=== PATIENT | male | born 1960 | race Caucasian/White ===

== ENCOUNTER 2017-03-31 15:48 | Inpatient (IN) | payer MEDICAID ==
[~2017-03-31] VITALS: Ht 167.6 cm; Wt 127.0 kg
[2017-03-31 19:15] VITALS: TEMP 98.9
[2017-03-31] MEDS ORDERED: PIPER-TAZO 3.375 GM IV (PMX) 50 ML IVPB STA (19:38)
[2017-03-31] MEDS ORDERED: SODIUM CHLORIDE 0.9% 1L BAG IV* STA (19:38)
[2017-03-31] MEDS ORDERED: VANCOMYCIN 1 GM (PMX) 250 ML IVPB STA (19:38)
[2017-03-31 20:01] LABS: BASOPHILS % 0.1 % (0.0-2.0); EOSINOPHILS % 0.3 % (0.0-7.0); HEMATOCRIT 25.5 % (42.0-52.0); HEMOGLOBIN 7.5 g/dl (14.0-18.0); LYMPHOCYTES # 1.7 10^3/ul (0.8-2.9); LYMPHOCYTES % 11.5 % (15.0-51.0); MEAN CORPUSCULAR HEMOGLOBIN 27.2 pg (29.0-33.0); MEAN CORPUSCULAR HGB CONC 29.4 g/dl (32.0-37.0); MEAN CORPUSCULAR VOLUME 92.4 fl (82.0-101.0); MEAN PLATELET VOLUME 9.7 fl (7.4-10.4); MONOCYTE # 1.1 10^3/ul (0.3-0.9); MONOCYTES % 7.4 % (0.0-11.0); NEUTROPHIL # 11.8 10^3/ul (1.6-7.5); NEUTROPHILS % 79.8 % (39.0-77.0); PLATELET COUNT 360 10^3/UL (140-415); RED BLOOD COUNT 2.76 10^6/ul (4.70-6.10); RED CELL DISTRIBUTION WIDTH 15.4 % (11.5-14.5); WHITE BLOOD COUNT 14.8 10^3/ul (4.8-10.8)
[2017-03-31 20:13] LABS: INR 1.16; PROTIME 14.8 Sec (12.2-14.2); PT RATIO 1.2
[2017-03-31 20:14] LABS: PARTIAL THROMBOPLASTIN TIME 42.3 Sec (25.0-35.0)
[2017-03-31 20:19] LABS: ALBUMIN 3.2 g/dl (3.3-4.9); ALBUMIN/GLOBULIN RATIO 0.8; CALCIUM 8.3 mg/dl (8.4-10.2); CREATININE 3.53 mg/dl (0.61-1.24); TOTAL PROTEIN 7.2 g/dl (6.1-8.1)
[2017-03-31 20:28] LABS: TROPONIN-I 0.091 ng/ml (0.00-0.12)
[2017-03-31] MEDS ORDERED: METO-407 PO (20:35)
[2017-03-31] MEDS ORDERED: GLIP5TAB13 PO (20:35)
[2017-03-31] MEDS ORDERED: LISI1TAB8 PO (20:35)
[2017-03-31] MEDS ORDERED: ERGO500037 PO (20:35)
[2017-03-31] MEDS ORDERED: SULF1TAB31 PO (20:35)
[2017-03-31] MEDS ORDERED: FENO160T10 PO (20:45)
[2017-03-31] MEDS ORDERED: OMEP20CA16 PO (20:45)
[2017-03-31] MEDS ORDERED: ASPI-535 PO (20:45)
[2017-03-31] MEDS ORDERED: AMIT10TA6 PO (20:45)
[2017-03-31] MEDS ORDERED: ATOR80TA75 PO (20:45)
[2017-03-31] MEDS ORDERED: HYDR-906 PO (20:45)
[2017-03-31] MEDS ORDERED: NOVO3I SC (20:45)
[2017-03-31] MEDS ORDERED: LANT3I SC (20:45)
[2017-03-31] MEDS ORDERED: METF1000 PO (20:45)
[2017-03-31] MEDS ORDERED: ALBUTEROL 0.5% (NEB) 2.5 MG/0.5 ML AMP INH STA (20:49)
[2017-03-31] MEDS ORDERED: INSULIN REGULAR, HUMAN 100 UNIT/1 ML 3ML VIAL IV STA (20:49)
[2017-03-31] MEDS ORDERED: NA POLYST SULFON 15 GM/60 ML BTL PO STA (20:49)
[2017-03-31] MEDS ORDERED: DEXTROSE 50% 50 ML SYRINGE IV PRN ×3 (21:00→23:45)
--- NOTE | 2017-03-31 21:11 | ERD ---
ER Documentation Chief Complaint Chief Complaint Right foot DM ulcer infection, sent by [facility] HPI 56-year-old male with history of diabetes, hypertension, and bilateral foot ulcers sent in from his wound care clinic for admission. Patient states he initially had an ulcer on his left foot that was being treated. For the past 3 weeks, he has had swelling and an ulcer of his right foot. His symptoms have been worsening and now he has associated cellulitis. When he was evaluated in the clinic, they recommended IV antibiotics and admission. The patient denies any fevers or chills but feels very weak. He complains of mild shortness of breath but no chest pain. He has noticed a new rash all over his body for the past 2 days as well. ROS All systems reviewed and are negative except as per history of present illness. Medications Home Meds Reported Medications Insulin Glargine* (Lantus*) 100 Unit/Ml Soln, 1 UNIT SC QHS, #1 VIAL 03/31/17 Hydrocodone/Acetaminophen ([place] 5-325 Tablet) 1 Each Tablet, 1 EACH PO, TAB 03/31/17 Amitriptyline Hcl* (Amitriptyline Hcl*) 10 Mg Tablet, 10 MG PO QHS, #30 TAB 03/31/17 Atorvastatin* (Atorvastatin*) 80 Mg Tablet, 80 MG PO QHS, #30 TAB 03/31/17 Fenofibrate (Triglide) 160 Mg Tablet, 160 MG PO DAILY, TAB 03/31/17 Insulin Aspart* (Novolog Insulin Pen*) 100 Unit/Ml Soln, 15 UNIT SC WITH MEALS BEDTIME, EA 03/31/17 Metformin Hcl* (Metformin Hcl*) 1,000 Mg Tablet, 1000 MG PO WITH BREAKFAST DINNE , #30 TAB 03/31/17 Omeprazole* (Omeprazole*) 20 Mg Capsule.dr, 20 MG PO QHS, #30 CAP 03/31/17 Aspirin Ec (Aspir 81) 81 Mg Tablet.dr, 81 MG PO DAILY, #30 TAB 03/31/17 Sulfamethoxazole/Trimethoprim* (Bactrim Ds* Tablet) 1 Each Tablet, 1 TAB PO BID , TAB 03/31/17 Metoprolol Tartrate* (Lopressor*) 100 Mg Tablet, 100 MG PO QHS, #60 TAB 03/31/17 Ergocalciferol (Vitamin D2) (VITAMIN D2) 50,000 Unit Capsule, 51105 UNIT PO QMONDAYS, CAP 03/31/17 Glipizide* (Glipizide*) 5 Mg Tablet, 5 MG PO BID, TAB 03/31/17 Lisinopril/Hydrochlorothiazide (Lisinopril-Hctz 20-25 mg Tab) 1 Each Tablet, 1 EACH PO, TAB 03/31/17 Allergies Allergies: Coded Allergies: codeine (Unverified Allergy, Unknown, 03/31/17) Uncoded Allergies: SULFA (Allergy, Unknown, 03/31/17) PMhx/Soc History of Surgery: Yes (Amputation of some L toes, deep L hip abscess) Anesthesia Reaction: No Hx Neurological Disorder: Yes (Diabetic neuropathy) Hx Respiratory Disorders: No Hx Cardiac Disorders: Yes ( hypertension) Hx Psychiatric Problems: No Hx Miscellaneous Medical Probl: Yes (DM) Hx Alcohol Use: No Hx Substance Use: No Hx Tobacco Use: No Smoking Status: Never smoker FmHx Family History: diabetes Physical Exam Vitals Vital Signs Date Time Temp Pulse Resp B/P Pulse Ox O2 Delivery O2 Flow Rate FiO2 03/31/17 21:23 103 18 97 21 03/31/17 19:15 98.9 100 16 113/60 99 Room Air 03/31/17 16:01 98.9 79 20 113/60 98 Physical Exam Const: Obese, nontoxic, appears mildly short of breath but speaking in full sentences Head: Atraumatic Eyes: Normal Conjunctiva ENT: Normal External Ears, Nose and Mouth. Neck: Full range of motion..~ No meningismus. Resp: Clear to auscultation bilaterally, diminished donohue Cardio: Distant heart sounds, regular rate and rhythm, no murmurs Abd: Soft, non tender, non distended. Normal bowel sounds Skin: Petechial rash of bilateral upper and lower extremities and anterior trunk. Right foot with swelling and erythema up to midfoot. Warm to palpation. Large 6 x 6 cm ulcer to the plantar aspect of the right foot, foul- smelling, with packing in place. 1+ DP pulse. Left foot with dressings in place. No erythema of leg. Back: No midline or flank tenderness Ext: Bilateral lower extremity nonpitting edema, worse on the right Neur: Awake and alert Psych: Normal Mood and Affect Result Diagram: 11/15/17 1935 11/15/17 1935 Results 24 hrs Laboratory Tests Test 03/31/17 19:35 03/31/17 21:39 03/31/17 21:48 White Blood Count 14.810^3/ul Red Blood Count 2.7610^6/ul Hemoglobin 7.5g/dl Hematocrit 25.5% Mean Corpuscular Volume 92.4fl Mean Corpuscular Hemoglobin 27.2pg Mean Corpuscular Hemoglobin Concent 29.4g/dl Red Cell Distribution Width 15.4% Platelet Count 26375^3/UL Mean Platelet Volume 9.7fl Neutrophils % 79.8% Lymphocytes % 11.5% Monocytes % 7.4% Eosinophils % 0.3% Basophils % 0.1% Nucleated Red Blood Cells % 0.0/100WBC Neutrophils # 11.810^3/ul Lymphocytes # 1.710^3/ul Monocytes # 1.110^3/ul Eosinophils # 0.010^3/ul Basophils # 0.010^3/ul Nucleated Red Blood Cells # 0.010^3/ul Prothrombin Time 14.8Sec Prothrombin Time Ratio 1.2 INR International Normalized Ratio 1.16 Activated Partial Thromboplast Time 42.3Sec Sodium Level 141mmol/L Potassium Level 7.0mmol/L Chloride Level 113mmol/L Carbon Dioxide Level 11mmol/L Anion Gap 24 Blood Urea Nitrogen 76mg/dl Creatinine 3.53mg/dl Glucose Level 261mg/dl Lactic Acid Level 1.6mmol/L 1.4mmol/L Calcium Level 8.3mg/dl Total Bilirubin 0.0mg/dl Direct Bilirubin 0.00mg/dl Indirect Bilirubin 0.0mg/dl Aspartate Amino Transf (AST/SGOT) 24IU/L Alanine Aminotransferase (ALT/SGPT) 26IU/L Alkaline Phosphatase 192IU/L Troponin I 0.091ng/ml Total Protein 7.2g/dl Albumin 3.2g/dl Globulin 4.00g/dl Albumin/Globulin Ratio 0.80 Bedside Glucose 330mg/dL Current Medications Medications (Trade) Dose Ordered Sig/Monique Route PRN Reason Start Time Stop Time Status Last Admin Dose Admin Sodium Chloride 3720 ml 3,720 ml BOLUS OVER 2 HOURS STAT IV* 03/31/17 19:38 03/31/17 19:41 DC 03/31/17 20:00 Vancomycin HCl 250 ml @ 125 mls/hr ONCE STAT IVPB 03/31/17 19:38 03/31/17 21:37 DC 03/31/17 20:10 Piperacillin Sod/ Tazobactam Sod (Zosyn 3.375gm/ 50 ml (Pmx)) 50 ml @ 100 mls/hr ONCE STAT IVPB 03/31/17 19:38 03/31/17 20:07 DC 03/31/17 19:38 Sodium Polystyrene Sulfonate (Kayexalate) 30 gm ONCE STAT PO 03/31/17 20:49 03/31/17 20:50 DC 03/31/17 21:40 Albuterol (Proventil 0.5% (Neb)) 15 mg ONCE STAT INH 03/31/17 20:49 03/31/17 20:50 DC 03/31/17 21:21 Insulin Human Regular (Humulin R) 10 unit ONCE STAT IV 03/31/17 20:49 03/31/17 20:50 DC 03/31/17 21:31 Dextrose (D50w Syringe) ONCE PRN IV POC BLOOD GLUCOSE <250 MG/DL 03/31/17 21:00 Ondansetron HCl (Zofran Inj) 4 mg ER BRIDGE PRN IV NAUSEA AND/OR VOMITING 03/31/17 21:30 03/31/17 21:43 DC Acetaminophen (Tylenol Tab) 650 mg ER BRIDGE PRN PO MILD PAIN/FEVER 03/31/17 21:30 03/31/17 21:43 DC Sodium Polystyrene Sulfonate (Kayexalate) 30 gm ONCE ONCE PO 03/31/17 21:30 03/31/17 21:31 DC IV Flush (NS 3 ml) 3 ml PER PROTOCOL IV 03/31/17 21:30 Ondansetron HCl (Zofran Inj) 4 mg Q6H PRN IV NAUSEA AND/OR VOMITING 03/31/17 21:30 Acetaminophen (Tylenol Tab) 650 mg Q6H PRN PO PAIN LEVEL 1-3 OR FEVER 03/31/17 21:30 Morphine Sulfate (morphine) 2 mg Q4H PRN IV PAIN LEVEL 7-10 03/31/17 21:30 Docusate Sodium (Colace) 100 mg Q12H PRN PO CONSTIPATION 03/31/17 21:30 Bisacodyl (Dulcolax) 5 mg DAILY PRN PO CONSTIPATION 03/31/17 21:30 Furosemide (Lasix) 20 mg ONCE ONCE IV 03/31/17 22:00 03/31/17 22:01 UNV Miscellaneous Information (* Miscellaneous Pharmacy Order) Discontinue current oral sulfonylur... ONCE ONCE XX 03/31/17 22:00 03/31/17 22:01 UNV Diagnostic Test (Pha) (Accu-Chek) 1 ea 02 XX 04/01/17 02:00 UNV Miscellaneous Information (* Miscellaneous Pharmacy Order) HYPOGLYCEMIA PROTOCOL w... ONCE ONCE XX 03/31/17 22:00 03/31/17 22:01 UNV Insulin Aspart (Novolog Insulin Pen) NOVOLOG *MILD* ALGORITHM WITH MEALS BEDTIME SC 04/01/17 08:00 UNV Miscellaneous Information (* Miscellaneous Pharmacy Order) Discontinue all previ... ONCE ONCE XX 03/31/17 22:00 03/31/17 22:01 UNV Amitriptyline HCl (Elavil) 10 mg QHS PO 04/01/17 21:00 UNV Aspirin (Halfprin) 81 mg DAILY PO 04/01/17 09:00 UNV Atorvastatin Calcium (Lipitor) 80 mg QHS PO 04/01/17 21:00 UNV Metoprolol Tartrate (Lopressor) 100 mg QHS PO 04/01/17 21:00 UNV Miscellaneous Information 20 mg QHS PO 04/01/17 21:00 UNV Hydralazine HCl (Apresoline) 10 mg Q4H PRN IV ELEVATED BLOOD PRESSURE 03/31/17 22:00 UNV Amlodipine Besylate (Norvasc) 5 mg DAILY PO 04/01/17 09:00 UNV Procedures/MDM EMERGENT LABS AND DIAGNOSTIC STUDIES: Lab Results above were reviewed and interpreted by me. CBC: Leukocytosis, anemia CMP: Acute renal failure, metabolic acidosis, hyperkalemia, hyperglycemia Troponin within normal limits Lactate within normal limits 12-lead EKG was interpreted by Gillian Metzger MD: Sinus tachycardia with ventricular rate of 106 beats per minute Right bundle branch block, left anterior fascicular block No acute ST or T wave changes suggestive of acute ischemia or STEMI. Radiology Results as interpreted by Radiology below were reviewed by Vadim Metzger MD: CXR: IMPRESSION: 1. Low lung volumes with no definite consolidation. 2. Elevation of the right hemidiaphragm. Rafiq Alvarado Physician Date Time Electronically viewed and signed by Rafiq Alvarado Physician on 03/31/2017 21:15 Initial Nursing notes reviewed. Previous Medical Records requested via the Electronic Health Record. EMERGENCY DEPARTMENT COURSE / MEDICAL DECISION MAKING: This is a very ill patient with multiple acute medical issues. He initially presented for right foot cellulitis associated with a diabetic wound. His vitals were notable for mild tachycardia, but he was afebrile. Sepsis workup was initiated. IV fluids and broad-spectrum antibiotics were given. Given his petechiae, I have a high suspicion for bacteremia. He was noted to have leukocytosis but no lactic acidosis. His labs also showed acute renal failure with hyperkalemia and acidosis. Hyperkalemia was treated with insulin, dextrose , Kayexalate. He had no EKG changes requiring bicarb or calcium. Patient has remained stable while in the ED. However he is not safe for discharge and will require admission for further workup of his renal failure and treatment of his acute infection. Patient's infectious symptoms have not stabilized and the patient is at risk of rapid decompensation. The patient will be admitted for careful hydration, antibiotic therapy, and infectious source control. Severe Sepsis Assessment: Infectious Source: Cellulitis End organ damage indicated by: Pearl Diver > 2.0 Severe Sepsis Managment: Blood Cultures X 2 before broad spectrum antibiotics initiated within 3 hours of recognition. 30 ml/kg NS bolus Completed Initial Lactate: normal Repeat Lactate not indicated as initial < 2.0 Critical Care: Time: 40 minutes Treatments/Evaluations: Emergent fluid management, while maintaining close respiratory support. Immediate broad spectrum antibiotic therapy. Simultaneous assessment for possible sources in order to direct therapy. Consideration for invasive and chemical support to prevent respiratory or cardiac collapse. Septic Shock Assessment (1 hour post 30 ml/kg fluid bolus): Hypotension (SBP < 90 or 40 mmHg drop, MAP < 65): No Lactic acid > 4.0 No Accepting Care Team: Current data and ongoing care discussed. Time: Time of admission Primary Provider: Zachery Consulting: none Outstanding Data: cultures Departure Diagnosis: Primary Impression: Sepsis Sepsis type: sepsis due to unspecified organism Qualified Code: A41.9 - Sepsis, due to unspecified organism Additional Impressions: Anemia Anemia type: other cause Other causes of anemia: other cause, not classified Qualified Code: D64.89 - Anemia due to other cause, not classified Acute renal failure Acute renal failure type: unspecified Qualified Code: N17.9 - Acute renal failure, unspecified acute renal failure type Acute hyperkalemia Cellulitis and abscess of leg Diabetic ulcer of foot associated with diabetes mellitus due to underlying condition, with necrosis of muscle Diabetic foot ulcer location: unspecified part of foot Laterality: unspecified laterality Qualified Code: E08.621 - Diabetic ulcer of foot associated with diabetes mellitus due to underlying condition, with necrosis of muscle, unspecified laterality, unspecified part of foot Condition: Critical TATIANA METZGER MD Mar 31, 2017 21:11
--- NOTE | 2017-03-31 21:15 | RADRPT ---
PROCEDURE: XR Chest. CLINICAL INDICATION: Possible Sepsis cough. TECHNIQUE: Single frontal view of the chest was obtained COMPARISON: None FINDINGS: The heart is borderline enlarged. There are low lung volumes with no focal consolidations, pleural effusions, or pneumothorax. Degenerative changes of the spine and shoulder joints are present. There is elevation of the right h emidiaphragm. IMPRESSION: 1. Low lung volumes with no definite consolidation. 2. Elevation of the right hemidiaphragm. RPTAT:AAJJ Physician Jeovany Date Time Electronically viewed and signed by Rafiq Alvarado Physician on 03/31/2017 21:15 QL/
[2017-03-31] MEDS ORDERED: BISACODYL (EC) 5 MG TAB PO PRN (21:30)
[2017-03-31] MEDS ORDERED: NACL 0.9% 3 ML SYG IV SCH (21:30)
[2017-03-31] MEDS ORDERED: NA POLYST SULFON 15 GM/60 ML BTL PO ONE (21:30)
[2017-03-31] MEDS ORDERED: ACETAMINOPHEN 325 MG TAB PO PRN (21:30)
[2017-03-31] MEDS ORDERED: ONDANSETRON 4 MG INJ IV PRN ×2 (21:30)
[2017-03-31] MEDS ORDERED: DOCUSATE SODIUM 100 MG CAP PO PRN (21:30)
[2017-03-31] MEDS ORDERED: hydrALAzine 20 MG INJ IV PRN (22:00)
[2017-03-31] MEDS ORDERED: FUROSEMIDE 20 MG INJ IV ONE (22:00)
--- NOTE | 2017-03-31 22:16 | RADRPT ---
PROCEDURE: US Retroperitoneum CLINICAL INDICATION: Acute renal failure TECHNIQUE: Multiple sonographic images of the kidneys and bladder were obtained. Evaluation was p erformed as well with patel scale and color and Doppler evaluation using a curved array transducer. The images were reviewed on a high-resolution PACS workstation. COMPARISON: No prior studies are available for comparison. FINDINGS: The kidneys are well visualized. The right kidney measures 12.5 cm in length. Nonobstructive 7 mm c alculus is identified in the right renal mid pole. The left kidney measures 13.2 cm in length. No s olid renal mass, hydronephrosis, or perinephric fluid collection is identified. The bladder is grossly unremarkable. Splenomegaly is noted measuring 14.5 cm. IMPRESSION: 1. Right kidney demonstrates a nonobstructive 7 mm calculus. No hydronephrosis or obstructive uropa thy is seen bilaterally. 2. Splenomegaly is noted measuring 14.5 cm. RPTAT: HDWR .Sesar Tang MD, MD Date Time Electronically viewed and signed by .Sesar Tang MD, on 03/31/2017 22:16 .R/
--- NOTE | 2017-03-31 22:49 | HP ---
Date/Time of Note Date/Time of Note DATE: 03/31/17 TIME: 22:49 Assessment/Plan VTE Prophylaxis VTE Prophylaxis Intervention: SCD's Lines/Catheters IV Catheter Type (from Nrs): Saline Lock Assessment/Plan Chief Complaint/Hosp Course This is a 56-year-old male being admitted to the telemetry floor for but subsequently transferred to the ICU: #1. sepsis: Patient's vitals began to deteriorate as he was in the ED. Patient has an underlying infection of his right toe which is suspicious for osteomyelitis. He also has a lactic acidosis. At the current time will provide IV fluid hydration. Will put patient on empiric coverage of antibiotics and vancomycin and cefepime, renal dosage. #2 lactic acidosis: Likely secondary to underlying infection and/or dehydration and/or possible underlying DKA. At the current time patient does have a blood glucose above 250 and a bicarb of 10. I will obtain ABG to assess the pH. He may benefit from being on insulin sliding scale though his acidosis may mostly be from the underlying infection. Trend lactate. #3 Suspect osteomyelitis of the right foot: Patient x-ray of the right foot suspicious for osteomyelitis. At the current time will treat as per #1. Will get an MRI of the foot. Will get a podiatry consult. #4 acute renal failure: We do not have any previous renal function test. Patient denies any previous history of any kidney problems. At the current time he is still producing urine. Will get renal ultrasound. Will check urine microscop labs.ic urinary sodium. Patient was also on SILVESTRE inhibitor as well as recently taking Bactrim we will hold these medications at this time as they could have worsened his renal function. Osmolality. Will get renal consult. #5 Insulin-dependent diabetes mellitus: Initially the plan was to treat with aggressive fluid hydration however based on her nuchal exam findings at the current time I do feel like he will warrant a better outcome by going to the ICU and being started on insulin drip as he does appear to be in DKA. He will be transferred to the ICU #6 Normocytic anemia: Likely secondary to underlying kidney disease. Will check iron studies. Will check fecal occult stool. #7: Hypertension: We will hold his combination medication of SILVESTRE inhibitor and HCTZ at this time. Will start him on a low-dose of Norvasc. Continue metoprolol. #8 DVT GI prophylaxis: SCDs, Protonix Further treatment strategy will be implemented as per the clinical course Greater than 45 minutes of critical care time was spent on the care management of this patient. Problems: HPI/ROS Admit Date/Time Admit Date/Time Hx of Present Illness cc: foot infection This is a 56-year-old male with history of diabetes, hypertension, and bilateral foot ulcers sent in from his wound care clinic for admission. Patient states he initially had an ulcer on his left foot that was being treated. For the past 3 weeks, he has had swelling and an ulcer of his right foot. His symptoms have been worsening and now he has associated cellulitis. When he was evaluated in the clinic, they recommended IV antibiotics and admission. The patient denies any fevers or chills but feels very weak. He complains of mild shortness of breath but no chest pain. He has noticed a new rash all over his body for the past 2 days as well. During my examination the patient's bilateral feet were were rewrapped by the ER nurse was not able to evaluate the feet. I was told by the ER nurse that the right foot did have a significant wound with drainage apparent. The dressing also appears to be wet. Patient also reports that he has started noticing a rash around his body over the last week or so ever since he started noticing his right foot getting worse. Allergies: Sulfa, codeine Medications: See JOVANI DUKES Const: As per HPI Eyes : No pain discharge or redness or change in visual acuity ENT: No pain, sore throat, congestion, congestion, dysphagia or discharge Respiratory: No shortness of breath, cough, sputum, wheezing, or pleuritic pain Cardiovascular: No chest pain, palpitation, PND, or edema GI : no change in appetite, abdominal pain, nausea, vomiting, diarrhea, constipation, or change in the color his stool Genitourinary: No dysuria, hematuria, flank pain , discharge or CVA tenderness Musculoskeletal: As per HPI Skin: As per HPI Neuro: No headache, dizziness, syncope, seizure, focal weakness Endocrine: No polyuria, polydipsia, temperature intolerance Psych: No hallucination, depression, anxiety or suicidal ideation PMH/Family/Social Past Medical History Chronic left foot wound, diabetes mellitus, insulin-dependent diabetes mellitus , hypertension, hyperlipidemia, history of MRSA infection of the right hip Past Surgical History Right hip debridement secondary to MRSA infection, partial left foot toe amputation Family History Significant Family History: heart disease Social History Smoking Status: Never smoker Drug Use: none Exam/Review of Systems Vital Signs Vitals Vital Signs Date Time Temp Pulse Resp B/P Pulse Ox O2 Delivery O2 Flow Rate FiO2 03/31/17 21:23 103 18 97 21 03/31/17 19:15 98.9 113/60 Room Air Exam Exam General: Patient is a well-developed male sitting in bed in some mild distress from pain HEENT: Atraumatic, normocephalic. The pupils are equal, round and reactive. Extraocular motor are intact Neck: Supple with full range of motion. No rigidity or meningismus Lungs: Clear to auscultation bilaterally no crackles rales or wheezing Heart: Sinus tachycardia, no overt murmurs appreciated Abdomen: Soft , nontender, nondistended , bowel sounds are present. No guarding no rebound tenderness , No masses or organomegaly. No costovertebral temporal angle mass Extremities: Bilateral lower extremity feet wrapped in new dressing. Left foot walking boot. Neurologic: Normal mental status, speech normal, cranial nerves II through XII are intact, motor and sensory are intact, no focal weakness Skin: Scattered pinpoint petechial rash the bilateral upper and lower extremities. Right lower extremity cellulitis at the level of the jones down to the foot. I was not able to examine the bilateral left and right feet secondary to the fresh wrapping/gauze that was placed. The dressing of the right lower foot though was wet soon after the dressing change. Pictures were reviewed that were taken by the RN: There is an extensive right foot plantar open wound that looks severely infected. There is also a smaller left foot plantar wound, please see pictures for better description. Additional Comments PROCEDURE: US Retroperitoneum CLINICAL INDICATION: Acute renal failure TECHNIQUE: Multiple sonographic images of the kidneys and bladder were obtained. Evaluation was performed as well with patel scale and color and Doppler evaluation using a curved array transducer. The images were reviewed on a high-resolution PACS workstation. COMPARISON: No prior studies are available for comparison. FINDINGS: The kidneys are well visualized. The right kidney measures 12.5 cm in length. Nonobstructive 7 mm calculus is identified in the right renal mid pole. The left kidney measures 13.2 cm in length. No solid renal mass, hydronephrosis, or perinephric fluid collection is identified. The bladder is grossly unremarkable. Splenomegaly is noted measuring 14.5 cm. IMPRESSION: 1. Right kidney demonstrates a nonobstructive 7 mm calculus. No hydronephrosis or obstructive uropathy is seen bilaterally. 2. Splenomegaly is noted measuring 14.5 cm. RPTAT: HDWR .Sesar Tang MD, Date Time Electronically viewed and signed by .Sesar Tang MD, MD on 03/31/2017 22: 16 .R/ CC: FEDERICO CUNNINGHAM PROCEDURE: X-ray left foot. CLINICAL INDICATION: Infection. TECHNIQUE: 3 views left foot. COMPARISON: None FINDINGS: Amputations of the fourth and fifth rays at the proximal metatarsals. Likely soft tissue defect over the region of amputation of the fourth metatarsal. No definite plain film evidence of osteomyelitis, and if there is concern for osteomyelitis recommend MRI correlation. No acute fracture or dislocation. Plantar and posterior dorsal calcaneal enthesophytes. Atherosclerotic calcifications in the proximal plantar fascia. IMPRESSION: No definite plain film evidence of osteomyelitis, and if there is concern for osteomyelitis recommend MRI correlation. RPTAT: UU Physician Tarun Date Time Electronically viewed and signed by Physician Tarun on 03/31/2017 23:14 RS/ CC: FEDERICO CUNNINGHAM PROCEDURE: XR Foot. CLINICAL INDICATION: Trauma. TECHNIQUE: AP, lateral and oblique views of the right foot was obtained. COMPARISON: There are no similar studies submitted for comparison. FINDINGS: There is a large ulceration along the plantar aspect of the foot. Periosteal reaction surrounds the second through fourth metatarsal bones. There is soft tissue swelling throughout the foot. There is no acute fracture or dislocation. The joint spaces are within normal limits. IMPRESSION: Likely osteomyelitis of the second through fourth metatarsal bones deep to a large ulcer along the plantar aspect of the foot. RPTAT: HIKT .Chester Castillo MD, Date Time Electronically viewed and signed by .Chester Castillo MD, on 03/31/2017 23:17 .T/ CC: FEDERICO CUNNINGHAM PROCEDURE: XR Chest. CLINICAL INDICATION: Possible Sepsis cough. TECHNIQUE: Single frontal view of the chest was obtained COMPARISON: None FINDINGS: The heart is borderline enlarged. There are low lung volumes with no focal consolidations, pleural effusions, or pneumothorax. Degenerative changes of the spine and shoulder joints are present. There is elevation of the right hemidiaphragm. IMPRESSION: 1. Low lung volumes with no definite consolidation. 2. Elevation of the right hemidiaphragm. RPTAT:AAJJ Physician Jeovany Date Time Electronically viewed and signed by Physician Jeovany on 03/31/2017 21:15 QL/ CC: TATIANA METZGER MD 12-lead EKG was interpreted by Gillian Metzger MD: Sinus tachycardia with ventricular rate of 106 beats per minute Right bundle branch block, left anterior fascicular block No acute ST or T wave changes suggestive of acute ischemia or STEMI. As per ED physician documentation Labs Result Diagram: 03/31/17193403/31/171934 Medications Medications Current Medications Dextrose (D50w Syringe) ONCE PRN IV POC BLOOD GLUCOSE <250 MG/DL; Start 03/31 at 21:00 Ondansetron HCl (Zofran Inj) 4 mg Q6H PRN IV NAUSEA AND/OR VOMITING; Start at 21:30 Acetaminophen (Tylenol Tab) 650 mg Q6H PRN PO PAIN LEVEL 1-3 OR FEVER; Start 03/31/17 at 21:30 Morphine Sulfate (morphine) 2 mg Q4H PRN IV PAIN LEVEL 7-10; Start 03/31/17 at 21:30 Docusate Sodium (Colace) 100 mg Q12H PRN PO CONSTIPATION; Start 03/31/17 at 21 :30 Bisacodyl (Dulcolax) 5 mg DAILY PRN PO CONSTIPATION; Start 03/31/17 at 21:30 Furosemide (Lasix) 20 mg ONCE ONCE IV ; Start 03/31/17 at 22:00; Stop at 22:01; Status UNV Miscellaneous Information (* Miscellaneous Pharmacy Order) Discontinue current oral sulfonylur... ONCE ONCE XX ; Start 03/31/17 at 22:00; Stop 03/31/17 at 22:01; Status UNV Diagnostic Test (Pha) (Accu-Chek) 1 ea 02 XX ; Start 04/01/17 at 02:00; Status UNV Miscellaneous Information (* Miscellaneous Pharmacy Order) HYPOGLYCEMIA PROTOCOL w... ONCE ONCE XX ; Start 03/31/17 at 22:00; Stop 03/31/17 at 22:01 ; Status UNV Miscellaneous Information (* Miscellaneous Pharmacy Order) Discontinue all previ... ONCE ONCE XX ; Start 03/31/17 at 22:00; Stop 03/31/17 at 22:01; Status UNV Amitriptyline HCl (Elavil) 10 mg QHS PO ; Start 04/01/17 at 21:00; Status UNV Aspirin (Halfprin) 81 mg DAILY PO ; Start 04/01/17 at 09:00; Status UNV Atorvastatin Calcium (Lipitor) 80 mg QHS PO ; Start 04/01/17 at 21:00; Status UNV Metoprolol Tartrate (Lopressor) 100 mg QHS PO ; Start 04/01/17 at 21:00; Status UNV Miscellaneous Information 20 mg QHS PO ; Start 04/01/17 at 21:00; Status UNV Hydralazine HCl (Apresoline) 10 mg Q4H PRN IV ELEVATED BLOOD PRESSURE; Start 03/31/17 at 22:00; Status UNV Amlodipine Besylate (Norvasc) 5 mg DAILY PO ; Start 04/01/17 at 09:00; Status UNV FEDERICO CUNNINGHAM Mar 31, 2017 22:49
[2017-03-31] MEDS ORDERED: VANCOMYCIN IV PER PHARMACY XX SCH (23:00)
--- NOTE | 2017-03-31 23:14 | RADRPT ---
PROCEDURE: X-ray left foot. CLINICAL INDICATION: Infection. TECHNIQUE: 3 views left foot. COMPARISON: None FINDINGS: Amputations of the fourth and fifth rays at the proximal metatarsals. Likely soft tissue defect over the region of amputation of the fourth metatarsal. No definite plain film evidence of osteomyelitis , and if there is concern for osteomyelitis recommend MRI correlation. No acute fracture or dislocat ion. Plantar and posterior dorsal calcaneal enthesophytes. Atherosclerotic calcifications in the proximal plantar fascia. IMPRESSION: No definite plain film evidence of osteomyelitis, and if there is concern for osteomyelitis recommen d MRI correlation. RPTAT: UU Physician Tarun Date Time Electronically viewed and signed by Physician Tarun on 03/31/2017 23:14 RS/
--- NOTE | 2017-03-31 23:18 | RADRPT ---
PROCEDURE: XR Foot. CLINICAL INDICATION: Trauma. TECHNIQUE: AP, lateral and oblique views of the right foot was obtained. COMPARISON: There are no similar studies submitted for comparison. FINDINGS: There is a large ulceration along the plantar aspect of the foot. Periosteal reaction surrounds the second through fourth metatarsal bones. There is soft tissue swelling throughout the foot. There is no acute fracture or dislocation. The joint spaces are within normal limits. IMPRESSION: Likely osteomyelitis of the second through fourth metatarsal bones deep to a large ulcer along the p lantar aspect of the foot. RPTAT: HIKT .Chester Castillo MD, Date Time Electronically viewed and signed by .Chester Castillo MD, on 03/31/2017 23:17 .T/
[2017-03-31] MEDS ORDERED: GLUCAGON 1 MG INJ IM PRN (23:45)
[2017-03-31] MEDS ORDERED: GLUCOSE GEL 15 GRAM TUBE BUCCAL PRN (23:45)
[2017-03-31] MEDS ORDERED: GLUCOSE GEL 15 GRAM TUBE PO PRN ×2 (23:45)
[2017-03-31] MEDS: morphine 2 MG INJ IV PRN (23:46)
[2017-04-01] VITALS (61 sets, daily range): BP systolic 84–178; BP diastolic 50–92; PULSE 72–125; RESP 10–28; Ht 167.6 cm; Wt 127.0 kg
[2017-04-01] MEDS ORDERED: VANCOMYCIN 1 GM in NS 250 ML IVPB ONE
[2017-04-01 00:11] LABS: CALCIUM 8.4 mg/dl (8.4-10.2); CREATININE 3.42 mg/dl (0.61-1.24); POTASSIUM 5.6 mmol/L (3.5-5.1)
[2017-04-01] MEDS ORDERED: ACCU-CHEK XX SCH (02:00)
[2017-04-01] MEDS ORDERED: LIDOCAINE 1% (MPF) 5 ML VIAL SC ONE (02:00)
[2017-04-01] MEDS ORDERED: SOD CHLORIDE 0.9% 1,000 ML IV SCH ×2 (02:00→07:30)
[2017-04-01] MEDS ORDERED: CEFEPIME 2GM/50 ML (PMX) 50 ML IVPB ONE (03:00)
[2017-04-01] MEDS: morphine 2 MG INJ IV PRN ×2 (04:16→18:33)
[2017-04-01 04:53] LABS: AADO2 Arterial 42.2 mmHg (7.0-24.0); Allen Test ACCEPTAB; Arterial Base Excess -13.4 mmol/L (-3.0-3); Arterial COHb 1.8 % (0.0-3.0); Arterial Fraction of Oxyhgb 94.9 % (93.0-99.0); Arterial HCO3 13.1 mmol/L (22.0-26.0); Arterial MetHb 0.1 % (0.0-1.5); Arterial Total Hemglobin 8.3 g/dl (12.0-18.0); MODE NASAL CANNULA
[2017-04-01] MEDS ORDERED: PIPER-TAZO 2.25 GM (PMX) 50 ML IVPB SCH (06:00)
[2017-04-01 06:44] LABS: ABNORMAL IP MESSAGE 1; BASOPHILS % 0.2 % (0.0-2.0); HEMATOCRIT 22.1 % (42.0-52.0); LYMPHOCYTES # 0.8 10^3/ul (0.8-2.9); LYMPHOCYTES % 7.3 % (15.0-51.0); MEAN CORPUSCULAR HEMOGLOBIN 27.2 pg (29.0-33.0); MEAN CORPUSCULAR HGB CONC 29.9 g/dl (32.0-37.0); MEAN CORPUSCULAR VOLUME 90.9 fl (82.0-101.0); MEAN PLATELET VOLUME 9.9 fl (7.4-10.4); MONOCYTE # 0.9 10^3/ul (0.3-0.9); MONOCYTES % 7.6 % (0.0-11.0); NEUTROPHIL # 9.5 10^3/ul (1.6-7.5); PLATELET COUNT 294 10^3/UL (140-415); POSITIVE DIFF @See below; RED BLOOD COUNT 2.43 10^6/ul (4.70-6.10); RED CELL DISTRIBUTION WIDTH 15.4 % (11.5-14.5); WHITE BLOOD COUNT 11.3 10^3/ul (4.8-10.8)
[2017-04-01 06:49] LABS: HEMOGLOBIN 6.6 g/dl (14.0-18.0)
[2017-04-01 06:51] LABS: PATH REVIEW? YES
[2017-04-01 07:02] LABS: IRON 15 ug/dl (35-150)
[2017-04-01 07:12] LABS: TOTAL IRON BINDING CAPACITY 263 ug/dl (241-421)
[2017-04-01 07:23] LABS: ALBUMIN 3.1 g/dl (3.3-4.9); ALBUMIN/GLOBULIN RATIO 0.77; CALCIUM 7.7 mg/dl (8.4-10.2); CHOL/HDL RATIO 5.5 RATIO; CREATININE 3.54 mg/dl (0.61-1.24); TOTAL PROTEIN 7.1 g/dl (6.1-8.1)
[2017-04-01 07:29] LABS: POTASSIUM 6.4 mmol/L (3.5-5.1)
[2017-04-01] MEDS: ACCU-CHEK XX SCH ×21 (07:30→23:41)
[2017-04-01] MEDS ORDERED: DEXTROSE 50% 50 ML SYRINGE IV PRN ×4 (07:30)
[2017-04-01 07:46] LABS: ANISOCYTOSIS 1+ (0-0); MICROCYTOSIS 1+ (0-0); MONOCYTES % (M) 4 % (0-11); PLATELET ESTIMATE NORMAL; POIKILOCYTOSIS 1+ (0-0); POLYCHROMASIA 3+ (0-0)
[2017-04-01] MEDS ORDERED: INSULIN ASPART [NOVOLOG] 3 ML PEN SC SCH ×3 (08:00→09:00)
[2017-04-01] MEDS ORDERED: INSULIN HUMAN REGULAR 100 UNIT in SOD CHLORIDE 0.9% 99 ML IV SCH (08:00)
[2017-04-01] MEDS ORDERED: PENDING SANTYL ORDER FOR WOUND CARE XX PRN (08:00)
[2017-04-01 08:17] LABS: THYROID STIMULATING HORMONE 1.92 MIU/L (0.465-4.680)
[2017-04-01] MEDS ORDERED: PANTOPRAZOLE 40 MG INJ IV SCH (08:30)
[2017-04-01] MEDS ORDERED: AMLODIPINE 5 MG TAB PO SCH (09:00)
[2017-04-01 10:40] LABS: CALCIUM 7.8 mg/dl (8.4-10.2); CREATININE 3.59 mg/dl (0.61-1.24); POTASSIUM 5.7 mmol/L (3.5-5.1)
[2017-04-01 10:45] LABS: ADD UMIC YES; UR ASCORBIC ACID NEGATIVE (NEGATIVE); UR BACTERIA FEW /HPF (NONE SEEN); UR BILIRUBIN (Dip) NEGATIVE (NEGATIVE); UR BLOOD (Dip) 1+ mg/dL (NEGATIVE); UR CLARITY CLEAR (CLEAR); UR COLOR STRAW (YELLOW); UR GLUCOSE (Dip) 1+ mg/dL (NEGATIVE); UR KETONES (Dip) NEGATIVE (NEGATIVE); UR LEUKOCYTE ESTERASE (Dip) NEGATIVE Leu/ul (NEGATIVE); UR MUCUS FEW /HPF (NONE SEEN); UR NITRITE (Dip) NEGATIVE (NEGATIVE); UR RBC 4 /HPF (0-5); UR SPECIFIC GRAVITY (Dip) 1.012 (1.003-1.030); UR TOTAL PROTEIN (Dip) NEGATIVE (NEGATIVE); UR UROBILINOGEN (Dip) NEGATIVE (NEGATIVE)
--- NOTE | 2017-04-01 11:37 | CONS ---
DATE OF ADMISSION: 03/31/2017 DATE OF CONSULTATION: 04/01/2017 TYPE OF CONSULTATION: Infectious Disease. REASON FOR CONSULTATION: Antibiotic management. HISTORY OF PRESENT ILLNESS: Colby Levy is a 56-year-old male who was transferred to the intensive care unit with sepsis and DKA. Past problems include: 1. Adult-onset diabetes mellitus. 2. Hypertension. 3. Bilateral foot ulcers. The patient notes that he had an ulcer on his left foot that was being t reated, but for the last 3 weeks he has had swelling and ulcers of his right foot. His symptoms hav e been worsening and he now comes in with cellulitis with diabetic ulcers. He denies fever or chills. He has some mild shortness of breath both feet were wrapped by the ER nu rse, but the right foot and significant wound and drainage. On admission, his white count was 14.8, H and H of 7.5 and 25.5, platelet count 360,000. His white count today is 11.3, but is H and H of 6.6 and 22.1, significant anemia. He has 75 polys and 12 ban ds, more significant left shift. His BUN and creatinine are 74/3.42. Chest x-ray shows low lung volumes with no definite consolidation. There is elevation of the right hemidiaphragm. Foot x-ray shows likely osteomyelitis of the 2nd through the 4th metatarsal bones du e to a large ulcer along the plantar aspect of the right foot. The left foot shows no definite plai n film evidence of osteomyelitis, but if there is concern for osteomyelitis, recommend MRI correlati on. A renal ultrasound was done which showed splenomegaly and right kidney demonstrates an non-obst ructive 7 mm calculus, no hydronephrosis or obstructive uropathy is seen. PAST MEDICAL HISTORY: Operations as outlined. FAMILY HISTORY: Noncontributory. SURGICAL HISTORY: He had right hip debridement secondary to methicillin-resistant Staphylococcus au reus infection. He had partial left foot toe amputation. He has a chronic left foot wound, and as noted, a diabetic ulcer of his right foot. FAMILY HISTORY: Noncontributory. SOCIAL HISTORY: He does not smoke, drink or abuse drugs. ALLERGIES: 1. SULFA. 2. CODEINE. MEDICATIONS: Per chart. REVIEW OF SYSTEMS: Noncontributory. PHYSICAL EXAMINATION: GENERAL: The patient is a well-developed, well-nourished male who is in some mild distress. VITAL SIGNS: Stable. He is afebrile. SKIN: Scattered pinpoint petechial rash over the upper and lower extremities. HEENT: Within normal limits. NECK: Supple. LYMPH NODES: None palpable. CHEST: Decreased breath sounds at the bases. HEART: Without murmur or gallop. ABDOMEN: Soft, nontender, without organosplenomegaly or masses. EXTREMITIES: Without cyanosis, clubbing, or edema. Bilateral lower extremities: Feet are wrapped in new dressings. He has a left foot walking boot. Right lower extremity cellulitis extends from t he jones down to the foot. He has nonpitting edema, worse on the right than the left. The right muriel t has swelling and erythema up to the mid foot. He has a large 6 x 6 cm ulcer on the plantar aspect of the right foot, which is foul smelling. IMPRESSION AND PLAN: The patient currently has osteomyelitis of at least the right lower extremity. He is currently on vancomycin and he was on cefepime. He is now on Zosyn. I will continue him on this regimen. I will dictate my findings to the hospitalist. Dictated By: IRENE FOSS MD, JD/ARAVIND Conf#: [id number] DID#: [id number] CC: FEDERICO CUNNINGHAM MD;*End*
[2017-04-01] MEDS ORDERED: OXYCODONE/ACETAMINOPHEN (10/325) TAB PO ONE (12:00)
[2017-04-01] MEDS ORDERED: LORAZEPAM 2 MG INJ ONE (12:02)
[2017-04-01] MEDS: LORAZEPAM 2 MG INJ IV PRN ×2 (12:10→21:18)
--- NOTE | 2017-04-01 12:42 | RADRPT ---
PROCEDURE: Chest x-ray CLINICAL INDICATION: PICC line placement TECHNIQUE: Chest single view COMPARISON: 03/31/2017 FINDINGS: There is interval placement right arm PICC line with tip at the right atrial SVC junction. The heart is normal in size. The pulmonary vessels are normal in caliber. Lung volumes are low with linear bibasilar atelectasis. The costophrenic angles are sharp. The visualized bony thorax is unremarkabl e. IMPRESSION: 1. Right arm PICC line with tip at the right atrial SVC junction. 2. Low lung volumes with basilar atelectasis RPTAT: HH .Jamshid Pryor MD, MD Date Time Electronically viewed and signed by .Jamshid Pryor MD, on 04/01/2017 12:41 .W/
--- NOTE | 2017-04-01 12:42 | RADRPT ---
PROCEDURE: Ultrasound guidance for placement of needle in right upper extremity vein. CLINICAL INDICATION: Venous access. TECHNIQUE: Limited sonography of the right upper extremity was performed. Ultrasound images were recorded and stored in the patient's medical record. COMPARISON: None. FINDINGS: The ultrasound images demonstrate a patent right upper extremity vein. The PICC line was inserted b y the PICC line nurse. IMPRESSION: 1. Ultrasound guidance for a needle placement in a right upper extremity vein. 2. The visualized right upper extremity vein is patent. RPTAT: QQ .Ricky James MD, MD Date Time Electronically viewed and signed by .Ricky James MD, MD on 04/01/2017 12:41 .R/
[2017-04-01 14:04] LABS: CALCIUM 7.8 mg/dl (8.4-10.2); CREATININE 3.59 mg/dl (0.61-1.24); POTASSIUM 5.2 mmol/L (3.5-5.1)
[2017-04-01] MEDS: PIPER-TAZO 2.25 GM (PMX) 50 ML IVPB SCH ×2 (14:20→21:54)
[2017-04-01] MEDS: ASPIRIN (EC) 81 MG TAB PO SCH (14:20)
--- NOTE | 2017-04-01 14:20 | PN ---
Date/Time of Note Date/Time of Note DATE: 04/01/17 TIME: 13:45 Assessment/Plan VTE Prophylaxis VTE Prophylaxis Intervention: LMWH Lines/Catheters IV Catheter Type (from Nrsg): PICC Line Central line still needed: Yes Assessment/Plan Chief Complaint/Hosp Course 56 yo male with h/o DMII, OM of foot in nonhealing ulcer presenting with sepsis , hyperglycemia, RENZO from cellulitis surrounding diabetes foot infection ID: Infected diabetic foot ulcer, cellulitis, sepsis - Continue vanco and zosyn for now - Follow up blood cultures - TTE to assess for BE - MRI to assess for underlying abscess, etc, suspect will need amputation PULM: Acute respiratory distress - Edita mild pulmonary edema, lasix if needed, monitor for now RENAL RENZO, metabolic acidosis, hyperkalemia - Unclear etiology, edita 2/2 SILVESTRE/bactrim and sepsis ATN - Monitor renal function - Dr Valerio following HEME: Acute blood loss anemia - Transfuse 1 unit PRBCs now, then PRN Hgb < 7 DMII w hyperglycemia - no ketones to suggest DKA - Insulin drip to euglycemia, takes very high doses of insulin at home CV: - Continue home aspirin, statin, metoprolol. Hold BP meds ICU > 35 minutes Problems: Subjective 24 Hr Interval Summary Free Text/Dictation Move to ICU for mild hypotension which resolved Currently a bit tachypneic, mild SOB which was not present on admission he says Pain in R foot is major complaint Exam/Review of Systems Vital Signs Vitals Vital Signs Date Time Temp Pulse Resp B/P Pulse Ox O2 Delivery O2 Flow Rate FiO2 04/01/17 13:00 111 25 137/74 99 Nasal Cannula 04/01/17 12:00 98.1 04/01/17 08:05 5.0 03/31/17 21:23 21 Intake and Output 03/31/17 03/31/17 04/01/17 14:59 22:59 06:59 Intake Total 400 ml Output Total 800 ml Balance -400 ml Exam Slightly tachypneic appearing, nonlabored +++ JVD Tachy, regular, no clear m/r/g Obese abdomen, soft nt nd R foot wound wrapped but appreciated photo in chart Cellulitic area of R leg has receded greatly Red petechial lesions of legs and arms noted Results Result Diagram: 04/01/17 0527 04/01/17 1018 Results 24 hrs Laboratory Tests Test 03/31/17 19:35 03/31/17 21:39 03/31/17 21:48 03/31/17 23:00 White Blood Count 14.8 H Red Blood Count 2.76 L Hemoglobin 7.5 L Hematocrit 25.5 L Mean Corpuscular Volume 92.4 Mean Corpuscular Hemoglobin 27.2 L Mean Corpuscular Hemoglobin Concent 29.4 L Red Cell Distribution Width 15.4 H Platelet Count 360 Mean Platelet Volume 9.7 Neutrophils % 79.8 H Lymphocytes % 11.5 L Monocytes % 7.4 Eosinophils % 0.3 Basophils % 0.1 Nucleated Red Blood Cells % 0.0 Neutrophils # 11.8 H Lymphocytes # 1.7 Monocytes # 1.1 H Eosinophils # 0.0 Basophils # 0.0 Nucleated Red Blood Cells # 0.0 Prothrombin Time 14.8 H Prothrombin Time Ratio 1.2 INR International Normalized Ratio 1.16 Activated Partial Thromboplast Time 42.3 H Sodium Level 141 143 Potassium Level 7.0 *H 5.6 H Chloride Level 113 H 115 H Carbon Dioxide Level 11 L 10 L Anion Gap 24 H 24 H Blood Urea Nitrogen 76 H 74 H Creatinine 3.53 H 3.42 H Glucose Level 261 H 325 H Lactic Acid Level 1.6 1.4 3.4 *H Calcium Level 8.3 L 8.4 Total Bilirubin 0.0 L Direct Bilirubin 0.00 Indirect Bilirubin 0.0 Aspartate Amino Transf (AST/SGOT) 24 Alanine Aminotransferase (ALT/SGPT) 26 Alkaline Phosphatase 192 H Troponin I 0.091 Total Protein 7.2 Albumin 3.2 L Globulin 4.00 H Albumin/Globulin Ratio 0.80 Bedside Glucose 330 H Osmolality 327 H Test 04/01/17 03:40 04/01/17 04:25 04/01/17 05:27 04/01/17 07:07 Blood Gas Specimen Source Blood arterial Arterial Blood Date Drawn 04/01/2017 4:30:45 AM Arterial Blood pH (Temp corrected) 7.223 *L Arterial Blood pCO2 (Temp correct) 32.4 L Arterial Blood pO2 (Temp corrected) 119.2 H Arterial Blood HCO3 13.1 L Arterial Blood Base Excess -13.4 L Arterial Blood Oxygen Saturation 96.7 Ignacio Test ACCEPTAB Arterial Blood Gas Puncture Site Right Radial Arterial Blood Carboxyhemoglobin 1.8 Arterial Blood Methemoglobin 0.1 Blood Gas A-a O2 Differential 42.2 H Oxyhemoglobin Percent 94.9 Total Hemoglobin 8.3 L Blood Gas Temperature 37.0 Blood Gas Modality NASAL CANNULA FiO2 28.0 Blood Gas Critical Value Read Back Araseli GONSALEZ RN Blood Gas Notified Whom UP Blood Gas Notified Time 04/01/2017 4:50:44 AM Urine Color STRAW Urine Clarity CLEAR Urine pH 5.0 Urine Specific [place] 1.012 Urine Ketones NEGATIVE Urine Nitrite NEGATIVE Urine Bilirubin NEGATIVE Urine Urobilinogen NEGATIVE Urine Leukocyte Esterase NEGATIVE Urine Microscopic RBC 4 Urine Microscopic WBC 3 Urine Bacteria FEW A Urine Mucus FEW A Urine Hemoglobin 1+ H Urine Osmolality 360 Urine Random Sodium 100 H Urine Glucose 1+ H Urine Total Protein 43.0 H White Blood Count 11.3 #H Red Blood Count 2.43 L Hemoglobin 6.6 *L Hematocrit 22.1 L Mean Corpuscular Volume 90.9 Mean Corpuscular Hemoglobin 27.2 L Mean Corpuscular Hemoglobin Concent 29.9 L Red Cell Distribution Width 15.4 H Platelet Count 294 Mean Platelet Volume 9.9 Neutrophils % 84.0 H Segmented Neutrophils % (Manual) 75 Band Neutrophils % (Manual) 12 H Lymphocytes % 7.3 L Lymphocytes % (Manual) 9 L Monocytes % 7.6 Monocytes % (Manual) 4 Eosinophils % 0.0 Basophils % 0.2 Nucleated Red Blood Cells % 0.0 Neutrophils # 9.5 H Neutrophils # (Manual) 8.6 H Band Neutrophils # 1.3 H Absolute Lymphocytes (Manual) 1.0 Lymphocytes # 0.8 Monocytes # 0.9 Absolute Monocytes (Manual) 0.4 Eosinophils # 0.0 Basophils # 0.0 Nucleated Red Blood Cells # 0.0 Pathologist Review (Hematology) YES Platelet Estimate NORMAL Polychromasia 3+ Poikilocytosis 1+ Anisocytosis 1+ Microcytosis 1+ Sodium Level 144 Potassium Level 6.4 *H Chloride Level 115 H Carbon Dioxide Level 14 L Anion Gap 21 H Blood Urea Nitrogen 73 H Creatinine 3.54 H Glucose Level 339 H Hemoglobin A1c 7.0 H Lactic Acid Level 1.2 Calcium Level 7.7 L Phosphorus Level 5.7 H Iron Level 15 L Total Iron Binding Capacity 263 Percent Iron Saturation 6 L Total Bilirubin 0.0 L Direct Bilirubin 0.00 Indirect Bilirubin 0.0 Aspartate Amino Transf (AST/SGOT) 20 Alanine Aminotransferase (ALT/SGPT) 23 Alkaline Phosphatase 174 H Total Protein 7.1 Albumin 3.1 L Globulin 4.00 H Albumin/Globulin Ratio 0.77 Triglycerides Level 199 H Cholesterol Level 83 L LDL Cholesterol, Calculated 28 HDL Cholesterol 15 L Cholesterol/HDL Ratio 5.5 Thyroid Stimulating Hormone (TSH) 1.920 Bedside Glucose 330 H Test 04/01/17 08:05 04/01/17 08:10 04/01/17 10:18 04/01/17 11:07 Lactic Acid Level 1.3 Bedside Glucose 329 H 299 H Sodium Level 144 Potassium Level 5.7 H Chloride Level 116 H Carbon Dioxide Level 12 L Anion Gap 22 H Blood Urea Nitrogen 73 H Creatinine 3.59 H Glucose Level 305 H Calcium Level 7.8 L Test 04/01/17 11:55 04/01/17 12:53 Bedside Glucose 324 H 303 H Medications Medications Current Medications Ondansetron HCl (Zofran Inj) 4 mg Q6H PRN IV NAUSEA AND/OR VOMITING Last administered on 04/01/17 04:16; Admin Dose 4 MG; Start 03/31/17 at 21:30 Acetaminophen (Tylenol Tab) 650 mg Q6H PRN PO PAIN LEVEL 1-3 OR FEVER; Start 03/31/17 at 21:30 Amitriptyline HCl (Elavil) 10 mg QHS PO ; Start 04/01/17 at 21:00 Aspirin (Halfprin) 81 mg DAILY PO ; Start 04/01/17 at 09:00 Atorvastatin Calcium (Lipitor) 80 mg QHS PO ; Start 04/01/17 at 21:00 Metoprolol Tartrate (Lopressor) 100 mg QHS PO ; Start 04/01/17 at 21:00 Dextrose (D50w Syringe) 25 ml Q15M PRN IV BS between 50-70; Start 04/01/17 at 07:30 Diagnostic Test (Pha) (Accu-Chek) 1 ea Q1H XX ; Start 04/01/17 at 07:30 Diagnostic Test (Pha) (Accu-Chek) 1 ea Q1H XX Last administered on 04/01/17 12:57; Admin Dose 1 EA; Start 04/01/17 at 07:30 Dextrose (D50w Syringe) 25 ml Q15M PRN IV Till BS 80 mg/dL or above x2; Start 04/01/17 at 07:30 Miscellaneous Information This patient mims... PRN PRN XX WOUND CARE; Start at 08:00 Piperacillin Sod/ Tazobactam Sod (Zosyn 2.25gm/ 50ml (Pmx)) 50 ml @ 100 mls/hr Q8 IVPB ; Start 04/01/17 at 11:00 Miscellaneous Information (*Rx Drug Level Order Reminder*) VANCO RANDOM W/ AM LABS... ONCE ONCE XX ; Start 04/02/17 at 05:00; Stop 04/02/17 at 05:01 Lorazepam (Ativan) 1 mg Q6H PRN IV AGITATION/ANXIETY Last administered on 04/01t 12:10; Admin Dose 1 MG; Start 04/01/17 at 12:00 IV Flush (NS 10 ml) 10 ml PRN PRN IV IV PROTOCOL; Start 04/01/17 at 13:30 VINOD PEDRAZA MD Apr 01, 2017 14:18
[2017-04-01 16:34] LABS: CREATININE 3.49 mg/dl (0.61-1.24); POTASSIUM 4.9 mmol/L (3.5-5.1)
[2017-04-01] MEDS ORDERED: SOD CHLORIDE 0.9% 100 ML ONE (17:01)
[2017-04-01] MEDS: INSULIN HUMAN REGULAR 100 UNIT in SOD CHLORIDE 0.9% 99 ML IV SCH (17:52)
[2017-04-01] MEDS ORDERED: morphine 2 MG INJ ONE (18:13)
[2017-04-01] MEDS ORDERED: OXYCODONE/ACETAMINOPHEN (10/325) TAB PO PRN (18:30)
--- NOTE | 2017-04-01 19:18 | CONS ---
Date/Time of Note Date/Time of Note DATE: 04/01/17 TIME: 19:05 Assessment/Plan Assessment/Plan Chief Complaint/Hosp Course 56-year-old male with bilateral lower extremity cellulitis and wounds that needed to be admitted to the hospital for intravenous antibiotic. His urine output has been low and the nurses tried to insert a Hagan catheter for him unsuccessfully a urological consultation was therefore requested. I did go ahead and insert a 16 [place] Hagan catheter and over 1600 mL of urine drained. Prior to the insertion of the Hagan catheter the patient was complaining of severe pain in the lower abdomen. Problems: Consultation Date/Type/Reason Admit Date/Time 03/31/2017 Date of Consultation: Apr 01, 2017 Type of Consultation: Urology Reason for Consultation Low urine output and nursing staff unable to insert the Hgaan catheter Referring Provider: VINOD PEDRAZA MD Hx of Present Illness This is a 56-year-old male with history of diabetes, hypertension, and bilateral foot ulcers. Patient initially had an ulcer on his left foot that was being treated. For the past 3 weeks, he has had swelling and an ulcer of his right foot. His symptoms have been worsening and now he has associated cellulitis. He was evaluated in the wound clinic and they recommended IV antibiotics and admission. The patient was admitted to telemetry first and then to the ICU. The nursing staff noticed that his urine output is very low and attempted to insert the Hagan catheter unsuccessfully therefore a urological consultation was requested. When I came in to see the patient he was complaining of severe abdominal pain and was very uncomfortable. The pain was mostly in the suprapubic area indicating possible urinary retention Constitutional: other (Complaining of pain) Eyes: no complaints ENT: no complaints Respiratory: No cough Cardiovascular: no complaints, No chest pain Gastrointestinal: pain Genitourinary: other (Voiding small amounts) Musculoskeletal: no complaints Skin: erythema, rash (Of lower extremities) Neurologic: no complaints Lymphatic: no complaints Psychological: anxiety Past Medical History Medical History: diabetes, hypertension, other (Dyslipidemia, MRSA infection of right hip in the past, cellulitis of both lower extremities and possible osteomyelitis) Past Surgical History Past Surgical Hx: other (Right hip wound debridement from MRSA infection, and also partial amputation of left foot toe) Family History Significant Family History: heart disease Social History Alcohol Use: none Smoking Status: Never smoker Drug Use: none Exam/Review of Systems Vital Signs Vitals Vital Signs Date Time Temp Pulse Resp B/P Pulse Ox O2 Delivery O2 Flow Rate FiO2 04/01/17 17:45 105 11 151/82 100 04/01/17 17:00 Nasal Cannula 04/01/17 16:00 98.3 04/01/17 09:30 3.0 03/31/17 21:23 21 Intake and Output 03/31/17 03/31/17 04/01/17 15:00 23:00 07:00 Intake Total 400 ml Output Total 800 ml Balance -400 ml Exam Constitutional: alert Psych: no complaints Eyes: nl conjunctiva ENMT: nl external ears & nose Neck: non-tender, supple Respiratory: normal air movement Cardiovascular: regular rate and rhythm Gastrointestinal: soft (Obese abdomen) Genitourinary - 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) Musculoskeletal: other (Cellulitis of lower extremities) Neurological: nl mental status Skin: rash or lesions Lymph: enlarged Results Result Diagram: 04/01/17 0527 04/01/17 1557 Results 24 hrs Laboratory Tests Test 03/31/17 19:35 03/31/17 21:39 03/31/17 21:48 03/31/17 23:00 White Blood Count 14.8 H Red Blood Count 2.76 L Hemoglobin 7.5 L Hematocrit 25.5 L Mean Corpuscular Volume 92.4 Mean Corpuscular Hemoglobin 27.2 L Mean Corpuscular Hemoglobin Concent 29.4 L Red Cell Distribution Width 15.4 H Platelet Count 360 Mean Platelet Volume 9.7 Neutrophils % 79.8 H Lymphocytes % 11.5 L Monocytes % 7.4 Eosinophils % 0.3 Basophils % 0.1 Nucleated Red Blood Cells % 0.0 Neutrophils # 11.8 H Lymphocytes # 1.7 Monocytes # 1.1 H Eosinophils # 0.0 Basophils # 0.0 Nucleated Red Blood Cells # 0.0 Prothrombin Time 14.8 H Prothrombin Time Ratio 1.2 INR International Normalized Ratio 1.16 Activated Partial Thromboplast Time 42.3 H Sodium Level 141 143 Potassium Level 7.0 *H 5.6 H Chloride Level 113 H 115 H Carbon Dioxide Level 11 L 10 L Anion Gap 24 H 24 H Blood Urea Nitrogen 76 H 74 H Creatinine 3.53 H 3.42 H Glucose Level 261 H 325 H Lactic Acid Level 1.6 1.4 3.4 *H Calcium Level 8.3 L 8.4 Total Bilirubin 0.0 L Direct Bilirubin 0.00 Indirect Bilirubin 0.0 Aspartate Amino Transf (AST/SGOT) 24 Alanine Aminotransferase (ALT/SGPT) 26 Alkaline Phosphatase 192 H Troponin I 0.091 Total Protein 7.2 Albumin 3.2 L Globulin 4.00 H Albumin/Globulin Ratio 0.80 Bedside Glucose 330 H Osmolality 327 H Test 04/01/17 03:40 04/01/17 04:25 04/01/17 05:27 04/01/17 07:07 Blood Gas Specimen Source Blood arterial Arterial Blood Date Drawn 04/01/2017 4:30:45 AM Arterial Blood pH (Temp corrected) 7.223 *L Arterial Blood pCO2 (Temp correct) 32.4 L Arterial Blood pO2 (Temp corrected) 119.2 H Arterial Blood HCO3 13.1 L Arterial Blood Base Excess -13.4 L Arterial Blood Oxygen Saturation 96.7 Ignacio Test ACCEPTAB Arterial Blood Gas Puncture Site Right Radial Arterial Blood Carboxyhemoglobin 1.8 Arterial Blood Methemoglobin 0.1 Blood Gas A-a O2 Differential 42.2 H Oxyhemoglobin Percent 94.9 Total Hemoglobin 8.3 L Blood Gas Temperature 37.0 Blood Gas Modality NASAL CANNULA FiO2 28.0 Blood Gas Critical Value Read Back Araseli GONSALEZ RN Blood Gas Notified Whom UP Blood Gas Notified Time 04/01/2017 4:50:44 AM Urine Color STRAW Urine Clarity CLEAR Urine pH 5.0 Urine Specific [place] 1.012 Urine Ketones NEGATIVE Urine Nitrite NEGATIVE Urine Bilirubin NEGATIVE Urine Urobilinogen NEGATIVE Urine Leukocyte Esterase NEGATIVE Urine Microscopic RBC 4 Urine Microscopic WBC 3 Urine Bacteria FEW A Urine Mucus FEW A Urine Hemoglobin 1+ H Urine Osmolality 360 Urine Random Sodium 100 H Urine Glucose 1+ H Urine Total Protein 43.0 H White Blood Count 11.3 #H Red Blood Count 2.43 L Hemoglobin 6.6 *L Hematocrit 22.1 L Mean Corpuscular Volume 90.9 Mean Corpuscular Hemoglobin 27.2 L Mean Corpuscular Hemoglobin Concent 29.9 L Red Cell Distribution Width 15.4 H Platelet Count 294 Mean Platelet Volume 9.9 Neutrophils % 84.0 H Segmented Neutrophils % (Manual) 75 Band Neutrophils % (Manual) 12 H Lymphocytes % 7.3 L Lymphocytes % (Manual) 9 L Monocytes % 7.6 Monocytes % (Manual) 4 Eosinophils % 0.0 Basophils % 0.2 Nucleated Red Blood Cells % 0.0 Neutrophils # 9.5 H Neutrophils # (Manual) 8.6 H Band Neutrophils # 1.3 H Absolute Lymphocytes (Manual) 1.0 Lymphocytes # 0.8 Monocytes # 0.9 Absolute Monocytes (Manual) 0.4 Eosinophils # 0.0 Basophils # 0.0 Nucleated Red Blood Cells # 0.0 Pathologist Review (Hematology) YES Platelet Estimate NORMAL Polychromasia 3+ Poikilocytosis 1+ Anisocytosis 1+ Microcytosis 1+ Sodium Level 144 Potassium Level 6.4 *H Chloride Level 115 H Carbon Dioxide Level 14 L Anion Gap 21 H Blood Urea Nitrogen 73 H Creatinine 3.54 H Glucose Level 339 H Hemoglobin A1c 7.0 H Lactic Acid Level 1.2 Calcium Level 7.7 L Phosphorus Level 5.7 H Iron Level 15 L Total Iron Binding Capacity 263 Percent Iron Saturation 6 L Total Bilirubin 0.0 L Direct Bilirubin 0.00 Indirect Bilirubin 0.0 Aspartate Amino Transf (AST/SGOT) 20 Alanine Aminotransferase (ALT/SGPT) 23 Alkaline Phosphatase 174 H Total Protein 7.1 Albumin 3.1 L Globulin 4.00 H Albumin/Globulin Ratio 0.77 Triglycerides Level 199 H Cholesterol Level 83 L LDL Cholesterol, Calculated 28 HDL Cholesterol 15 L Cholesterol/HDL Ratio 5.5 Thyroid Stimulating Hormone (TSH) 1.920 Bedside Glucose 330 H Test 04/01/17 08:05 04/01/17 08:10 04/01/17 10:18 04/01/17 11:07 Lactic Acid Level 1.3 Bedside Glucose 329 H 299 H Sodium Level 144 Potassium Level 5.7 H Chloride Level 116 H Carbon Dioxide Level 12 L Anion Gap 22 H Blood Urea Nitrogen 73 H Creatinine 3.59 H Glucose Level 305 H Calcium Level 7.8 L Test 04/01/17 11:55 04/01/17 12:53 04/01/17 13:35 04/01/17 14:17 Bedside Glucose 324 H 303 H 297 H Sodium Level 145 H Potassium Level 5.2 H Chloride Level 116 H Carbon Dioxide Level 14 L Anion Gap 20 H Blood Urea Nitrogen 71 H Creatinine 3.59 H Glucose Level 275 H Calcium Level 7.8 L Test 04/01/17 15:00 04/01/17 15:20 04/01/17 15:57 04/01/17 16:46 Urine Random Sodium 77 Bedside Glucose 262 H 188 Sodium Level 146 H Potassium Level 4.9 Chloride Level 117 H Carbon Dioxide Level 16 L Anion Gap 18 H Blood Urea Nitrogen 72 H Creatinine 3.49 H Glucose Level 233 H Calcium Level 8.0 L Test 04/01/17 17:45 04/01/17 18:46 Bedside Glucose 102 76 Medications Medications Current Medications Ondansetron HCl (Zofran Inj) 4 mg Q6H PRN IV NAUSEA AND/OR VOMITING Last administered on 04/01/17 04:16; Admin Dose 4 MG; Start 03/31/17 at 21:30 Acetaminophen (Tylenol Tab) 650 mg Q6H PRN PO PAIN LEVEL 1-3 OR FEVER; Start 03/31/17 at 21:30 Amitriptyline HCl (Elavil) 10 mg QHS PO ; Start 04/01/17 at 21:00 Aspirin (Halfprin) 81 mg DAILY PO Last administered on 04/01/17 14:20; Admin Dose 81 MG; Start 04/01/17 at 09:00 Atorvastatin Calcium (Lipitor) 80 mg QHS PO ; Start 04/01/17 at 21:00 Metoprolol Tartrate (Lopressor) 100 mg QHS PO ; Start 04/01/17 at 21:00 Dextrose (D50w Syringe) 25 ml Q15M PRN IV BS between 50-70; Start 04/01/17 at 07:30 Diagnostic Test (Pha) (Accu-Chek) 1 ea Q1H XX Last administered on 04/01/17 18:46; Admin Dose 1 EA; Start 04/01/17 at 07:30 Dextrose (D50w Syringe) 25 ml Q15M PRN IV Till BS 80 mg/dL or above x2; Start 04/01/17 at 07:30 Miscellaneous Information This patient mims... PRN PRN XX WOUND CARE; Start at 08:00 Piperacillin Sod/ Tazobactam Sod (Zosyn 2.25gm/ 50ml (Pmx)) 50 ml @ 100 mls/hr Q8 IVPB Last administered on 04/01/17 14:20; Admin Dose 100 MLS/HR; Start at 11:00 Miscellaneous Information (*Rx Drug Level Order Reminder*) VANCO RANDOM W/ AM LABS... ONCE ONCE XX ; Start 04/02/17 at 05:00; Stop 04/02/17 at 05:01 Lorazepam (Ativan) 1 mg Q6H PRN IV AGITATION/ANXIETY Last administered on 04/01 12:10; Admin Dose 1 MG; Start 04/01/17 at 12:00 IV Flush (NS 10 ml) 10 ml PRN PRN IV IV PROTOCOL; Start 04/01/17 at 13:30 Sodium Hypochlorite (Dakin'S (1/4 Strength)) 1 applic BID IRR ; Start 04/01/17 at 21:00 Silver Sulfadiazine (Thermazene 1% 25 Gm) 1 applic BID TOP ; Start 04/01/17 at 21:00 Morphine Sulfate (morphine) 2 mg Q4H PRN IV PAIN Last administered on 18:33; Admin Dose 2 MG; Start 04/01/17 at 18:30 Oxycodone/ Acetaminophen (Endocet (10/ 325)) 1 tab Q4H PRN PO PAIN; Start at 18:30 MAHAD MARTIN MD Apr 01, 2017 19:16
--- NOTE | 2017-04-01 20:02 | RADRPT ---
Echocardiogram Report Patient Name: JONO HENRY Gender: Male Date: 1960 Study Date: 01-Apr-2017 Director Traffic And Planning: Lian Mead CARINA Location: 103 Ref. Physician: VINOD PEDRAZA Quality: Good Procedures: Transthoracic echocardiogram with complete 2D, M-Mode, and doppler examination. Indications: Evaluate for endocarditis. 2D/M Mode Doppler Measurement Value Normal Ranges Measurement Value Normal Ranges LVIDd 2D 5.3 3.5 - 5.6 cm AV Peak Ced 1.9 m/sec LVIDs 2D 2.6 2.1 - 4.1 cm AV Peak PG 14.1 mmHg LVPWd 2D 1.3 0.6 - 1.1 cm LVOT Peak Ced 1.4 m/sec IVSd 2D 1.3 0.6 - 1.1 cm LVOT Peak PG 7.5 mmHg AoR Diam 2D 3.0 2.0 - 3.7 cm MV E Peak Ced 1.1 m/sec EDV 2D 134.2 cm3 MV A Peak Ced 0.8 m/sec ESV 2D 17.2 cm3 MV E/A 1.4 LA Dimen 2D 3.6 2.3 - 4.0 cm MV Decel Time 151 msec MV Decel [place] 7 MV E/A 1.4 Findings Left Ventricle: Normal left ventricular systolic function. Normal left ventricular cavity size. Mild concentric left ventricular hypertrophy. Ejection fraction is visually estimated at 65 %. Right Ventricle: Normal right ventricular size. Normal right ventricular systolic function. Left Atrium: The left atrium is normal in size. Right Atrium: The right atrium is normal in size. Mitral Valve: Mitral valve leaflets appear mildly thickened. Mild mitral annular calcification. Trace mitral regurgitation. Aortic Valve: No significant aortic stenosis or insufficiency. Aortic cusps appear mildly calcified. Tricuspid Valve: Normal appearance of the tricuspid valve. Unable to obtain RVSP due to minimal presence of tricuspid regurgitation. Pulmonic Valve: Normal pulmonic valve appearance. Pericardium: Normal pericardium with no significant pericardial effusion. Aorta: Normal aortic root. IVC: Dilated IVC without respiratory collapse consistent with elevated right atrial pressure. Conclusions 1.Normal left ventricular systolic function. Normal left ventricular cavity size. Mild concentric left ventricular hypertrophy. Ejection fraction is visually estimated at 65 %. 2.Mitral valve leaflets appear mildly thickened. Mild mitral annular calcification. Trace mitral regurgitation. 3.Normal appearance of the tricuspid valve. Unable to obtain RVSP due to minimal presence of tricuspid regurgitation. Electronically Signed By: Lizandro Adair 01-Apr-2017 20:01:52 -0800 Patient Name: JONO HENRY Study Date: 01-Apr-2017 [id number]
[2017-04-01] MEDS: ATORVASTATIN 80 MG TAB PO SCH (20:47)
[2017-04-01] MEDS: AMITRIPTYLINE 10 MG TAB PO SCH (20:47)
[2017-04-01] MEDS: METOPROLOL 100 MG TAB PO SCH (20:48)
[2017-04-01] MEDS: SILVER SULFADIAZINE 1% 25 GM CR TOP SCH (21:00)
[2017-04-01] MEDS ORDERED: PANTOPRAZOLE (EC) 40 MG TAB PO SCH (21:00)
[2017-04-01 22:57] LABS: ABNORMAL IP MESSAGE 1; BASOPHILS % 0.2 % (0.0-2.0); EOSINOPHILS % 0.3 % (0.0-7.0); HEMATOCRIT 22.7 % (42.0-52.0); LYMPHOCYTES # 1.2 10^3/ul (0.8-2.9); LYMPHOCYTES % 12.9 % (15.0-51.0); MEAN CORPUSCULAR HEMOGLOBIN 27.4 pg (29.0-33.0); MEAN CORPUSCULAR HGB CONC 30.4 g/dl (32.0-37.0); MEAN CORPUSCULAR VOLUME 90.1 fl (82.0-101.0); MEAN PLATELET VOLUME 9.5 fl (7.4-10.4); MONOCYTE # 0.9 10^3/ul (0.3-0.9); NEUTROPHILS % 75.7 % (39.0-77.0); PLATELET COUNT 291 10^3/UL (140-415); POSITIVE DIFF @See below; RED BLOOD COUNT 2.52 10^6/ul (4.70-6.10); RED CELL DISTRIBUTION WIDTH 15.4 % (11.5-14.5); WHITE BLOOD COUNT 9.3 10^3/ul (4.8-10.8)
[2017-04-01 23:00] LABS: HEMOGLOBIN 6.9 g/dl (14.0-18.0)
[2017-04-01 23:15] LABS: CREATININE 3.34 mg/dl (0.61-1.24); POTASSIUM 4.6 mmol/L (3.5-5.1)
[2017-04-02] VITALS (36 sets, daily range): BP systolic 97–183; BP diastolic 59–135; PULSE 75–106; RESP 10–21
[2017-04-02] MEDS: ACCU-CHEK XX SCH ×24 (00:30→23:48)
[2017-04-02] MEDS ORDERED: ACCU-CHEK XX SCH ×3 (02:00)
[2017-04-02] MEDS: SODIUM HYPOCHLORITE 0.125% 473 ML BTL IRR SCH ×3 (02:00→20:44)
[2017-04-02] MEDS ORDERED: CEFEPIME HCL IVPB SCH (03:00)
[2017-04-02] MEDS ORDERED: DEXTROSE 5% IVPB SCH (03:00)
[2017-04-02] MEDS: PIPER-TAZO 2.25 GM (PMX) 50 ML IVPB SCH ×3 (05:39→22:24)
--- NOTE | 2017-04-02 05:59 | CONS ---
DATE OF ADMISSION: 03/31/2017 DATE OF CONSULTATION: 04/01/2017 TYPE OF CONSULTATION: Nephrology. REASON FOR CONSULTATION: Acute kidney injury, hyperkalemia. PHYSICIAN REQUESTING CONSULT: Dr. Cunningham HISTORY OF PRESENT ILLNESS: This is a 56-year-old male with a past medical history of hypertension, diabetes, history of bilateral foot ulcers with questionable history of chronic kidney disease who presented to [facility] for ongoing swelling of his lower extremity ulcer. Patien t states his symptoms have progressively worse with an associated cellulitis. The patient was evalu ated at the clinic, they have recommended IV antibiotics. The patient came into the emergency room. Upon arrival to the emergency room, the patient had laboratory data drawn, which showed a sodium o f 141, a potassium of and a glucose levels of , a BUN of 76, creatinine 3.53 and bicarbon ate level of 11. The patient in the emergency room was given IV fluids and given IV antibiotics, IV insulin and admitted to telemetry. The patient was then subsequently transferred to the intensive care unit for DKA protocol. In terms of the patient's renal history, the patient states he has no prior history of chronic kidne y disease. He was not told that his diabetes could be affecting his kidneys. The patient denies an y previous episodes of acute kidney injury. He denies any hemoptysis, hematemesis. The patient was taking a combination of an SILVESTRE inhibitor and hydrochlorothiazide at home and denies any recent NSAI D use. PAST MEDICAL HISTORY: As stated above, history of diabetes, history of hypertension, questionable h istory of CKD. PAST SURGICAL HISTORY: Previous wound surgery and debridement of his left toe amputation. ALLERGIES: TO SULFA. MEDICATIONS: The patient's medications have been reviewed. FAMILY HISTORY: Noncontributory. SOCIAL HISTORY: Does not drink, smoke or do drugs. REVIEW OF SYSTEMS: A 14-point review of systems was conducted. Pertinent positives in HPI, otherwi se negative. PHYSICAL EXAMINATION: VITAL SIGNS: Blood pressure is 90/65, pulse 111, respirations 18, temperature 98.7. I's AND O'S: The patient had 400 in, 800 out. HEENT: Head is normocephalic. Pupils are reactive to light. NECK: Supple. HEART: Regular rate. LUNGS: Show diminished breath sounds at base. ABDOMEN: Soft, nontender to palpation without rebound or guarding. EXTREMITIES: Positive for cellulitis in the lower extremity, foot. The patient, in the left lower extremity has also has noted . NEUROLOGIC: No focal deficits. LABORATORY DATA: On 03/31/2017 shows sodium 144, potassium 6.5, chloride 115, bicarbonate 14, BUN 7 3, creatinine 3.54. White count 11.3, hemoglobin 6.6, hematocrit 22.1, platelet count of 294. ASSESSMENT AND PLAN: This is a 56-year-old male who presents with: 1. Nonoliguric acute kidney injury with unknown baseline creatinine, possible chronic kidney diseas e. Etiology of acute kidney injury is unclear, is possibly multifactorial due to sepsis, acute tubu lar necrosis and hemodynamics. The possibility of process. There is also a consideration giv en the patient's ongoing lower extremity wounds/sepsis. Plan is for the patient to undergo full virgen luation. Will check UA with microanalysis. Will check urine electrolytes. The patient's renal ult rasound was reviewed with no evidence of hydronephrosis. The patient's urine will also be evaluated under microscopy to see if there is any evidence of an active sediment or dysmorphic RBCs. Would r ecommend to continue IV hydration, monitor strict I's and O's. Continue antibiotic therapy. Treat underlying sepsis. Will monitor renal function closely as well as potassium levels closely. If the patient's renal function does not improve and the hyperkalemia cannot be medically managed, will co nsider starting renal replacement therapy. 2. Hyperkalemia. Etiology is multifactorial secondary to acute kidney injury in conjunction with h yperglycemia. Recommend to maintain euvolemic status. We will also continue to treat acute kidney injury as stated above. Continue IV insulin. If the potassium levels have not improved with medica l management. Would consider initiate renal replacement therapy, but also continue to give him ____ _ Kayexalate. 3. Anion gap metabolic acidosis with appropriate respiratory compensation. The patient's ABG is re viewed. Underlying etiology is likely due . Continue current insulin drip. Lactic acid level is within normal limits. Monitor closely. 4. Mineral bone disorder. Monitor calcium and phosphorus levels. 5. Anemia. . The patient is grossly anemic, blood transfusion. 6. Sepsis secondary to lower extremity cellulitis with possible osteomyelitis. Continue current an tibiotic regimen, consider podiatry evaluation. 7. Diabetes, possible DKA. Continue aggressive insulin regimen, consider starting an insulin drip. 8. Hypertension. Continue current IV hydration and monitor closely. Thank you, Dr. Cunningham, for this interesting consult. It will be a pleasure to follow the patient w ith you throughout the hospital course. Dictated By: AFTAB LANGLEY DO NR/NTS Conf#: [id number] DID#: [id number] CC: FEDERICO CUNNINGHAM MD;*EndCC*
[2017-04-02 06:51] LABS: BASOPHILS % 0.3 % (0.0-2.0); EOSINOPHILS % 0.1 % (0.0-7.0); HEMATOCRIT 25.4 % (42.0-52.0); HEMOGLOBIN 7.8 g/dl (14.0-18.0); LYMPHOCYTES # 1.5 10^3/ul (0.8-2.9); LYMPHOCYTES % 14.2 % (15.0-51.0); MEAN CORPUSCULAR HEMOGLOBIN 27.5 pg (29.0-33.0); MEAN CORPUSCULAR HGB CONC 30.7 g/dl (32.0-37.0); MEAN CORPUSCULAR VOLUME 89.4 fl (82.0-101.0); MEAN PLATELET VOLUME 9.4 fl (7.4-10.4); MONOCYTE # 0.8 10^3/ul (0.3-0.9); MONOCYTES % 7.3 % (0.0-11.0); NEUTROPHIL # 8.2 10^3/ul (1.6-7.5); NEUTROPHILS % 77.2 % (39.0-77.0); PLATELET COUNT 317 10^3/UL (140-415); RED BLOOD COUNT 2.84 10^6/ul (4.70-6.10); RED CELL DISTRIBUTION WIDTH 15.6 % (11.5-14.5); WHITE BLOOD COUNT 10.6 10^3/ul (4.8-10.8)
[2017-04-02 07:12] LABS: CALCIUM 8.6 mg/dl (8.4-10.2); CREATININE 2.99 mg/dl (0.61-1.24); MAGNESIUM 2.2 mg/dl (1.7-2.5); POTASSIUM 4.5 mmol/L (3.5-5.1)
[2017-04-02] MEDS: SILVER SULFADIAZINE 1% 25 GM CR TOP SCH ×2 (08:17→20:44)
[2017-04-02] MEDS ORDERED: SOD CHLORIDE 0.45% 1,000 ML IV SCH (08:30)
[2017-04-02] MEDS ORDERED: DEXTROSE 5% 1,000 ML IV ONE (09:00)
[2017-04-02] MEDS: ASPIRIN (EC) 81 MG TAB PO SCH (09:09)
--- NOTE | 2017-04-02 09:23 | PN ---
DATE: 04/02/2017 SUBJECTIVE: The patient is clinically stable, no acute events overnight. The patient continues to have a foul-smelling wound. Urinary output has improved. OBJECTIVE: VITAL SIGNS: Blood pressure is 141/68, respirations 11, pulse 96, temperature 98.2. HEENT: Head is normocephalic. NECK: Supple. HEART: Regular rate. LUNGS: Show diminished breath sounds at the base. ABDOMEN: Soft, nontender to palpation. No rebound or guarding. EXTREMITIES: Negative for clubbing, cyanosis. There is positive edema. There is noted foul smelli ng lower extremity wounds but dressing is clean, dry, intact. DERMATOLOGIC: No rashes. MUSCULOSKELETAL: No joint effusion. MEDICATIONS: Have been reviewed. LABORATORY DATA: Showed sodium 151, potassium 4.5, chloride 120, BUN 67, creatinine 2.99, phosphoru s 6.5. White count 10.6, hemoglobin 7.8, hematocrit 25.4, platelet count is 317. The patient's blood cultures grew out Staph aureus. ASSESSMENT AND PLAN: 1. Nonoliguric acute kidney injury with unknown baseline creatinine and probable chronic kidney dis ease. Etiology of acute kidney injury was multifactorial secondary to volume depletion, septic acut e kidney injury, possible tubular injury. The patient's urinalysis was bland, no active sediment, n on-glomerular proteinuria. The patient's renal ultrasound shows no evidence of obstruction. The pam meneses's renal function has been improving with supportive care, IV hydration, IV antibiotics. At th is point, continue current treatment plan, supportive care, renally dose all meds, continue to monit or function closely. 2. Hyperkalemia. Etiology secondary to acute kidney injury and hyperglycemia. Potassium levels mims ve normalized. Continue to monitor. 3. Anion gap metabolic acidosis with appropriate respiratory compensation. Will continue to monito r bicarbonate levels. Acidosis has been improving. No need for bicarbonate therapy at this time. 4. Mineral bone disorder. Monitor calcium and phosphorus levels. 5. Anemia. The patient is status post blood transfusion. Continue to monitor hemoglobin and hemat ocrit levels. 6. Hypernatremia. The patient has a free water deficit of approximately 2.5 liters. Will encourag e free water intake and start the patient on fluids. 7. Sepsis secondary to lower extremity cellulitis, possible osteomyelitis. Continue current antibi otic regimen. 8. Diabetes. Continue current insulin regimen. Continue insulin drip. 9. Hypertension. Continue current medical management. 10. Acute respiratory failure. The patient's chest x-ray shows no definitive consolidation. Monit or closely. Please note I spent over 35 minutes of critical care time with this patient. Dictated By: AFTAB LANGLEY DO NR/NTS Conf#: [id number] DID#: [id number] CC: FEDERICO CUNNINGHAM MD;*EndCC*
[2017-04-02] MEDS: morphine 2 MG INJ IV PRN ×2 (11:17→16:23)
[2017-04-02] MEDS ORDERED: VANCOMYCIN 1.5 GM in DEXTROSE 5% 250 ML IVPB SCH (13:00)
--- NOTE | 2017-04-02 13:41 | PN ---
Date/Time of Note Date/Time of Note DATE: 04/02/17 TIME: 13:32 Assessment/Plan VTE Prophylaxis VTE Prophylaxis Intervention: heparin Lines/Catheters IV Catheter Type (from Nrsg): PICC Line Central line still needed: Yes Urinary Cath still in place: Yes Reason Cath still needed: urinary retention Assessment/Plan Chief Complaint/Hosp Course 56 yo male with h/o DMII, OM of foot in nonhealing ulcer presenting with sepsis , hyperglycemia, RENZO from cellulitis surrounding diabetic foot infection ID: Infected diabetic foot ulcer, cellulitis, sepsis - Continue vanco and zosyn for now - Follow up blood cultures: so far growing GPCs, repeat to ensure clearance of bacteremia. No vegetations to suggest endocarditis - MRI to assess for underlying abscess of foot, OM, etc. Dr Kimble following RENAL: RENZO: - Unclear etiology, likley 2/2 SILVESTRE/bactrim and sepsis ATN - Monitor renal function - Improving Metabolic acidosis - Likely 2/2 uremia, there are no ketones to suggest DKA - Will improve with improvement in renal function Hyperkalemia - Resolved Hypernatremia - Encourage free water intake HEME: Acute blood loss anemia - Transfuse PRN Hgb < 7 Iron deficiency anemia: - Replace iron deficit when sepsis resolved ENDO: DMII w hyperglycemia - no ketones to suggest DKA - Insulin drip to euglycemia, takes very high doses of insulin at home, will resume basal/bolus insulin when stable CV: - Continue home aspirin, statin, metoprolol. Hold BP meds : Urinary retention likley 2/2 medications, encephelopathy of sepsis - Continue santana for now. Trial of void in coming days ICU > 35 minutes Problems: Subjective 24 Hr Interval Summary Free Text/Dictation Events yesterday: - Moved to ICU - PICC placed - Transfused 2 units PRBCs - Episode of delirium prompting sedation and code prather - Urinary retention, santana placed by Dr Zaid beltran 1.5 L drained - TTE unremarkable, no vegetations or valvulopathies, normal EF Today patient is much more alert and at normal mentation. Pain relatively controlled. Apologized for agitated behavior yesterday and offered reassurance not to worry Exam/Review of Systems Vital Signs Vitals Vital Signs Date Time Temp Pulse Resp B/P Pulse Ox O2 Delivery O2 Flow Rate FiO2 04/02/17 11:00 99.0 103 17 141/129 75 04/02/17 08:00 3.0 04/02/17 05:54 27 04/02/17 04:00 Nasal Cannula Intake and Output 04/01/17 04/01/17 04/02/17 15:00 23:00 07:00 Intake Total 89.1 ml 585.4 ml 66.5 ml Output Total 40 ml 2570 ml 900 ml Balance 49.1 ml -1984.6 ml -833.5 ml Exam Alert, oriented x 3 Breathing comfortably RRR Clear lungs Obese abdomen, soft nt Santana in place, sunken penis R foot with bandaging with blood soaking. Cellulitis has resolved No edema Petechial lesions to abdomen, legs, and arms noted Results Result Diagram: 04/02/17 0620 04/02/17 0620 Results 24 hrs Laboratory Tests Test 04/01/17 13:35 04/01/17 14:17 04/01/17 15:00 04/01/17 15:20 Sodium Level 145 H Potassium Level 5.2 H Chloride Level 116 H Carbon Dioxide Level 14 L Anion Gap 20 H Blood Urea Nitrogen 71 H Creatinine 3.59 H Glucose Level 275 H Calcium Level 7.8 L Bedside Glucose 297 H 262 H Urine Random Sodium 77 Test 04/01/17 15:57 04/01/17 16:46 04/01/17 17:45 04/01/17 18:46 Sodium Level 146 H Potassium Level 4.9 Chloride Level 117 H Carbon Dioxide Level 16 L Anion Gap 18 H Blood Urea Nitrogen 72 H Creatinine 3.49 H Glucose Level 233 H Calcium Level 8.0 L Bedside Glucose 188 102 76 Test 04/01/17 19:16 04/01/17 20:32 04/01/17 21:30 04/01/17 22:37 Bedside Glucose 91 89 104 White Blood Count 9.3 Red Blood Count 2.52 L Hemoglobin 6.9 *L Hematocrit 22.7 L Mean Corpuscular Volume 90.1 Mean Corpuscular Hemoglobin 27.4 L Mean Corpuscular Hemoglobin Concent 30.4 L Red Cell Distribution Width 15.4 H Platelet Count 291 Mean Platelet Volume 9.5 Neutrophils % 75.7 Lymphocytes % 12.9 L Monocytes % 10.0 Eosinophils % 0.3 Basophils % 0.2 Nucleated Red Blood Cells % 0.0 Neutrophils # 7.0 Lymphocytes # 1.2 Monocytes # 0.9 Eosinophils # 0.0 Basophils # 0.0 Nucleated Red Blood Cells # 0.0 Sodium Level 147 H Potassium Level 4.6 Chloride Level 117 H Carbon Dioxide Level 18 L Anion Gap 17 H Blood Urea Nitrogen 70 H Creatinine 3.34 H Glucose Level 120 # Calcium Level 8.0 L Test 04/01/17 22:41 04/01/17 23:40 04/02/17 00:42 04/02/17 01:52 Bedside Glucose 119 136 133 129 Test 04/02/17 02:43 04/02/17 03:41 04/02/17 04:44 04/02/17 04:47 Bedside Glucose 131 132 147 Lab Scanned Report BLOOD TRANSFUSION Test 04/02/17 05:45 04/02/17 06:20 04/02/17 06:49 04/02/17 07:59 Bedside Glucose 141 133 123 White Blood Count 10.6 Red Blood Count 2.84 L Hemoglobin 7.8 L Hematocrit 25.4 L Mean Corpuscular Volume 89.4 Mean Corpuscular Hemoglobin 27.5 L Mean Corpuscular Hemoglobin Concent 30.7 L Red Cell Distribution Width 15.6 H Platelet Count 317 Mean Platelet Volume 9.4 Neutrophils % 77.2 H Lymphocytes % 14.2 L Monocytes % 7.3 Eosinophils % 0.1 Basophils % 0.3 Nucleated Red Blood Cells % 0.0 Neutrophils # 8.2 H Lymphocytes # 1.5 Monocytes # 0.8 Eosinophils # 0.0 Basophils # 0.0 Nucleated Red Blood Cells # 0.0 Sodium Level 151 H Potassium Level 4.5 Chloride Level 120 H Carbon Dioxide Level 19 L Anion Gap 17 H Blood Urea Nitrogen 67 H Creatinine 2.99 H Glucose Level 128 Calcium Level 8.6 Phosphorus Level 6.5 H Magnesium Level 2.2 Random Vancomycin Level 9.1 Test 04/02/17 09:29 04/02/17 10:49 04/02/17 12:09 Bedside Glucose 161 167 159 Medications Medications Current Medications Ondansetron HCl (Zofran Inj) 4 mg Q6H PRN IV NAUSEA AND/OR VOMITING Last administered on 04/01/17t 04:16; Admin Dose 4 MG; Start 03/31/17 at 21:30 Acetaminophen (Tylenol Tab) 650 mg Q6H PRN PO PAIN LEVEL 1-3 OR FEVER; Start 03/31/17 at 21:30 Amitriptyline HCl (Elavil) 10 mg QHS PO Last administered on 04/01/17 20:47; Admin Dose 10 MG; Start 04/01/17 at 21:00 Aspirin (Halfprin) 81 mg DAILY PO Last administered on 04/02/17 09:09; Admin Dose 81 MG; Start 04/01/17 at 09:00 Atorvastatin Calcium (Lipitor) 80 mg QHS PO Last administered on 04/01/17 20: 47; Admin Dose 80 MG; Start 04/01/17 at 21:00 Metoprolol Tartrate (Lopressor) 100 mg QHS PO Last administered on 04/01/17 20:48; Admin Dose 100 MG; Start 04/01/17 at 21:00 Dextrose (D50w Syringe) 25 ml Q15M PRN IV BS between 50-70; Start 04/01/17 at 07:30 Diagnostic Test (Pha) (Accu-Chek) 1 ea Q1H XX Last administered on 04/02/17 12:33; Admin Dose 1 EA; Start 04/01/17 at 07:30 Dextrose (D50w Syringe) 25 ml Q15M PRN IV Till BS 80 mg/dL or above x2; Start 04/01/17 at 07:30 Miscellaneous Information This patient mims... PRN PRN XX WOUND CARE; Start at 08:00 Piperacillin Sod/ Tazobactam Sod (Zosyn 2.25gm/ 50ml (Pmx)) 50 ml @ 100 mls/hr Q8 IVPB Last administered on 04/02/17 05:39; Admin Dose 100 MLS/HR; Start at 11:00 Lorazepam (Ativan) 1 mg Q6H PRN IV AGITATION/ANXIETY Last administered on 04/01 21:18; Admin Dose 1 MG; Start 04/01/17 at 12:00 IV Flush (NS 10 ml) 10 ml PRN PRN IV IV PROTOCOL; Start 04/01/17 at 13:30 Sodium Hypochlorite (Dakin'S (1/4 Strength)) 1 applic BID IRR Last administered on 04/02/17 02:00; Admin Dose 1 APPLIC; Start 04/01/17 at 21:00 Silver Sulfadiazine (Thermazene 1% 25 Gm) 1 applic BID TOP Last administered on 04/01/17 21:00; Admin Dose 1 APPLIC; Start 04/01/17 at 21:00 Morphine Sulfate (morphine) 2 mg Q4H PRN IV PAIN Last administered on 11:17; Admin Dose 2 MG; Start 04/01/17 at 18:30 Oxycodone/ Acetaminophen 1 tab 1 tab Q4H PRN PO PAIN; Start 04/01/17 at 18:30 Vancomycin HCl/ Dextrose (Vancocin/D5W) 250 ml @ 83.333 mls/ hr Q36H IVPB Last administered on 04/02/17 12:37; Admin Dose 83.333 MLS/HR; Start at 13:00 VINOD PEDRAZA MD Apr 02, 2017 13:41
--- NOTE | 2017-04-02 14:13 | PN ---
DATE: 04/02/2017 SUBJECTIVE: The patient was transferred to ICU yesterday secondary to low blood pressure. He is cu rrently getting blood transfusion. He is status post bedside debridement of his right foot wound. VITAL SIGNS: Temperature 97.8, pulse 95, respirations 20, blood pressure 153/76, saturation 100 on 3 liters. LABORATORY DATA: WBC 10.6, H and H 7.8 and 25.4, platelets 317, neutrophils 77.2, BUN 67, creatinin e 2.9, sodium 151. MICROBIOLOGY: Blood culture growing gram-positive cocci in pairs, chains and staph species. Wound culture growing gram-negative rods. MRSA swab was negative. DIAGNOSTICS: Chest x-ray on admission revealed elevation of right hemidiaphragm. INDWELLINGS: Hagan, PICC line placed on 04/01/2017. ANTIMICROBIALS: The patient remains on: 1. IV vancomycin. 2. Zosyn. ALLERGIES: SULFA. PHYSICAL EXAMINATION: GENERAL: This is a morbidly obese, well-developed, middle-aged white male who is in no distress. HEENT: Head atraumatic, normocephalic. Sclerae anicteric. Buccal mucosa dry. NECK: Supple. CHEST: Rise symmetrical. Breath sounds diminished to bases. HEART: S1, S2. ABDOMEN: Soft, bowel tones present. EXTREMITIES: Without cyanosis. Bilateral lower extremities edema. Right foot dressing intact with some blood present. ASSESSMENT: 1. Sepsis with shock. 2. Bacteremia, likely secondary to infected right foot wound. 3. Right foot osteomyelitis with cultures on 03/31/2017 at the wound clinic growing Staphylococcus aureus, strep and Morganella morganii, final sensitivities pending. Repeat cultures on this admissi on growing gram-negative rods. 4. Poorly-controlled diabetes. 5. Morbid obesity. 6. Acute, possibly on chronic anemia. 7. Acute kidney injury, possibly on chronic kidney disease. PLAN: The patient remains hemodynamically stable, covered with broad-spectrum antibiotics. Culture s are pending. We will continue him on current regimen and follow podiatry recommendation in regard s to treatment of his osteomyelitis. Patient will require long-term IV antibiotics. He already has a PICC line. Dictated By: MEHRAN ZHANG ASSISTANT TEACHER PRIMARY for IRENE CHAND/ARAVIND Conf#: [id number] DID#: [id number] CC: FEDERICO CUNNINGHAM MD;*[facility]*
[2017-04-02 16:11] LABS: MICROALBUMIN 7.8 mg/dL
[2017-04-02 17:04] LABS: CALCIUM 8.2 mg/dl (8.4-10.2); CREATININE 2.28 mg/dl (0.61-1.24); POTASSIUM 4.5 mmol/L (3.5-5.1)
--- NOTE | 2017-04-02 18:37 | CONS ---
DATE OF ADMISSION: 03/31/2017 DATE OF CONSULTATION: 04/02/2017 PODIATRY CONSULTATION CHIEF COMPLAINT: Bilateral foot infection REFERRING PHYSICIAN: Dr. Romario Meza. HISTORY OF PRESENT ILLNESS: This is a 56-year-old male with severe infection to bilateral feet, cur rently in ICU due to a DKA, had been treated as an outpatient with now deterioration of wound, has a history of amputation of toes of the left foot at a [facility]. The patient relates challenge s with obtaining outpatient care due to his insurance. He has a history delayed wound healing. The patient denies any injury to his right foot, which currently has instability of the midfoot and ost eolysis seen through metatarsal joints on radiographs. PAST MEDICAL HISTORY: 1. Diabetes type 2, poorly controlled. 2. Peripheral neuropathy. 3. Acute renal failure. 4. Hypertension. 5. Chronic left foot ulceration. 6. History of MRSA infection, right hip. PAST SURGICAL HISTORY: 1. Right hip debridement for MRSA. 2. 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 FAMILY HISTORY: Includes cardiac disease. SOCIAL HISTORY: Denies any tobacco use. ALLERGIES: INCLUDE: 1. SULFA. 2. CODEINE. PHYSICAL EXAMINATION: VITAL SIGNS: Temperature 97.8, pulse is 105, respiratory rate is 21, blood pressure 153/76, pulse o x is 100. GENERAL: The patient currently in ICU, lying supine, severe malodor. HEAD: Atraumatic, normocephalic. Regular respiration. EXTREMITIES: The patient with cellulitis, bilateral feet and extending on the right lower extremity . The patient with severe edema of the right foot. There is instability with crepitus of the mid f oot. Foot is dislocating. There is extensive necrosis of skin, subcutaneous tissue, muscle, planta r aspect with gangrenous changes. There is a central wound which tunnels and probes to bone. The p atient with decreased protective sensation. There is purulent drainage through the plantar wound, 2 + DP, PT pulse. On the left, the patient has fourth and fifth toe amputation and ulceration plantar aspect, probing to the third metatarsophalangeal joint, heavy amount of callus. Radiographs of the right foot reveal periosteal reaction of the 2nd through 4th metatarsal bones. LABORATORIES: WBC 10.6, hemoglobin 7.8, hematocrit 25.4, platelets 317, wound cultures on the right : Gram-negative rods. On the left, preliminary gram-negative rods. Blood cultures on 03/31/2017: Staph species, gram-positive cocci in pairs, chains and clusters. ASSESSMENT: 1. Diabetic foot ulceration bilaterally. 2. Acute Charcot with osteomyelitis, right foot with dislocation. 3. Left foot ulceration with suspected osteomyelitis. History of 2 toe amputation. 4. Cellulitis. 5. Diabetes type 2, poorly controlled, currently with metabolic acidosis, hyperkalemia, hyponatremi a. PLAN: The patient was seen and evaluated, reviewed radiographs. The patient with severe infection at risk for loss of limb. Patient has acutely unstable right foot and doesn't recall injury and has minimal amount of pain. Procedure recommended to include debridement of bilateral foot ulcerations . Consent had been obtained and procedure performed at the bedside. Ulcerations were cleansed with Dakin's irrigation and using pickups, scissors, excisional debridement performed of ulceration on t he right foot which measures approximately 10 x 5 cm, removing necrotic skin, subcutaneous tissue, a dipose and muscle. There is a wound central aspect which tunneled to bone. This already had flowin g, purulent drainage. Cultures were obtained and irrigated extensively with Dakin's irrigation, and debridement performed with pickup scissors. Attention was directed to the left foot in similar fas hion. Excisional debridement performed of ulceration measuring approximately 3 x 2 cm, removing michael lous necrotic skin, subcutaneous tissue and wounds were copiously irrigated and packed open. I efrem mmend strict nonweightbearing. Patient at risk for further dislocation of right foot. Not a candid ate for fixation given the severity of infection. Patient at risk for limb loss and discussed in de tail. Recommend tight glycemic control. Consider mobilizing with a wheelchair and a Cam boot. Lik radha to require staged intervention. Will need followup as an outpatient and given radiographic morris ges of multiple metatarsal joints, may be underlying osteomyelitis in addition to Charcot. Recommen d coverage for 6 weeks. I appreciate ID recommendations. Dictated By: CLARA LEBLANC/ARAVIND Conf#: [id number] DID#: [id number] CC: ROMARIO CUNNINGHAM MD;*EndCC*
--- NOTE | 2017-04-02 19:46 | CONS ---
Date/Time of Note Date/Time of Note DATE: 04/02/17 TIME: 19:43 Consult Date/Type/Reason Admit Date/Time Mar 31, 2017 at 21:15 Initial Consult Date 04/01/17 Type of Consultation: Urology Reason for Consultation Urinary retention Ordering Provider: VINOD PEDRAZA MD Subjective Patient is awake alert and apologizing about his behavior yesterday. Is feeling better and denies any abdominal pain Objective Vital Signs Date Time Temp Pulse Resp B/P Pulse Ox O2 Delivery O2 Flow Rate FiO2 04/02/17 17:00 102 13 163/95 97 04/02/17 11:00 99.0 04/02/17 08:00 3.0 04/02/17 05:54 27 04/02/17 04:00 Nasal Cannula Intake and Output 04/01/17 04/01/17 04/02/17 15:00 23:00 07:00 Intake Total 89.1 ml 585.4 ml 66.5 ml Output Total 40 ml 2570 ml 900 ml Balance 49.1 ml -1984.6 ml -833.5 ml Exam Abdomen is soft Hagan catheter is draining clear urine. No bleeding around the catheter Results/Medications Result Diagram: 04/02/17 0620 04/02/17 1613 Results 24 hrs Laboratory Tests Test 04/01/17 20:32 04/01/17 21:30 04/01/17 22:37 04/01/17 22:41 Bedside Glucose 89 104 119 White Blood Count 9.3 Red Blood Count 2.52 L Hemoglobin 6.9 *L Hematocrit 22.7 L Mean Corpuscular Volume 90.1 Mean Corpuscular Hemoglobin 27.4 L Mean Corpuscular Hemoglobin Concent 30.4 L Red Cell Distribution Width 15.4 H Platelet Count 291 Mean Platelet Volume 9.5 Neutrophils % 75.7 Lymphocytes % 12.9 L Monocytes % 10.0 Eosinophils % 0.3 Basophils % 0.2 Nucleated Red Blood Cells % 0.0 Neutrophils # 7.0 Lymphocytes # 1.2 Monocytes # 0.9 Eosinophils # 0.0 Basophils # 0.0 Nucleated Red Blood Cells # 0.0 Sodium Level 147 H Potassium Level 4.6 Chloride Level 117 H Carbon Dioxide Level 18 L Anion Gap 17 H Blood Urea Nitrogen 70 H Creatinine 3.34 H Glucose Level 120 # Calcium Level 8.0 L Test 04/01/17 23:40 04/02/17 00:42 04/02/17 01:52 04/02/17 02:43 Bedside Glucose 136 133 129 131 Test 04/02/17 03:41 04/02/17 04:44 04/02/17 04:47 04/02/17 05:45 Bedside Glucose 132 147 141 Lab Scanned Report BLOOD TRANSFUSION Test 04/02/17 06:20 04/02/17 06:49 04/02/17 07:59 04/02/17 09:29 White Blood Count 10.6 Red Blood Count 2.84 L Hemoglobin 7.8 L Hematocrit 25.4 L Mean Corpuscular Volume 89.4 Mean Corpuscular Hemoglobin 27.5 L Mean Corpuscular Hemoglobin Concent 30.7 L Red Cell Distribution Width 15.6 H Platelet Count 317 Mean Platelet Volume 9.4 Neutrophils % 77.2 H Lymphocytes % 14.2 L Monocytes % 7.3 Eosinophils % 0.1 Basophils % 0.3 Nucleated Red Blood Cells % 0.0 Neutrophils # 8.2 H Lymphocytes # 1.5 Monocytes # 0.8 Eosinophils # 0.0 Basophils # 0.0 Nucleated Red Blood Cells # 0.0 Sodium Level 151 H Potassium Level 4.5 Chloride Level 120 H Carbon Dioxide Level 19 L Anion Gap 17 H Blood Urea Nitrogen 67 H Creatinine 2.99 H Glucose Level 128 Calcium Level 8.6 Phosphorus Level 6.5 H Magnesium Level 2.2 Random Vancomycin Level 9.1 Bedside Glucose 133 123 161 Test 04/02/17 10:49 04/02/17 12:09 04/02/17 13:56 04/02/17 16:13 Bedside Glucose 167 159 177 Sodium Level 143 Potassium Level 4.5 Chloride Level 111 H Carbon Dioxide Level 16 L Anion Gap 21 H Blood Urea Nitrogen 57 H Creatinine 2.28 H Glucose Level 205 Calcium Level 8.2 L Test 04/02/17 16:27 04/02/17 17:53 Bedside Glucose 207 179 Medications Current Medications Ondansetron HCl (Zofran Inj) 4 mg Q6H PRN IV NAUSEA AND/OR VOMITING Last administered on 04/01/17t 04:16; Admin Dose 4 MG; Start 03/31/17 at 21:30 Acetaminophen (Tylenol Tab) 650 mg Q6H PRN PO PAIN LEVEL 1-3 OR FEVER; Start 03/31/17 at 21:30 Amitriptyline HCl (Elavil) 10 mg QHS PO Last administered on 04/01/17 20:47; Admin Dose 10 MG; Start 04/01/17 at 21:00 Aspirin (Halfprin) 81 mg DAILY PO Last administered on 04/02/17 09:09; Admin Dose 81 MG; Start 04/01/17 at 09:00 Atorvastatin Calcium (Lipitor) 80 mg QHS PO Last administered on 04/01/17 20: 47; Admin Dose 80 MG; Start 04/01/17 at 21:00 Metoprolol Tartrate (Lopressor) 100 mg QHS PO Last administered on 04/01/17 20:48; Admin Dose 100 MG; Start 04/01/17 at 21:00 Dextrose (D50w Syringe) 25 ml Q15M PRN IV BS between 50-70; Start 04/01/17 at 07:30 Diagnostic Test (Pha) (Accu-Chek) 1 ea Q1H XX Last administered on 04/02/17 19:00; Admin Dose 1 EA; Start 04/01/17 at 07:30 Dextrose (D50w Syringe) 25 ml Q15M PRN IV Till BS 80 mg/dL or above x2; Start 04/01/17 at 07:30 Miscellaneous Information This patient mims... PRN PRN XX WOUND CARE; Start at 08:00 Piperacillin Sod/ Tazobactam Sod (Zosyn 2.25gm/ 50ml (Pmx)) 50 ml @ 100 mls/hr Q8 IVPB Last administered on 04/02/17 16:24; Admin Dose 100 MLS/HR; Start at 11:00 Lorazepam (Ativan) 1 mg Q6H PRN IV AGITATION/ANXIETY Last administered on 04/01 21:18; Admin Dose 1 MG; Start 04/01/17 at 12:00 IV Flush (NS 10 ml) 10 ml PRN PRN IV IV PROTOCOL; Start 04/01/17 at 13:30 Sodium Hypochlorite (Dakin'S (1/4 Strength)) 1 applic BID IRR Last administered on 04/02/17 02:00; Admin Dose 1 APPLIC; Start 04/01/17 at 21:00 Silver Sulfadiazine (Thermazene 1% 25 Gm) 1 applic BID TOP Last administered on 04/01/17 21:00; Admin Dose 1 APPLIC; Start 04/01/17 at 21:00 Morphine Sulfate (morphine) 2 mg Q4H PRN IV PAIN Last administered on 16:23; Admin Dose 2 MG; Start 04/01/17 at 18:30 Oxycodone/ Acetaminophen 1 tab 1 tab Q4H PRN PO PAIN Last administered on 04/02 15:01; Admin Dose 1 TAB; Start 04/01/17 at 18:30 Vancomycin HCl/ Dextrose (Vancocin/D5W) 250 ml @ 83.333 mls/ hr Q36H IVPB Last administered on 04/02/17 12:37; Admin Dose 83.333 MLS/HR; Start at 13:00 Assessment/Plan Chief Complaint/Hosp Course 56-year-old male with bilateral lower extremity cellulitis and wounds that needed to be admitted to the hospital for intravenous antibiotic. the nurses tried yesterday to insert a Hagan catheter for him unsuccessfully . I did insert a 16 [place] Hagan catheter and over 1600 mL of urine drained. Now the Hagan catheter is draining well and the urine is clear. We will keep the Hagan catheter in place for now Problems: MAHAD MARTIN MD Apr 02, 2017 19:46
[2017-04-02] MEDS: METOPROLOL 100 MG TAB PO SCH (20:43)
[2017-04-02] MEDS: ATORVASTATIN 80 MG TAB PO SCH (20:43)
[2017-04-02] MEDS: AMITRIPTYLINE 10 MG TAB PO SCH (21:38)
[2017-04-03] VITALS (25 sets, daily range): BP systolic 123–195; BP diastolic 57–157; PULSE 76–108; RESP 11–25
[2017-04-03] MEDS: ACCU-CHEK XX SCH ×8 (00:45→07:30)
[2017-04-03] MEDS: morphine 2 MG INJ IV PRN ×4 (04:11→23:02)
[2017-04-03 05:34] LABS: BASOPHILS % 0.3 % (0.0-2.0); EOSINOPHILS # 0.2 10^3/ul (0.0-0.5); EOSINOPHILS % 1.4 % (0.0-7.0); HEMOGLOBIN 8.5 g/dl (14.0-18.0); LYMPHOCYTES # 2.2 10^3/ul (0.8-2.9); LYMPHOCYTES % 18.6 % (15.0-51.0); MEAN CORPUSCULAR HEMOGLOBIN 27.6 pg (29.0-33.0); MEAN CORPUSCULAR HGB CONC 31.5 g/dl (32.0-37.0); MEAN CORPUSCULAR VOLUME 87.7 fl (82.0-101.0); MEAN PLATELET VOLUME 9.2 fl (7.4-10.4); MONOCYTES % 8.3 % (0.0-11.0); NEUTROPHIL # 8.2 10^3/ul (1.6-7.5); NUCLEATED RED BLOOD CELLS% 0.2 /100WBC (0.0-0.0); PLATELET COUNT 343 10^3/UL (140-415); RED BLOOD COUNT 3.08 10^6/ul (4.70-6.10); RED CELL DISTRIBUTION WIDTH 15.6 % (11.5-14.5); WHITE BLOOD COUNT 11.7 10^3/ul (4.8-10.8)
[2017-04-03] MEDS: INSULIN HUMAN REGULAR 100 UNIT in SOD CHLORIDE 0.9% 99 ML IV SCH (05:49)
[2017-04-03] MEDS: PIPER-TAZO 2.25 GM (PMX) 50 ML IVPB SCH ×3 (05:54→22:00)
[2017-04-03 06:44] LABS: PHOSPHORUS 4.4 mg/dl (2.5-4.9)
[2017-04-03 06:49] LABS: CALCIUM 8.9 mg/dl (8.4-10.2); CREATININE 1.87 mg/dl (0.61-1.24); POTASSIUM 4.6 mmol/L (3.5-5.1)
--- NOTE | 2017-04-03 09:07 | PN ---
Date/Time of Note Date/Time of Note DATE: 04/03/17 TIME: 09:06 Assessment/Plan VTE Prophylaxis VTE Prophylaxis Intervention: other Lines/Catheters IV Catheter Type (from [facility]): PICC Line Central line still needed: Yes Urinary Cath still in place: Yes Reason Cath still needed: urinary retention Assessment/Plan Chief Complaint/Hosp Course renal follow up SUBJECTIVE: The patient is clinically stable, no acute events overnight. The patient continues to have a foul-smelling wound. Urinary output has improved. OBJECTIVE: HEENT: Head is normocephalic. NECK: Supple. HEART: Regular rate. LUNGS: Show diminished breath sounds at the base. ABDOMEN: Soft, nontender to palpation. No rebound or guarding. EXTREMITIES: Negative for clubbing, cyanosis. There is positive edema. There is noted foul smelling lower extremity wounds but dressing is clean, dry, intact. DERMATOLOGIC: No rashes. MUSCULOSKELETAL: No joint effusion. ASSESSMENT AND PLAN: 1. Nonoliguric acute kidney injury with unknown baseline creatinine and probable chronic kidney disease. Etiology of acute kidney injury was multifactorial secondary to volume depletion, septic acute kidney injury, possible tubular injury. The patient's urinalysis was bland, no active sediment , non-glomerular proteinuria. The patient's renal ultrasound shows no evidence of obstruction. The patient's renal function has been improving with supportive care, IV hydration, IV antibiotics. At this point, continue current treatment plan, supportive care, renally dose all meds, continue to monitor function closely. 2. Hyperkalemia. Etiology secondary to acute kidney injury and hyperglycemia. Potassium levels have normalized. Continue to monitor. 3. Anion gap metabolic acidosis with appropriate respiratory compensation. Will continue to monitor bicarbonate levels. Acidosis has been improving. No need for bicarbonate therapy at this time. 4. Mineral bone disorder. Monitor calcium and phosphorus levels. 5. Anemia. The patient is status post blood transfusion. Continue to monitor hemoglobin and hematocrit levels. 6. Hypernatremia. The patient has a free water deficit of approximately 2.5 liters. Will encourage free water intake and start the patient on iv fluids. 7. Sepsis secondary to lower extremity cellulitis, possible osteomyelitis. Continue current antibiotic regimen. 8. Diabetes. Continue current insulin regimen. Continue insulin drip. 9. Hypertension. Continue current medical management. 10. Acute respiratory failure. The patient's chest x-ray shows no definitive consolidation. Monitor closely. Problems: Exam/Review of Systems Vital Signs Vitals Vital Signs Date Time Temp Pulse Resp B/P Pulse Ox O2 Delivery O2 Flow Rate FiO2 04/03/17 08:00 90 04/03/17 06:00 19 133/69 93 Room Air 04/03/17 04:00 98.4 04/02/17 08:00 3.0 04/02/17 05:54 27 Intake and Output 04/02/17 04/02/17 04/03/17 15:00 23:00 07:00 Intake Total 1471 ml 1727 ml 327 ml Output Total 2050 ml 1550 ml 735 ml Balance -579 ml 177 ml -408 ml Results Result Diagram: 04/03/17 0430 04/03/17 0430 Results 24 hrs Laboratory Tests Test 04/02/17 09:29 04/02/17 10:49 04/02/17 12:09 04/02/17 13:56 Bedside Glucose 161 167 159 177 Test 04/02/17 16:13 04/02/17 16:27 04/02/17 17:53 04/02/17 19:40 Sodium Level 143 Potassium Level 4.5 Chloride Level 111 H Carbon Dioxide Level 16 L Anion Gap 21 H Blood Urea Nitrogen 57 H Creatinine 2.28 H Glucose Level 205 Calcium Level 8.2 L Bedside Glucose 207 179 334 H Test 04/02/17 20:39 04/02/17 21:37 04/02/17 22:23 04/02/17 23:37 Bedside Glucose 179 156 161 169 Test 04/03/17 00:43 04/03/17 01:35 04/03/17 02:34 04/03/17 03:38 Bedside Glucose 164 140 161 136 Test 04/03/17 04:30 04/03/17 04:35 04/03/17 04:47 04/03/17 05:40 White Blood Count 11.7 H Red Blood Count 3.08 L Hemoglobin 8.5 L Hematocrit 27.0 L Mean Corpuscular Volume 87.7 Mean Corpuscular Hemoglobin 27.6 L Mean Corpuscular Hemoglobin Concent 31.5 L Red Cell Distribution Width 15.6 H Platelet Count 343 Mean Platelet Volume 9.2 Neutrophils % 70.0 Lymphocytes % 18.6 Monocytes % 8.3 Eosinophils % 1.4 Basophils % 0.3 Nucleated Red Blood Cells % 0.2 H Neutrophils # 8.2 H Lymphocytes # 2.2 Monocytes # 1.0 H Eosinophils # 0.2 Basophils # 0.0 Nucleated Red Blood Cells # 0.0 Sodium Level 146 H Potassium Level 4.6 Chloride Level 113 H Carbon Dioxide Level 19 L Anion Gap 19 H Blood Urea Nitrogen 47 H Creatinine 1.87 H Glucose Level 133 # Calcium Level 8.9 Phosphorus Level 4.4 # Magnesium Level 2.0 Bedside Glucose 147 140 Lab Scanned Report BLOOD TRANSFUSION Test 04/03/17 06:31 04/03/17 08:17 Bedside Glucose 149 159 Medications Medications Current Medications Ondansetron HCl (Zofran Inj) 4 mg Q6H PRN IV NAUSEA AND/OR VOMITING Last administered on 04/01/17 04:16; Admin Dose 4 MG; Start 03/31/17 at 21:30 Acetaminophen (Tylenol Tab) 650 mg Q6H PRN PO PAIN LEVEL 1-3 OR FEVER; Start 03/31/17 at 21:30 Amitriptyline HCl (Elavil) 10 mg QHS PO Last administered on 04/02/17 21:38; Admin Dose 10 MG; Start 04/01/17 at 21:00 Aspirin (Halfprin) 81 mg DAILY PO Last administered on 04/02/17 09:09; Admin Dose 81 MG; Start 04/01/17 at 09:00 Atorvastatin Calcium (Lipitor) 80 mg QHS PO Last administered on 04/02/17 20: 43; Admin Dose 80 MG; Start 04/01/17 at 21:00 Metoprolol Tartrate (Lopressor) 100 mg QHS PO Last administered on 04/02/17 20:43; Admin Dose 100 MG; Start 04/01/17 at 21:00 Dextrose (D50w Syringe) 25 ml Q15M PRN IV BS between 50-70; Start 04/01/17 at 07:30 Diagnostic Test (Pha) (Accu-Chek) 1 ea Q1H XX Last administered on 04/03/17 06:55; Admin Dose 1 EA; Start 04/01/17 at 07:30 Dextrose (D50w Syringe) 25 ml Q15M PRN IV Till BS 80 mg/dL or above x2; Start 04/01/17 at 07:30 Miscellaneous Information This patient mims... PRN PRN XX WOUND CARE; Start at 08:00 Piperacillin Sod/ Tazobactam Sod (Zosyn 2.25gm/ 50ml (Pmx)) 50 ml @ 100 mls/hr Q8 IVPB Last administered on 04/03/17 05:54; Admin Dose 100 MLS/HR; Start at 11:00 Lorazepam (Ativan) 1 mg Q6H PRN IV AGITATION/ANXIETY Last administered on 04/01 21:18; Admin Dose 1 MG; Start 04/01/17 at 12:00 IV Flush (NS 10 ml) 10 ml PRN PRN IV IV PROTOCOL; Start 04/01/17 at 13:30 Sodium Hypochlorite (Dakin'S (1/4 Strength)) 1 applic BID IRR Last administered on 04/02/17 20:44; Admin Dose 1 APPLIC; Start 04/01/17 at 21:00 Silver Sulfadiazine (Thermazene 1% 25 Gm) 1 applic BID TOP Last administered on 04/02/17 20:44; Admin Dose 1 APPLIC; Start 04/01/17 at 21:00 Morphine Sulfate (morphine) 2 mg Q4H PRN IV PAIN Last administered on 04:11; Admin Dose 2 MG; Start 04/01/17 at 18:30 Oxycodone/ Acetaminophen 1 tab 1 tab Q4H PRN PO PAIN Last administered on 04/02 15:01; Admin Dose 1 TAB; Start 04/01/17 at 18:30 Vancomycin HCl/ Dextrose (Vancocin/D5W) 250 ml @ 83.333 mls/ hr Q36H IVPB Last administered on 04/02/17 12:37; Admin Dose 83.333 MLS/HR; Start at 13:00 VALERIY VIEIRA DO Apr 03, 2017 09:07
[2017-04-03] MEDS: ASPIRIN (EC) 81 MG TAB PO SCH (09:54)
[2017-04-03] MEDS ORDERED: GLUCOSE GEL 15 GRAM TUBE BUCCAL PRN (10:00)
[2017-04-03] MEDS ORDERED: GLUCAGON 1 MG INJ IM PRN (10:00)
[2017-04-03] MEDS ORDERED: GLUCOSE GEL 15 GRAM TUBE PO PRN ×2 (10:00)
[2017-04-03] MEDS ORDERED: DEXTROSE 50% 50 ML SYRINGE IV PRN ×2 (10:00)
[2017-04-03] MEDS: SILVER SULFADIAZINE 1% 25 GM CR TOP SCH ×2 (10:08→20:57)
[2017-04-03] MEDS: SODIUM HYPOCHLORITE 0.125% 473 ML BTL IRR SCH ×2 (10:08→20:56)
[2017-04-03] MEDS ORDERED: INSULIN GLARGINE [LANtus] 3 ML PEN SC SCH ×2 (11:00→20:00)
--- NOTE | 2017-04-03 11:02 | CONS ---
Date/Time of Note Date/Time of Note DATE: 04/03/17 TIME: 10:59 Assessment/Plan Assessment/Plan Chief Complaint/Hosp Course ID PROGRESS NOTE CURRENT ABX: DAY # =>Vanco IV + Zosyn 24H INTERVAL SUMMARY * Resting comfortably on room air, afebrile, pain meds onboard, patient awakens , no new c/o, no new issues * POD #2-> s/p bedside debridement R-DFU * CHART/RADIOLOGY IMAGING/LABS /VSS/MICRO REVIEWED 04/01/17 MICRO RIGHT FOOT: WOUND CULTURE Preliminary Organism 1 PROTEUS PENNERI QUANTITY SCANT GROWTH Organism 2 STAPHYLOCOCCUS AUREUS QUANTITY SCANT GROWTH LEFT FOOT LEFT FOOT WOUND CULTURE Preliminary Organism 1 PROTEUS PENNERI QUANTITY SCANT GROWTH Organism 2 GRAM NEGATIVE DEBORA QUANTITY SCANT GROWTH Organism 3 GRAM NEGATIVE DEBORA#2 QUANTITY SCANT GROWTH Organism 4 STAPHYLOCOCCUS SPECIES QUANTITY SCANT GROWTH P PENNERI M.I.C. RX --------- --- AMPICILLIN >=32 R CEFOTAXIME S CIPROFLOXACIN <=0.25 S GENTAMICIN <=1 S LEVOFLOXACIN <=0.12 S TOBRAMYCIN <=1 S TRIMETHOPRIM/SULFAMETHOXAZOLE <=20 S PHYSICAL EXAMINATION: GENERAL: This is a morbidly obese, well-developed, 56 yo M, NAD HEENT: Head atraumatic, normocephalic. Sclerae anicteric. Buccal mucosa dry. NECK: Supple, trach midline CHEST: Rise symmetrical. Breath sounds diminished to bases. HEART: S1, S2. NSR on tele ABDOMEN: Soft, bowel tones present. EXTREMITIES: Without cyanosis. Bilateral lower extremities edema. BLEXT cellulitis improving, Right foot dressing intact with some blood present. SKIN: Fair skinned red-head , no rash, no diaphoresis noted ID ASSESSMENT: 56 yo Morbid Obese M admit [facility] ICU: 1. Acute shock->(+)Septicemia (+)Hypovolemia 2/2 symptomatic anemia (H/H 6.6/ 22.1 on 03/31/17) * s/p Lactic acidosis 03/31 @ 3.4 * Low grade Temps=> 99.+ range * Leukocytosis w/left shift on admission -> resolving 2. Bacteremia, likely secondary to infected right foot wound. * 03/31/17 BCx: * Organism 1 STAPHYLOCOCCUS AUREUS * Organism 2 STREP BETA HEMOLYTIC-GROUP F 3. Right diabetic foot infection w/osteomyelitis * X-ray 03/31/17: Likely osteomyelitis of the second through fourth metatarsal bones deep to a large ulcer along the plantar aspect of the foot. * Wound Cx: 03/31/2017 Staphylococcus aureus, strep, and Morganella morganii, final sensitivities pending. * RLEXT 04/01/17 WOUND CULTURE Preliminary Organism 1 PROTEUS PENNERI Organism 2 STAPHYLOCOCCUS AUREUS 4. Left diabetic foot ulcer * 03/31/17 X-ray: No definite plain film evidence of osteomyelitis, and if there is concern for osteomyelitis recommend MRI correlation. * LEFT FOOT WOUND CULTURE Preliminary Organism 1 PROTEUS PENNERI Organism 2 GRAM NEGATIVE DEBORA -> Pending Organism 3 GRAM NEGATIVE DEBORA#2 -> Pending Organism 4 STAPHYLOCOCCUS SPECIES 5. Poorly-controlled diabetes. 6. Acute kidney injury, possibly on chronic kidney disease. 7. Acute symptomatic anemia, possibly on chronic anemia. (-)MRSA ABX ALLERGIES: Sulfa INVASIVES: Hagan, PICC line placed on 04/01/2017. CURRENT ABX: Vanco IV + Zosyn ID RECOMMENDATIONS/PLAN: 1. Awaiting final results of GNRs growing in wound cx 2. Continue current ABX -> Will adjust future, anticipate minimum 6-weeks IV ABX coverage for osteomyelitis. . Problems: Consultation Date/Type/Reason Admit Date/Time Mar 31, 2017 at 21:15 Initial Consult Date 04/01/17 Referring Provider: VINOD PEDRAZA MD Exam/Review of Systems Vital Signs Vitals Vital Signs Date Time Temp Pulse Resp B/P Pulse Ox O2 Delivery O2 Flow Rate FiO2 04/03/17 08:00 90 04/03/17 06:00 19 133/69 93 Room Air 04/03/17 04:00 98.4 04/02/17 08:00 3.0 04/02/17 05:54 27 Intake and Output 04/02/17 04/02/17 04/03/17 15:00 23:00 07:00 Intake Total 1471 ml 1727 ml 327 ml Output Total 2050 ml 1550 ml 735 ml Balance -579 ml 177 ml -408 ml Results Result Diagram: 04/03/17 0430 04/03/17 0430 Results 24 hrs Laboratory Tests Test 04/02/17 12:09 04/02/17 13:56 04/02/17 16:13 04/02/17 16:27 Bedside Glucose 159 177 207 Sodium Level 143 Potassium Level 4.5 Chloride Level 111 H Carbon Dioxide Level 16 L Anion Gap 21 H Blood Urea Nitrogen 57 H Creatinine 2.28 H Glucose Level 205 Calcium Level 8.2 L Test 04/02/17 17:53 04/02/17 19:40 04/02/17 20:39 04/02/17 21:37 Bedside Glucose 179 334 H 179 156 Test 04/02/17 22:23 04/02/17 23:37 04/03/17 00:43 04/03/17 01:35 Bedside Glucose 161 169 164 140 Test 04/03/17 02:34 04/03/17 03:38 04/03/17 04:30 04/03/17 04:35 Bedside Glucose 161 136 147 White Blood Count 11.7 H Red Blood Count 3.08 L Hemoglobin 8.5 L Hematocrit 27.0 L Mean Corpuscular Volume 87.7 Mean Corpuscular Hemoglobin 27.6 L Mean Corpuscular Hemoglobin Concent 31.5 L Red Cell Distribution Width 15.6 H Platelet Count 343 Mean Platelet Volume 9.2 Neutrophils % 70.0 Lymphocytes % 18.6 Monocytes % 8.3 Eosinophils % 1.4 Basophils % 0.3 Nucleated Red Blood Cells % 0.2 H Neutrophils # 8.2 H Lymphocytes # 2.2 Monocytes # 1.0 H Eosinophils # 0.2 Basophils # 0.0 Nucleated Red Blood Cells # 0.0 Sodium Level 146 H Potassium Level 4.6 Chloride Level 113 H Carbon Dioxide Level 19 L Anion Gap 19 H Blood Urea Nitrogen 47 H Creatinine 1.87 H Glucose Level 133 # Calcium Level 8.9 Phosphorus Level 4.4 # Magnesium Level 2.0 Test 04/03/17 04:47 04/03/17 05:40 04/03/17 06:31 04/03/17 08:17 Lab Scanned Report BLOOD TRANSFUSION Bedside Glucose 140 149 159 Test 04/03/17 10:53 Bedside Glucose 254 H Medications Medications Current Medications Ondansetron HCl (Zofran Inj) 4 mg Q6H PRN IV NAUSEA AND/OR VOMITING Last administered on 04/01/17t 04:16; Admin Dose 4 MG; Start 03/31/17 at 21:30 Acetaminophen (Tylenol Tab) 650 mg Q6H PRN PO PAIN LEVEL 1-3 OR FEVER; Start 03/31/17 at 21:30 Amitriptyline HCl (Elavil) 10 mg QHS PO Last administered on 04/02/17 21:38; Admin Dose 10 MG; Start 04/01/17 at 21:00 Aspirin (Halfprin) 81 mg DAILY PO Last administered on 04/03/17 09:54; Admin Dose 81 MG; Start 04/01/17 at 09:00 Atorvastatin Calcium (Lipitor) 80 mg QHS PO Last administered on 04/02/17 20: 43; Admin Dose 80 MG; Start 04/01/17 at 21:00 Metoprolol Tartrate (Lopressor) 100 mg QHS PO Last administered on 04/02/17 20:43; Admin Dose 100 MG; Start 04/01/17 at 21:00 Dextrose (D50w Syringe) 25 ml Q15M PRN IV BS between 50-70; Start 04/01/17 at 07:30 Miscellaneous Information This patient mims... PRN PRN XX WOUND CARE; Start at 08:00 Piperacillin Sod/ Tazobactam Sod (Zosyn 2.25gm/ 50ml (Pmx)) 50 ml @ 100 mls/hr Q8 IVPB Last administered on 04/03/17 05:54; Admin Dose 100 MLS/HR; Start at 11:00 Lorazepam (Ativan) 1 mg Q6H PRN IV AGITATION/ANXIETY Last administered on 04/01 21:18; Admin Dose 1 MG; Start 04/01/17 at 12:00 IV Flush (NS 10 ml) 10 ml PRN PRN IV IV PROTOCOL; Start 04/01/17 at 13:30 Sodium Hypochlorite (Dakin'S (1/4 Strength)) 1 applic BID IRR Last administered on 04/03/17 10:08; Admin Dose 1 APPLIC; Start 04/01/17 at 21:00 Silver Sulfadiazine (Thermazene 1% 25 Gm) 1 applic BID TOP Last administered on 04/03/17 10:08; Admin Dose 1 APPLIC; Start 04/01/17 at 21:00 Morphine Sulfate (morphine) 2 mg Q4H PRN IV PAIN Last administered on 09:54; Admin Dose 2 MG; Start 04/01/17 at 18:30 Oxycodone/ Acetaminophen 1 tab 1 tab Q4H PRN PO PAIN Last administered on 04/02 15:01; Admin Dose 1 TAB; Start 04/01/17 at 18:30 Vancomycin HCl/ Dextrose (Vancocin/D5W) 250 ml @ 83.333 mls/ hr Q36H IVPB Last administered on 04/02/17 12:37; Admin Dose 83.333 MLS/HR; Start at 13:00 Diagnostic Test (Pha) (Accu-Chek) 1 ea 02 XX ; Start 04/04/17 at 02:00 Miscellaneous Information 1 ea NOTE XX ; Start 04/03/17 at 10:00 Glucose (Glutose) 15 gm Q15M PRN PO DECREASED GLUCOSE; Start 04/03/17 at 10:00 Glucose (Glutose) 22.5 gm Q15M PRN PO DECREASED GLUCOSE; Start 04/03/17 at 10: 00 Dextrose (D50w Syringe) 25 ml Q15M PRN IV DECREASED GLUCOSE; Start 04/03/17 at 10:00 Dextrose (D50w Syringe) 50 ml Q15M PRN IV DECREASED GLUCOSE; Start 04/03/17 at 10:00 Glucagon (Glucagen) 1 mg Q15M PRN IM DECREASED GLUCOSE; Start 04/03/17 at 10: 00 Glucose (Glutose) 15 gm Q15M PRN BUCCAL DECREASED GLUCOSE; Start 04/03/17 at 10:00 Insulin Glargine (Lantus) 38 unit DAILY@20 SC Last administered on 04/03/17 10:54; Admin Dose 38 UNIT; Start 04/03/17 at 11:00 WILL WONG NP Apr 03, 2017 11:02 00 Dextrose (D50w Syringe) 25 ml Q15M PRN IV DECREASED GLUCOSE; Start 04/03/17 at 10:00 Dextrose (D50w Syringe) 50 ml Q15M PRN IV DECREASED GLUCOSE; Start 04/03/17 at 10:00 Glucagon (Glucagen) 1 mg Q15M PRN IM DECREASED GLUCOSE; Start 04/03/17 at 10: 00 Glucose (Glutose) 15 gm Q15M PRN BUCCAL DECREASED GLUCOSE; Start 04/03/17 at 10:00 Insulin Glargine (Lantus) 38 unit DAILY@20 SC Last administered on 11/18/17at 10:54; Admin Dose 38 UNIT; Start 04/03/17 at 11:00 WILL WONG NP Apr 03, 2017 11:02
[2017-04-03] MEDS: INSULIN ASPART [NOVOLOG] 3 ML PEN SC SCH ×5 (12:32→21:00)
--- NOTE | 2017-04-03 14:19 | CONS ---
Date/Time of Note Date/Time of Note DATE: 04/03/17 TIME: 14:15 Consult Date/Type/Reason Admit Date/Time Mar 31, 2017 at 21:15 Initial Consult Date 04/01/17 Type of Consultation: Urology Reason for Consultation Urinary retention Ordering Provider: VINOD PEDRAZA MD Subjective Patient is awake alert states he is feeling better Objective Vital Signs Date Time Temp Pulse Resp B/P Pulse Ox O2 Delivery O2 Flow Rate FiO2 04/03/17 12:00 102 04/03/17 06:00 19 133/69 93 Room Air 04/03/17 04:00 98.4 04/02/17 08:00 3.0 04/02/17 05:54 27 Intake and Output 04/02/17 04/02/17 04/03/17 15:00 23:00 07:00 Intake Total 1471 ml 1727 ml 327 ml Output Total 2050 ml 1550 ml 735 ml Balance -579 ml 177 ml -408 ml Exam Hagan catheter is draining clear urine and good urine output Results/Medications Result Diagram: 04/03/17 0430 04/03/17 0430 Results 24 hrs Renal function is improving Laboratory Tests Test 04/02/17 16:13 04/02/17 16:27 04/02/17 17:53 04/02/17 19:40 Sodium Level 143 Potassium Level 4.5 Chloride Level 111 H Carbon Dioxide Level 16 L Anion Gap 21 H Blood Urea Nitrogen 57 H Creatinine 2.28 H Glucose Level 205 Calcium Level 8.2 L Bedside Glucose 207 179 334 H Test 04/02/17 20:39 04/02/17 21:37 04/02/17 22:23 04/02/17 23:37 Bedside Glucose 179 156 161 169 Test 04/03/17 00:43 04/03/17 01:35 04/03/17 02:34 04/03/17 03:38 Bedside Glucose 164 140 161 136 Test 04/03/17 04:30 04/03/17 04:35 04/03/17 04:47 04/03/17 05:40 White Blood Count 11.7 H Red Blood Count 3.08 L Hemoglobin 8.5 L Hematocrit 27.0 L Mean Corpuscular Volume 87.7 Mean Corpuscular Hemoglobin 27.6 L Mean Corpuscular Hemoglobin Concent 31.5 L Red Cell Distribution Width 15.6 H Platelet Count 343 Mean Platelet Volume 9.2 Neutrophils % 70.0 Lymphocytes % 18.6 Monocytes % 8.3 Eosinophils % 1.4 Basophils % 0.3 Nucleated Red Blood Cells % 0.2 H Neutrophils # 8.2 H Lymphocytes # 2.2 Monocytes # 1.0 H Eosinophils # 0.2 Basophils # 0.0 Nucleated Red Blood Cells # 0.0 Sodium Level 146 H Potassium Level 4.6 Chloride Level 113 H Carbon Dioxide Level 19 L Anion Gap 19 H Blood Urea Nitrogen 47 H Creatinine 1.87 H Glucose Level 133 # Calcium Level 8.9 Phosphorus Level 4.4 # Magnesium Level 2.0 Bedside Glucose 147 140 Lab Scanned Report BLOOD TRANSFUSION Test 04/03/17 06:31 04/03/17 08:17 04/03/17 10:53 04/03/17 12:25 Bedside Glucose 149 159 254 H 237 H Test 04/03/17 13:47 Bedside Glucose 297 H Medications Current Medications Ondansetron HCl (Zofran Inj) 4 mg Q6H PRN IV NAUSEA AND/OR VOMITING Last administered on 04/01/17 04:16; Admin Dose 4 MG; Start 03/31/17 at 21:30 Acetaminophen (Tylenol Tab) 650 mg Q6H PRN PO PAIN LEVEL 1-3 OR FEVER; Start 03/31/17 at 21:30 Amitriptyline HCl (Elavil) 10 mg QHS PO Last administered on 04/02/17 21:38; Admin Dose 10 MG; Start 04/01/17 at 21:00 Aspirin (Halfprin) 81 mg DAILY PO Last administered on 04/03/17 09:54; Admin Dose 81 MG; Start 04/01/17 at 09:00 Atorvastatin Calcium (Lipitor) 80 mg QHS PO Last administered on 04/02/17 20: 43; Admin Dose 80 MG; Start 04/01/17 at 21:00 Metoprolol Tartrate (Lopressor) 100 mg QHS PO Last administered on 04/02/17 20:43; Admin Dose 100 MG; Start 04/01/17 at 21:00 Dextrose (D50w Syringe) 25 ml Q15M PRN IV BS between 50-70; Start 04/01/17 at 07:30 Miscellaneous Information This patient mims... PRN PRN XX WOUND CARE; Start at 08:00 Piperacillin Sod/ Tazobactam Sod (Zosyn 2.25gm/ 50ml (Pmx)) 50 ml @ 100 mls/hr Q8 IVPB Last administered on 04/03/17 13:42; Admin Dose 100 MLS/HR; Start at 11:00 Lorazepam (Ativan) 1 mg Q6H PRN IV AGITATION/ANXIETY Last administered on 04/01 21:18; Admin Dose 1 MG; Start 04/01/17 at 12:00 IV Flush (NS 10 ml) 10 ml PRN PRN IV IV PROTOCOL; Start 04/01/17 at 13:30 Sodium Hypochlorite (Dakin'S (1/4 Strength)) 1 applic BID IRR Last administered on 04/03/17 10:08; Admin Dose 1 APPLIC; Start 04/01/17 at 21:00 Silver Sulfadiazine (Thermazene 1% 25 Gm) 1 applic BID TOP Last administered on 04/03/17 10:08; Admin Dose 1 APPLIC; Start 04/01/17 at 21:00 Morphine Sulfate (morphine) 2 mg Q4H PRN IV PAIN Last administered on 14:02; Admin Dose 2 MG; Start 04/01/17 at 18:30 Oxycodone/ Acetaminophen 1 tab 1 tab Q4H PRN PO PAIN Last administered on 04/02 15:01; Admin Dose 1 TAB; Start 04/01/17 at 18:30 Vancomycin HCl/ Dextrose (Vancocin/D5W) 250 ml @ 83.333 mls/ hr Q36H IVPB Last administered on 04/02/17 12:37; Admin Dose 83.333 MLS/HR; Start at 13:00 Diagnostic Test (Pha) (Accu-Chek) 1 ea 02 XX ; Start 04/04/17 at 02:00 Miscellaneous Information 1 ea NOTE XX ; Start 04/03/17 at 10:00 Glucose (Glutose) 15 gm Q15M PRN PO DECREASED GLUCOSE; Start 04/03/17 at 10:00 Glucose (Glutose) 22.5 gm Q15M PRN PO DECREASED GLUCOSE; Start 04/03/17 at 10: 00 Dextrose (D50w Syringe) 25 ml Q15M PRN IV DECREASED GLUCOSE; Start 04/03/17 at 10:00 Dextrose (D50w Syringe) 50 ml Q15M PRN IV DECREASED GLUCOSE; Start 04/03/17 at 10:00 Glucagon (Glucagen) 1 mg Q15M PRN IM DECREASED GLUCOSE; Start 04/03/17 at 10: 00 Glucose (Glutose) 15 gm Q15M PRN BUCCAL DECREASED GLUCOSE; Start 04/03/17 at 10:00 Insulin Glargine (Lantus) 38 unit DAILY@20 SC Last administered on 04/03/17t 10:54; Admin Dose 38 UNIT; Start 04/03/17 at 11:00 Assessment/Plan Chief Complaint/Hosp Course 56-year-old male with bilateral lower extremity cellulitis and wounds that needed to be admitted to the hospital for intravenous antibiotic. I inserted the Hagan catheter 2 days ago and that is draining well and the urine is clear. The renal function has improved .we will keep the Hagan catheter in place for now Problems: MAHAD MARTIN MD Apr 03, 2017 14:18
--- NOTE | 2017-04-03 14:24 | PN ---
Date/Time of Note Date/Time of Note DATE: 04/03/17 TIME: 14:10 Assessment/Plan VTE Prophylaxis VTE Prophylaxis Intervention: heparin Lines/Catheters IV Catheter Type (from Nrsg): PICC Line Central line still needed: Yes Urinary Cath still in place: Yes Reason Cath still needed: urinary retention Assessment/Plan Chief Complaint/Hosp Course 56 yo male with h/o DMII, OM of foot in nonhealing ulcer presenting with sepsis , hyperglycemia, RENZO from cellulitis surrounding diabetic foot infection ID: Sepsis with staph aureus and strep bacteremia - Continue vanco and zosyn. Management per ID. Anticipate skilled nursing abx unless amputation of foot - Follow up blood cultures: so far growing staph aureus and strep, repeat to ensure clearance of bacteremia. No vegetations to suggest endocarditis Diabetic foot ulcer with OM and cellulitis: - MRI to assess for underlying abscess of foot, OM, etc was unable to be performed given too big for MRI machine. Needs imaging to exclude abscess etc. We can perform a CT w contrast as his renal function settles to baseline. Dr Kimble following RENAL: RENZO: - Unclear etiology, likley 2/2 SILVESTRE/bactrim and septic ATN - Monitor renal function, improving with fluids and resolution of sepsis Metabolic acidosis - Likely 2/2 uremia, there are no ketones to suggest DKA - Will improve with improvement in renal function Hyperkalemia - Resolved Hypernatremia - Encourage free water intake HEME: Acute blood loss anemia - Transfuse PRN Hgb < 7 Iron deficiency anemia: - Replace iron deficit when sepsis resolved ENDO: DMII w hyperglycemia - no ketones to suggest DKA - s/p insulin drip. Resume basal/bolus insulin CV: - Continue home aspirin, statin, metoprolol. Hold other BP meds : Urinary retention likley 2/2 medications, encephelopathy of sepsis - Continue santana for now. Trial of void in coming days ICU > 35 minutes Problems: Subjective 24 Hr Interval Summary Free Text/Dictation Continues to improve, RENZO resolved Mentation is now back to baseline, no longer encephelopathic Unfortunately was unable to undergo MRI yesterday as his foot was too swollen to fit inside the machine Pain in R foot relatively controlled Exam/Review of Systems Vital Signs Vitals Vital Signs Date Time Temp Pulse Resp B/P Pulse Ox O2 Delivery O2 Flow Rate FiO2 04/03/17 12:00 102 04/03/17 06:00 19 133/69 93 Room Air 04/03/17 04:00 98.4 04/02/17 08:00 3.0 04/02/17 05:54 27 Intake and Output 04/02/17 04/02/17 04/03/17 15:00 23:00 07:00 Intake Total 1471 ml 1727 ml 327 ml Output Total 2050 ml 1550 ml 735 ml Balance -579 ml 177 ml -408 ml Exam Alert, O x3 Comfortable, appropriate RRR no m/rg Lungs clear, nonlabored Ext: R foot wrapped pictures in chart apprecaited with massive plantar wound No edema Results Result Diagram: 04/03/17 0430 04/03/17 0430 Results 24 hrs Laboratory Tests Test 04/02/17 16:13 04/02/17 16:27 04/02/17 17:53 04/02/17 19:40 Sodium Level 143 Potassium Level 4.5 Chloride Level 111 H Carbon Dioxide Level 16 L Anion Gap 21 H Blood Urea Nitrogen 57 H Creatinine 2.28 H Glucose Level 205 Calcium Level 8.2 L Bedside Glucose 207 179 334 H Test 04/02/17 20:39 04/02/17 21:37 04/02/17 22:23 04/02/17 23:37 Bedside Glucose 179 156 161 169 Test 04/03/17 00:43 04/03/17 01:35 04/03/17 02:34 04/03/17 03:38 Bedside Glucose 164 140 161 136 Test 04/03/17 04:30 04/03/17 04:35 04/03/17 04:47 04/03/17 05:40 White Blood Count 11.7 H Red Blood Count 3.08 L Hemoglobin 8.5 L Hematocrit 27.0 L Mean Corpuscular Volume 87.7 Mean Corpuscular Hemoglobin 27.6 L Mean Corpuscular Hemoglobin Concent 31.5 L Red Cell Distribution Width 15.6 H Platelet Count 343 Mean Platelet Volume 9.2 Neutrophils % 70.0 Lymphocytes % 18.6 Monocytes % 8.3 Eosinophils % 1.4 Basophils % 0.3 Nucleated Red Blood Cells % 0.2 H Neutrophils # 8.2 H Lymphocytes # 2.2 Monocytes # 1.0 H Eosinophils # 0.2 Basophils # 0.0 Nucleated Red Blood Cells # 0.0 Sodium Level 146 H Potassium Level 4.6 Chloride Level 113 H Carbon Dioxide Level 19 L Anion Gap 19 H Blood Urea Nitrogen 47 H Creatinine 1.87 H Glucose Level 133 # Calcium Level 8.9 Phosphorus Level 4.4 # Magnesium Level 2.0 Bedside Glucose 147 140 Lab Scanned Report BLOOD TRANSFUSION Test 04/03/17 06:31 04/03/17 08:17 04/03/17 10:53 04/03/17 12:25 Bedside Glucose 149 159 254 H 237 H Test 04/03/17 13:47 Bedside Glucose 297 H Medications Medications Current Medications Ondansetron HCl (Zofran Inj) 4 mg Q6H PRN IV NAUSEA AND/OR VOMITING Last administered on 04/01/17 04:16; Admin Dose 4 MG; Start 03/31/17 at 21:30 Acetaminophen (Tylenol Tab) 650 mg Q6H PRN PO PAIN LEVEL 1-3 OR FEVER; Start 03/31/17 at 21:30 Amitriptyline HCl (Elavil) 10 mg QHS PO Last administered on 04/02/17 21:38; Admin Dose 10 MG; Start 04/01/17 at 21:00 Aspirin (Halfprin) 81 mg DAILY PO Last administered on 04/03/17 09:54; Admin Dose 81 MG; Start 04/01/17 at 09:00 Atorvastatin Calcium (Lipitor) 80 mg QHS PO Last administered on 04/02/17 20: 43; Admin Dose 80 MG; Start 04/01/17 at 21:00 Metoprolol Tartrate (Lopressor) 100 mg QHS PO Last administered on 04/02/17 20:43; Admin Dose 100 MG; Start 04/01/17 at 21:00 Dextrose (D50w Syringe) 25 ml Q15M PRN IV BS between 50-70; Start 04/01/17 at 07:30 Miscellaneous Information This patient mims... PRN PRN XX WOUND CARE; Start at 08:00 Piperacillin Sod/ Tazobactam Sod (Zosyn 2.25gm/ 50ml (Pmx)) 50 ml @ 100 mls/hr Q8 IVPB Last administered on 04/03/17 13:42; Admin Dose 100 MLS/HR; Start at 11:00 Lorazepam (Ativan) 1 mg Q6H PRN IV AGITATION/ANXIETY Last administered on 04/01 21:18; Admin Dose 1 MG; Start 04/01/17 at 12:00 IV Flush (NS 10 ml) 10 ml PRN PRN IV IV PROTOCOL; Start 04/01/17 at 13:30 Sodium Hypochlorite (Dakin'S (1/4 Strength)) 1 applic BID IRR Last administered on 04/03/17 10:08; Admin Dose 1 APPLIC; Start 04/01/17 at 21:00 Silver Sulfadiazine (Thermazene 1% 25 Gm) 1 applic BID TOP Last administered on 04/03/17 10:08; Admin Dose 1 APPLIC; Start 04/01/17 at 21:00 Morphine Sulfate (morphine) 2 mg Q4H PRN IV PAIN Last administered on 14:02; Admin Dose 2 MG; Start 04/01/17 at 18:30 Oxycodone/ Acetaminophen 1 tab 1 tab Q4H PRN PO PAIN Last administered on 04/02 15:01; Admin Dose 1 TAB; Start 04/01/17 at 18:30 Vancomycin HCl/ Dextrose (Vancocin/D5W) 250 ml @ 83.333 mls/ hr Q36H IVPB Last administered on 04/02/17 12:37; Admin Dose 83.333 MLS/HR; Start at 13:00 Diagnostic Test (Pha) (Accu-Chek) 1 ea 02 XX ; Start 04/04/17 at 02:00 Miscellaneous Information 1 ea NOTE XX ; Start 04/03/17 at 10:00 Glucose (Glutose) 15 gm Q15M PRN PO DECREASED GLUCOSE; Start 04/03/17 at 10:00 Glucose (Glutose) 22.5 gm Q15M PRN PO DECREASED GLUCOSE; Start 04/03/17 at 10: 00 Dextrose (D50w Syringe) 25 ml Q15M PRN IV DECREASED GLUCOSE; Start 04/03/17 at 10:00 Dextrose (D50w Syringe) 50 ml Q15M PRN IV DECREASED GLUCOSE; Start 04/03/17 at 10:00 Glucagon (Glucagen) 1 mg Q15M PRN IM DECREASED GLUCOSE; Start 04/03/17 at 10: 00 Glucose (Glutose) 15 gm Q15M PRN BUCCAL DECREASED GLUCOSE; Start 04/03/17 at 10:00 Insulin Glargine (Lantus) 38 unit DAILY@20 SC Last administered on 04/03/17t 10:54; Admin Dose 38 UNIT; Start 04/03/17 at 11:00 VINOD PEDRAZA MD Apr 03, 2017 14:20
[2017-04-03] MEDS: LORAZEPAM 2 MG INJ IV PRN (15:14)
[2017-04-03] MEDS ORDERED: VANCOMYCIN 1.25 GM in DEXTROSE 5% 250 ML IVPB SCH (17:00)
[2017-04-03] MEDS: AMITRIPTYLINE 10 MG TAB PO SCH (20:59)
[2017-04-03] MEDS: ATORVASTATIN 80 MG TAB PO SCH (20:59)
[2017-04-03] MEDS: METOPROLOL 100 MG TAB PO SCH (21:00)
[2017-04-03] MEDS ORDERED: INSULIN ASPART [NOVOLOG] 3 ML PEN SC ONE (21:34)
[2017-04-04] VITALS (22 sets, daily range): BP systolic 153–199; BP diastolic 68–93; PULSE 68–92; RESP 15–31
[2017-04-04] MEDS: ACCU-CHEK XX SCH (01:51)
[2017-04-04] MEDS ORDERED: INSULIN ASPART [NOVOLOG] 3 ML PEN SC ONE (02:00)
[2017-04-04] MEDS ORDERED: ACCU-CHEK XX SCH (02:00)
[2017-04-04] MEDS: PIPER-TAZO 2.25 GM (PMX) 50 ML IVPB SCH ×3 (05:57→22:34)
[2017-04-04 06:51] LABS: BASOPHIL # 0.1 10^3/ul (0.0-0.1); BASOPHILS % 0.4 % (0.0-2.0); EOSINOPHILS # 0.2 10^3/ul (0.0-0.5); EOSINOPHILS % 1.5 % (0.0-7.0); HEMATOCRIT 28.3 % (42.0-52.0); HEMOGLOBIN 8.9 g/dl (14.0-18.0); LYMPHOCYTES # 2.8 10^3/ul (0.8-2.9); LYMPHOCYTES % 22.6 % (15.0-51.0); MEAN CORPUSCULAR HEMOGLOBIN 27.5 pg (29.0-33.0); MEAN CORPUSCULAR HGB CONC 31.4 g/dl (32.0-37.0); MEAN CORPUSCULAR VOLUME 87.3 fl (82.0-101.0); MEAN PLATELET VOLUME 9.1 fl (7.4-10.4); MONOCYTES % 8.3 % (0.0-11.0); NEUTROPHIL # 7.8 10^3/ul (1.6-7.5); NEUTROPHILS % 63.6 % (39.0-77.0); PLATELET COUNT 334 10^3/UL (140-415); RED BLOOD COUNT 3.24 10^6/ul (4.70-6.10); WHITE BLOOD COUNT 12.3 10^3/ul (4.8-10.8)
[2017-04-04 07:11] LABS: CALCIUM 9.5 mg/dl (8.4-10.2); CREATININE 1.43 mg/dl (0.61-1.24); MAGNESIUM 1.7 mg/dl (1.7-2.5); PHOSPHORUS 4.2 mg/dl (2.5-4.9); POTASSIUM 4.4 mmol/L (3.5-5.1)
[2017-04-04] MEDS: INSULIN ASPART [NOVOLOG] 3 ML PEN SC SCH ×7 (08:15→20:54)
[2017-04-04] MEDS: ASPIRIN (EC) 81 MG TAB PO SCH (08:21)
--- NOTE | 2017-04-04 08:54 | PN ---
Date/Time of Note Date/Time of Note DATE: 04/04/17 TIME: 08:54 Assessment/Plan VTE Prophylaxis VTE Prophylaxis Intervention: other Lines/Catheters IV C[facility] Type ([facility] PICC Line Central line still needed: Yes Urinary Cath still in place: Yes Reason Cath still needed: urinary retention Assessment/Plan Chief Complaint/Hosp Course renal follow up SUBJECTIVE: The patient is clinically stable, no acute events overnight. The patient continues to have a foul-smelling wound. Urinary output has improved. OBJECTIVE: HEENT: Head is normocephalic. NECK: Supple. HEART: Regular rate. LUNGS: Show diminished breath sounds at the base. ABDOMEN: Soft, nontender to palpation. No rebound or guarding. EXTREMITIES: Negative for clubbing, cyanosis. There is positive edema. There is noted foul smelling lower extremity wounds but dressing is clean, dry, intact. DERMATOLOGIC: No rashes. MUSCULOSKELETAL: No joint effusion. ASSESSMENT AND PLAN: 1. Nonoliguric acute kidney injury with unknown baseline creatinine and probable chronic kidney disease. Etiology of acute kidney injury was multifactorial secondary to volume depletion, septic acute kidney injury, possible tubular injury. The patient's urinalysis was bland, no active sediment , non-glomerular proteinuria. The patient's renal ultrasound shows no evidence of obstruction. The patient's renal function has been improving with supportive care, IV hydration, IV antibiotics. At this point, continue current treatment plan, supportive care, renally dose all meds, continue to monitor function closely. 2. Hyperkalemia. Etiology secondary to acute kidney injury and hyperglycemia. Potassium levels have normalized. Continue to monitor. 3. Anion gap metabolic acidosis with appropriate respiratory compensation. Will continue to monitor bicarbonate levels. Acidosis has been improving. No need for bicarbonate therapy at this time. 4. Mineral bone disorder. Monitor calcium and phosphorus levels. 5. Anemia. The patient is status post blood transfusion. Continue to monitor hemoglobin and hematocrit levels. 6. Hypernatremia. The patient has a free water deficit of approximately 2.5 liters. Will encourage free water intake and start the patient on iv fluids. 7. Sepsis secondary to lower extremity cellulitis, possible osteomyelitis. Continue current antibiotic regimen. 8. Diabetes. Continue current insulin regimen. Continue insulin drip. 9. Hypertension. Continue current medical management. 10. Acute respiratory failure. The patient's chest x-ray shows no definitive consolidation. Monitor closely. Problems: Exam/Review of Systems Vital Signs Vitals Vital Signs Date Time Temp Pulse Resp B/P Pulse Ox O2 Delivery O2 Flow Rate FiO2 04/04/17 08:00 76 04/04/17 06:00 15 165/86 95 Room Air 04/04/17 04:00 99.0 04/02/17 08:00 3.0 04/02/17 05:54 27 Intake and Output 04/03/17 04/03/17 04/04/17 15:00 23:00 07:00 Intake Total 1037 ml 750 ml 50 ml Output Total 1450 ml 1570 ml 160 ml Balance -413 ml -820 ml -110 ml Results Result Diagram: 04/04/17 0635 04/04/17 0635 Results 24 hrs Laboratory Tests Test 04/03/17 10:53 04/03/17 12:25 04/03/17 13:47 04/03/17 17:19 Bedside Glucose 254 H 237 H 297 H 313 H Test 04/03/17 21:01 04/04/17 01:41 04/04/17 05:28 04/04/17 06:35 Bedside Glucose 314 H 251 H 250 H White Blood Count 12.3 H Red Blood Count 3.24 L Hemoglobin 8.9 L Hematocrit 28.3 L Mean Corpuscular Volume 87.3 Mean Corpuscular Hemoglobin 27.5 L Mean Corpuscular Hemoglobin Concent 31.4 L Red Cell Distribution Width 15.0 H Platelet Count 334 Mean Platelet Volume 9.1 Neutrophils % 63.6 Lymphocytes % 22.6 Monocytes % 8.3 Eosinophils % 1.5 Basophils % 0.4 Nucleated Red Blood Cells % 0.0 Neutrophils # 7.8 H Lymphocytes # 2.8 Monocytes # 1.0 H Eosinophils # 0.2 Basophils # 0.1 Nucleated Red Blood Cells # 0.0 Sodium Level 144 Potassium Level 4.4 Chloride Level 111 H Carbon Dioxide Level 25 Anion Gap 12 # Blood Urea Nitrogen 35 #H Creatinine 1.43 H Glucose Level 247 #H Calcium Level 9.5 Phosphorus Level 4.2 Magnesium Level 1.7 Test 04/04/17 08:04 Bedside Glucose 212 Medications Medications Current Medications Ondansetron HCl (Zofran Inj) 4 mg Q6H PRN IV NAUSEA AND/OR VOMITING Last administered on 04/01/17t 04:16; Admin Dose 4 MG; Start 03/31/17 at 21:30 Acetaminophen (Tylenol Tab) 650 mg Q6H PRN PO PAIN LEVEL 1-3 OR FEVER; Start 03/31/17 at 21:30 Amitriptyline HCl (Elavil) 10 mg QHS PO Last administered on 04/03/17 20:59; Admin Dose 10 MG; Start 04/01/17 at 21:00 Aspirin (Halfprin) 81 mg DAILY PO Last administered on 04/04/17 08:21; Admin Dose 81 MG; Start 04/01/17 at 09:00 Atorvastatin Calcium (Lipitor) 80 mg QHS PO Last administered on 04/03/17 20: 59; Admin Dose 80 MG; Start 04/01/17 at 21:00 Metoprolol Tartrate (Lopressor) 100 mg QHS PO Last administered on 04/03/17 21:00; Admin Dose 100 MG; Start 04/01/17 at 21:00 Dextrose (D50w Syringe) 25 ml Q15M PRN IV BS between 50-70; Start 04/01/17 at 07:30 Miscellaneous Information This patient mims... PRN PRN XX WOUND CARE; Start at 08:00 Piperacillin Sod/ Tazobactam Sod (Zosyn 2.25gm/ 50ml (Pmx)) 50 ml @ 100 mls/hr Q8 IVPB Last administered on 04/04/17 05:57; Admin Dose 100 MLS/HR; Start at 11:00 Lorazepam (Ativan) 1 mg Q6H PRN IV AGITATION/ANXIETY Last administered on 04/03 15:14; Admin Dose 1 MG; Start 04/01/17 at 12:00 IV Flush (NS 10 ml) 10 ml PRN PRN IV IV PROTOCOL; Start 04/01/17 at 13:30 Sodium Hypochlorite (Dakin'S (1/4 Strength)) 1 applic BID IRR Last administered on 04/03/17 20:56; Admin Dose 1 APPLIC; Start 04/01/17 at 21:00 Silver Sulfadiazine (Thermazene 1% 25 Gm) 1 applic BID TOP Last administered on 04/03/17 20:57; Admin Dose 1 APPLIC; Start 04/01/17 at 21:00 Morphine Sulfate (morphine) 2 mg Q4H PRN IV PAIN Last administered on 23:02; Admin Dose 2 MG; Start 04/01/17 at 18:30 Oxycodone/ Acetaminophen (Endocet (10/ 325)) 1 tab Q4H PRN PO PAIN Last administered on 04/02/17 15:01; Admin Dose 1 TAB; Start 04/01/17 at 18:30 Diagnostic Test (Pha) (Accu-Chek) 1 ea 02 XX ; Start 04/04/17 at 02:00 Miscellaneous Information 1 ea NOTE XX ; Start 04/03/17 at 10:00 Glucose (Glutose) 15 gm Q15M PRN PO DECREASED GLUCOSE; Start 04/03/17 at 10:00 Glucose (Glutose) 22.5 gm Q15M PRN PO DECREASED GLUCOSE; Start 04/03/17 at 10: 00 Dextrose (D50w Syringe) 25 ml Q15M PRN IV DECREASED GLUCOSE; Start 04/03/17 at 10:00 Dextrose (D50w Syringe) 50 ml Q15M PRN IV DECREASED GLUCOSE; Start 04/03/17 at 10:00 Glucagon (Glucagen) 1 mg Q15M PRN IM DECREASED GLUCOSE; Start 04/03/17 at 10: 00 Glucose (Glutose) 15 gm Q15M PRN BUCCAL DECREASED GLUCOSE; Start 04/03/17 at 10:00 Insulin Glargine 38 unit 38 unit DAILY@20 SC Last administered on 04/03/17 10 :54; Admin Dose 38 UNIT; Start 04/03/17 at 11:00 Vancomycin HCl/ Dextrose (Vancocin/D5W) 250 ml @ 83.333 mls/ hr Q24H IVPB Last administered on 04/03/17 17:16; Admin Dose 83.333 MLS/HR; Start at 17:00 Hydralazine HCl (Apresoline) 10 mg Q4H PRN IV ELEVATED SYSTOLIC BP; Start at 06:00 VALERIY VIEIRA DO Apr 04, 2017 08:54
[2017-04-04] MEDS: SODIUM HYPOCHLORITE 0.125% 473 ML BTL IRR SCH ×2 (10:38→20:49)
[2017-04-04] MEDS: SILVER SULFADIAZINE 1% 25 GM CR TOP SCH ×2 (10:38→20:48)
[2017-04-04] MEDS: VANCOMYCIN 1 GM in NS 250 ML IVPB SCH ×2 (11:29→23:39)
--- NOTE | 2017-04-04 12:38 | CONS ---
Date/Time of Note Date/Time of Note DATE: 04/04/17 TIME: 12:34 Assessment/Plan Assessment/Plan Chief Complaint/Hosp Course ID PROGRESS NOTE CURRENT ABX: DAY # =>Vanco IV + Zosyn 24H INTERVAL SUMMARY * Resting comfortably on room air, afebrile, pain meds onboard, patient awakens , no new c/o, no new issues * POD #3-> s/p bedside debridement R-DFU * CHART/RADIOLOGY IMAGING/LABS /VSS/MICRO REVIEWED 04/01/17 MICROWOUND CULTURE Preliminary Organism 1 PROTEUS PENNERI QUANTITY SCANT GROWTH Organism 2 STAPHYLOCOCCUS AUREUS QUANTITY SCANT GROWTH 04/02/17 RIGHT FOOT: WOUND CULTURE Preliminary Organism 1 MORGANELLA MORGANII SSP MORG. QUANTITY SCANT GROWTH Organism 2 STAPHYLOCOCCUS AUREUS QUANTITY SCANT GROWTH Organism 3 STREP BETA HEMOLYTIC-GROUP F QUANTITY 1+ Organism 4 ALPHA HEMOLYTIC STREP SPP QUANTITY 1+ . VIRIDANS GROUP MORMOSP M.I.C. RX --------- --- CEFOTAXIME S CIPROFLOXACIN <=0.25 S GENTAMICIN <=1 S LEVOFLOXACIN <=0.12 S TOBRAMYCIN <=1 S TRIMETHOPRIM/SULFAMETHOXAZOLE <=20 S 04/01/17 LEFT FOOT WOUND CULTURE Preliminary Organism 1 PROTEUS PENNERI QUANTITY SCANT GROWTH Organism 2 MORGANELLA MORGANII SSP MORG. QUANTITY SCANT GROWTH Organism 3 GRAM NEGATIVE DEBORA#2 QUANTITY SCANT GROWTH Organism 4 COAGULASE NEGATIVE STAPH QUANTITY SCANT GROWTH P PENNERI MORMOSP COAG NEG M.I.C. RX M.I.C. RX M.I.C. RX --------- --- --------- --- --------- --- AMPICILLIN >=32 R CEFAZOLIN S CEFOTAXIME S S CIPROFLOXACIN <=0.25 S <=0.25 S <=0.5 S CLINDAMYCIN >=8 R DOXYCYCLINE S ERYTHROMYCIN >=8 R GENTAMICIN <=1 S <=1 S LEVOFLOXACIN <=0.12 S <=0.12 S <=0.12 S OXACILLIN <=0.25 S PENICILLIN-G R RIFAMPIN <=0.5 S VANCOMYCIN <=0.5 S TOBRAMYCIN <=1 S <=1 S PHYSICAL EXAMINATION: GENERAL: This is a morbidly obese, well-developed, 56 yo M, NAD HEENT: Head atraumatic, normocephalic. Sclerae anicteric. Buccal mucosa dry. NECK: Supple, trach midline CHEST: Rise symmetrical. Breath sounds diminished to bases. HEART: S1, S2. NSR on tele ABDOMEN: Soft, bowel tones present. EXTREMITIES: Without cyanosis. Bilateral lower extremities edema. BLEXT cellulitis improving, Right foot dressing intact with some blood present. SKIN: Fair skinned red-head , no rash, no diaphoresis noted ID ASSESSMENT: 56 yo Morbid Obese M admit [facility] ICU: 1. Acute shock->(+)Septicemia (+)Hypovolemia 2/2 symptomatic anemia (H/H 6.6/ 22.1 on 03/31/17) * s/p Lactic acidosis 03/31 @ 3.4 * Low grade Temps=> 99.+ range * Leukocytosis w/left shift on admission -> persisting 2. Bacteremia, likely secondary to infected right foot wound. * 03/31/17 BCx: * Organism 1 STAPHYLOCOCCUS AUREUS * Organism 2 STREP BETA HEMOLYTIC-GROUP F 3. Right diabetic foot infection w/osteomyelitis * X-ray 03/31/17: Likely osteomyelitis of the second through fourth metatarsal bones deep to a large ulcer along the plantar aspect of the foot. * Wound Cx: Polymicrobial GPC & GNR pathogens 4. Left diabetic foot ulcer * 03/31/17 X-ray: No definite plain film evidence of osteomyelitis, and if there is concern for osteomyelitis recommend MRI correlation. * Wound Cx: Polymicrobial GPC & GNR pathogens 5. Poorly-controlled diabetes. 6. Acute kidney injury, possibly on chronic kidney disease. 7. Acute symptomatic anemia, possibly on chronic anemia. (-)MRSA ABX ALLERGIES: Sulfa INVASIVES: Danya, PICC line placed on 04/01/2017. CURRENT ABX: Vanco IV + Zosyn ID RECOMMENDATIONS/PLAN: 1. Awaiting final results of GNRs growing in wound cx prior to final ABX taper recommendations 2. Continue current ABX -> Will adjust future, anticipate minimum 6-weeks IV ABX coverage for osteomyelitis. . Problems: Consultation Date/Type/Reason Admit Date/Time Mar 31, 2017 at 21:15 Initial Consult Date 04/01/17 Referring Provider: VINOD PEDRAZA MD Exam/Review of Systems Vital Signs Vitals Vital Signs Date Time Temp Pulse Resp B/P Pulse Ox O2 Delivery O2 Flow Rate FiO2 04/04/17 09:00 84 18 164/74 96 Room Air 04/04/17 08:00 98.5 04/02/17 08:00 3.0 04/02/17 05:54 27 Intake and Output 04/03/17 04/03/17 04/04/17 15:00 23:00 07:00 Intake Total 1037 ml 750 ml 50 ml Output Total 1450 ml 1570 ml 360 ml Balance -413 ml -820 ml -310 ml Results Result Diagram: 04/04/17 0635 04/04/17 0635 Results 24 hrs Laboratory Tests Test 04/03/17 13:47 04/03/17 17:19 04/03/17 21:01 04/04/17 01:41 Bedside Glucose 297 H 313 H 314 H 251 H Test 04/04/17 05:28 04/04/17 06:35 04/04/17 08:04 Bedside Glucose 250 H 212 White Blood Count 12.3 H Red Blood Count 3.24 L Hemoglobin 8.9 L Hematocrit 28.3 L Mean Corpuscular Volume 87.3 Mean Corpuscular Hemoglobin 27.5 L Mean Corpuscular Hemoglobin Concent 31.4 L Red Cell Distribution Width 15.0 H Platelet Count 334 Mean Platelet Volume 9.1 Neutrophils % 63.6 Lymphocytes % 22.6 Monocytes % 8.3 Eosinophils % 1.5 Basophils % 0.4 Nucleated Red Blood Cells % 0.0 Neutrophils # 7.8 H Lymphocytes # 2.8 Monocytes # 1.0 H Eosinophils # 0.2 Basophils # 0.1 Nucleated Red Blood Cells # 0.0 Sodium Level 144 Potassium Level 4.4 Chloride Level 111 H Carbon Dioxide Level 25 Anion Gap 12 # Blood Urea Nitrogen 35 #H Creatinine 1.43 H Glucose Level 247 #H Calcium Level 9.5 Phosphorus Level 4.2 Magnesium Level 1.7 Medications Medications Current Medications Ondansetron HCl (Zofran Inj) 4 mg Q6H PRN IV NAUSEA AND/OR VOMITING Last administered on 04/01/17t 04:16; Admin Dose 4 MG; Start 03/31/17 at 21:30 Acetaminophen (Tylenol Tab) 650 mg Q6H PRN PO PAIN LEVEL 1-3 OR FEVER; Start 03/31/17 at 21:30 Amitriptyline HCl (Elavil) 10 mg QHS PO Last administered on 04/03/17 20:59; Admin Dose 10 MG; Start 04/01/17 at 21:00 Aspirin (Halfprin) 81 mg DAILY PO Last administered on 04/04/17 08:21; Admin Dose 81 MG; Start 04/01/17 at 09:00 Atorvastatin Calcium (Lipitor) 80 mg QHS PO Last administered on 04/03/17 20: 59; Admin Dose 80 MG; Start 04/01/17 at 21:00 Metoprolol Tartrate (Lopressor) 100 mg QHS PO Last administered on 04/03/17 21:00; Admin Dose 100 MG; Start 04/01/17 at 21:00 Dextrose (D50w Syringe) 25 ml Q15M PRN IV BS between 50-70; Start 04/01/17 at 07:30 Miscellaneous Information This patient mims... PRN PRN XX WOUND CARE; Start at 08:00 Piperacillin Sod/ Tazobactam Sod (Zosyn 2.25gm/ 50ml (Pmx)) 50 ml @ 100 mls/hr Q8 IVPB Last administered on 04/04/17 05:57; Admin Dose 100 MLS/HR; Start at 11:00 Lorazepam (Ativan) 1 mg Q6H PRN IV AGITATION/ANXIETY Last administered on 04/03 15:14; Admin Dose 1 MG; Start 04/01/17 at 12:00 IV Flush (NS 10 ml) 10 ml PRN PRN IV IV PROTOCOL; Start 04/01/17 at 13:30 Sodium Hypochlorite (Dakin'S (1/4 Strength)) 1 applic BID IRR Last administered on 04/04/17 10:38; Admin Dose 1 APPLIC; Start 04/01/17 at 21:00 Silver Sulfadiazine (Thermazene 1% 25 Gm) 1 applic BID TOP Last administered on 04/04/17 10:38; Admin Dose 1 APPLIC; Start 04/01/17 at 21:00 Morphine Sulfate (morphine) 2 mg Q4H PRN IV PAIN Last administered on 23:02; Admin Dose 2 MG; Start 04/01/17 at 18:30 Oxycodone/ Acetaminophen (Endocet (10/ 325)) 1 tab Q4H PRN PO PAIN Last administered on 04/02/17t 15:01; Admin Dose 1 TAB; Start 04/01/17 at 18:30 Diagnostic Test (Pha) (Accu-Chek) 1 ea 02 XX ; Start 04/04/17 at 02:00 Miscellaneous Information 1 ea NOTE XX ; Start 04/03/17 at 10:00 Glucose (Glutose) 15 gm Q15M PRN PO DECREASED GLUCOSE; Start 04/03/17 at 10:00 Glucose (Glutose) 22.5 gm Q15M PRN PO DECREASED GLUCOSE; Start 04/03/17 at 10: 00 Dextrose (D50w Syringe) 25 ml Q15M PRN IV DECREASED GLUCOSE; Start 04/03/17 at 10:00 Dextrose (D50w Syringe) 50 ml Q15M PRN IV DECREASED GLUCOSE; Start 04/03/17 at 10:00 Glucagon (Glucagen) 1 mg Q15M PRN IM DECREASED GLUCOSE; Start 04/03/17 at 10: 00 Glucose (Glutose) 15 gm Q15M PRN BUCCAL DECREASED GLUCOSE; Start 04/03/17 at 10:00 Hydralazine HCl 10 mg 10 mg Q4H PRN IV ELEVATED SYSTOLIC BP; Start 04/04/17 at 06:00 Vancomycin HCl (Vancocin) 250 ml @ 125 mls/hr Q12H IVPB Last administered on 04/04/17 11:29; Admin Dose 125 MLS/HR; Start 04/04/17 at 11:00 Insulin Glargine (Lantus) 25 unit Q12H SC ; Start 04/04/17 at 11:00 WILL WONG NP Apr 04, 2017 12:38
[2017-04-04] MEDS: INSULIN GLARGINE [LANtus] 3 ML PEN SC SCH ×2 (12:46→23:45)
[2017-04-04] MEDS: morphine 2 MG INJ IV PRN ×2 (13:13→20:56)
--- NOTE | 2017-04-04 14:14 | PN ---
Date/Time of Note Date/Time of Note DATE: 04/04/17 TIME: 14:11 Assessment/Plan VTE Prophylaxis VTE Prophylaxis Intervention: heparin Lines/Catheters IV Catheter Type (from Nrsg): PICC Line Central line still needed: Yes Urinary Cath still in place: Yes Reason Cath still needed: urinary retention Assessment/Plan Chief Complaint/Hosp Course 56 yo male with h/o DMII, OM of foot in nonhealing ulcer presenting with sepsis , hyperglycemia, RENZO from cellulitis surrounding diabetic foot infection ID: Sepsis with staph aureus and strep bacteremia - Continue vanco and zosyn. Management per ID. Anticipate halfway abx unless amputation of R foot - Monitor blood cultures: so far growing MSSA and strep, repeat to ensure clearance of bacteremia. No vegetations to suggest endocarditis Diabetic foot ulcer with OM and cellulitis: - MRI to assess for underlying abscess of foot, OM, etc was unable to be performed given foot was too big for MRI machine. Can be reattempted. Needs imaging to exclude abscess etc. We can also consider a CT w contrast as his renal function settles to baseline. Dr Kimble following - Wound care RENAL: RENZO: - Likely 2/2 SILVESTRE/bactrim use prior to admission as well as and septic ATN - Resolving nicely Metabolic acidosis - Likely 2/2 uremia, there are no ketones to suggest DKA - Will improve with improvement in renal function Hyperkalemia - Resolved Hypernatremia - Encourage free water intake HEME: Acute blood loss anemia - Transfuse PRN Hgb < 7 Iron deficiency anemia: - Replace iron deficit when sepsis resolved ENDO: DMII w hyperglycemia - no ketones to suggest DKA - s/p insulin drip. Resume basal/bolus insulin and uptitrate as needed CV: - Continue home aspirin, statin, metoprolol. Hold other BP meds : Urinary retention likley 2/2 medications, encephelopathy of sepsis - Continue santana for now. Trial of void in coming days ICU > 35 minutes Problems: Subjective 24 Hr Interval Summary Free Text/Dictation Creatinine continues to downtrend nicely Foot pain much better Exam/Review of Systems Vital Signs Vitals Vital Signs Date Time Temp Pulse Resp B/P Pulse Ox O2 Delivery O2 Flow Rate FiO2 04/04/17 12:00 81 04/04/17 09:00 18 164/74 96 Room Air 04/04/17 08:00 98.5 04/02/17 08:00 3.0 04/02/17 05:54 27 Intake and Output 04/03/17 04/03/17 04/04/17 15:00 23:00 07:00 Intake Total 1037 ml 750 ml 50 ml Output Total 1450 ml 1570 ml 360 ml Balance -413 ml -820 ml -310 ml Exam Alert, oriented x 3 RRR, no m/r/g CTAB Obese, soft, nt RLE cellulitis has resolved. Foot remains very swollen. Plantar surface with very large deep ulceration without any expressible pus LLE with s/p partial amputation in foot. Also with plantar ulceration Results Result Diagram: 04/04/17 0635 04/04/17 0635 Results 24 hrs Laboratory Tests Test 04/03/17 17:19 04/03/17 21:01 04/04/17 01:41 04/04/17 05:28 Bedside Glucose 313 H 314 H 251 H 250 H Test 04/04/17 06:35 04/04/17 08:04 04/04/17 12:41 White Blood Count 12.3 H Red Blood Count 3.24 L Hemoglobin 8.9 L Hematocrit 28.3 L Mean Corpuscular Volume 87.3 Mean Corpuscular Hemoglobin 27.5 L Mean Corpuscular Hemoglobin Concent 31.4 L Red Cell Distribution Width 15.0 H Platelet Count 334 Mean Platelet Volume 9.1 Neutrophils % 63.6 Lymphocytes % 22.6 Monocytes % 8.3 Eosinophils % 1.5 Basophils % 0.4 Nucleated Red Blood Cells % 0.0 Neutrophils # 7.8 H Lymphocytes # 2.8 Monocytes # 1.0 H Eosinophils # 0.2 Basophils # 0.1 Nucleated Red Blood Cells # 0.0 Sodium Level 144 Potassium Level 4.4 Chloride Level 111 H Carbon Dioxide Level 25 Anion Gap 12 # Blood Urea Nitrogen 35 #H Creatinine 1.43 H Glucose Level 247 #H Calcium Level 9.5 Phosphorus Level 4.2 Magnesium Level 1.7 Bedside Glucose 212 251 H Medications Medications Current Medications Ondansetron HCl (Zofran Inj) 4 mg Q6H PRN IV NAUSEA AND/OR VOMITING Last administered on 04/01/17t 04:16; Admin Dose 4 MG; Start 03/31/17 at 21:30 Acetaminophen (Tylenol Tab) 650 mg Q6H PRN PO PAIN LEVEL 1-3 OR FEVER; Start 03/31/17 at 21:30 Amitriptyline HCl (Elavil) 10 mg QHS PO Last administered on 04/03/17 20:59; Admin Dose 10 MG; Start 04/01/17 at 21:00 Aspirin (Halfprin) 81 mg DAILY PO Last administered on 04/04/17 08:21; Admin Dose 81 MG; Start 04/01/17 at 09:00 Atorvastatin Calcium (Lipitor) 80 mg QHS PO Last administered on 04/03/17 20: 59; Admin Dose 80 MG; Start 04/01/17 at 21:00 Metoprolol Tartrate (Lopressor) 100 mg QHS PO Last administered on 04/03/17 21:00; Admin Dose 100 MG; Start 04/01/17 at 21:00 Dextrose (D50w Syringe) 25 ml Q15M PRN IV BS between 50-70; Start 04/01/17 at 07:30 Miscellaneous Information This patient mims... PRN PRN XX WOUND CARE; Start at 08:00 Piperacillin Sod/ Tazobactam Sod (Zosyn 2.25gm/ 50ml (Pmx)) 50 ml @ 100 mls/hr Q8 IVPB Last administered on 04/04/17 05:57; Admin Dose 100 MLS/HR; Start at 11:00 Lorazepam (Ativan) 1 mg Q6H PRN IV AGITATION/ANXIETY Last administered on 04/03 15:14; Admin Dose 1 MG; Start 04/01/17 at 12:00 IV Flush (NS 10 ml) 10 ml PRN PRN IV IV PROTOCOL; Start 04/01/17 at 13:30 Sodium Hypochlorite (Dakin'S (1/4 Strength)) 1 applic BID IRR Last administered on 04/04/17 10:38; Admin Dose 1 APPLIC; Start 04/01/17 at 21:00 Silver Sulfadiazine (Thermazene 1% 25 Gm) 1 applic BID TOP Last administered on 04/04/17 10:38; Admin Dose 1 APPLIC; Start 04/01/17 at 21:00 Morphine Sulfate (morphine) 2 mg Q4H PRN IV PAIN Last administered on 13:13; Admin Dose 2 MG; Start 04/01/17 at 18:30 Oxycodone/ Acetaminophen (Endocet (10/ 325)) 1 tab Q4H PRN PO PAIN Last administered on 04/02/17 15:01; Admin Dose 1 TAB; Start 04/01/17 at 18:30 Diagnostic Test (Pha) (Accu-Chek) 1 ea 02 XX ; Start 04/04/17 at 02:00 Miscellaneous Information 1 ea NOTE XX ; Start 04/03/17 at 10:00 Glucose (Glutose) 15 gm Q15M PRN PO DECREASED GLUCOSE; Start 04/03/17 at 10:00 Glucose (Glutose) 22.5 gm Q15M PRN PO DECREASED GLUCOSE; Start 04/03/17 at 10: 00 Dextrose (D50w Syringe) 25 ml Q15M PRN IV DECREASED GLUCOSE; Start 04/03/17 at 10:00 Dextrose (D50w Syringe) 50 ml Q15M PRN IV DECREASED GLUCOSE; Start 04/03/17 at 10:00 Glucagon (Glucagen) 1 mg Q15M PRN IM DECREASED GLUCOSE; Start 04/03/17 at 10: 00 Glucose (Glutose) 15 gm Q15M PRN BUCCAL DECREASED GLUCOSE; Start 04/03/17 at 10:00 Hydralazine HCl 10 mg 10 mg Q4H PRN IV ELEVATED SYSTOLIC BP; Start 04/04/17 at 06:00 Vancomycin HCl (Vancocin) 250 ml @ 125 mls/hr Q12H IVPB Last administered on 04/04/17 11:29; Admin Dose 125 MLS/HR; Start 04/04/17 at 11:00 Insulin Glargine (Lantus) 25 unit Q12H SC Last administered on 04/04/17 12:46 ; Admin Dose 25 UNIT; Start 04/04/17 at 11:00 VINOD PEDRAZA MD Apr 04, 2017 14:14
--- NOTE | 2017-04-04 15:20 | CONS ---
Date/Time of Note Date/Time of Note DATE: 04/04/17 TIME: 15:17 Consult Date/Type/Reason Admit Date/Time Mar 31, 2017 at 21:15 Initial Consult Date 04/01/17 Type of Consultation: Urology Reason for Consultation Urinary retention Ordering Provider: VINOD PEDRAZA MD Subjective Patient states he is feeling better, the Hagan catheter is draining well and the urine is clear. His lower extremities cellulitis is being managed Objective Vital Signs Date Time Temp Pulse Resp B/P Pulse Ox O2 Delivery O2 Flow Rate FiO2 04/04/17 12:00 81 04/04/17 09:00 18 164/74 96 Room Air 04/04/17 08:00 98.5 04/02/17 08:00 3.0 04/02/17 05:54 27 Intake and Output 04/03/17 04/03/17 04/04/17 14:59 22:59 06:59 Intake Total 1038.5 ml 630 ml 170 ml Output Total 1400 ml 1540 ml 390 ml Balance -361.5 ml -910 ml -220 ml Exam Abdomen is soft. Hagan catheter in place and draining clear urine Results/Medications Result Diagram: 04/04/17 0635 04/04/17 0635 Results 24 hrs Laboratory Tests Test 04/03/17 17:19 04/03/17 21:01 04/04/17 01:41 04/04/17 05:28 Bedside Glucose 313 H 314 H 251 H 250 H Test 04/04/17 06:35 04/04/17 08:04 04/04/17 12:41 White Blood Count 12.3 H Red Blood Count 3.24 L Hemoglobin 8.9 L Hematocrit 28.3 L Mean Corpuscular Volume 87.3 Mean Corpuscular Hemoglobin 27.5 L Mean Corpuscular Hemoglobin Concent 31.4 L Red Cell Distribution Width 15.0 H Platelet Count 334 Mean Platelet Volume 9.1 Neutrophils % 63.6 Lymphocytes % 22.6 Monocytes % 8.3 Eosinophils % 1.5 Basophils % 0.4 Nucleated Red Blood Cells % 0.0 Neutrophils # 7.8 H Lymphocytes # 2.8 Monocytes # 1.0 H Eosinophils # 0.2 Basophils # 0.1 Nucleated Red Blood Cells # 0.0 Sodium Level 144 Potassium Level 4.4 Chloride Level 111 H Carbon Dioxide Level 25 Anion Gap 12 # Blood Urea Nitrogen 35 #H Creatinine 1.43 H Glucose Level 247 #H Calcium Level 9.5 Phosphorus Level 4.2 Magnesium Level 1.7 Bedside Glucose 212 251 H Medications Current Medications Ondansetron HCl (Zofran Inj) 4 mg Q6H PRN IV NAUSEA AND/OR VOMITING Last administered on 04/01/17 04:16; Admin Dose 4 MG; Start 03/31/17 at 21:30 Acetaminophen (Tylenol Tab) 650 mg Q6H PRN PO PAIN LEVEL 1-3 OR FEVER; Start 03/31/17 at 21:30 Amitriptyline HCl (Elavil) 10 mg QHS PO Last administered on 04/03/17 20:59; Admin Dose 10 MG; Start 04/01/17 at 21:00 Aspirin (Halfprin) 81 mg DAILY PO Last administered on 04/04/17 08:21; Admin Dose 81 MG; Start 04/01/17 at 09:00 Atorvastatin Calcium (Lipitor) 80 mg QHS PO Last administered on 04/03/17 20: 59; Admin Dose 80 MG; Start 04/01/17 at 21:00 Metoprolol Tartrate (Lopressor) 100 mg QHS PO Last administered on 04/03/17 21:00; Admin Dose 100 MG; Start 04/01/17 at 21:00 Dextrose (D50w Syringe) 25 ml Q15M PRN IV BS between 50-70; Start 04/01/17 at 07:30 Miscellaneous Information This patient mims... PRN PRN XX WOUND CARE; Start at 08:00 Piperacillin Sod/ Tazobactam Sod (Zosyn 2.25gm/ 50ml (Pmx)) 50 ml @ 100 mls/hr Q8 IVPB Last administered on 04/04/17 05:57; Admin Dose 100 MLS/HR; Start at 11:00 Lorazepam (Ativan) 1 mg Q6H PRN IV AGITATION/ANXIETY Last administered on 04/03 15:14; Admin Dose 1 MG; Start 04/01/17 at 12:00 IV Flush (NS 10 ml) 10 ml PRN PRN IV IV PROTOCOL; Start 04/01/17 at 13:30 Sodium Hypochlorite (Dakin'S (1/4 Strength)) 1 applic BID IRR Last administered on 04/04/17 10:38; Admin Dose 1 APPLIC; Start 04/01/17 at 21:00 Silver Sulfadiazine (Thermazene 1% 25 Gm) 1 applic BID TOP Last administered on 04/04/17 10:38; Admin Dose 1 APPLIC; Start 04/01/17 at 21:00 Morphine Sulfate (morphine) 2 mg Q4H PRN IV PAIN Last administered on 13:13; Admin Dose 2 MG; Start 04/01/17 at 18:30 Oxycodone/ Acetaminophen (Endocet ()) 1 tab Q4H PRN PO PAIN Last administered on 04/02/17 15:01; Admin Dose 1 TAB; Start 04/01/17 at 18:30 Diagnostic Test (Pha) (Accu-Chek) 1 ea 02 XX ; Start 04/04/17 at 02:00 Miscellaneous Information 1 ea NOTE XX ; Start 04/03/17 at 10:00 Glucose (Glutose) 15 gm Q15M PRN PO DECREASED GLUCOSE; Start 04/03/17 at 10:00 Glucose (Glutose) 22.5 gm Q15M PRN PO DECREASED GLUCOSE; Start 04/03/17 at 10: 00 Dextrose (D50w Syringe) 25 ml Q15M PRN IV DECREASED GLUCOSE; Start 04/03/17 at 10:00 Dextrose (D50w Syringe) 50 ml Q15M PRN IV DECREASED GLUCOSE; Start 04/03/17 at 10:00 Glucagon (Glucagen) 1 mg Q15M PRN IM DECREASED GLUCOSE; Start 04/03/17 at 10: 00 Glucose (Glutose) 15 gm Q15M PRN BUCCAL DECREASED GLUCOSE; Start 04/03/17 at 10:00 Hydralazine HCl 10 mg 10 mg Q4H PRN IV ELEVATED SYSTOLIC BP; Start 04/04/17 at 06:00 Vancomycin HCl (Vancocin) 250 ml @ 125 mls/hr Q12H IVPB Last administered on 04/04/17 11:29; Admin Dose 125 MLS/HR; Start 04/04/17 at 11:00 Insulin Glargine (Lantus) 25 unit Q12H SC Last administered on 04/04/17 12:46 ; Admin Dose 25 UNIT; Start 04/04/17 at 11:00 Assessment/Plan Chief Complaint/Hosp Course 56-year-old male with bilateral lower extremity cellulitis and wounds on intravenous antibiotic. He has an indwelling Hagan catheter because of urinary retention and that is draining well and the urine is clear. The renal function has improved .we will keep the Hagan catheter in place for now Problems: MAHAD MARTIN MD Apr 04, 2017 15:20
[2017-04-04] MEDS: METOPROLOL 100 MG TAB PO SCH (20:47)
[2017-04-04] MEDS: ATORVASTATIN 80 MG TAB PO SCH (20:47)
[2017-04-04] MEDS: AMITRIPTYLINE 10 MG TAB PO SCH (20:47)
[2017-04-05 01:58] VITALS: BP 176/78; RESP 20
[2017-04-05] MEDS: ACCU-CHEK XX SCH (02:00)
[2017-04-05] MEDS: PIPER-TAZO 2.25 GM (PMX) 50 ML IVPB SCH (05:35)
[2017-04-05 07:22] VITALS: BP 187/82; RESP 20
[2017-04-05] MEDS: morphine 2 MG INJ IV PRN ×3 (07:43→21:20)
[2017-04-05 08:31] LABS: BASOPHIL # 0.1 10^3/ul (0.0-0.1); BASOPHILS % 0.5 % (0.0-2.0); EOSINOPHILS # 0.3 10^3/ul (0.0-0.5); EOSINOPHILS % 2.3 % (0.0-7.0); HEMATOCRIT 27.4 % (42.0-52.0); HEMOGLOBIN 8.6 g/dl (14.0-18.0); LYMPHOCYTES # 2.8 10^3/ul (0.8-2.9); LYMPHOCYTES % 24.8 % (15.0-51.0); MEAN CORPUSCULAR HEMOGLOBIN 27.3 pg (29.0-33.0); MEAN CORPUSCULAR HGB CONC 31.4 g/dl (32.0-37.0); MEAN PLATELET VOLUME 9.4 fl (7.4-10.4); MONOCYTE # 0.9 10^3/ul (0.3-0.9); MONOCYTES % 8.2 % (0.0-11.0); NEUTROPHIL # 6.8 10^3/ul (1.6-7.5); NEUTROPHILS % 59.9 % (39.0-77.0); PLATELET COUNT 304 10^3/UL (140-415); RED BLOOD COUNT 3.15 10^6/ul (4.70-6.10); RED CELL DISTRIBUTION WIDTH 14.5 % (11.5-14.5); WHITE BLOOD COUNT 11.4 10^3/ul (4.8-10.8)
[2017-04-05] MEDS: INSULIN ASPART [NOVOLOG] 3 ML PEN SC SCH ×7 (08:34→21:47)
[2017-04-05] MEDS: INSULIN GLARGINE [LANtus] 3 ML PEN SC SCH ×2 (08:34→21:47)
[2017-04-05 09:20] VITALS: BP 165/74; RESP 20
[2017-04-05 09:21] LABS: ALBUMIN 2.8 g/dl (3.3-4.9); ALBUMIN/GLOBULIN RATIO 0.63; BILIRUBIN,INDIRECT 0.2 mg/dl (0-1.1); BILIRUBIN,TOTAL 0.2 mg/dl (0.2-1.3); CALCIUM 9.1 mg/dl (8.4-10.2); CREATININE 1.28 mg/dl (0.61-1.24); POTASSIUM 4.9 mmol/L (3.5-5.1); TOTAL PROTEIN 7.2 g/dl (6.1-8.1)
--- NOTE | 2017-04-05 09:44 | PN ---
DATE: 04/05/2017 SUBJECTIVE: The patient is stable. No events overnight. No fevers, chills, nausea, vomiting, no s hortness of breath. OBJECTIVE: VITAL SIGNS: Blood pressure is 187/82, respirations 20, pulse 81, temperature 98.7. HEENT: Head is normocephalic. NECK: Supple. HEART: Regular rate. LUNGS: Show diminished breath sounds at the base. ABDOMEN: Soft, nontender to palpation. No rebound or guarding. EXTREMITIES: Positive for wound with dressing clean, dry and intact. DERMATOLOGIC: No rashes. MUSCULOSKELETAL: No joint effusions. NEUROLOGIC: No change in exam. MEDICATIONS: The patient's medications have been reviewed. LABORATORY DATA: Shows white count 11.4, hemoglobin 9.6, hematocrit 27.4, platelet count of 304. T he patient's BMP is pending. Laboratory data from 04/04/2017 was reviewed. ASSESSMENT AND PLAN: 1. Nonoliguric acute kidney injury with unknown baseline creatinine, probable chronic kidney diseas e. Etiology of acute kidney injury is secondary to volume depletion, septic acute kidney injury. T he patient's urinalysis has improved with supportive care. At this point, continue current treatmen t plan, supportive care, renally dose all meds. 2. Hyperkalemia secondary to acute kidney injury, resolved. Continue to monitor. 3. Metabolic acidosis with appropriate respiratory compensation. We will continue to monitor. Aci dosis has improved. 4. Mineral bone disorder. Monitor calcium and phosphorus levels. 5. Anemia. Continue to monitor hemoglobin and hematocrit. 6. Hyponatremia, resolved. 7. Sepsis secondary to lower extremity cellulitis and osteomyelitis. Continue current medical brayan gement. Continue wound care. Follow up with podiatry. 8. Diabetes. Continue current insulin regimen. 9. Hypertension. Continue current blood pressure regimen. 10. Acute respiratory failure, resolved. Continue to monitor. Dictated By: AFTAB DOBBS/ARAVIND Conf#: [id number] DID#: [id number] CC: FEDERICO CUNNINGHAM MD;*EndCC*
[2017-04-05] MEDS: ASPIRIN (EC) 81 MG TAB PO SCH (10:12)
[2017-04-05] MEDS: SODIUM HYPOCHLORITE 0.125% 473 ML BTL IRR SCH ×2 (10:13→21:16)
[2017-04-05] MEDS: SILVER SULFADIAZINE 1% 25 GM CR TOP SCH ×2 (10:13→21:16)
[2017-04-05] MEDS: VANCOMYCIN 1 GM in NS 250 ML IVPB SCH ×2 (11:11→23:24)
[2017-04-05 13:19] VITALS: BP 190/87; RESP 20
[2017-04-05] MEDS: hydrALAzine 20 MG INJ IV PRN (13:27)
[2017-04-05] MEDS ORDERED: PIPER-TAZO 3.375 GM IV (PMX) 50 ML IVPB SCH (14:00)
--- NOTE | 2017-04-05 14:27 | PN ---
Date/Time of Note Date/Time of Note DATE: 04/05/17 TIME: 14:15 Assessment/Plan VTE Prophylaxis VTE Prophylaxis Intervention: heparin Assessment/Plan Chief Complaint/Hosp Course 1. Sepsis secondary to staph aureus and strep bacteremia from diabetic foot ulcer with OM - Continue vanco and zosyn, Management per ID - Anticipate correction abx unless amputation of R foot - Monitor blood cultures: so far growing MSSA and strep, repeat to ensure clearance of bacteremia. No vegetations to suggest endocarditis - MRI to assess for underlying abscess of foot, OM, etc was unable to be performed given foot was too big for MRI machine. Can be reattempted. Needs imaging to exclude abscess etc. We can also consider a CT w contrast as his renal function settles to baseline - Dr Kimble of podiatry following - Wound care 2. Acute kidney injury likely 2/2 sepsis-resolving 3. Hypernatremia-resolved - Encourage free water intake 4. Anemia of chronic disease 5. DMII w hyperglycemia - no ketones to suggest DKA - s/p insulin drip -Change Lantus to 55 units nightly and will increase mealtime to 14 with meals, increase further as needed 6. History of coronary artery disease - Continue home aspirin, statin, metoprolol 7. Urinary retention secondary to neurogenic bladder possibly from diabetes versus medications - Continue santana for now. Trial of void in coming days - Urology consultation appreciated Prophylaxis: Heparin Problems: Subjective 24 Hr Interval Summary Constitutional: no complaints Exam/Review of Systems Vital Signs Vitals Vital Signs Date Time Temp Pulse Resp B/P Pulse Ox O2 Delivery O2 Flow Rate FiO2 04/05/17 13:19 98.1 82 20 190/87 95 04/04/17 17:00 Room Air 04/02/17 08:00 3.0 04/02/17 05:54 27 Intake and Output 04/04/17 04/04/17 04/05/17 15:00 23:00 07:00 Intake Total 790 ml 350 ml 350 ml Output Total 1525 ml 325 ml Balance -735 ml 25 ml 350 ml Exam Constitutional: alert, oriented Respiratory: clear to auscultation Cardiovascular: regular rate and rhythm Gastrointestinal: soft, No distended Musculoskeletal: No nl extremities to inspection Results Result Diagram: 04/05/17 0645 04/05/17 0645 Results 24 hrs Laboratory Tests Test 04/04/17 17:11 04/04/17 20:45 04/04/17 23:39 04/05/17 02:42 Bedside Glucose 257 H 201 219 224 H Test 04/05/17 06:45 04/05/17 08:26 04/05/17 12:18 White Blood Count 11.4 H Red Blood Count 3.15 L Hemoglobin 8.6 L Hematocrit 27.4 L Mean Corpuscular Volume 87.0 Mean Corpuscular Hemoglobin 27.3 L Mean Corpuscular Hemoglobin Concent 31.4 L Red Cell Distribution Width 14.5 Platelet Count 304 Mean Platelet Volume 9.4 Neutrophils % 59.9 Lymphocytes % 24.8 Monocytes % 8.2 Eosinophils % 2.3 Basophils % 0.5 Nucleated Red Blood Cells % 0.0 Neutrophils # 6.8 Lymphocytes # 2.8 Monocytes # 0.9 Eosinophils # 0.3 Basophils # 0.1 Nucleated Red Blood Cells # 0.0 Sodium Level 144 Potassium Level 4.9 Chloride Level 107 Carbon Dioxide Level 29 Anion Gap 13 Blood Urea Nitrogen 26 H Creatinine 1.28 H Glucose Level 216 Calcium Level 9.1 Total Bilirubin 0.2 Direct Bilirubin 0.00 Indirect Bilirubin 0.2 Aspartate Amino Transf (AST/SGOT) 31 Alanine Aminotransferase (ALT/SGPT) 32 Alkaline Phosphatase 134 H Total Protein 7.2 Albumin 2.8 L Globulin 4.40 H Albumin/Globulin Ratio 0.63 Bedside Glucose 229 H 223 H Medications Medications Current Medications Ondansetron HCl (Zofran Inj) 4 mg Q6H PRN IV NAUSEA AND/OR VOMITING Last administered on 04/01/17 04:16; Admin Dose 4 MG; Start 03/31/17 at 21:30 Acetaminophen (Tylenol Tab) 650 mg Q6H PRN PO PAIN LEVEL 1-3 OR FEVER; Start 03/31/17 at 21:30 Amitriptyline HCl (Elavil) 10 mg QHS PO Last administered on 04/04/17 20:47; Admin Dose 10 MG; Start 04/01/17 at 21:00 Aspirin (Halfprin) 81 mg DAILY PO Last administered on 04/05/17 10:12; Admin Dose 81 MG; Start 04/01/17 at 09:00 Atorvastatin Calcium (Lipitor) 80 mg QHS PO Last administered on 04/04/17 20: 47; Admin Dose 80 MG; Start 04/01/17 at 21:00 Metoprolol Tartrate (Lopressor) 100 mg QHS PO Last administered on 04/04/17 20:47; Admin Dose 100 MG; Start 04/01/17 at 21:00 Dextrose (D50w Syringe) 25 ml Q15M PRN IV BS between 50-70; Start 04/01/17 at 07:30 Miscellaneous Information (Pending Santyl Order For Wound Care) This patient mims... PRN PRN XX WOUND CARE; Start 04/01/17 at 08:00 Lorazepam (Ativan) 1 mg Q6H PRN IV AGITATION/ANXIETY Last administered on 04/03 15:14; Admin Dose 1 MG; Start 04/01/17 at 12:00 IV Flush (NS 10 ml) 10 ml PRN PRN IV IV PROTOCOL; Start 04/01/17 at 13:30 Sodium Hypochlorite (Dakin'S (1/4 Strength)) 1 applic BID IRR Last administered on 04/05/17 10:13; Admin Dose 1 APPLIC; Start 04/01/17 at 21:00 Silver Sulfadiazine (Thermazene 1% 25 Gm) 1 applic BID TOP Last administered on 04/05/17 10:13; Admin Dose 1 APPLIC; Start 04/01/17 at 21:00 Morphine Sulfate (morphine) 2 mg Q4H PRN IV PAIN Last administered on 13:26; Admin Dose 2 MG; Start 04/01/17 at 18:30 Oxycodone/ Acetaminophen (Endocet (10/ 325)) 1 tab Q4H PRN PO PAIN Last administered on 04/02/17 15:01; Admin Dose 1 TAB; Start 04/01/17 at 18:30 Diagnostic Test (Pha) (Accu-Chek) 1 ea 02 XX Last administered on 04/05/17 02 :00; Admin Dose 1 EA; Start 04/04/17 at 02:00 Miscellaneous Information 1 ea NOTE XX ; Start 04/03/17 at 10:00 Glucose (Glutose) 15 gm Q15M PRN PO DECREASED GLUCOSE; Start 04/03/17 at 10:00 Glucose (Glutose) 22.5 gm Q15M PRN PO DECREASED GLUCOSE; Start 04/03/17 at 10: 00 Dextrose (D50w Syringe) 25 ml Q15M PRN IV DECREASED GLUCOSE; Start 04/03/17 at 10:00 Dextrose (D50w Syringe) 50 ml Q15M PRN IV DECREASED GLUCOSE; Start 04/03/17 at 10:00 Glucagon (Glucagen) 1 mg Q15M PRN IM DECREASED GLUCOSE; Start 04/03/17 at 10: 00 Glucose (Glutose) 15 gm Q15M PRN BUCCAL DECREASED GLUCOSE; Start 04/03/17 at 10:00 Hydralazine HCl 10 mg 10 mg Q4H PRN IV ELEVATED SYSTOLIC BP Last administered on 04/05/17 13:27; Admin Dose 10 MG; Start 04/04/17 at 06:00 Vancomycin HCl (Vancocin) 250 ml @ 125 mls/hr Q12H IVPB Last administered on 04/05/17 11:11; Admin Dose 125 MLS/HR; Start 04/04/17 at 11:00 Insulin Glargine 25 unit 25 unit Q12H SC ; Start 04/05/17 at 21:00 Piperacillin Sod/ Tazobactam Sod (Zosyn 3.375gm/ 50 ml (Pmx)) 50 ml @ 100 mls/ hr Q6 IVPB ; Start 04/05/17 at 14:00 Lisinopril (Zestril) 10 mg DAILY PO ; Start 04/05/17 at 14:00 ALYSSA JOSEPH Apr 05, 2017 14:26
[2017-04-05 15:41] VITALS: BP 165/76; PULSE 90
[2017-04-05] MEDS: LISINOPRIL 10 MG TAB PO SCH (15:47)
--- NOTE | 2017-04-05 15:59 | PN ---
DATE: 04/05/2017 SUBJECTIVE: No acute changes. The patient is alert, feels good, looks comfortable, no fevers. WBC 11.4, no shift, no bands. BUN 26, creatinine 1.28. MICROBIOLOGY: Blood culture on admission grew oxacillin-sensitive Staphylococcus aureus and beta he molytic strep species. Right foot wound culture grew Morganella morganii, Staphylococcus aureus str ep Proteus penneri. Left foot wound culture also grew Enterococcus species in addition to what grew in the right and pseudomonas, all sensitive to Rocephin except enterococcus. ALLERGIES: PATIENT IS ALLERGIC TO SULFA. ANTIMICROBIALS: He is on: 1. Zosyn. 2. Vancomycin. PHYSICAL EXAMINATION: GENERAL: Obese, well-developed, middle-aged white man who is alert, in no distress. HEENT: Head atraumatic, normocephalic. Sclerae anicteric. Buccal mucosa pink. NECK: Supple. CHEST: Rise symmetrical. Breath sounds clear. HEART: S1, S2. ABDOMEN: Soft, bowel tones present. EXTREMITIES: Bilateral feet dressings intact. ASSESSMENT: 1. Status post sepsis with shock. 2. Polymicrobial bacteremia secondary to #3. 3. Right foot osteomyelitis with cultures growing multi-drug resistant organisms. 4. Left foot diabetic ulceration. 5. Poorly controlled diabetes. 6. Morbid obesity. 7. Anemia. 8. Acute possibly on chronic kidney disease. PLAN: The patient remains stable. He is being seen by multiple consultants. We will change Zosyn to Rocephin, continue vancomycin. Repeat blood cultures. Continue local wound care as per podiatry recommendations. Anticipate treating for 6-8 weeks IV antibiotics post discharge. Dictated By: MEHRAN ZHANG MARKETING DEVELOPER for IRENE CHAND/ARAVIND Conf#: [id number] DID#: [id number]
[2017-04-05] MEDS: CEFTRIAXONE 2 GM/50 ML (PMX) 50 ML IVPB SCH (17:21)
[2017-04-05 19:20] VITALS: BP 179/84; RESP 20
[2017-04-05] MEDS ORDERED: INSULIN GLARGINE [LANtus] 3 ML PEN SC SCH (21:00)
[2017-04-05] MEDS: AMITRIPTYLINE 10 MG TAB PO SCH (21:17)
[2017-04-05] MEDS: ATORVASTATIN 80 MG TAB PO SCH (21:18)
[2017-04-05] MEDS: METOPROLOL 100 MG TAB PO SCH (21:19)
[2017-04-05] MEDS: HEPARIN 5,000 UNIT/0.5 ML VIAL SC SCH (21:47)
[2017-04-06] MEDS: ACCU-CHEK XX SCH (02:00)
[2017-04-06 02:17] VITALS: BP 166/86; RESP 20
[2017-04-06] MEDS: morphine 2 MG INJ IV PRN ×3 (02:45→23:34)
[2017-04-06 06:28] LABS: BASOPHIL # 0.1 10^3/ul (0.0-0.1); BASOPHILS % 0.6 % (0.0-2.0); EOSINOPHILS # 0.3 10^3/ul (0.0-0.5); EOSINOPHILS % 2.1 % (0.0-7.0); HEMATOCRIT 29.7 % (42.0-52.0); HEMOGLOBIN 9.5 g/dl (14.0-18.0); LYMPHOCYTES # 3.4 10^3/ul (0.8-2.9); LYMPHOCYTES % 26.8 % (15.0-51.0); MEAN CORPUSCULAR HEMOGLOBIN 27.6 pg (29.0-33.0); MEAN CORPUSCULAR VOLUME 86.3 fl (82.0-101.0); MEAN PLATELET VOLUME 9.2 fl (7.4-10.4); MONOCYTE # 0.9 10^3/ul (0.3-0.9); MONOCYTES % 6.8 % (0.0-11.0); NEUTROPHIL # 7.4 10^3/ul (1.6-7.5); NEUTROPHILS % 58.8 % (39.0-77.0); PLATELET COUNT 324 10^3/UL (140-415); RED BLOOD COUNT 3.44 10^6/ul (4.70-6.10); RED CELL DISTRIBUTION WIDTH 14.1 % (11.5-14.5); WHITE BLOOD COUNT 12.6 10^3/ul (4.8-10.8)
[2017-04-06 07:14] LABS: CALCIUM 8.6 mg/dl (8.4-10.2); CREATININE 1.1 mg/dl (0.61-1.24); MAGNESIUM 1.6 mg/dl (1.7-2.5); PHOSPHORUS 4.2 mg/dl (2.5-4.9); POTASSIUM 3.7 mmol/L (3.5-5.1)
[2017-04-06 07:32] VITALS: BP 196/88; RESP 20
[2017-04-06] MEDS: INSULIN ASPART [NOVOLOG] 3 ML PEN SC SCH ×7 (08:05→20:33)
[2017-04-06] MEDS: HEPARIN 5,000 UNIT/0.5 ML VIAL SC SCH ×2 (08:06→20:33)
[2017-04-06] MEDS: ASPIRIN (EC) 81 MG TAB PO SCH (08:07)
[2017-04-06] MEDS: LISINOPRIL 10 MG TAB PO SCH (08:08)
[2017-04-06] MEDS: SILVER SULFADIAZINE 1% 25 GM CR TOP SCH ×2 (08:14→20:35)
[2017-04-06] MEDS: SODIUM HYPOCHLORITE 0.125% 473 ML BTL IRR SCH ×2 (08:14→20:35)
[2017-04-06] MEDS: hydrALAzine 20 MG INJ IV PRN (09:56)
[2017-04-06] MEDS ORDERED: MAGNESIUM SULFATE 2 GM/50 ML 50 ML IVPB ONE (10:00)
[2017-04-06] MEDS: VANCOMYCIN 1 GM in NS 250 ML IVPB SCH (11:30)
[2017-04-06 12:05] VITALS: BP 160/82; PULSE 71
--- NOTE | 2017-04-06 13:38 | CONS ---
Date/Time of Note Date/Time of Note DATE: 04/06/17 TIME: 13:37 Consult Date/Type/Reason Admit Date/Time Mar 31, 2017 at 21:15 Initial Consult Date 04/01/17 Type of Consultation: ID Ordering Provider: VINOD PEDRAZA MD Objective Vital Signs Date Time Temp Pulse Resp B/P Pulse Ox O2 Delivery O2 Flow Rate FiO2 04/06/17 07:32 98.6 85 20 196/88 95 04/04/17 17:00 Room Air 04/02/17 08:00 3.0 Intake and Output 04/05/17 04/05/17 04/06/17 15:00 23:00 07:00 Intake Total 250 ml 1250 ml 250 ml Output Total 2000 ml Balance 250 ml -750 ml 250 ml Results/Medications Result Diagram: 04/06/17 0546 04/06/17 0546 Results 24 hrs Laboratory Tests Test 04/05/17 17:31 04/05/17 21:04 04/05/17 21:58 04/06/17 02:49 Bedside Glucose 158 250 H 199 Vancomycin Level Trough 12.9 Test 04/06/17 05:46 04/06/17 07:53 04/06/17 12:04 White Blood Count 12.6 H Red Blood Count 3.44 L Hemoglobin 9.5 L Hematocrit 29.7 L Mean Corpuscular Volume 86.3 Mean Corpuscular Hemoglobin 27.6 L Mean Corpuscular Hemoglobin Concent 32.0 Red Cell Distribution Width 14.1 Platelet Count 324 Mean Platelet Volume 9.2 Neutrophils % 58.8 Lymphocytes % 26.8 Monocytes % 6.8 Eosinophils % 2.1 Basophils % 0.6 Nucleated Red Blood Cells % 0.0 Neutrophils # 7.4 Lymphocytes # 3.4 H Monocytes # 0.9 Eosinophils # 0.3 Basophils # 0.1 Nucleated Red Blood Cells # 0.0 Sodium Level 140 Potassium Level 3.7 Chloride Level 104 Carbon Dioxide Level 29 Anion Gap 11 Blood Urea Nitrogen 22 H Creatinine 1.10 Glucose Level 199 Calcium Level 8.6 Phosphorus Level 4.2 Magnesium Level 1.6 L Bedside Glucose 225 H 221 H Medications Current Medications Ondansetron HCl (Zofran Inj) 4 mg Q6H PRN IV NAUSEA AND/OR VOMITING Last administered on 04/01/17t 04:16; Admin Dose 4 MG; Start 03/31/17 at 21:30 Acetaminophen (Tylenol Tab) 650 mg Q6H PRN PO PAIN LEVEL 1-3 OR FEVER; Start 03/31/17 at 21:30 Amitriptyline HCl (Elavil) 10 mg QHS PO Last administered on 04/05/17 21:17; Admin Dose 10 MG; Start 04/01/17 at 21:00 Aspirin (Halfprin) 81 mg DAILY PO Last administered on 04/06/17 08:07; Admin Dose 81 MG; Start 04/01/17 at 09:00 Atorvastatin Calcium (Lipitor) 80 mg QHS PO Last administered on 04/05/17 21: 18; Admin Dose 80 MG; Start 04/01/17 at 21:00 Metoprolol Tartrate (Lopressor) 100 mg QHS PO Last administered on 04/05/17 21:19; Admin Dose 100 MG; Start 04/01/17 at 21:00 Dextrose (D50w Syringe) 25 ml Q15M PRN IV BS between 50-70; Start 04/01/17 at 07:30 [facility]isc[facility] This patient mims... PRN PRN XX WOUND CARE; Start 04/01/17 at 08:00 Lorazepam (Ativan) 1 mg Q6H PRN IV AGITATION/ANXIETY Last administered on 04/03 15:14; Admin Dose 1 MG; Start 04/01/17 at 12:00 IV Flush (NS 10 ml) 10 ml PRN PRN IV IV PROTOCOL; Start 04/01/17 at 13:30 Sodium Hypochlorite (Dakin'S (1/4 Strength)) 1 applic BID IRR Last administered on 04/06/17 08:14; Admin Dose 1 APPLIC; Start 04/01/17 at 21:00 Silver Sulfadiazine (Thermazene 1% 25 Gm) 1 applic BID TOP Last administered on 04/06/17 08:14; Admin Dose 1 APPLIC; Start 04/01/17 at 21:00 Morphine Sulfate (morphine) 2 mg Q4H PRN IV PAIN Last administered on 11:43; Admin Dose 2 MG; Start 04/01/17 at 18:30 Oxycodone/ Acetaminophen (Endocet (10 325)) 1 tab Q4H PRN PO PAIN Last administered on 04/02/17 15:01; Admin Dose 1 TAB; Start 04/01/17 at 18:30 Diagnostic Test (Pha) (Accu-Chek) 1 ea 02 XX Last administered on 04/05/17 02 :00; Admin Dose 1 EA; Start 04/04/17 at 02:00 Miscellaneous Information 1 ea NOTE XX ; Start 04/03/17 at 10:00 Glucose (Glutose) 15 gm Q15M PRN PO DECREASED GLUCOSE; Start 04/03/17 at 10:00 Glucose (Glutose) 22.5 gm Q15M PRN PO DECREASED GLUCOSE; Start 04/03/17 at 10: 00 Dextrose (D50w Syringe) 25 ml Q15M PRN IV DECREASED GLUCOSE; Start 04/03/17 at 10:00 Dextrose (D50w Syringe) 50 ml Q15M PRN IV DECREASED GLUCOSE; Start 04/03/17 at 10:00 Glucagon (Glucagen) 1 mg Q15M PRN IM DECREASED GLUCOSE; Start 04/03/17 at 10: 00 Glucose (Glutose) 15 gm Q15M PRN BUCCAL DECREASED GLUCOSE; Start 04/03/17 at 10:00 Hydralazine HCl 10 mg 10 mg Q4H PRN IV ELEVATED SYSTOLIC BP Last administered on 04/06/17 09:56; Admin Dose 10 MG; Start 04/04/17 at 06:00 Vancomycin HCl (Vancocin) 250 ml @ 125 mls/hr Q12H IVPB Last administered on 04/06/17 11:30; Admin Dose 125 MLS/HR; Start 04/04/17 at 11:00 Lisinopril 10 mg 10 mg DAILY PO Last administered on 04/06/17 08:08; Admin Dose 10 MG; Start 04/05/17 at 14:00 Ceftriaxone Sodium (Rocephin) 50 ml @ 100 mls/hr Q24H IVPB Last administered on 04/05/17 17:21; Admin Dose 100 MLS/HR; Start 04/05/17 at 16:30 Insulin Glargine (Lantus) 55 unit QHS SC Last administered on 04/05/17 21:47 ; Admin Dose 55 UNIT; Start 04/05/17 at 21:00 Heparin Sodium (Porcine) (Heparin (5000 Units/0.5 ml)) 5,000 unit BID SC Last administered on 04/06/17t 08:06; Admin Dose 5,000 UNIT; Start 04/05/17 at 21: 00 Assessment/Plan Chief Complaint/Hosp Course SUBJECTIVE: No acute changes. The patient is alert, feels good, looks comfortable, no fevers. MICROBIOLOGY: Blood culture on admission grew oxacillin-sensitive Staphylococcus aureus and beta hemolytic strep species. Right foot wound culture grew Morganella morganii, Staphylococcus aureus strep Proteus penneri. Left foot wound culture also grew Enterococcus species in addition to what grew in the right and pseudomonas, all sensitive to Rocephin except enterococcus. ALLERGIES: SULFA. ANTIMICROBIALS: 1. Rocephin. 2. Vancomycin. PHYSICAL EXAMINATION: GENERAL: Obese, well-developed, middle-aged white man who is alert, in no distress. HEENT: Head atraumatic, normocephalic. Sclerae anicteric. Buccal mucosa pink. NECK: Supple. CHEST: Rise symmetrical. Breath sounds clear. HEART: S1, S2. ABDOMEN: Soft, bowel tones present. EXTREMITIES: Bilateral feet dressings intact. ASSESSMENT: 1. Status post sepsis with shock. 2. Polymicrobial bacteremia secondary to #3. 3. Right foot osteomyelitis with cultures growing multi-drug resistant organisms. 4. Left foot diabetic ulceration. 5. Poorly controlled diabetes. 6. Morbid obesity. 7. Anemia. 8. Acute possibly on chronic kidney disease. PLAN: The patient remains stable. Continue abx, f/u repeat bld cx, podiatry rec -s, abx for 6 + weeks DW staff Problems: MEHRAN ZHANG NP Apr 06, 2017 13:38
[2017-04-06 13:48] VITALS: BP 175/79; RESP 20
--- NOTE | 2017-04-06 14:15 | PN ---
DATE: 04/06/2017 SUBJECTIVE: The patient is stable. No events overnight. OBJECTIVE: VITAL SIGNS: Blood pressure 166/86, respirations 20, pulse , temperature 99.0. HEENT: Head is normocephalic. NECK: Supple. HEART: Regular rate. LUNGS: Show diminished breath sounds at base. ABDOMEN: Soft, nontender to palpation. No rebound or guarding. EXTREMITIES: Positive for wound with dressing clean, dry, intact. NEUROLOGIC: No focal deficits. DERMATOLOGIC: No rashes. LABORATORY DATA: Showed sodium 140, BUN 22, creatinine 1.10, magnesium 1.6. White count 12.6, hemo globin 9.5, platelet count is 324. ASSESSMENT AND PLAN: 1. Nonoliguric acute kidney injury with unknown baseline creatinine. Etiology of acute kidney inju ry was secondary to volume depletion and sepsis. Renal function has improved. Creatinine now is wi thin normal limits. At this point, continue current treatment plan, supportive care, renally dose a ll medicines. 2. Hyperkalemia, resolved. 3. Hypomagnesemia, replete with magnesium sulfate. 4. Metabolic acidosis, resolved. 5. Mineral bone disorder. Monitor calcium and phosphorus levels. 6. Anemia. Monitor hemoglobin and hematocrit levels. 7. Sepsis secondary to lower extremity cellulitis and osteomyelitis. Continue medical management. Continue wound care, continue IV antibiotics. 8. Diabetes. Continue current insulin regimen. 9. Hypertension. Continue current blood pressure regimen. 10. Status post respiratory failure. Dictated By: AFTAB DOBBS/ARAVIND Conf#: [id number] DID#: [id number] CC: FEDERICO CUNNINGHAM MD;*EndCC*
[2017-04-06] MEDS: CEFTRIAXONE 2 GM/50 ML (PMX) 50 ML IVPB SCH (17:11)
--- NOTE | 2017-04-06 17:32 | PN ---
Date/Time of Note Date/Time of Note DATE: 04/06/17 TIME: 17:30 Assessment/Plan VTE Prophylaxis VTE Prophylaxis Intervention: heparin Assessment/Plan Chief Complaint/Hosp Course 1. Sepsis secondary to staph aureus and strep bacteremia from diabetic foot ulcer with OM - Continue vanco and zosyn, Management per ID - Anticipate residential abx unless amputation of R foot - Monitor blood cultures: so far growing MSSA and strep, repeat to ensure clearance of bacteremia. No vegetations to suggest endocarditis - MRI to assess for underlying abscess of foot, OM, etc was unable to be performed given foot was too big for MRI machine. Can be reattempted. Needs imaging to exclude abscess etc. We can also consider a CT w contrast as his renal function settles to baseline - Dr Kimble of podiatry following - Wound care -ID following patient will need 6 weeks of IV antibiotics 2. Acute kidney injury likely 2/2 sepsis-resolving 3. Hypernatremia-resolved - Encourage free water intake 4. Anemia of chronic disease 5. DMII w hyperglycemia - no ketones to suggest DKA - s/p insulin drip -Change Lantus to 55 units nightly and will increase mealtime to 14 with meals, increase further as needed 6. History of coronary artery disease - Continue home aspirin, statin, metoprolol 7. Urinary retention secondary to neurogenic bladder possibly from diabetes versus medications - Continue santana for now. Trial of void in coming days - Urology consultation appreciated Prophylaxis: Heparin Discharge planning: Likely DC to SNF for 6 weeks of IV antibiotics Problems: Subjective 24 Hr Interval Summary Constitutional: no complaints Exam/Review of Systems Vital Signs Vitals Vital Signs Date Time Temp Pulse Resp B/P Pulse Ox O2 Delivery O2 Flow Rate FiO2 04/06/17 13:48 98.5 93 20 175/79 96 04/04/17 17:00 Room Air 04/02/17 08:00 3.0 Intake and Output 04/05/17 04/05/17 04/06/17 15:00 23:00 07:00 Intake Total 250 ml 1250 ml 250 ml Output Total 2000 ml Balance 250 ml -750 ml 250 ml Exam Constitutional: alert, oriented Respiratory: clear to auscultation Cardiovascular: regular rate and rhythm Gastrointestinal: soft, No distended Musculoskeletal: No nl extremities to inspection Results Result Diagram: 04/06/17 0546 04/06/17 0546 Results 24 hrs Laboratory Tests Test 04/05/17 17:31 04/05/17 21:04 04/05/17 21:58 04/06/17 02:49 Bedside Glucose 158 250 H 199 Vancomycin Level Trough 12.9 Test 04/06/17 05:46 04/06/17 07:53 04/06/17 12:04 White Blood Count 12.6 H Red Blood Count 3.44 L Hemoglobin 9.5 L Hematocrit 29.7 L Mean Corpuscular Volume 86.3 Mean Corpuscular Hemoglobin 27.6 L Mean Corpuscular Hemoglobin Concent 32.0 Red Cell Distribution Width 14.1 Platelet Count 324 Mean Platelet Volume 9.2 Neutrophils % 58.8 Lymphocytes % 26.8 Monocytes % 6.8 Eosinophils % 2.1 Basophils % 0.6 Nucleated Red Blood Cells % 0.0 Neutrophils # 7.4 Lymphocytes # 3.4 H Monocytes # 0.9 Eosinophils # 0.3 Basophils # 0.1 Nucleated Red Blood Cells # 0.0 Sodium Level 140 Potassium Level 3.7 Chloride Level 104 Carbon Dioxide Level 29 Anion Gap 11 Blood Urea Nitrogen 22 H Creatinine 1.10 Glucose Level 199 Calcium Level 8.6 Phosphorus Level 4.2 Magnesium Level 1.6 L Bedside Glucose 225 H 221 H Medications Medications Current Medications Ondansetron HCl (Zofran Inj) 4 mg Q6H PRN IV NAUSEA AND/OR VOMITING Last administered on 04/01/17 04:16; Admin Dose 4 MG; Start 03/31/17 at 21:30 Acetaminophen (Tylenol Tab) 650 mg Q6H PRN PO PAIN LEVEL 1-3 OR FEVER; Start 03/31/17 at 21:30 Amitriptyline HCl (Elavil) 10 mg QHS PO Last administered on 04/05/17 21:17; Admin Dose 10 MG; Start 04/01/17 at 21:00 Aspirin (Halfprin) 81 mg DAILY PO Last administered on 04/06/17 08:07; Admin Dose 81 MG; Start 04/01/17 at 09:00 Atorvastatin Calcium (Lipitor) 80 mg QHS PO Last administered on 04/05/17 21: 18; Admin Dose 80 MG; Start 04/01/17 at 21:00 Metoprolol Tartrate (Lopressor) 100 mg QHS PO Last administered on 11/20/17at 21:19; Admin Dose 100 MG; Start 04/01/17 at 21:00 Dextrose (D50w Syringe) 25 ml Q15M PRN IV BS between 50-70; Start 04/01/17 at 07:30 Miscellaneous Information (Pending [facility] Order For Wound Care) This patient mims... PRN PRN XX WOUND CARE; Start 04/01/17 at 08:00 Lorazepam (Ativan) 1 mg Q6H PRN IV AGITATION/ANXIETY Last administered on 04/03 15:14; Admin Dose 1 MG; Start 04/01/17 at 12:00 IV Flush (NS 10 ml) 10 ml PRN PRN IV IV PROTOCOL; Start 04/01/17 at 13:30 Sodium Hypochlorite (Dakin'S (1/4 Strength)) 1 applic BID IRR Last administered on 04/06/17 08:14; Admin Dose 1 APPLIC; Start 04/01/17 at 21:00 Silver Sulfadiazine (Thermazene 1% 25 Gm) 1 applic BID TOP Last administered on 04/06/17 08:14; Admin Dose 1 APPLIC; Start 04/01/17 at 21:00 Morphine Sulfate (morphine) 2 mg Q4H PRN IV PAIN Last administered on 11:43; Admin Dose 2 MG; Start 04/01/17 at 18:30 Oxycodone/ Acetaminophen (Endocet (10/ 325)) 1 tab Q4H PRN PO PAIN Last administered on 04/02/17 15:01; Admin Dose 1 TAB; Start 04/01/17 at 18:30 Diagnostic Test (Pha) (Accu-Chek) 1 ea 02 XX Last administered on 04/05/17 02 :00; Admin Dose 1 EA; Start 04/04/17 at 02:00 Miscellaneous Information 1 ea NOTE XX ; Start 04/03/17 at 10:00 Glucose (Glutose) 15 gm Q15M PRN PO DECREASED GLUCOSE; Start 04/03/17 at 10:00 Glucose (Glutose) 22.5 gm Q15M PRN PO DECREASED GLUCOSE; Start 04/03/17 at 10: 00 Dextrose (D50w Syringe) 25 ml Q15M PRN IV DECREASED GLUCOSE; Start 04/03/17 at 10:00 Dextrose (D50w Syringe) 50 ml Q15M PRN IV DECREASED GLUCOSE; Start 04/03/17 at 10:00 Glucagon (Glucagen) 1 mg Q15M PRN IM DECREASED GLUCOSE; Start 04/03/17 at 10: 00 Glucose (Glutose) 15 gm Q15M PRN BUCCAL DECREASED GLUCOSE; Start 04/03/17 at 10:00 Hydralazine HCl (Apresoline) 10 mg Q4H PRN IV ELEVATED SYSTOLIC BP Last administered on 04/06/17 09:56; Admin Dose 10 MG; Start 04/04/17 at 06:00 Lisinopril 10 mg 10 mg DAILY PO Last administered on 04/06/17 08:08; Admin Dose 10 MG; Start 04/05/17 at 14:00 Ceftriaxone Sodium (Rocephin) 50 ml @ 100 mls/hr Q24H IVPB Last administered on 04/06/17 17:11; Admin Dose 100 MLS/HR; Start 04/05/17 at 16:30 Insulin Glargine (Lantus) 55 unit QHS SC Last administered on 04/05/17 21:47 ; Admin Dose 55 UNIT; Start 04/05/17 at 21:00 Heparin Sodium (Porcine) 5000 unit 5,000 unit BID SC Last administered on 04/06 08:06; Admin Dose 5,000 UNIT; Start 04/05/17 at 21:00 Vancomycin HCl/ Sodium Chloride (Vancocin/NS) 250 ml @ 83.333 mls/ hr Q12H IVPB ; Start 04/07/17 at 00:00 ALYSSA JOSEPH Apr 06, 2017 17:32
[2017-04-06 20:28] VITALS: BP 176/83; RESP 18
[2017-04-06] MEDS: AMITRIPTYLINE 10 MG TAB PO SCH (20:31)
[2017-04-06] MEDS: ATORVASTATIN 80 MG TAB PO SCH (20:31)
[2017-04-06] MEDS: METOPROLOL 100 MG TAB PO SCH (20:32)
[2017-04-06] MEDS: INSULIN GLARGINE [LANtus] 3 ML PEN SC SCH (20:34)
[2017-04-06] MEDS ORDERED: INSULIN ASPART [NOVOLOG] 3 ML PEN SC ONE (21:00)
[2017-04-06] MEDS: VANCOMYCIN 1.25 GM in SOD CHLORIDE 0.9% 250 ML IVPB SCH (23:34)
[2017-04-07 01:46] VITALS: BP 168/84; RESP 16
[2017-04-07] MEDS: ACCU-CHEK XX SCH (02:00)
[2017-04-07 06:16] LABS: BASOPHIL # 0.1 10^3/ul (0.0-0.1); BASOPHILS % 0.6 % (0.0-2.0); EOSINOPHILS # 0.3 10^3/ul (0.0-0.5); EOSINOPHILS % 2.2 % (0.0-7.0); HEMATOCRIT 30.3 % (42.0-52.0); HEMOGLOBIN 9.7 g/dl (14.0-18.0); LYMPHOCYTES # 2.8 10^3/ul (0.8-2.9); LYMPHOCYTES % 22.2 % (15.0-51.0); MEAN CORPUSCULAR HEMOGLOBIN 27.6 pg (29.0-33.0); MEAN CORPUSCULAR VOLUME 86.1 fl (82.0-101.0); MEAN PLATELET VOLUME 9.1 fl (7.4-10.4); MONOCYTE # 0.8 10^3/ul (0.3-0.9); MONOCYTES % 6.4 % (0.0-11.0); NEUTROPHIL # 8.1 10^3/ul (1.6-7.5); PLATELET COUNT 316 10^3/UL (140-415); RED BLOOD COUNT 3.52 10^6/ul (4.70-6.10); WHITE BLOOD COUNT 12.6 10^3/ul (4.8-10.8)
[2017-04-07 06:52] LABS: CALCIUM 8.5 mg/dl (8.4-10.2); CREATININE 1.08 mg/dl (0.61-1.24); POTASSIUM 3.6 mmol/L (3.5-5.1)
[2017-04-07 07:47] VITALS: BP 158/79; RESP 16
[2017-04-07] MEDS: INSULIN ASPART [NOVOLOG] 3 ML PEN SC SCH ×7 (08:14→21:13)
[2017-04-07] MEDS: ASPIRIN (EC) 81 MG TAB PO SCH (09:29)
[2017-04-07] MEDS: HEPARIN 5,000 UNIT/0.5 ML VIAL SC SCH ×2 (09:31→21:14)
--- NOTE | 2017-04-07 09:33 | PN ---
DATE: 04/07/2017 SUBJECTIVE: The patient is stable. No events overnight. OBJECTIVE: VITAL SIGNS: Blood pressure is 158/79, temperature 98.3, pulse 75, respirations 16. HEENT: Head is normocephalic. NECK: Supple. HEART: Regular rate. LUNGS: Show diminished breath sounds at base. ABDOMEN: Soft, nontender to palpation without rebound or guarding. EXTREMITIES: Negative for clubbing, cyanosis. Noted wound that is clean, dry and intact. DERMATOLOGIC: No rashes. MUSCULOSKELETAL: No joint effusion. NEUROLOGIC: No change in exam. MEDICATIONS: The patient's medications have been reviewed. LABORATORY DATA: Shows white count 12.6, hemoglobin 9.7, platelet count is 316. Sodium 141, potass ium 3.6, BUN 20, creatinine 1.08. ASSESSMENT AND PLAN: 1. Nonoliguric acute kidney injury with unknown baseline creatinine. Etiology secondary to hemodyn amic sepsis. Renal functions improved. Continue current treatment plan, supportive care, renally d ose medications. 2. Hypokalemia, resolved. 3. Hypomagnesemia. Continue to monitor and replete. 4. Mineral bone disorder. Monitor calcium and phosphorus levels. 5. Anemia. Monitor hemoglobin and hematocrit levels. 6. Hypertension. Blood pressure remains elevated, will up titrate lisinopril to 40 mg daily. Tory tor closely. 7. Diabetes. Continue current insulin regimen. 8. Sepsis secondary to lower extremity cellulitis and osteomyelitis. Continue medical management. Continue antibiotics. Continue wound care. Follow up with podiatry. 9. Status post respiratory failure. 10. Status post metabolic acidosis. Dictated By: AFTAB DOBBS/NTS Conf#: [id number] DID#: [id number] CC: FEDERICO CUNNINGHAM MD;*EndCC*
[2017-04-07] MEDS: SILVER SULFADIAZINE 1% 25 GM CR TOP SCH ×2 (09:40→21:16)
[2017-04-07] MEDS: SODIUM HYPOCHLORITE 0.125% 473 ML BTL IRR SCH ×2 (09:40→21:17)
[2017-04-07] MEDS: LISINOPRIL 20 MG TAB PO SCH (09:41)
[2017-04-07] MEDS: VANCOMYCIN 1.25 GM in SOD CHLORIDE 0.9% 250 ML IVPB SCH (12:27)
--- NOTE | 2017-04-07 14:15 | CONS ---
Date/Time of Note Date/Time of Note DATE: 04/07/17 TIME: 14:14 Assessment/Plan Assessment/Plan Chief Complaint/Hosp Course SUBJECTIVE: No acute changes. The patient is alert, feels good, looks comfortable, no fevers. MICROBIOLOGY: Blood culture on admission grew oxacillin-sensitive Staphylococcus aureus and beta hemolytic strep species. Right foot wound culture grew Morganella morganii, Staphylococcus aureus strep Proteus penneri. Left foot wound culture also grew Enterococcus species in addition to what grew in the right and pseudomonas, all sensitive to Rocephin except enterococcus. ALLERGIES: SULFA. ANTIMICROBIALS: 1. Rocephin. 2. Vancomycin. PHYSICAL EXAMINATION: GENERAL: Obese, well-developed, middle-aged white man who is alert, in no distress. HEENT: Head atraumatic, normocephalic. Sclerae anicteric. Buccal mucosa pink. NECK: Supple. CHEST: Rise symmetrical. Breath sounds clear. HEART: S1, S2. ABDOMEN: Soft, bowel tones present. EXTREMITIES: Bilateral feet dressings intact. ASSESSMENT: 1. Status post sepsis with shock. 2. Polymicrobial bacteremia secondary to #3. 3. Right foot osteomyelitis with cultures growing multi-drug resistant organisms. 4. Left foot diabetic ulceration. 5. Poorly controlled diabetes. 6. Morbid obesity. 7. Anemia. 8. Acute possibly on chronic kidney disease. PLAN: The patient remains stable, repeat blood cultures negative, continue present care, antibiotics for 6-8 weeks and possibly longer, follow podiatry recommendations. staff and patient Problems: Consultation Date/Type/Reason Admit Date/Time Mar 31, 2017 at 21:15 Initial Consult Date 04/01/17 Type of Consultation: ID Referring Provider: VINOD PEDRAZA MD Exam/Review of Systems Vital Signs Vitals Vital Signs Date Time Temp Pulse Resp B/P Pulse Ox O2 Delivery O2 Flow Rate FiO2 04/07/17 07:47 98.3 85 16 158/79 96 04/04/17 17:00 Room Air Intake and Output 04/06/17 04/06/17 04/07/17 15:00 23:00 07:00 Intake Total 1300 ml 1430 ml 1050 ml Output Total 2000 ml 2500 ml 1750 ml Balance -700 ml -1070 ml -700 ml Results Result Diagram: 04/07/17 0548 04/07/17 0548 Results 24 hrs Laboratory Tests Test 04/06/17 17:41 04/06/17 20:30 04/07/17 02:34 04/07/17 05:48 Bedside Glucose 223 H 311 H 132 White Blood Count 12.6 H Red Blood Count 3.52 L Hemoglobin 9.7 L Hematocrit 30.3 L Mean Corpuscular Volume 86.1 Mean Corpuscular Hemoglobin 27.6 L Mean Corpuscular Hemoglobin Concent 32.0 Red Cell Distribution Width 14.0 Platelet Count 316 Mean Platelet Volume 9.1 Neutrophils % 64.0 Lymphocytes % 22.2 Monocytes % 6.4 Eosinophils % 2.2 Basophils % 0.6 Nucleated Red Blood Cells % 0.0 Neutrophils # 8.1 H Lymphocytes # 2.8 Monocytes # 0.8 Eosinophils # 0.3 Basophils # 0.1 Nucleated Red Blood Cells # 0.0 Sodium Level 141 Potassium Level 3.6 Chloride Level 105 Carbon Dioxide Level 28 Anion Gap 12 Blood Urea Nitrogen 20 Creatinine 1.08 Glucose Level 119 # Calcium Level 8.5 Test 04/07/17 08:08 04/07/17 11:53 Bedside Glucose 116 184 Medications Medications Current Medications Ondansetron HCl (Zofran Inj) 4 mg Q6H PRN IV NAUSEA AND/OR VOMITING Last administered on 04/01/17 04:16; Admin Dose 4 MG; Start 03/31/17 at 21:30 Acetaminophen (Tylenol Tab) 650 mg Q6H PRN PO PAIN LEVEL 1-3 OR FEVER; Start 03/31/17 at 21:30 Amitriptyline HCl (Elavil) 10 mg QHS PO Last administered on 04/06/17 20:31; Admin Dose 10 MG; Start 04/01/17 at 21:00 Aspirin (Halfprin) 81 mg DAILY PO Last administered on 04/07/17 09:29; Admin Dose 81 MG; Start 04/01/17 at 09:00 Atorvastatin Calcium (Lipitor) 80 mg QHS PO Last administered on 04/06/17 20: 31; Admin Dose 80 MG; Start 04/01/17 at 21:00 Metoprolol Tartrate (Lopressor) 100 mg QHS PO Last administered on 04/06/17 20:32; Admin Dose 100 MG; Start 04/01/17 at 21:00 Dextrose (D50w Syringe) 25 ml Q15M PRN IV BS between 50-70; Start 04/01/17 at 07:30 Miscellaneous Information (Pending Santyl Order For Wound Care) This patient mims... PRN PRN XX WOUND CARE; Start 04/01/17 at 08:00 Lorazepam (Ativan) 1 mg Q6H PRN IV AGITATION/ANXIETY Last administered on 04/03 15:14; Admin Dose 1 MG; Start 04/01/17 at 12:00 IV Flush (NS 10 ml) 10 ml PRN PRN IV IV PROTOCOL; Start 04/01/17 at 13:30 Sodium Hypochlorite (Dakin'S (1/4 Strength)) 1 applic BID IRR Last administered on 04/07/17 09:40; Admin Dose 1 APPLIC; Start 04/01/17 at 21:00 Silver Sulfadiazine (Thermazene 1% 25 Gm) 1 applic BID TOP Last administered on 04/07/17 09:40; Admin Dose 1 APPLIC; Start 04/01/17 at 21:00 Morphine Sulfate (morphine) 2 mg Q4H PRN IV PAIN Last administered on 23:34; Admin Dose 2 MG; Start 04/01/17 at 18:30 Oxycodone/ Acetaminophen (Endocet (10/ 325)) 1 tab Q4H PRN PO PAIN Last administered on 04/02/17 15:01; Admin Dose 1 TAB; Start 04/01/17 at 18:30 Diagnostic Test (Pha) (Accu-Chek) 1 ea 02 XX Last administered on 04/07/17 02 :00; Admin Dose 1 EA; Start 04/04/17 at 02:00 Miscellaneous Information 1 ea NOTE XX ; Start 04/03/17 at 10:00 Glucose (Glutose) 15 gm Q15M PRN PO DECREASED GLUCOSE; Start 04/03/17 at 10:00 Glucose (Glutose) 22.5 gm Q15M PRN PO DECREASED GLUCOSE; Start 04/03/17 at 10: 00 Dextrose (D50w Syringe) 25 ml Q15M PRN IV DECREASED GLUCOSE; Start 04/03/17 at 10:00 Dextrose (D50w Syringe) 50 ml Q15M PRN IV DECREASED GLUCOSE; Start 04/03/17 at 10:00 Glucagon (Glucagen) 1 mg Q15M PRN IM DECREASED GLUCOSE; Start 04/03/17 at 10: 00 Glucose (Glutose) 15 gm Q15M PRN BUCCAL DECREASED GLUCOSE; Start 04/03/17 at 10:00 Hydralazine HCl 10 mg 10 mg Q4H PRN IV ELEVATED SYSTOLIC BP Last administered on 04/06/17 09:56; Admin Dose 10 MG; Start 04/04/17 at 06:00 Ceftriaxone Sodium (Rocephin) 50 ml @ 100 mls/hr Q24H IVPB Last administered on 04/06/17 17:11; Admin Dose 100 MLS/HR; Start 04/05/17 at 16:30 Insulin Glargine (Lantus) 55 unit QHS SC Last administered on 04/06/17 20:34 ; Admin Dose 55 UNIT; Start 04/05/17 at 21:00 Heparin Sodium (Porcine) 5000 unit 5,000 unit BID SC Last administered on 04/07 09:31; Admin Dose 5,000 UNIT; Start 04/05/17 at 21:00 Vancomycin HCl/ Sodium Chloride (Vancocin/NS) 250 ml @ 83.333 mls/ hr Q12H IVPB Last administered on 04/07/17 12:27; Admin Dose 83.333 MLS/HR; Start at 00:00 Lisinopril (Zestril) 40 mg DAILY PO Last administered on 04/07/17 09:41; Admin Dose 40 MG; Start 04/07/17 at 09:00 MEHRAN ZHANG NP Apr 07, 2017 14:15
[2017-04-07 14:44] VITALS: BP 159/76; RESP 18
--- NOTE | 2017-04-07 14:58 | PN ---
Date/Time of Note Date/Time of Note DATE: 04/07/17 TIME: 14:53 Assessment/Plan VTE Prophylaxis VTE Prophylaxis Intervention: heparin Assessment/Plan Chief Complaint/Hosp Course 1. Sepsis secondary to staph aureus and strep bacteremia from diabetic foot ulcer with OM - Continue vanco and zosyn, Management per ID - Anticipate [facility] abx unless amputation of R foot - Monitor blood cultures: so far growing MSSA and strep, repeat to ensure clearance of bacteremia. No vegetations to suggest endocarditis - MRI to assess for underlying abscess of foot, OM, etc was unable to be performed given foot was too big for MRI machine. Can be reattempted. Needs imaging to exclude abscess etc -Discussed need for CT w contrast with podiatry - Dr Kimble of podiatry following - Wound care -ID following patient will need 6 weeks of IV antibiotics 2. Acute kidney injury likely 2/2 sepsis-resolving 3. Hypernatremia-resolved - Encourage free water intake 4. Anemia of chronic disease 5. DMII w hyperglycemia - no ketones to suggest DKA - s/p insulin drip -Continue Lantus 55 units nightly and NovoLog 14 units with meals, increase further as needed 6. History of coronary artery disease - Continue home aspirin, statin, metoprolol 7. Urinary retention secondary to neurogenic bladder possibly from diabetes versus medications - Continue santana for now. Trial of void in coming days - Urology consultation appreciated Prophylaxis: Heparin Discharge planning: Likely DC to SNF versus home with home health for 6 weeks of IV antibiotics Problems: Subjective 24 Hr Interval Summary Constitutional: no complaints Exam/Review of Systems Vital Signs Vitals Vital Signs Date Time Temp Pulse Resp B/P Pulse Ox O2 Delivery O2 Flow Rate FiO2 04/07/17 14:44 99.6 105 18 159/76 93 04/04/17 17:00 Room Air Intake and Output 04/06/17 04/06/17 04/07/17 14:59 22:59 06:59 Intake Total 1300 ml 1430 ml 1050 ml Output Total 2000 ml 2500 ml 1750 ml Balance -700 ml -1070 ml -700 ml Exam Constitutional: alert, oriented Respiratory: clear to auscultation Cardiovascular: regular rate and rhythm Gastrointestinal: soft, No distended Musculoskeletal: No nl extremities to inspection Results Result Diagram: 04/07/17 0548 04/07/17 0548 Results 24 hrs Laboratory Tests Test 04/06/17 17:41 04/06/17 20:30 04/07/17 02:34 04/07/17 05:48 Bedside Glucose 223 H 311 H 132 White Blood Count 12.6 H Red Blood Count 3.52 L Hemoglobin 9.7 L Hematocrit 30.3 L Mean Corpuscular Volume 86.1 Mean Corpuscular Hemoglobin 27.6 L Mean Corpuscular Hemoglobin Concent 32.0 Red Cell Distribution Width 14.0 Platelet Count 316 Mean Platelet Volume 9.1 Neutrophils % 64.0 Lymphocytes % 22.2 Monocytes % 6.4 Eosinophils % 2.2 Basophils % 0.6 Nucleated Red Blood Cells % 0.0 Neutrophils # 8.1 H Lymphocytes # 2.8 Monocytes # 0.8 Eosinophils # 0.3 Basophils # 0.1 Nucleated Red Blood Cells # 0.0 Sodium Level 141 Potassium Level 3.6 Chloride Level 105 Carbon Dioxide Level 28 Anion Gap 12 Blood Urea Nitrogen 20 Creatinine 1.08 Glucose Level 119 # Calcium Level 8.5 Test 04/07/17 08:08 04/07/17 11:53 Bedside Glucose 116 184 Medications Medications Current Medications Ondansetron HCl (Zofran Inj) 4 mg Q6H PRN IV NAUSEA AND/OR VOMITING Last administered on 04/01/17 04:16; Admin Dose 4 MG; Start 03/31/17 at 21:30 Acetaminophen (Tylenol Tab) 650 mg Q6H PRN PO PAIN LEVEL 1-3 OR FEVER; Start 03/31/17 at 21:30 Amitriptyline HCl (Elavil) 10 mg QHS PO Last administered on 04/06/17 20:31; Admin Dose 10 MG; Start 04/01/17 at 21:00 Aspirin (Halfprin) 81 mg DAILY PO Last administered on 04/07/17 09:29; Admin Dose 81 MG; Start 04/01/17 at 09:00 Atorvastatin Calcium (Lipitor) 80 mg QHS PO Last administered on 04/06/17 20: 31; Admin Dose 80 MG; Start 04/01/17 at 21:00 Metoprolol Tartrate (Lopressor) 100 mg QHS PO Last administered on 04/06/17 20:32; Admin Dose 100 MG; Start 04/01/17 at 21:00 Dextrose (D50w Syringe) 25 ml Q15M PRN IV BS between 50-70; Start 04/01/17 at 07:30 Miscellaneous Information (Pending [facility] Order For Wound Care) This patient mims... PRN PRN XX WOUND CARE; Start 04/01/17 at 08:00 Lorazepam (Ativan) 1 mg Q6H PRN IV AGITATION/ANXIETY Last administered on 04/03 15:14; Admin Dose 1 MG; Start 04/01/17 at 12:00 IV Flush (NS 10 ml) 10 ml PRN PRN IV IV PROTOCOL; Start 04/01/17 at 13:30 Sodium Hypochlorite (Dakin'S (1/4 Strength)) 1 applic BID IRR Last administered on 04/07/17 09:40; Admin Dose 1 APPLIC; Start 04/01/17 at 21:00 Silver Sulfadiazine (Thermazene 1% 25 Gm) 1 applic BID TOP Last administered on 04/07/17 09:40; Admin Dose 1 APPLIC; Start 04/01/17 at 21:00 Morphine Sulfate (morphine) 2 mg Q4H PRN IV PAIN Last administered on 23:34; Admin Dose 2 MG; Start 04/01/17 at 18:30 Oxycodone/ Acetaminophen (Endocet (10/ 325)) 1 tab Q4H PRN PO PAIN Last administered on 04/02/17 15:01; Admin Dose 1 TAB; Start 04/01/17 at 18:30 Diagnostic Test (Pha) (Accu-Chek) 1 ea 02 XX Last administered on 04/07/17 02 :00; Admin Dose 1 EA; Start 04/04/17 at 02:00 Miscellaneous Information 1 ea NOTE XX ; Start 04/03/17 at 10:00 Glucose (Glutose) 15 gm Q15M PRN PO DECREASED GLUCOSE; Start 04/03/17 at 10:00 Glucose (Glutose) 22.5 gm Q15M PRN PO DECREASED GLUCOSE; Start 04/03/17 at 10: 00 Dextrose (D50w Syringe) 25 ml Q15M PRN IV DECREASED GLUCOSE; Start 04/03/17 at 10:00 Dextrose (D50w Syringe) 50 ml Q15M PRN IV DECREASED GLUCOSE; Start 04/03/17 at 10:00 Glucagon (Glucagen) 1 mg Q15M PRN IM DECREASED GLUCOSE; Start 04/03/17 at 10: 00 Glucose (Glutose) 15 gm Q15M PRN BUCCAL DECREASED GLUCOSE; Start 04/03/17 at 10:00 Hydralazine HCl 10 mg 10 mg Q4H PRN IV ELEVATED SYSTOLIC BP Last administered on 04/06/17 09:56; Admin Dose 10 MG; Start 04/04/17 at 06:00 Ceftriaxone Sodium (Rocephin) 50 ml @ 100 mls/hr Q24H IVPB Last administered on 04/06/17 17:11; Admin Dose 100 MLS/HR; Start 04/05/17 at 16:30 Insulin Glargine (Lantus) 55 unit QHS SC Last administered on 04/06/17 20:34 ; Admin Dose 55 UNIT; Start 04/05/17 at 21:00 Heparin Sodium (Porcine) 5000 unit 5,000 unit BID SC Last administered on 04/07 09:31; Admin Dose 5,000 UNIT; Start 04/05/17 at 21:00 Vancomycin HCl/ Sodium Chloride (Vancocin/NS) 250 ml @ 83.333 mls/ hr Q12H IVPB Last administered on 04/07/17 12:27; Admin Dose 83.333 MLS/HR; Start at 00:00 Lisinopril (Zestril) 40 mg DAILY PO Last administered on 04/07/17 09:41; Admin Dose 40 MG; Start 04/07/17 at 09:00 ALYSSA JOSEPH Apr 07, 2017 14:58
[2017-04-07] MEDS: CEFTRIAXONE 2 GM/50 ML (PMX) 50 ML IVPB SCH (16:56)
[2017-04-07] MEDS: morphine 2 MG INJ IV PRN (18:04)
[2017-04-07 19:36] VITALS: BP 173/82; RESP 18
[2017-04-07] MEDS: INSULIN GLARGINE [LANtus] 3 ML PEN SC SCH (21:14)
[2017-04-07] MEDS: ATORVASTATIN 80 MG TAB PO SCH (21:14)
[2017-04-07] MEDS: AMITRIPTYLINE 10 MG TAB PO SCH (21:15)
[2017-04-07] MEDS: METOPROLOL 100 MG TAB PO SCH (21:16)
[2017-04-08] MEDS: VANCOMYCIN 1.25 GM in SOD CHLORIDE 0.9% 250 ML IVPB SCH ×3 (00:13→23:46)
[2017-04-08] MEDS: morphine 2 MG INJ IV PRN ×3 (00:14→22:19)
[2017-04-08 02:03] VITALS: BP 170/75; RESP 16
[2017-04-08] MEDS: ACCU-CHEK XX SCH (02:29)
[2017-04-08 06:34] LABS: CALCIUM 8.5 mg/dl (8.4-10.2); CREATININE 1.11 mg/dl (0.61-1.24); MAGNESIUM 1.7 mg/dl (1.7-2.5); PHOSPHORUS 4.3 mg/dl (2.5-4.9)
[2017-04-08 07:43] VITALS: BP 162/82; RESP 18
[2017-04-08] MEDS: INSULIN ASPART [NOVOLOG] 3 ML PEN SC SCH ×7 (08:00→20:40)
[2017-04-08] MEDS: ASPIRIN (EC) 81 MG TAB PO SCH (09:43)
[2017-04-08] MEDS: LISINOPRIL 20 MG TAB PO SCH (09:43)
[2017-04-08] MEDS: HEPARIN 5,000 UNIT/0.5 ML VIAL SC SCH ×2 (09:47→20:40)
--- NOTE | 2017-04-08 11:28 | PN ---
Date/Time of Note Date/Time of Note DATE: 04/08/17 TIME: 11:26 Assessment/Plan VTE Prophylaxis VTE Prophylaxis Intervention: heparin Assessment/Plan Chief Complaint/Hosp Course 1. Sepsis secondary to staph aureus and strep bacteremia from diabetic foot ulcer with OM - Continue vanco and zosyn, Management per ID - Anticipate [facility] abx unless amputation of R foot - Monitor blood cultures: so far growing MSSA and strep, repeat to ensure clearance of bacteremia. No vegetations to suggest endocarditis - MRI to assess for underlying abscess of foot, OM, etc was unable to be performed given foot was too big for MRI machine. Can be reattempted. Needs imaging to exclude abscess etc -Discussed need for CT w contrast with podiatry, recommendation is to hold off and obtain MRI in 6-8 weeks - Dr Kimble of podiatry following - Wound care -ID following patient will need 6 weeks of IV antibiotics with vancomycin and Rocephin via home health 2. Acute kidney injury likely 2/2 sepsis-resolving 3. Hypernatremia-resolved - Encourage free water intake 4. Anemia of chronic disease 5. DMII w hyperglycemia - no ketones to suggest DKA - s/p insulin drip -Continue Lantus 55 units nightly and NovoLog 14 units with meals, increase further as needed 6. History of coronary artery disease - Continue home aspirin, statin, metoprolol 7. Urinary retention secondary to neurogenic bladder possibly from diabetes versus medications - Continue santana for now. Trial of void in coming days - Urology consultation appreciated Prophylaxis: Heparin Discharge planning: DC to home with home health with IV antibiotics 6 weeks, shoe parts caser to arrange Problems: Subjective 24 Hr Interval Summary Constitutional: no complaints Exam/Review of Systems Vital Signs Vitals Vital Signs Date Time Temp Pulse Resp B/P Pulse Ox O2 Delivery O2 Flow Rate FiO2 04/08/17 07:43 98.3 85 18 162/82 94 04/04/17 17:00 Room Air Intake and Output 04/07/17 04/07/17 04/08/17 15:00 23:00 07:00 Intake Total 1740 ml 850 ml Output Total 1400 ml 1025 ml Balance 340 ml -175 ml Exam Constitutional: alert Respiratory: clear to auscultation Cardiovascular: regular rate and rhythm Gastrointestinal: soft, No distended Musculoskeletal: No nl extremities to inspection Results Result Diagram: 04/07/17 0548 04/08/17 0540 Results 24 hrs Laboratory Tests Test 04/07/17 11:53 04/07/17 17:37 04/07/17 21:11 04/08/17 02:23 Bedside Glucose 184 232 H 234 H 186 Test 04/08/17 05:40 04/08/17 07:59 Sodium Level 141 Potassium Level 4.0 Chloride Level 102 Carbon Dioxide Level 30 Anion Gap 13 Blood Urea Nitrogen 20 Creatinine 1.11 Glucose Level 133 Calcium Level 8.5 Phosphorus Level 4.3 Magnesium Level 1.7 Bedside Glucose 132 Medications Medications Current Medications Ondansetron HCl (Zofran Inj) 4 mg Q6H PRN IV NAUSEA AND/OR VOMITING Last administered on 04/01/17 04:16; Admin Dose 4 MG; Start 03/31/17 at 21:30 Acetaminophen (Tylenol Tab) 650 mg Q6H PRN PO PAIN LEVEL 1-3 OR FEVER; Start 03/31/17 at 21:30 Amitriptyline HCl (Elavil) 10 mg QHS PO Last administered on 04/07/17 21:15; Admin Dose 10 MG; Start 04/01/17 at 21:00 Aspirin (Halfprin) 81 mg DAILY PO Last administered on 04/08/17 09:43; Admin Dose 81 MG; Start 04/01/17 at 09:00 Atorvastatin Calcium (Lipitor) 80 mg QHS PO Last administered on 04/07/17 21: 14; Admin Dose 80 MG; Start 04/01/17 at 21:00 Metoprolol Tartrate (Lopressor) 100 mg QHS PO Last administered on 04/07/17 21:16; Admin Dose 100 MG; Start 04/01/17 at 21:00 Dextrose (D50w Syringe) 25 ml Q15M PRN IV BS between 50-70; Start 04/01/17 at 07:30 Miscellaneous Information (Pending Santyl Order For Wound Care) This patient mims... PRN PRN XX WOUND CARE; Start 04/01/17 at 08:00 Lorazepam (Ativan) 1 mg Q6H PRN IV AGITATION/ANXIETY Last administered on 04/03 15:14; Admin Dose 1 MG; Start 04/01/17 at 12:00 IV Flush (NS 10 ml) 10 ml PRN PRN IV IV PROTOCOL; Start 04/01/17 at 13:30 Sodium Hypochlorite (Dakin'S (1/4 Strength)) 1 applic BID IRR Last administered on 04/07/17 21:17; Admin Dose 1 APPLIC; Start 04/01/17 at 21:00 Silver Sulfadiazine (Thermazene 1% 25 Gm) 1 applic BID TOP Last administered on 04/07/17 21:16; Admin Dose 1 APPLIC; Start 04/01/17 at 21:00 Morphine Sulfate (morphine) 2 mg Q4H PRN IV PAIN Last administered on 00:14; Admin Dose 2 MG; Start 04/01/17 at 18:30 Oxycodone/ Acetaminophen (Endocet ()) 1 tab Q4H PRN PO PAIN Last administered on 04/02/17 15:01; Admin Dose 1 TAB; Start 04/01/17 at 18:30 Diagnostic Test (Pha) (Accu-Chek) 1 ea 02 XX Last administered on 04/08/17 02 :29; Admin Dose 1 EA; Start 04/04/17 at 02:00 Miscellaneous Information 1 ea NOTE XX ; Start 04/03/17 at 10:00 Glucose (Glutose) 15 gm Q15M PRN PO DECREASED GLUCOSE; Start 04/03/17 at 10:00 Glucose (Glutose) 22.5 gm Q15M PRN PO DECREASED GLUCOSE; Start 04/03/17 at 10: 00 Dextrose (D50w Syringe) 25 ml Q15M PRN IV DECREASED GLUCOSE; Start 04/03/17 at 10:00 Dextrose (D50w Syringe) 50 ml Q15M PRN IV DECREASED GLUCOSE; Start 04/03/17 at 10:00 Glucagon (Glucagen) 1 mg Q15M PRN IM DECREASED GLUCOSE; Start 04/03/17 at 10: 00 Glucose (Glutose) 15 gm Q15M PRN BUCCAL DECREASED GLUCOSE; Start 04/03/17 at 10:00 Hydralazine HCl 10 mg 10 mg Q4H PRN IV ELEVATED SYSTOLIC BP Last administered on 04/06/17 09:56; Admin Dose 10 MG; Start 04/04/17 at 06:00 Ceftriaxone Sodium (Rocephin) 50 ml @ 100 mls/hr Q24H IVPB Last administered on 04/07/17 16:56; Admin Dose 100 MLS/HR; Start 04/05/17 at 16:30 Insulin Glargine (Lantus) 55 unit QHS SC Last administered on 04/07/17 21:14 ; Admin Dose 55 UNIT; Start 04/05/17 at 21:00 Heparin Sodium (Porcine) 5000 unit 5,000 unit BID SC Last administered on 04/08 09:47; Admin Dose 5,000 UNIT; Start 04/05/17 at 21:00 Vancomycin HCl/ Sodium Chloride (Vancocin/NS) 250 ml @ 83.333 mls/ hr Q12H IVPB Last administered on 04/08/17 00:13; Admin Dose 83.333 MLS/HR; Start at 00:00 Lisinopril (Zestril) 40 mg DAILY PO Last administered on 04/08/17 09:43; Admin Dose 40 MG; Start 04/07/17 at 09:00 Amlodipine Besylate (Norvasc) 5 mg DAILY PO ; Start 04/09/17 at 09:00 ALYSSA JOSEPH Apr 08, 2017 11:28
--- NOTE | 2017-04-08 12:08 | CONS ---
Date/Time of Note Date/Time of Note DATE: 04/08/17 TIME: 12:05 Assessment/Plan Assessment/Plan Chief Complaint/Hosp Course SUBJECTIVE: No acute changes. The patient is alert, feels good, looks comfortable, no fevers. MICROBIOLOGY: Blood culture on admission grew oxacillin-sensitive Staphylococcus aureus and beta hemolytic strep species. Right foot wound culture grew Morganella morganii, Staphylococcus aureus strep Proteus penneri. Left foot wound culture also grew Enterococcus species in addition to what grew in the right and pseudomonas, all sensitive to Rocephin except enterococcus. ALLERGIES: SULFA. ANTIMICROBIALS: 1. Rocephin. 2. Vancomycin. PHYSICAL EXAMINATION: GENERAL: Obese, well-developed, middle-aged white man who is alert, in no distress. HEENT: Head atraumatic, normocephalic. Sclerae anicteric. Buccal mucosa pink. NECK: Supple. CHEST: Rise symmetrical. Breath sounds clear. HEART: S1, S2. ABDOMEN: Soft, bowel tones present. EXTREMITIES: Bilateral feet dressings intact. ASSESSMENT: 1. Status post sepsis with shock. 2. Polymicrobial bacteremia secondary to #3. 3. Right foot osteomyelitis with cultures growing multi-drug resistant organisms. 4. Left foot diabetic ulceration. 5. Poorly controlled diabetes. 6. Morbid obesity. 7. Anemia. 8. Acute possibly on chronic kidney disease. PLAN: The patient remains stable, repeat blood cultures negative, continue present care, antibiotics for 6-8 weeks and possibly longer, follow podiatry recommendations. staff and patient Problems: Consultation Date/Type/Reason Admit Date/Time Mar 31, 2017 at 21:15 Initial Consult Date 04/01/17 Type of Consultation: ID Referring Provider: VINOD PEDRAZA MD Exam/Review of Systems Vital Signs Vitals Vital Signs Date Time Temp Pulse Resp B/P Pulse Ox O2 Delivery O2 Flow Rate FiO2 04/08/17 07:43 98.3 85 18 162/82 94 04/04/17 17:00 Room Air Intake and Output 04/07/17 04/07/17 04/08/17 15:00 23:00 07:00 Intake Total 1740 ml 850 ml Output Total 1400 ml 1025 ml Balance 340 ml -175 ml Results Result Diagram: 04/07/17 0548 04/08/17 0540 Results 24 hrs Laboratory Tests Test 04/07/17 17:37 04/07/17 21:11 04/08/17 02:23 04/08/17 05:40 Bedside Glucose 232 H 234 H 186 Sodium Level 141 Potassium Level 4.0 Chloride Level 102 Carbon Dioxide Level 30 Anion Gap 13 Blood Urea Nitrogen 20 Creatinine 1.11 Glucose Level 133 Calcium Level 8.5 Phosphorus Level 4.3 Magnesium Level 1.7 Test 04/08/17 07:59 Bedside Glucose 132 Medications Medications Current Medications Ondansetron HCl (Zofran Inj) 4 mg Q6H PRN IV NAUSEA AND/OR VOMITING Last administered on 04/01/17 04:16; Admin Dose 4 MG; Start 03/31/17 at 21:30 Acetaminophen (Tylenol Tab) 650 mg Q6H PRN PO PAIN LEVEL 1-3 OR FEVER; Start 03/31/17 at 21:30 Amitriptyline HCl (Elavil) 10 mg QHS PO Last administered on 04/07/17 21:15; Admin Dose 10 MG; Start 04/01/17 at 21:00 Aspirin (Halfprin) 81 mg DAILY PO Last administered on 04/08/17 09:43; Admin Dose 81 MG; Start 04/01/17 at 09:00 Atorvastatin Calcium (Lipitor) 80 mg QHS PO Last administered on 04/07/17 21: 14; Admin Dose 80 MG; Start 04/01/17 at 21:00 Metoprolol Tartrate (Lopressor) 100 mg QHS PO Last administered on 04/07/17 21:16; Admin Dose 100 MG; Start 04/01/17 at 21:00 Dextrose (D50w Syringe) 25 ml Q15M PRN IV BS between 50-70; Start 04/01/17 at 07:30 Miscellaneous Information ([facility]ending [facility]) This patient mims... PRN PRN XX WOUND CARE; Start 04/01/17 at 08:00 Lorazepam (Ativan) 1 mg Q6H PRN IV AGITATION/ANXIETY Last administered on 04/03 15:14; Admin Dose 1 MG; Start 04/01/17 at 12:00 IV Flush (NS 10 ml) 10 ml PRN PRN IV IV PROTOCOL; Start 04/01/17 at 13:30 Sodium Hypochlorite (Dakin'S (1/4 Strength)) 1 applic BID IRR Last administered on 04/07/17 21:17; Admin Dose 1 APPLIC; Start 04/01/17 at 21:00 Silver Sulfadiazine (Thermazene 1% 25 Gm) 1 applic BID TOP Last administered on 04/07/17 21:16; Admin Dose 1 APPLIC; Start 04/01/17 at 21:00 Morphine Sulfate (morphine) 2 mg Q4H PRN IV PAIN Last administered on 00:14; Admin Dose 2 MG; Start 04/01/17 at 18:30 Oxycodone/ Acetaminophen (Endocet ()) 1 tab Q4H PRN PO PAIN Last administered on 04/02/17 15:01; Admin Dose 1 TAB; Start 04/01/17 at 18:30 Diagnostic Test (Pha) (Accu-Chek) 1 ea 02 XX Last administered on 04/08/17 02 :29; Admin Dose 1 EA; Start 04/04/17 at 02:00 Miscellaneous Information 1 ea NOTE XX ; Start 04/03/17 at 10:00 Glucose (Glutose) 15 gm Q15M PRN PO DECREASED GLUCOSE; Start 04/03/17 at 10:00 Glucose (Glutose) 22.5 gm Q15M PRN PO DECREASED GLUCOSE; Start 04/03/17 at 10: 00 Dextrose (D50w Syringe) 25 ml Q15M PRN IV DECREASED GLUCOSE; Start 04/03/17 at 10:00 Dextrose (D50w Syringe) 50 ml Q15M PRN IV DECREASED GLUCOSE; Start 04/03/17 at 10:00 Glucagon (Glucagen) 1 mg Q15M PRN IM DECREASED GLUCOSE; Start 04/03/17 at 10: 00 Glucose (Glutose) 15 gm Q15M PRN BUCCAL DECREASED GLUCOSE; Start 04/03/17 at 10:00 Hydralazine HCl 10 mg 10 mg Q4H PRN IV ELEVATED SYSTOLIC BP Last administered on 04/06/17 09:56; Admin Dose 10 MG; Start 04/04/17 at 06:00 Ceftriaxone Sodium (Rocephin) 50 ml @ 100 mls/hr Q24H IVPB Last administered on 04/07/17 16:56; Admin Dose 100 MLS/HR; Start 04/05/17 at 16:30 Insulin Glargine (Lantus) 55 unit QHS SC Last administered on 04/07/17 21:14 ; Admin Dose 55 UNIT; Start 04/05/17 at 21:00 Heparin Sodium (Porcine) 5000 unit 5,000 unit BID SC Last administered on 04/08 09:47; Admin Dose 5,000 UNIT; Start 04/05/17 at 21:00 Vancomycin HCl/ Sodium Chloride (Vancocin/NS) 250 ml @ 83.333 mls/ hr Q12H IVPB Last administered on 04/08/17 00:13; Admin Dose 83.333 MLS/HR; Start at 00:00 Lisinopril (Zestril) 40 mg DAILY PO Last administered on 04/08/17 09:43; Admin Dose 40 MG; Start 04/07/17 at 09:00 Amlodipine Besylate (Norvasc) 5 mg DAILY PO ; Start 04/09/17 at 09:00 MEHRAN ZHANG NP Apr 08, 2017 12:08
--- NOTE | 2017-04-08 13:18 | PN ---
DATE: 04/08/2017 SUBJECTIVE: The patient is stable. No events overnight. OBJECTIVE: VITAL SIGNS: Blood pressure 162/82, pulse 85, respiration 18, temperature 98.3. HEENT: Head is normocephalic. NECK: Supple. HEART: Regular rate. LUNGS: Show diminished breath sounds at base. ABDOMEN: Soft, nontender to palpation. No rebound or guarding. EXTREMITIES: Negative for clubbing, cyanosis. Positive edema. DERMATOLOGIC: No rashes. MUSCULOSKELETAL: No joint effusions. NEUROLOGIC: No change in exam. MEDICATIONS: The patient's medications have been reviewed. LABORATORY DATA: BMP within normal limits. White count 12.6, hemoglobin 9.7, hematocrit 30.3, and platelet count is 316. ASSESSMENT AND PLAN: 1. Nonoliguric acute kidney injury with unknown baseline creatinine. Etiology secondary to hemodyn amics, sepsis. Renal function is improved. Continue current treatment plan, supportive care, renal ly dose all meds. 2. Hypertension. Blood pressure remains elevated, although slowly improving. Continue current vane atment plan. Continue lisinopril 40 mg daily. Continue metoprolol. Will add Norvasc. 3. Mineral bone disorder. Continue to monitor calcium and phosphorus levels. 4. Anemia. Monitor hemoglobin and hematocrit levels. 5. Diabetes. Continue current insulin regimen. 6. Sepsis secondary to lower extremity cellulitis and osteomyelitis. Continue medical management. 7. Status post respiratory failure. DIAGNOSIS: Status post metabolic acidosis. Dictated By: AFTAB DOBBS/ARAVIND Conf#: [id number] DID#: [id number]
[2017-04-08 14:32] VITALS: BP 160/74; RESP 20
[2017-04-08] MEDS: SILVER SULFADIAZINE 1% 25 GM CR TOP SCH (16:34)
[2017-04-08] MEDS: SODIUM HYPOCHLORITE 0.125% 473 ML BTL IRR SCH (16:34)
[2017-04-08] MEDS: CEFTRIAXONE 2 GM/50 ML (PMX) 50 ML IVPB SCH (16:35)
[2017-04-08 20:00] VITALS: BP 177/83; RESP 20
[2017-04-08] MEDS: ATORVASTATIN 80 MG TAB PO SCH (20:32)
[2017-04-08] MEDS: METOPROLOL 100 MG TAB PO SCH (20:33)
[2017-04-08] MEDS: AMITRIPTYLINE 10 MG TAB PO SCH (20:33)
[2017-04-08] MEDS: INSULIN GLARGINE [LANtus] 3 ML PEN SC SCH (21:30)
[2017-04-09 02:00] VITALS: BP 153/74; RESP 20
[2017-04-09] MEDS: ACCU-CHEK XX SCH (02:15)
[2017-04-09] MEDS: SODIUM HYPOCHLORITE 0.125% 473 ML BTL IRR SCH ×3 (05:29→21:18)
[2017-04-09] MEDS: morphine 2 MG INJ IV PRN (05:29)
[2017-04-09] MEDS: SILVER SULFADIAZINE 1% 25 GM CR TOP SCH ×3 (05:30→21:18)
[2017-04-09 07:25] VITALS: BP 163/77; RESP 16
[2017-04-09] MEDS: INSULIN ASPART [NOVOLOG] 3 ML PEN SC SCH ×7 (08:21→21:00)
[2017-04-09] MEDS: AMLODIPINE 5 MG TAB PO SCH (08:59)
[2017-04-09] MEDS: ASPIRIN (EC) 81 MG TAB PO SCH (09:00)
[2017-04-09] MEDS: LISINOPRIL 20 MG TAB PO SCH (09:00)
[2017-04-09] MEDS: HEPARIN 5,000 UNIT/0.5 ML VIAL SC SCH ×2 (09:05→21:29)
--- NOTE | 2017-04-09 11:59 | PN ---
Date/Time of Note Date/Time of Note DATE: 04/09/17 TIME: 11:59 Assessment/Plan VTE Prophylaxis VTE Prophylaxis Intervention: heparin Assessment/Plan Chief Complaint/Hosp Course 1. Sepsis secondary to staph aureus and strep bacteremia from diabetic foot ulcer with OM - Continue vanco and zosyn, Management per ID - Anticipate half-way abx unless amputation of R foot - Monitor blood cultures: so far growing MSSA and strep, repeat to ensure clearance of bacteremia. No vegetations to suggest endocarditis - MRI to assess for underlying abscess of foot, OM, etc was unable to be performed given foot was too big for MRI machine. Can be reattempted. Needs imaging to exclude abscess etc -Discussed need for CT w contrast with podiatry, recommendation is to hold off and obtain MRI in 6-8 weeks - Dr Kimble of podiatry following - Wound care -ID following patient will need 6 weeks of IV antibiotics with vancomycin and Rocephin via home health 2. Acute kidney injury likely 2/2 sepsis-resolving 3. Hypernatremia-resolved - Encourage free water intake 4. Anemia of chronic disease 5. DMII w hyperglycemia - no ketones to suggest DKA - s/p insulin drip -Continue Lantus 55 units nightly and NovoLog 14 units with meals, increase further as needed 6. History of coronary artery disease - Continue home aspirin, statin, metoprolol 7. Urinary retention secondary to neurogenic bladder possibly from diabetes versus medications - Continue santana for now. Trial of void in coming days - Urology consultation appreciated Prophylaxis: Heparin Discharge planning: DC to home with home health with IV antibiotics 6 weeks, embedded case manager to arrange Problems: Subjective 24 Hr Interval Summary Constitutional: no complaints Exam/Review of Systems Vital Signs Vitals Vital Signs Date Time Temp Pulse Resp B/P Pulse Ox O2 Delivery O2 Flow Rate FiO2 04/09/17 07:25 98.3 84 16 163/77 94 Intake and Output 04/08/17 04/08/17 04/09/17 15:00 23:00 07:00 Intake Total 240 ml 1260 ml 250 ml Output Total 500 ml 1100 ml Balance -260 ml 160 ml 250 ml Exam Constitutional: alert, oriented Respiratory: clear to auscultation Cardiovascular: regular rate and rhythm Gastrointestinal: soft, No distended Musculoskeletal: No nl extremities to inspection Results Result Diagram: 04/07/17 0548 04/08/17 0540 Results 24 hrs Laboratory Tests Test 04/08/17 12:06 04/08/17 17:11 04/08/17 20:35 04/09/17 02:10 Bedside Glucose 258 H 206 200 170 Test 04/09/17 08:00 Bedside Glucose 180 Medications Medications Current Medications Ondansetron HCl (Zofran Inj) 4 mg Q6H PRN IV NAUSEA AND/OR VOMITING Last administered on 04/01/17 04:16; Admin Dose 4 MG; Start 03/31/17 at 21:30 Acetaminophen (Tylenol Tab) 650 mg Q6H PRN PO PAIN LEVEL 1-3 OR FEVER; Start 03/31/17 at 21:30 Amitriptyline HCl (Elavil) 10 mg QHS PO Last administered on 04/08/17 20:33; Admin Dose 10 MG; Start 04/01/17 at 21:00 Aspirin (Halfprin) 81 mg DAILY PO Last administered on 04/09/17 09:00; Admin Dose 81 MG; Start 04/01/17 at 09:00 Atorvastatin Calcium (Lipitor) 80 mg QHS PO Last administered on 04/08/17 20: 32; Admin Dose 80 MG; Start 04/01/17 at 21:00 Metoprolol Tartrate (Lopressor) 100 mg QHS PO Last administered on 04/08/17 20:33; Admin Dose 100 MG; Start 04/01/17 at 21:00 Dextrose (D50w Syringe) 25 ml Q15M PRN IV BS between 50-70; Start 04/01/17 at 07:30 Miscellaneous Information (Pending [facility] Order For Wound Care) This patient mims... PRN PRN XX WOUND CARE; Start 04/01/17 at 08:00 Lorazepam (Ativan) 1 mg Q6H PRN IV AGITATION/ANXIETY Last administered on 04/03 15:14; Admin Dose 1 MG; Start 04/01/17 at 12:00 IV Flush (NS 10 ml) 10 ml PRN PRN IV IV PROTOCOL; Start 04/01/17 at 13:30 Sodium Hypochlorite (Dakin'S (1/4 Strength)) 1 applic BID IRR Last administered on 04/09/17 05:29; Admin Dose 1 APPLIC; Start 04/01/17 at 21:00 Silver Sulfadiazine (Thermazene 1% 25 Gm) 1 applic BID TOP Last administered on 04/09/17 09:00; Admin Dose 1 APPLIC; Start 04/01/17 at 21:00 Morphine Sulfate (morphine) 2 mg Q4H PRN IV PAIN Last administered on 05:29; Admin Dose 2 MG; Start 04/01/17 at 18:30 Oxycodone/ Acetaminophen (Endocet (10/ 325)) 1 tab Q4H PRN PO PAIN Last administered on 04/02/17 15:01; Admin Dose 1 TAB; Start 04/01/17 at 18:30 Diagnostic Test (Pha) (Accu-Chek) 1 ea 02 XX Last administered on 04/09/17 02 :15; Admin Dose 1 EA; Start 04/04/17 at 02:00 Miscellaneous Information 1 ea NOTE XX ; Start 04/03/17 at 10:00 Glucose (Glutose) 15 gm Q15M PRN PO DECREASED GLUCOSE; Start 04/03/17 at 10:00 Glucose (Glutose) 22.5 gm Q15M PRN PO DECREASED GLUCOSE; Start 04/03/17 at 10: 00 Dextrose (D50w Syringe) 25 ml Q15M PRN IV DECREASED GLUCOSE; Start 04/03/17 at 10:00 Dextrose (D50w Syringe) 50 ml Q15M PRN IV DECREASED GLUCOSE; Start 04/03/17 at 10:00 Glucagon (Glucagen) 1 mg Q15M PRN IM DECREASED GLUCOSE; Start 04/03/17 at 10: 00 Glucose (Glutose) 15 gm Q15M PRN BUCCAL DECREASED GLUCOSE; Start 04/03/17 at 10:00 Hydralazine HCl 10 mg 10 mg Q4H PRN IV ELEVATED SYSTOLIC BP Last administered on 04/06/17 09:56; Admin Dose 10 MG; Start 04/04/17 at 06:00 Ceftriaxone Sodium (Rocephin) 50 ml @ 100 mls/hr Q24H IVPB Last administered on 04/08/17 16:35; Admin Dose 100 MLS/HR; Start 04/05/17 at 16:30 Insulin Glargine (Lantus) 55 unit QHS SC Last administered on 04/08/17 21:30 ; Admin Dose 55 UNIT; Start 04/05/17 at 21:00 Heparin Sodium (Porcine) 5000 unit 5,000 unit BID SC Last administered on 04/09 09:05; Admin Dose 5,000 UNIT; Start 04/05/17 at 21:00 Vancomycin HCl/ Sodium Chloride (Vancocin/NS) 250 ml @ 83.333 mls/ hr Q12H IVPB Last administered on 04/08/17 23:46; Admin Dose 83.333 MLS/HR; Start at 00:00 Lisinopril (Zestril) 40 mg DAILY PO Last administered on 04/09/17 09:00; Admin Dose 40 MG; Start 04/07/17 at 09:00 Amlodipine Besylate (Norvasc) 5 mg DAILY PO Last administered on 04/09/17 08: 59; Admin Dose 5 MG; Start 04/09/17 at 09:00 ALYSSA JOSEPH Apr 09, 2017 11:59
[2017-04-09] MEDS: VANCOMYCIN 1.25 GM in SOD CHLORIDE 0.9% 250 ML IVPB SCH (12:07)
--- NOTE | 2017-04-09 12:44 | PN ---
DATE: 04/09/2017 SUBJECTIVE: The patient is stable. No events overnight. OBJECTIVE: VITAL SIGNS: Blood pressure is 163/77, pulse 74, respirations 16, temperature 98.3. HEENT: Head is normocephalic. NECK: Supple. HEART: Regular rate. LUNGS: Show diminished breath sounds at the base. ABDOMEN: Soft, nontender to palpation. No rebound or guarding. EXTREMITIES: Negative for clubbing, cyanosis, edema. DERMATOLOGIC: No rashes. MUSCULOSKELETAL: No joint effusions. NEUROLOGIC: No change in exam. MEDICATIONS: Have been reviewed. LABORATORY DATA: Has been reviewed. ASSESSMENT AND PLAN: 1. Nonoliguric acute kidney injury with unknown baseline creatinine. Etiology secondary to hemodyn amics. Renal function is improved. Continue current treatment plan, supportive care, renally dose all meds. 2. Hypertension. Blood pressure remains elevated, slowly improving. Continue lisinopril. Continu e metoprolol. We will up titrate Norvasc. 3. Mineral bone disorder. Continue to monitor calcium and phosphorus levels. 4. Anemia. Continue to monitor hemoglobin and hematocrit levels. 5. Diabetes. Continue current insulin regimen. 6. Sepsis secondary to lower extremity edema, cellulitis. Continue current antibiotic therapy. 7. Status post respiratory failure. Dictated By: FATAB LANGLEY DO NR/NTS Conf#: [id number] DID#: [id number] CC: FEDERICO CUNNINGHAM MD;*EndCC*
[2017-04-09 14:56] VITALS: BP 149/60; RESP 18
--- NOTE | 2017-04-09 15:17 | CONS ---
Date/Time of Note Date/Time of Note DATE: 04/09/17 TIME: 15:13 Assessment/Plan Assessment/Plan Chief Complaint/Hosp Course ID PROGRESS NOTE CURRENT ABX: DAY # =>Vanco IV + Ceftiaxone 24H INTERVAL SUMMARY * Clinically improved A/A/O, no c/o -- he worked w/PTx today -- DC Pending insurance -- plan DC w/HH w/IV ABX 8 weeks * Patient still has FC -> tells me he is hoping it will be removed tomorrow am * POD #8-> s/p bedside debridement R-DFU * CHART/RADIOLOGY IMAGING/LABS /VSS/MICRO REVIEWED PHYSICAL EXAMINATION: GENERAL: This is a morbidly obese, well-developed, 56 yo M, NAD HEENT: Head atraumatic, normocephalic. Sclerae anicteric. Buccal mucosa dry. NECK: Supple, trach midline CHEST: Rise symmetrical. Breath sounds diminished to bases. HEART: S1, S2. NSR on tele ABDOMEN: Soft, bowel tones present. EXTREMITIES: Without cyanosis. Bilateral lower extremities edema. BLEXT cellulitis improving, Right foot dressing intact with some blood present. SKIN: Fair skinned red-head , no rash, no diaphoresis noted ID ASSESSMENT: 56 yo Morbid Obese M admit [facility] ICU: 1. s/p Acute shock->(+)Septicemia (+)Hypovolemia 2/2 symptomatic anemia (H/H 6.6/22.1 on 03/31/17) => RESOLVED * s/p Lactic acidosis/fevers/leukocytosis => RESOLVED 2. Bacteremia, likely secondary to infected right foot wound. => RESOLVED * 03/31/17 BCx: * Organism 1 STAPHYLOCOCCUS AUREUS * Organism 2 STREP BETA HEMOLYTIC-GROUP F 3. Right diabetic foot infection w/osteomyelitis * X-ray 03/31/17: Likely osteomyelitis of the second through fourth metatarsal bones deep to a large ulcer along the plantar aspect of the foot. * Wound Cx: Polymicrobial GPC & GNR pathogens 4. Left diabetic foot ulcer * 03/31/17 X-ray: No definite plain film evidence of osteomyelitis, and if there is concern for osteomyelitis recommend MRI correlation. * Wound Cx: Polymicrobial GPC & GNR pathogens 5. Poorly-controlled diabetes. 6. Acute kidney injury, possibly on chronic kidney disease. 7. Acute symptomatic anemia, possibly on chronic anemia. (-)MRSA ABX ALLERGIES: Sulfa INVASIVES: Hagan, PICC line placed on 04/01/2017. CURRENT ABX: Vanco IV + Ceftriaxone ID RECOMMENDATIONS/PLAN: 1.DC planning in process -- Patient still has FC -> tells me he is hoping it will be removed tomorrow am 2. Continue current ABX -> Anticipate 8-weeks IV ABX coverage for osteomyelitis. . . Problems: Consultation Date/Type/Reason Admit Date/Time Mar 31, 2017 at 21:15 Initial Consult Date 04/01/17 Type of Consultation: ID Referring Provider: VINOD PEDRAZA MD Exam/Review of Systems Vital Signs Vitals Vital Signs Date Time Temp Pulse Resp B/P Pulse Ox O2 Delivery O2 Flow Rate FiO2 04/09/17 14:56 98.7 88 18 149/60 94 Intake and Output 04/08/17 04/08/17 04/09/17 15:00 23:00 07:00 Intake Total 240 ml 1260 ml 250 ml Output Total 500 ml 1100 ml Balance -260 ml 160 ml 250 ml Results Result Diagram: 04/07/17 0548 04/08/17 0540 Results 24 hrs Laboratory Tests Test 04/08/17 17:11 04/08/17 20:35 04/09/17 02:10 04/09/17 08:00 Bedside Glucose 206 200 170 180 Test 04/09/17 12:05 Bedside Glucose 264 H Medications Medications Current Medications Ondansetron HCl (Zofran Inj) 4 mg Q6H PRN IV NAUSEA AND/OR VOMITING Last administered on 04/01/17 04:16; Admin Dose 4 MG; Start 03/31/17 at 21:30 Acetaminophen (Tylenol Tab) 650 mg Q6H PRN PO PAIN LEVEL 1-3 OR FEVER; Start 03/31/17 at 21:30 Amitriptyline HCl (Elavil) 10 mg QHS PO Last administered on 04/08/17 20:33; Admin Dose 10 MG; Start 04/01/17 at 21:00 Aspirin (Halfprin) 81 mg DAILY PO Last administered on 04/09/17 09:00; Admin Dose 81 MG; Start 04/01/17 at 09:00 Atorvastatin Calcium (Lipitor) 80 mg QHS PO Last administered on 04/08/17 20: 32; Admin Dose 80 MG; Start 04/01/17 at 21:00 Metoprolol Tartrate (Lopressor) 100 mg QHS PO Last administered on 04/08/17 20:33; Admin Dose 100 MG; Start 04/01/17 at 21:00 Dextrose (D50w Syringe) 25 ml Q15M PRN IV BS between 50-70; Start 04/01/17 at 07:30 Miscellaneous Information (Pending [facility] Order For Wound Care) This patient mims... PRN PRN XX WOUND CARE; Start 04/01/17 at 08:00 Lorazepam (Ativan) 1 mg Q6H PRN IV AGITATION/ANXIETY Last administered on 04/03 15:14; Admin Dose 1 MG; Start 04/01/17 at 12:00 IV Flush (NS 10 ml) 10 ml PRN PRN IV IV PROTOCOL; Start 04/01/17 at 13:30 Sodium Hypochlorite (Dakin'S (1/4 Strength)) 1 applic BID IRR Last administered on 04/09/17 12:07; Admin Dose 1 APPLIC; Start 04/01/17 at 21:00 Silver Sulfadiazine (Thermazene 1% 25 Gm) 1 applic BID TOP Last administered on 04/09/17 09:00; Admin Dose 1 APPLIC; Start 04/01/17 at 21:00 Morphine Sulfate (morphine) 2 mg Q4H PRN IV PAIN Last administered on 05:29; Admin Dose 2 MG; Start 04/01/17 at 18:30 Oxycodone/ Acetaminophen (Endocet (10/ 325)) 1 tab Q4H PRN PO PAIN Last administered on 04/02/17 15:01; Admin Dose 1 TAB; Start 04/01/17 at 18:30 Diagnostic Test (Pha) (Accu-Chek) 1 ea 02 XX Last administered on 04/09/17 02 :15; Admin Dose 1 EA; Start 04/04/17 at 02:00 Miscellaneous Information 1 ea NOTE XX ; Start 04/03/17 at 10:00 Glucose (Glutose) 15 gm Q15M PRN PO DECREASED GLUCOSE; Start 04/03/17 at 10:00 Glucose (Glutose) 22.5 gm Q15M PRN PO DECREASED GLUCOSE; Start 04/03/17 at 10: 00 Dextrose (D50w Syringe) 25 ml Q15M PRN IV DECREASED GLUCOSE; Start 04/03/17 at 10:00 Dextrose (D50w Syringe) 50 ml Q15M PRN IV DECREASED GLUCOSE; Start 04/03/17 at 10:00 Glucagon (Glucagen) 1 mg Q15M PRN IM DECREASED GLUCOSE; Start 04/03/17 at 10: 00 Glucose (Glutose) 15 gm Q15M PRN BUCCAL DECREASED GLUCOSE; Start 04/03/17 at 10:00 Hydralazine HCl 10 mg 10 mg Q4H PRN IV ELEVATED SYSTOLIC BP Last administered on 04/06/17 09:56; Admin Dose 10 MG; Start 04/04/17 at 06:00 Ceftriaxone Sodium (Rocephin) 50 ml @ 100 mls/hr Q24H IVPB Last administered on 04/08/17 16:35; Admin Dose 100 MLS/HR; Start 04/05/17 at 16:30 Insulin Glargine (Lantus) 55 unit QHS SC Last administered on 04/08/17 21:30 ; Admin Dose 55 UNIT; Start 04/05/17 at 21:00 Heparin Sodium (Porcine) 5000 unit 5,000 unit BID SC Last administered on 04/09 09:05; Admin Dose 5,000 UNIT; Start 04/05/17 at 21:00 Vancomycin HCl/ Sodium Chloride (Vancocin/NS) 250 ml @ 83.333 mls/ hr Q12H IVPB Last administered on 04/09/17 12:07; Admin Dose 83.333 MLS/HR; Start at 00:00 Lisinopril (Zestril) 40 mg DAILY PO Last administered on 04/09/17 09:00; Admin Dose 40 MG; Start 04/07/17 at 09:00 Amlodipine Besylate (Norvasc) 5 mg DAILY PO Last administered on 04/09/17 08: 59; Admin Dose 5 MG; Start 04/09/17 at 09:00 WILL WONG NP Apr 09, 2017 15:17
[2017-04-09] MEDS: CEFTRIAXONE 2 GM/50 ML (PMX) 50 ML IVPB SCH (16:54)
[2017-04-09 20:13] VITALS: BP 178/82; RESP 20
[2017-04-09] MEDS: ATORVASTATIN 80 MG TAB PO SCH (21:17)
[2017-04-09] MEDS: METOPROLOL 100 MG TAB PO SCH (21:17)
[2017-04-09] MEDS: AMITRIPTYLINE 10 MG TAB PO SCH (21:17)
[2017-04-09] MEDS: INSULIN GLARGINE [LANtus] 3 ML PEN SC SCH (21:28)
[2017-04-10] MEDS: VANCOMYCIN 1.25 GM in SOD CHLORIDE 0.9% 250 ML IVPB SCH ×2 (00:21→12:10)
[2017-04-10] MEDS: morphine 2 MG INJ IV PRN (00:25)
[2017-04-10] MEDS: ACCU-CHEK XX SCH (01:03)
[2017-04-10 02:00] VITALS: BP 151/72; RESP 20
[2017-04-10 06:37] LABS: BASOPHIL # 0.1 10^3/ul (0.0-0.1); BASOPHILS % 0.6 % (0.0-2.0); EOSINOPHILS # 0.3 10^3/ul (0.0-0.5); HEMOGLOBIN 9.1 g/dl (14.0-18.0); LYMPHOCYTES # 2.8 10^3/ul (0.8-2.9); MEAN CORPUSCULAR HEMOGLOBIN 27.5 pg (29.0-33.0); MEAN CORPUSCULAR HGB CONC 31.4 g/dl (32.0-37.0); MEAN CORPUSCULAR VOLUME 87.6 fl (82.0-101.0); MEAN PLATELET VOLUME 10.1 fl (7.4-10.4); MONOCYTE # 0.7 10^3/ul (0.3-0.9); MONOCYTES % 6.8 % (0.0-11.0); NEUTROPHIL # 6.3 10^3/ul (1.6-7.5); NEUTROPHILS % 60.8 % (39.0-77.0); PLATELET COUNT 249 10^3/UL (140-415); RED BLOOD COUNT 3.31 10^6/ul (4.70-6.10); RED CELL DISTRIBUTION WIDTH 14.3 % (11.5-14.5); WHITE BLOOD COUNT 10.4 10^3/ul (4.8-10.8)
[2017-04-10 06:48] LABS: CALCIUM 8.8 mg/dl (8.4-10.2); CREATININE 1.03 mg/dl (0.61-1.24); MAGNESIUM 1.7 mg/dl (1.7-2.5); POTASSIUM 3.7 mmol/L (3.5-5.1)
[2017-04-10] MEDS: SODIUM HYPOCHLORITE 0.125% 473 ML BTL IRR SCH ×3 (06:48→21:00)
[2017-04-10] MEDS: SILVER SULFADIAZINE 1% 25 GM CR TOP SCH ×3 (06:51→20:59)
[2017-04-10 07:31] VITALS: BP 157/73; RESP 20
[2017-04-10] MEDS: INSULIN ASPART [NOVOLOG] 3 ML PEN SC SCH ×7 (08:06→20:56)
--- NOTE | 2017-04-10 08:25 | PN ---
DATE: 04/10/2017 SUBJECTIVE: The patient is stable. No events overnight. OBJECTIVE: VITAL SIGNS: Blood pressure is 157/73, pulse 81, respirations 20, temperature 97.5. HEENT: Head is normocephalic. NECK: Supple. HEART: Regular rate. LUNGS: Show diminished breath sounds at base. ABDOMEN: Soft, nontender to palpation. No rebound or guarding. EXTREMITIES: Negative for clubbing, cyanosis, no edema. DERMATOLOGIC: No rashes. MUSCULOSKELETAL: No joint effusions. NEUROLOGIC: No change in exam. MEDICATIONS: The patient's medications have been reviewed. LABORATORY DATA: Shows white count 10.4, hemoglobin 9.1, platelet count is 29. BMP within normal l imits. ASSESSMENT AND PLAN: 1. Nonoliguric acute kidney injury with unknown baseline creatinine. Etiology is secondary to hemo dynamics. Renal function is improved. Continue current treatment plan, supportive care, renally do se all medicines. 2. Hypertension. Blood pressures are improving. Medications were adjusted. Continue current gay tment plan. 3. Mineral bone disorder, monitor calcium and phosphorus levels. 4. Anemia. Monitor any change. 5. Diabetes. Continue current insulin regimen. 6. Sepsis secondary to lower extremity cellulitis and osteomyelitis. Continue current antibiotic r egimen. Follow up with podiatry. 7. Status post respiratory failure. Dictated By: AFTAB LANGLEY DO NR/NTS Conf#: [id number] DID#: [id number] CC: FEDERICO CUNNINGHAM MD;*EndCC*
[2017-04-10] MEDS: AMLODIPINE 5 MG TAB PO SCH (08:39)
[2017-04-10] MEDS: ASPIRIN (EC) 81 MG TAB PO SCH (08:39)
[2017-04-10] MEDS: LISINOPRIL 20 MG TAB PO SCH (08:40)
[2017-04-10] MEDS: HEPARIN 5,000 UNIT/0.5 ML VIAL SC SCH ×2 (09:37→20:51)
--- NOTE | 2017-04-10 12:12 | PN ---
Date/Time of Note Date/Time of Note DATE: 04/10/17 TIME: 12:12 Assessment/Plan VTE Prophylaxis VTE Prophylaxis Intervention: heparin Assessment/Plan Chief Complaint/Hosp Course 1. Sepsis secondary to staph aureus and strep bacteremia from diabetic foot ulcer with OM - Continue vanco and zosyn, Management per ID - Anticipate half-way abx unless amputation of R foot - Monitor blood cultures: so far growing MSSA and strep, repeat to ensure clearance of bacteremia. No vegetations to suggest endocarditis - MRI to assess for underlying abscess of foot, OM, etc was unable to be performed given foot was too big for MRI machine. Can be reattempted. Needs imaging to exclude abscess etc -Discussed need for CT w contrast with podiatry, recommendation is to hold off and obtain MRI in 6-8 weeks - Dr Kimble of podiatry following - Wound care -ID following patient will need 6 weeks of IV antibiotics with vancomycin and Rocephin via home health 2. Acute kidney injury likely 2/2 sepsis-resolving 3. Hypernatremia-resolved - Encourage free water intake 4. Anemia of chronic disease 5. DMII w hyperglycemia - no ketones to suggest DKA - s/p insulin drip -Continue Lantus 55 units nightly and NovoLog 14 units with meals, increase further as needed 6. History of coronary artery disease - Continue home aspirin, statin, metoprolol 7. Urinary retention secondary to neurogenic bladder possibly from diabetes versus medications - Continue santana for now. Trial of void in coming days - Urology consultation appreciated Prophylaxis: Heparin Discharge planning: DC to home with home health with IV antibiotics 6 weeks, mental health case manager to arrange Problems: Subjective 24 Hr Interval Summary Constitutional: no complaints Exam/Review of Systems Vital Signs Vitals Vital Signs Date Time Temp Pulse Resp B/P Pulse Ox O2 Delivery O2 Flow Rate FiO2 04/10/17 07:31 97.5 81 20 157/73 98 Intake and Output 04/09/17 04/09/17 04/10/17 14:59 22:59 06:59 Intake Total 1000 ml 2060 ml 750 ml Output Total 1600 ml 1400 ml 1600 ml Balance -600 ml 660 ml -850 ml Exam Constitutional: alert Respiratory: clear to auscultation Cardiovascular: regular rate and rhythm Gastrointestinal: soft, No distended Musculoskeletal: No nl extremities to inspection Results Result Diagram: 04/10/17 0540 04/10/17 0540 Results 24 hrs Laboratory Tests Test 04/09/17 17:15 04/09/17 21:22 04/10/17 05:40 04/10/17 08:05 Bedside Glucose 142 169 106 White Blood Count 10.4 Red Blood Count 3.31 L Hemoglobin 9.1 L Hematocrit 29.0 L Mean Corpuscular Volume 87.6 Mean Corpuscular Hemoglobin 27.5 L Mean Corpuscular Hemoglobin Concent 31.4 L Red Cell Distribution Width 14.3 Platelet Count 249 # Mean Platelet Volume 10.1 Neutrophils % 60.8 Lymphocytes % 27.0 Monocytes % 6.8 Eosinophils % 3.0 Basophils % 0.6 Nucleated Red Blood Cells % 0.0 Neutrophils # 6.3 Lymphocytes # 2.8 Monocytes # 0.7 Eosinophils # 0.3 Basophils # 0.1 Nucleated Red Blood Cells # 0.0 Sodium Level 142 Potassium Level 3.7 Chloride Level 103 Carbon Dioxide Level 30 Anion Gap 13 Blood Urea Nitrogen 19 Creatinine 1.03 Glucose Level 115 Calcium Level 8.8 Magnesium Level 1.7 Medications Medications Current Medications Ondansetron HCl (Zofran Inj) 4 mg Q6H PRN IV NAUSEA AND/OR VOMITING Last administered on 04/01/17 04:16; Admin Dose 4 MG; Start 03/31/17 at 21:30 Acetaminophen (Tylenol Tab) 650 mg Q6H PRN PO PAIN LEVEL 1-3 OR FEVER; Start 03/31/17 at 21:30 Amitriptyline HCl (Elavil) 10 mg QHS PO Last administered on 04/09/17 21:17; Admin Dose 10 MG; Start 04/01/17 at 21:00 Aspirin (Halfprin) 81 mg DAILY PO Last administered on 04/10/17 08:39; Admin Dose 81 MG; Start 04/01/17 at 09:00 Atorvastatin Calcium (Lipitor) 80 mg QHS PO Last administered on 04/09/17 21: 17; Admin Dose 80 MG; Start 04/01/17 at 21:00 Metoprolol Tartrate (Lopressor) 100 mg QHS PO Last administered on 04/09/17 21:17; Admin Dose 100 MG; Start 04/01/17 at 21:00 Dextrose (D50w Syringe) 25 ml Q15M PRN IV BS between 50-70; Start 04/01/17 at 07:30 Miscellaneous Information (Pending Santyl Order For Wound Care) This patient mims... PRN PRN XX WOUND CARE; Start 04/01/17 at 08:00 Lorazepam (Ativan) 1 mg Q6H PRN IV AGITATION/ANXIETY Last administered on 04/03 15:14; Admin Dose 1 MG; Start 04/01/17 at 12:00 IV Flush (NS 10 ml) 10 ml PRN PRN IV IV PROTOCOL; Start 04/01/17 at 13:30 Sodium Hypochlorite (Dakin'S (1/4 Strength)) 1 applic BID IRR Last administered on 04/10/17 06:48; Admin Dose 1 APPLIC; Start 04/01/17 at 21:00 Silver Sulfadiazine (Thermazene 1% 25 Gm) 1 applic BID TOP Last administered on 04/10/17 06:51; Admin Dose 1 APPLIC; Start 04/01/17 at 21:00 Morphine Sulfate (morphine) 2 mg Q4H PRN IV PAIN Last administered on 00:25; Admin Dose 2 MG; Start 04/01/17 at 18:30 Oxycodone/ Acetaminophen (Endocet (10 325)) 1 tab Q4H PRN PO PAIN Last administered on 04/02/17 15:01; Admin Dose 1 TAB; Start 04/01/17 at 18:30 Diagnostic Test (Pha) (Accu-Chek) 1 ea 02 XX Last administered on 04/09/17 02 :15; Admin Dose 1 EA; Start 04/04/17 at 02:00 Miscellaneous Information 1 ea NOTE XX ; Start 04/03/17 at 10:00 Glucose (Glutose) 15 gm Q15M PRN PO DECREASED GLUCOSE; Start 04/03/17 at 10:00 Glucose (Glutose) 22.5 gm Q15M PRN PO DECREASED GLUCOSE; Start 04/03/17 at 10: 00 Dextrose (D50w Syringe) 25 ml Q15M PRN IV DECREASED GLUCOSE; Start 04/03/17 at 10:00 Dextrose (D50w Syringe) 50 ml Q15M PRN IV DECREASED GLUCOSE; Start 04/03/17 at 10:00 Glucagon (Glucagen) 1 mg Q15M PRN IM DECREASED GLUCOSE; Start 04/03/17 at 10: 00 Glucose (Glutose) 15 gm Q15M PRN BUCCAL DECREASED GLUCOSE; Start 04/03/17 at 10:00 Hydralazine HCl 10 mg 10 mg Q4H PRN IV ELEVATED SYSTOLIC BP Last administered on 04/06/17 09:56; Admin Dose 10 MG; Start 04/04/17 at 06:00 Ceftriaxone Sodium (Rocephin) 50 ml @ 100 mls/hr Q24H IVPB Last administered on 04/09/17 16:54; Admin Dose 100 MLS/HR; Start 04/05/17 at 16:30 Insulin Glargine (Lantus) 55 unit QHS SC Last administered on 04/09/17 21:28 ; Admin Dose 55 UNIT; Start 04/05/17 at 21:00 Heparin Sodium (Porcine) 5000 unit 5,000 unit BID SC Last administered on 04/10 09:37; Admin Dose 5,000 UNIT; Start 04/05/17 at 21:00 Vancomycin HCl/ Sodium Chloride (Vancocin/NS) 250 ml @ 83.333 mls/ hr Q12H IVPB Last administered on 04/10/17 12:10; Admin Dose 83.333 MLS/HR; Start at 00:00 Lisinopril (Zestril) 40 mg DAILY PO Last administered on 04/10/17 08:40; Admin Dose 40 MG; Start 04/07/17 at 09:00 Amlodipine Besylate (Norvasc) 5 mg DAILY PO Last administered on 04/10/17 08: 39; Admin Dose 5 MG; Start 04/09/17 at 09:00 ALYSSA JOSEPH Apr 10, 2017 12:12
[2017-04-10 13:33] VITALS: BP 158/74; RESP 20
[2017-04-10] MEDS: CEFTRIAXONE 2 GM/50 ML (PMX) 50 ML IVPB SCH (16:53)
--- NOTE | 2017-04-10 19:47 | CONS ---
Date/Time of Note Date/Time of Note DATE: 04/10/17 TIME: 19:43 Consult Date/Type/Reason Admit Date/Time Mar 31, 2017 at 21:15 Initial Consult Date 04/01/17 Type of Consultation: Urology Reason for Consultation Urinary retention and hydronephrosis Ordering Provider: VINOD PEDRAZA MD Subjective The Hagan catheter was removed this morning and the patient has voided good amount about 500 mL and the postvoid residual was low. Objective Vital Signs Date Time Temp Pulse Resp B/P Pulse Ox O2 Delivery O2 Flow Rate FiO2 04/10/17 13:33 98.5 92 20 158/74 96 Intake and Output 04/09/17 04/09/17 04/10/17 15:00 23:00 07:00 Intake Total 1000 ml 2060 ml 750 ml Output Total 1600 ml 1400 ml 1600 ml Balance -600 ml 660 ml -850 ml Exam Patient is comfortable, he denies having any pain, he voided without any difficulty. The volume voided was 500 mL and the postvoid residual was 47 mL then 73 mL then 43 mL and last 78 mL. That indicates he is not in urinary retention therefore we will stop the bladder scan Results/Medications Result Diagram: 04/10/17 0540 04/10/17 0540 Results 24 hrs Laboratory Tests Test 04/09/17 21:22 04/10/17 05:40 04/10/17 08:05 04/10/17 12:04 Bedside Glucose 169 106 169 White Blood Count 10.4 Red Blood Count 3.31 L Hemoglobin 9.1 L Hematocrit 29.0 L Mean Corpuscular Volume 87.6 Mean Corpuscular Hemoglobin 27.5 L Mean Corpuscular Hemoglobin Concent 31.4 L Red Cell Distribution Width 14.3 Platelet Count 249 # Mean Platelet Volume 10.1 Neutrophils % 60.8 Lymphocytes % 27.0 Monocytes % 6.8 Eosinophils % 3.0 Basophils % 0.6 Nucleated Red Blood Cells % 0.0 Neutrophils # 6.3 Lymphocytes # 2.8 Monocytes # 0.7 Eosinophils # 0.3 Basophils # 0.1 Nucleated Red Blood Cells # 0.0 Sodium Level 142 Potassium Level 3.7 Chloride Level 103 Carbon Dioxide Level 30 Anion Gap 13 Blood Urea Nitrogen 19 Creatinine 1.03 Glucose Level 115 Calcium Level 8.8 Magnesium Level 1.7 Test 04/10/17 17:10 Bedside Glucose 178 Medications Current Medications Ondansetron HCl (Zofran Inj) 4 mg Q6H PRN IV NAUSEA AND/OR VOMITING Last administered on 04/01/17 04:16; Admin Dose 4 MG; Start 03/31/17 at 21:30 Acetaminophen (Tylenol Tab) 650 mg Q6H PRN PO PAIN LEVEL 1-3 OR FEVER; Start 03/31/17 at 21:30 Amitriptyline HCl (Elavil) 10 mg QHS PO Last administered on 04/09/17 21:17; Admin Dose 10 MG; Start 04/01/17 at 21:00 Aspirin (Halfprin) 81 mg DAILY PO Last administered on 04/10/17 08:39; Admin Dose 81 MG; Start 04/01/17 at 09:00 Atorvastatin Calcium (Lipitor) 80 mg QHS PO Last administered on 04/09/17 21: 17; Admin Dose 80 MG; Start 04/01/17 at 21:00 Metoprolol Tartrate (Lopressor) 100 mg QHS PO Last administered on 04/09/17 21:17; Admin Dose 100 MG; Start 04/01/17 at 21:00 Dextrose (D50w Syringe) 25 ml Q15M PRN IV BS between 50-70; Start 04/01/17 at 07:30 [facility] This patient mims... PRN PRN XX WOUND CARE; Start 04/01/17 at 08:00 Lorazepam (Ativan) 1 mg Q6H PRN IV AGITATION/ANXIETY Last administered on 04/03 15:14; Admin Dose 1 MG; Start 04/01/17 at 12:00 IV Flush (NS 10 ml) 10 ml PRN PRN IV IV PROTOCOL; Start 04/01/17 at 13:30 Sodium Hypochlorite (Dakin'S (1/4 Strength)) 1 applic BID IRR Last administered on 04/10/17 12:06; Admin Dose 1 APPLIC; Start 04/01/17 at 21:00 Silver Sulfadiazine (Thermazene 1% 25 Gm) 1 applic BID TOP Last administered on 04/10/17 12:06; Admin Dose 1 APPLIC; Start 04/01/17 at 21:00 Morphine Sulfate (morphine) 2 mg Q4H PRN IV PAIN Last administered on 00:25; Admin Dose 2 MG; Start 04/01/17 at 18:30 Oxycodone/ Acetaminophen (Endocet (10)) 1 tab Q4H PRN PO PAIN Last administered on 04/02/17 15:01; Admin Dose 1 TAB; Start 04/01/17 at 18:30 Diagnostic Test (Pha) (Accu-Chek) 1 ea 02 XX Last administered on 04/09/17 02 :15; Admin Dose 1 EA; Start 04/04/17 at 02:00 Miscellaneous Information 1 ea NOTE XX ; Start 04/03/17 at 10:00 Glucose (Glutose) 15 gm Q15M PRN PO DECREASED GLUCOSE; Start 04/03/17 at 10:00 Glucose (Glutose) 22.5 gm Q15M PRN PO DECREASED GLUCOSE; Start 04/03/17 at 10: 00 Dextrose (D50w Syringe) 25 ml Q15M PRN IV DECREASED GLUCOSE; Start 04/03/17 at 10:00 Dextrose (D50w Syringe) 50 ml Q15M PRN IV DECREASED GLUCOSE; Start 04/03/17 at 10:00 Glucagon (Glucagen) 1 mg Q15M PRN IM DECREASED GLUCOSE; Start 04/03/17 at 10: 00 Glucose (Glutose) 15 gm Q15M PRN BUCCAL DECREASED GLUCOSE; Start 04/03/17 at 10:00 Hydralazine HCl 10 mg 10 mg Q4H PRN IV ELEVATED SYSTOLIC BP Last administered on 04/06/17 09:56; Admin Dose 10 MG; Start 04/04/17 at 06:00 Ceftriaxone Sodium (Rocephin) 50 ml @ 100 mls/hr Q24H IVPB Last administered on 04/10/17 16:53; Admin Dose 100 MLS/HR; Start 04/05/17 at 16:30 Insulin Glargine (Lantus) 55 unit QHS SC Last administered on 04/09/17 21:28 ; Admin Dose 55 UNIT; Start 04/05/17 at 21:00 Heparin Sodium (Porcine) 5000 unit 5,000 unit BID SC Last administered on 04/10 09:37; Admin Dose 5,000 UNIT; Start 04/05/17 at 21:00 Vancomycin HCl/ Sodium Chloride (Vancocin/NS) 250 ml @ 83.333 mls/ hr Q12H IVPB Last administered on 04/10/17 12:10; Admin Dose 83.333 MLS/HR; Start at 00:00 Lisinopril (Zestril) 40 mg DAILY PO Last administered on 04/10/17 08:40; Admin Dose 40 MG; Start 04/07/17 at 09:00 Amlodipine Besylate (Norvasc) 5 mg DAILY PO Last administered on 04/10/17 08: 39; Admin Dose 5 MG; Start 04/09/17 at 09:00 Miscellaneous Information (*Rx Drug Level Order Reminder*) VANCOMYCIN TROUGH AT 2300 ONCE ONCE XX ; Start 04/10/17 at 23:00; Stop 04/10/17 at 23:01 Assessment/Plan Chief Complaint/Hosp Course 56-year-old male with bilateral lower extremity cellulitis and wounds on intravenous antibiotic. He had an indwelling Hagan catheter because of urinary retention and that was removed this morning. The renal function has improved . He has been voiding and the postvoid residual has been low as indicated above. I will recheck his basic metabolic panel and renal ultrasound to make sure there is no hydronephrosis and that the creatinine is not going up again Problems: MAHAD MARTIN MD Apr 10, 2017 19:47
[2017-04-10 19:53] VITALS: BP 160/76; RESP 20
[2017-04-10] MEDS: ATORVASTATIN 80 MG TAB PO SCH (20:49)
[2017-04-10] MEDS: METOPROLOL 100 MG TAB PO SCH (20:50)
[2017-04-10] MEDS: AMITRIPTYLINE 10 MG TAB PO SCH (20:50)
[2017-04-10] MEDS: INSULIN GLARGINE [LANtus] 3 ML PEN SC SCH (20:54)
[2017-04-11] MEDS: VANCOMYCIN 1.25 GM in SOD CHLORIDE 0.9% 250 ML IVPB SCH ×3 (00:28→23:29)
[2017-04-11] MEDS: morphine 2 MG INJ IV PRN ×2 (00:33→23:25)
[2017-04-11] MEDS: ACCU-CHEK XX SCH (02:22)
[2017-04-11 02:30] VITALS: BP 144/66; RESP 20
[2017-04-11 06:42] LABS: BASOPHIL # 0.1 10^3/ul (0.0-0.1); BASOPHILS % 0.5 % (0.0-2.0); EOSINOPHILS # 0.3 10^3/ul (0.0-0.5); EOSINOPHILS % 2.6 % (0.0-7.0); HEMATOCRIT 28.7 % (42.0-52.0); HEMOGLOBIN 9.1 g/dl (14.0-18.0); LYMPHOCYTES # 2.8 10^3/ul (0.8-2.9); LYMPHOCYTES % 27.8 % (15.0-51.0); MEAN CORPUSCULAR HEMOGLOBIN 27.8 pg (29.0-33.0); MEAN CORPUSCULAR HGB CONC 31.7 g/dl (32.0-37.0); MEAN CORPUSCULAR VOLUME 87.8 fl (82.0-101.0); MEAN PLATELET VOLUME 10.1 fl (7.4-10.4); MONOCYTE # 0.7 10^3/ul (0.3-0.9); MONOCYTES % 7.1 % (0.0-11.0); NEUTROPHILS % 60.3 % (39.0-77.0); PLATELET COUNT 276 10^3/UL (140-415); RED BLOOD COUNT 3.27 10^6/ul (4.70-6.10); RED CELL DISTRIBUTION WIDTH 14.3 % (11.5-14.5)
[2017-04-11 07:03] LABS: CALCIUM 8.5 mg/dl (8.4-10.2); CREATININE 1.06 mg/dl (0.61-1.24); MAGNESIUM 1.7 mg/dl (1.7-2.5); POTASSIUM 3.7 mmol/L (3.5-5.1)
[2017-04-11 07:37] VITALS: BP 142/74; RESP 20
[2017-04-11] MEDS: INSULIN ASPART [NOVOLOG] 3 ML PEN SC SCH ×7 (07:59→21:00)
[2017-04-11] MEDS: HEPARIN 5,000 UNIT/0.5 ML VIAL SC SCH ×2 (08:00→20:56)
[2017-04-11] MEDS: LISINOPRIL 20 MG TAB PO SCH (08:06)
[2017-04-11] MEDS: AMLODIPINE 5 MG TAB PO SCH (08:06)
[2017-04-11] MEDS: ASPIRIN (EC) 81 MG TAB PO SCH (08:06)
--- NOTE | 2017-04-11 10:02 | PN ---
DATE: 04/11/2017 SUBJECTIVE: The patient is stable. No events overnight. PHYSICAL EXAMINATION: OBJECTIVE: VITAL SIGNS: Blood pressure 142/74, pulse 88, respirations 20, temperature 98.6. HEENT: Head is normocephalic. NECK: Supple. HEART: Regular rate. LUNGS: Show diminished breath sounds at the base. ABDOMEN: Soft, nontender to palpation. No rebound or guarding. EXTREMITIES: Negative for clubbing, cyanosis. Positive wound. DERMATOLOGIC: No rashes. MUSCULOSKELETAL: No joint effusions. NEUROLOGIC: No change in exam. MEDICATIONS: Have been reviewed. LABORATORY DATA: Has been reviewed. The patient's BNP is within normal limits. ASSESSMENT AND PLAN: 1. Nonoliguric acute kidney injury with unknown baseline creatinine. Etiology is secondary to hemo dynamics. Renal function has improved. Continue current treatment plan, supportive care, renally d ose all meds. 2. Hypertension. Blood pressure improved. Continue current blood pressure regimen. 3. Mineral bone disorder. Continue to monitor calcium and phosphorus levels. 4. Anemia. Continue to monitor hemoglobin and hematocrit. 5. Diabetes. Continue Accu-Cheks, insulin sliding scale. 6. Sepsis secondary to lower extremity cellulitis and osteomyelitis. Continue current antibiotic r egimen. 7. Status post respiratory failure. Dictated By: AFTAB DOBBS/ARAVIND Conf#: [id number] DID#: [id number]
--- NOTE | 2017-04-11 12:22 | RADRPT ---
PROCEDURE: Renal US. CLINICAL INDICATION: Hydronephrosis. TECHNIQUE: Multiple sonographic images of the kidneys and urinary bladder were obtained. The imag es were reviewed on a PACS workstation. COMPARISON: Renal ultrasound dated 03/31/2017. FINDINGS: The right kidney measures 13.0 x 7.2 x 6.5 cm. The left kidney measures 13.3 x 6.8 x 6.9 cm. There is no solid renal mass. There is a benign 1.5 cm cyst in the mid right kidney. There is no hydronephrosis. There is a nonobstructing 1.1 cm calculus in the mid right kidney. There is no other renal calculus. Renal parenchymal thickness is normal bilaterally. Echogenicity is normal bilaterally. The perirenal regions are normal with no fluid collection or mass. The urinary bladder is unremarkable. IMPRESSION: 1. Benign 1.5 cm cyst in the mid right kidney. 2. Nonobstructing 1.1 cm calculus in the mid right kidney. 3. No hydronephrosis. 4. Otherwise unremarkable renal ultrasound. RPTAT: QQ .Ricky James MD, MD Date Time Electronically viewed and signed by .Ricky James MD, MD on 04/11/2017 12:22 .R/
--- NOTE | 2017-04-11 13:29 | PN ---
Date/Time of Note Date/Time of Note DATE: 04/11/17 TIME: 13:27 Assessment/Plan VTE Prophylaxis VTE Prophylaxis Intervention: heparin Assessment/Plan Chief Complaint/Hosp Course 1. Sepsis secondary to staph aureus and strep bacteremia from diabetic foot ulcer with OM - Continue vanco and zosyn, Management per ID - Anticipate group home abx unless amputation of R foot - Monitor blood cultures: so far growing MSSA and strep, repeat to ensure clearance of bacteremia. No vegetations to suggest endocarditis - MRI to assess for underlying abscess of foot, OM, etc was unable to be performed given foot was too big for MRI machine. Can be reattempted. 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 Acute kidney injury likely 2/2 sepsis-resolving 3. Hypernatremia-resolved - Encourage free water intake 4. Anemia of chronic disease 5. DMII w hyperglycemia - no ketones to suggest DKA - s/p insulin drip -Continue Lantus 55 units nightly and NovoLog 14 units with meals, increase further as needed 6. History of coronary artery disease - Continue home aspirin, statin, metoprolol 7. Urinary retention secondary to neurogenic bladder possibly from diabetes versus medications - Continue santana for now. Trial of void in coming days - Urology consultation appreciated Prophylaxis: Heparin Discharge planning: DC to home with home health with IV antibiotics 6 weeks, manager of case management to arrange, currently waiting for patient to be converted from straight [employer] to a health plan and then home health with IV antibiotics will be arranged Problems: Subjective 24 Hr Interval Summary Constitutional: no complaints Exam/Review of Systems Vital Signs Vitals Vital Signs Date Time Temp Pulse Resp B/P Pulse Ox O2 Delivery O2 Flow Rate FiO2 04/11/17 07:37 98.6 88 20 142/74 95 Intake and Output 11/25/17 11/25/17 11/26/17 14:59 22:59 06:59 Intake Total 3180 ml 970 ml Output Total 2100 ml 800 ml Balance 1080 ml 170 ml Exam Constitutional: alert, oriented Respiratory: clear to auscultation Cardiovascular: regular rate and rhythm Gastrointestinal: soft, No distended Musculoskeletal: No nl extremities to inspection Results Result Diagram: 04/11/17 0532 04/11/17 0532 Results 24 hrs Laboratory Tests Test 04/10/17 17:10 04/10/17 20:47 04/10/17 23:04 04/11/17 02:21 Bedside Glucose 178 199 180 Vancomycin Level Trough 16.1 Test 04/11/17 05:32 04/11/17 07:49 04/11/17 11:41 White Blood Count 10.0 Red Blood Count 3.27 L Hemoglobin 9.1 L Hematocrit 28.7 L Mean Corpuscular Volume 87.8 Mean Corpuscular Hemoglobin 27.8 L Mean Corpuscular Hemoglobin Concent 31.7 L Red Cell Distribution Width 14.3 Platelet Count 276 Mean Platelet Volume 10.1 Neutrophils % 60.3 Lymphocytes % 27.8 Monocytes % 7.1 Eosinophils % 2.6 Basophils % 0.5 Nucleated Red Blood Cells % 0.0 Neutrophils # 6.0 Lymphocytes # 2.8 Monocytes # 0.7 Eosinophils # 0.3 Basophils # 0.1 Nucleated Red Blood Cells # 0.0 Sodium Level 140 Potassium Level 3.7 Chloride Level 101 Carbon Dioxide Level 29 Anion Gap 14 Blood Urea Nitrogen 17 Creatinine 1.06 Glucose Level 199 Calcium Level 8.5 Magnesium Level 1.7 Bedside Glucose 217 347 H Medications Medications Current Medications Ondansetron HCl (Zofran Inj) 4 mg Q6H PRN IV NAUSEA AND/OR VOMITING Last administered on 04/01/17 04:16; Admin Dose 4 MG; Start 03/31/17 at 21:30 Acetaminophen (Tylenol Tab) 650 mg Q6H PRN PO PAIN LEVEL 1-3 OR FEVER; Start 03/31/17 at 21:30 Amitriptyline HCl (Elavil) 10 mg QHS PO Last administered on 04/10/17 20:50; Admin Dose 10 MG; Start 04/01/17 at 21:00 Aspirin (Halfprin) 81 mg DAILY PO Last administered on 04/11/17 08:06; Admin Dose 81 MG; Start 04/01/17 at 09:00 Atorvastatin Calcium (Lipitor) 80 mg QHS PO Last administered on 04/10/17 20: 49; Admin Dose 80 MG; Start 04/01/17 at 21:00 Metoprolol Tartrate (Lopressor) 100 mg QHS PO Last administered on 04/10/17 20:50; Admin Dose 100 MG; Start 04/01/17 at 21:00 Dextrose (D50w Syringe) 25 ml Q15M PRN IV BS between 50-70; Start 04/01/17 at 07:30 Miscellaneous Information (Pending [facility] Order For Wound Care) This patient mims... PRN PRN XX WOUND CARE; Start 04/01/17 at 08:00 Lorazepam (Ativan) 1 mg Q6H PRN IV AGITATION/ANXIETY Last administered on 04/03 15:14; Admin Dose 1 MG; Start 04/01/17 at 12:00 IV Flush (NS 10 ml) 10 ml PRN PRN IV IV PROTOCOL; Start 04/01/17 at 13:30 Sodium Hypochlorite (Dakin'S (1/4 Strength)) 1 applic BID IRR Last administered on 04/10/17 21:00; Admin Dose 1 APPLIC; Start 04/01/17 at 21:00 Silver Sulfadiazine (Thermazene 1% 25 Gm) 1 applic BID TOP Last administered on 04/10/17 20:59; Admin Dose 1 APPLIC; Start 04/01/17 at 21:00 Morphine Sulfate (morphine) 2 mg Q4H PRN IV PAIN Last administered on 00:33; Admin Dose 2 MG; Start 04/01/17 at 18:30 Oxycodone/ Acetaminophen (Endocet (10/ 325)) 1 tab Q4H PRN PO PAIN Last administered on 04/02/17 15:01; Admin Dose 1 TAB; Start 04/01/17 at 18:30 Diagnostic Test (Pha) (Accu-Chek) 1 ea 02 XX Last administered on 04/11/17 02 :22; Admin Dose 1 EA; Start 04/04/17 at 02:00 Miscellaneous Information 1 ea NOTE XX ; Start 04/03/17 at 10:00 Glucose (Glutose) 15 gm Q15M PRN PO DECREASED GLUCOSE; Start 04/03/17 at 10:00 Glucose (Glutose) 22.5 gm Q15M PRN PO DECREASED GLUCOSE; Start 04/03/17 at 10: 00 Dextrose (D50w Syringe) 25 ml Q15M PRN IV DECREASED GLUCOSE; Start 04/03/17 at 10:00 Dextrose (D50w Syringe) 50 ml Q15M PRN IV DECREASED GLUCOSE; Start 04/03/17 at 10:00 Glucagon (Glucagen) 1 mg Q15M PRN IM DECREASED GLUCOSE; Start 04/03/17 at 10: 00 Glucose (Glutose) 15 gm Q15M PRN BUCCAL DECREASED GLUCOSE; Start 04/03/17 at 10:00 Hydralazine HCl 10 mg 10 mg Q4H PRN IV ELEVATED SYSTOLIC BP Last administered on 04/06/17 09:56; Admin Dose 10 MG; Start 04/04/17 at 06:00 Ceftriaxone Sodium (Rocephin) 50 ml @ 100 mls/hr Q24H IVPB Last administered on 04/10/17 16:53; Admin Dose 100 MLS/HR; Start 04/05/17 at 16:30 Insulin Glargine (Lantus) 55 unit QHS SC Last administered on 04/10/17 20:54 ; Admin Dose 55 UNIT; Start 04/05/17 at 21:00 Heparin Sodium (Porcine) 5000 unit 5,000 unit BID SC Last administered on 04/11 08:00; Admin Dose 5,000 UNIT; Start 04/05/17 at 21:00 Vancomycin HCl/ Sodium Chloride (Vancocin/NS) 250 ml @ 83.333 mls/ hr Q12H IVPB Last administered on 04/11/17 12:09; Admin Dose 83.333 MLS/HR; Start at 00:00 Lisinopril (Zestril) 40 mg DAILY PO Last administered on 04/11/17 08:06; Admin Dose 40 MG; Start 04/07/17 at 09:00 Amlodipine Besylate (Norvasc) 5 mg DAILY PO Last administered on 04/11/17 08: 06; Admin Dose 5 MG; Start 04/09/17 at 09:00 ALYSSA JOSEPH Apr 11, 2017 13:29
[2017-04-11 13:54] VITALS: BP 147/72; RESP 20
--- NOTE | 2017-04-11 14:29 | CONS ---
Date/Time of Note Date/Time of Note DATE: 04/11/17 TIME: 14:26 Assessment/Plan Assessment/Plan Chief Complaint/Hosp Course ID PROGRESS NOTE CURRENT ABX: DAY # =>Vanco IV + Ceftiaxone 24H INTERVAL SUMMARY * DC pending insurance authorization and HH IV ABX arrangement -- plan DC w/HH w/IV ABX 8 weeks * Much improved, FC removed and he is urinating w/o difficulty, ambulatory in room, worked w/PTx * POD #> s/p bedside debridement R-DFU PHYSICAL EXAMINATION: GENERAL: This is a morbidly obese, well-developed, 56 yo M, NAD HEENT: Head atraumatic, normocephalic. Sclerae anicteric. Buccal mucosa dry. NECK: Supple, trach midline CHEST: Rise symmetrical. Breath sounds diminished to bases. HEART: S1, S2. NSR on tele ABDOMEN: Soft, bowel tones present. EXTREMITIES: Without cyanosis. Bilateral lower extremities edema. BLEXT cellulitis improving, Right foot dressing intact with some blood present. SKIN: Fair skinned red-head , no rash, no diaphoresis noted ID ASSESSMENT: 56 yo Morbid Obese M admit [facility] ICU: 1. s/p Acute shock->(+)Septicemia (+)Hypovolemia 2/2 symptomatic anemia (H/H 6.6/22.1 on 03/31/17) => RESOLVED * s/p Lactic acidosis/fevers/leukocytosis => RESOLVED 2. Bacteremia, likely secondary to infected right foot wound. => RESOLVED * 03/31/17 BCx: * Organism 1 STAPHYLOCOCCUS AUREUS * Organism 2 STREP BETA HEMOLYTIC-GROUP F 3. Right diabetic foot infection w/osteomyelitis * X-ray 03/31/17: Likely osteomyelitis of the second through fourth metatarsal bones deep to a large ulcer along the plantar aspect of the foot. * Wound Cx: Polymicrobial GPC & GNR pathogens 4. Left diabetic foot ulcer * 03/31/17 X-ray: No definite plain film evidence of osteomyelitis, and if there is concern for osteomyelitis recommend MRI correlation. * Wound Cx: Polymicrobial GPC & GNR pathogens 5. Poorly-controlled diabetes. 6. Acute kidney injury, possibly on chronic kidney disease. 7. Acute symptomatic anemia, possibly on chronic anemia. (-)MRSA ABX ALLERGIES: Sulfa INVASIVES: Hagan, PICC line placed on 04/01/2017. CURRENT ABX: Vanco IV + Ceftriaxone ID RECOMMENDATIONS/PLAN: 1.DC planning in process - Anticipate 8-weeks IV ABX coverage for osteomyelitis. * Patient given update on ABX recommendations and expresses understanding/ agreement * He is eager to return home -> Much improved, FC removed and he is urinating w/ o difficulty, ambulatory in room, worked w/PTx . . Problems: Consultation Date/Type/Reason Admit Date/Time Mar 31, 2017 at 21:15 Initial Consult Date 04/01/17 Type of Consultation: ID Referring Provider: VINOD PEDRAZA MD Exam/Review of Systems Vital Signs Vitals Vital Signs Date Time Temp Pulse Resp B/P Pulse Ox O2 Delivery O2 Flow Rate FiO2 04/11/17 13:54 97.7 96 20 147/72 98 Intake and Output 04/10/17 04/10/17 04/11/17 15:00 23:00 07:00 Intake Total 3180 ml 970 ml Output Total 2100 ml 800 ml Balance 1080 ml 170 ml Results Result Diagram: 04/11/17 0532 04/11/17 0532 Results 24 hrs Laboratory Tests Test 04/10/17 17:10 04/10/17 20:47 04/10/17 23:04 04/11/17 02:21 Bedside Glucose 178 199 180 Vancomycin Level Trough 16.1 Test 04/11/17 05:32 04/11/17 07:49 04/11/17 11:41 White Blood Count 10.0 Red Blood Count 3.27 L Hemoglobin 9.1 L Hematocrit 28.7 L Mean Corpuscular Volume 87.8 Mean Corpuscular Hemoglobin 27.8 L Mean Corpuscular Hemoglobin Concent 31.7 L Red Cell Distribution Width 14.3 Platelet Count 276 Mean Platelet Volume 10.1 Neutrophils % 60.3 Lymphocytes % 27.8 Monocytes % 7.1 Eosinophils % 2.6 Basophils % 0.5 Nucleated Red Blood Cells % 0.0 Neutrophils # 6.0 Lymphocytes # 2.8 Monocytes # 0.7 Eosinophils # 0.3 Basophils # 0.1 Nucleated Red Blood Cells # 0.0 Sodium Level 140 Potassium Level 3.7 Chloride Level 101 Carbon Dioxide Level 29 Anion Gap 14 Blood Urea Nitrogen 17 Creatinine 1.06 Glucose Level 199 Calcium Level 8.5 Magnesium Level 1.7 Bedside Glucose 217 347 H Medications Medications Current Medications Ondansetron HCl (Zofran Inj) 4 mg Q6H PRN IV NAUSEA AND/OR VOMITING Last administered on 04/01/17 04:16; Admin Dose 4 MG; Start 03/31/17 at 21:30 Acetaminophen (Tylenol Tab) 650 mg Q6H PRN PO PAIN LEVEL 1-3 OR FEVER; Start 03/31/17 at 21:30 Amitriptyline HCl (Elavil) 10 mg QHS PO Last administered on 04/10/17 20:50; Admin Dose 10 MG; Start 04/01/17 at 21:00 Aspirin (Halfprin) 81 mg DAILY PO Last administered on 04/11/17 08:06; Admin Dose 81 MG; Start 04/01/17 at 09:00 Atorvastatin Calcium (Lipitor) 80 mg QHS PO Last administered on 04/10/17 20: 49; Admin Dose 80 MG; Start 04/01/17 at 21:00 Metoprolol Tartrate (Lopressor) 100 mg QHS PO Last administered on 04/10/17 20:50; Admin Dose 100 MG; Start 04/01/17 at 21:00 Dextrose (D50w Syringe) 25 ml Q15M PRN IV BS between 50-70; Start 04/01/17 at 07:30 Miscellaneous Information (Pending [facility] Order For [facility]ound Care) This patient mims... PRN PRN XX WOUND CARE; Start 04/01/17 at 08:00 Lorazepam (Ativan) 1 mg Q6H PRN IV AGITATION/ANXIETY Last administered on 04/03 15:14; Admin Dose 1 MG; Start 04/01/17 at 12:00 IV Flush (NS 10 ml) 10 ml PRN PRN IV IV PROTOCOL; Start 04/01/17 at 13:30 Sodium Hypochlorite (Dakin'S (1/4 Strength)) 1 applic BID IRR Last administered on 04/10/17 21:00; Admin Dose 1 APPLIC; Start 04/01/17 at 21:00 Silver Sulfadiazine (Thermazene 1% 25 Gm) 1 applic BID TOP Last administered on 04/10/17 20:59; Admin Dose 1 APPLIC; Start 04/01/17 at 21:00 Morphine Sulfate (morphine) 2 mg Q4H PRN IV PAIN Last administered on 00:33; Admin Dose 2 MG; Start 04/01/17 at 18:30 Oxycodone/ Acetaminophen (Endocet (10/ 325)) 1 tab Q4H PRN PO PAIN Last administered on 04/02/17 15:01; Admin Dose 1 TAB; Start 04/01/17 at 18:30 Diagnostic Test (Pha) (Accu-Chek) 1 ea 02 XX Last administered on 04/11/17 02 :22; Admin Dose 1 EA; Start 04/04/17 at 02:00 Miscellaneous Information 1 ea NOTE XX ; Start 04/03/17 at 10:00 Glucose (Glutose) 15 gm Q15M PRN PO DECREASED GLUCOSE; Start 04/03/17 at 10:00 Glucose (Glutose) 22.5 gm Q15M PRN PO DECREASED GLUCOSE; Start 04/03/17 at 10: 00 Dextrose (D50w Syringe) 25 ml Q15M PRN IV DECREASED GLUCOSE; Start 04/03/17 at 10:00 Dextrose (D50w Syringe) 50 ml Q15M PRN IV DECREASED GLUCOSE; Start 04/03/17 at 10:00 Glucagon (Glucagen) 1 mg Q15M PRN IM DECREASED GLUCOSE; Start 04/03/17 at 10: 00 Glucose (Glutose) 15 gm Q15M PRN BUCCAL DECREASED GLUCOSE; Start 04/03/17 at 10:00 Hydralazine HCl 10 mg 10 mg Q4H PRN IV ELEVATED SYSTOLIC BP Last administered on 04/06/17 09:56; Admin Dose 10 MG; Start 04/04/17 at 06:00 Ceftriaxone Sodium (Rocephin) 50 ml @ 100 mls/hr Q24H IVPB Last administered on 04/10/17 16:53; Admin Dose 100 MLS/HR; Start 04/05/17 at 16:30 Heparin Sodium (Porcine) 5000 unit 5,000 unit BID SC Last administered on 04/11 08:00; Admin Dose 5,000 UNIT; Start 04/05/17 at 21:00 Vancomycin HCl/ Sodium Chloride (Vancocin/NS) 250 ml @ 83.333 mls/ hr Q12H IVPB Last administered on 04/11/17 12:09; Admin Dose 83.333 MLS/HR; Start at 00:00 Lisinopril (Zestril) 40 mg DAILY PO Last administered on 04/11/17 08:06; Admin Dose 40 MG; Start 04/07/17 at 09:00 Amlodipine Besylate (Norvasc) 5 mg DAILY PO Last administered on 04/11/17 08: 06; Admin Dose 5 MG; Start 04/09/17 at 09:00 Insulin Glargine (Lantus) 60 unit QHS SC ; Start 04/11/17 at 21:00 WILL WONG NP Apr 11, 2017 14:29
[2017-04-11] MEDS: CEFTRIAXONE 2 GM/50 ML (PMX) 50 ML IVPB SCH (16:21)
[2017-04-11] MEDS: SODIUM HYPOCHLORITE 0.125% 473 ML BTL IRR SCH ×2 (17:09→20:50)
[2017-04-11] MEDS: SILVER SULFADIAZINE 1% 25 GM CR TOP SCH ×2 (17:09→20:50)
--- NOTE | 2017-04-11 18:34 | CONS ---
Date/Time of Note Date/Time of Note DATE: 04/11/17 TIME: 18:30 Consult Date/Type/Reason Admit Date/Time Mar 31, 2017 at 21:15 Initial Consult Date 04/01/17 Type of Consultation: Urology Reason for Consultation Urinary retention Ordering Provider: VINOD PEDRAZA MD Subjective The patient stated that he has been voiding well, he denies any dysuria or hematuria. Objective Vital Signs Date Time Temp Pulse Resp B/P Pulse Ox O2 Delivery O2 Flow Rate FiO2 04/11/17 13:54 97.7 96 20 147/72 98 Intake and Output 04/10/17 04/10/17 04/11/17 15:00 23:00 07:00 Intake Total 3180 ml 970 ml Output Total 2100 ml 800 ml Balance 1080 ml 170 ml Exam Alert, awake, is comfortable, the abdomen is soft, no masses palpable, the bladder is not distended. Renal ultrasound done today showed: 1. Benign 1.5 cm cyst in the mid right kidney. 2. Nonobstructing 1.1 cm calculus in the mid right kidney. 3. No hydronephrosis. 4. Otherwise unremarkable renal ultrasound. Results/Medications Result Diagram: 04/11/17 0532 04/11/17 0532 Results 24 hrs Laboratory Tests Test 04/10/17 20:47 04/10/17 23:04 04/11/17 02:21 04/11/17 05:32 Bedside Glucose 199 180 Vancomycin Level Trough 16.1 White Blood Count 10.0 Red Blood Count 3.27 L Hemoglobin 9.1 L Hematocrit 28.7 L Mean Corpuscular Volume 87.8 Mean Corpuscular Hemoglobin 27.8 L Mean Corpuscular Hemoglobin Concent 31.7 L Red Cell Distribution Width 14.3 Platelet Count 276 Mean Platelet Volume 10.1 Neutrophils % 60.3 Lymphocytes % 27.8 Monocytes % 7.1 Eosinophils % 2.6 Basophils % 0.5 Nucleated Red Blood Cells % 0.0 Neutrophils # 6.0 Lymphocytes # 2.8 Monocytes # 0.7 Eosinophils # 0.3 Basophils # 0.1 Nucleated Red Blood Cells # 0.0 Sodium Level 140 Potassium Level 3.7 Chloride Level 101 Carbon Dioxide Level 29 Anion Gap 14 Blood Urea Nitrogen 17 Creatinine 1.06 Glucose Level 199 Calcium Level 8.5 Magnesium Level 1.7 Test 04/11/17 07:49 04/11/17 11:41 04/11/17 17:05 Bedside Glucose 217 347 H 330 H Medications Current Medications Ondansetron HCl (Zofran Inj) 4 mg Q6H PRN IV NAUSEA AND/OR VOMITING Last administered on 04/01/17 04:16; Admin Dose 4 MG; Start 03/31/17 at 21:30 Acetaminophen (Tylenol Tab) 650 mg Q6H PRN PO PAIN LEVEL 1-3 OR FEVER; Start 03/31/17 at 21:30 Amitriptyline HCl (Elavil) 10 mg QHS PO Last administered on 04/10/17 20:50; Admin Dose 10 MG; Start 04/01/17 at 21:00 Aspirin (Halfprin) 81 mg DAILY PO Last administered on 04/11/17 08:06; Admin Dose 81 MG; Start 04/01/17 at 09:00 Atorvastatin Calcium (Lipitor) 80 mg QHS PO Last administered on 04/10/17 20: 49; Admin Dose 80 MG; Start 04/01/17 at 21:00 Metoprolol Tartrate (Lopressor) 100 mg QHS PO Last administered on 04/10/17 20:50; Admin Dose 100 MG; Start 04/01/17 at 21:00 Dextrose (D50w Syringe) 25 ml Q15M PRN IV BS between 50-70; Start 04/01/17 at 07:30 Miscellaneous Information (Pending [facility] Order For Wound Care) This patient mims... PRN PRN XX WOUND CARE; Start 04/01/17 at 08:00 Lorazepam (Ativan) 1 mg Q6H PRN IV AGITATION/ANXIETY Last administered on 04/03 15:14; Admin Dose 1 MG; Start 04/01/17 at 12:00 IV Flush (NS 10 ml) 10 ml PRN PRN IV IV PROTOCOL; Start 04/01/17 at 13:30 Sodium Hypochlorite (Dakin'S (1/4 Strength)) 1 applic BID IRR Last administered on 04/11/17 17:09; Admin Dose 1 APPLIC; Start 04/01/17 at 21:00 Silver Sulfadiazine (Thermazene 1% 25 Gm) 1 applic BID TOP Last administered on 04/11/17 17:09; Admin Dose 1 APPLIC; Start 04/01/17 at 21:00 Morphine Sulfate (morphine) 2 mg Q4H PRN IV PAIN Last administered on 00:33; Admin Dose 2 MG; Start 04/01/17 at 18:30 Oxycodone/ Acetaminophen (Endocet (10 325)) 1 tab Q4H PRN PO PAIN Last administered on 04/02/17 15:01; Admin Dose 1 TAB; Start 04/01/17 at 18:30 Diagnostic Test (Pha) (Accu-Chek) 1 ea 02 XX Last administered on 04/11/17 02 :22; Admin Dose 1 EA; Start 04/04/17 at 02:00 Miscellaneous Information 1 ea NOTE XX ; Start 04/03/17 at 10:00 Glucose (Glutose) 15 gm Q15M PRN PO DECREASED GLUCOSE; Start 04/03/17 at 10:00 Glucose (Glutose) 22.5 gm Q15M PRN PO DECREASED GLUCOSE; Start 04/03/17 at 10: 00 Dextrose (D50w Syringe) 25 ml Q15M PRN IV DECREASED GLUCOSE; Start 04/03/17 at 10:00 Dextrose (D50w Syringe) 50 ml Q15M PRN IV DECREASED GLUCOSE; Start 04/03/17 at 10:00 Glucagon (Glucagen) 1 mg Q15M PRN IM DECREASED GLUCOSE; Start 04/03/17 at 10: 00 Glucose (Glutose) 15 gm Q15M PRN BUCCAL DECREASED GLUCOSE; Start 04/03/17 at 10:00 Hydralazine HCl 10 mg 10 mg Q4H PRN IV ELEVATED SYSTOLIC BP Last administered on 04/06/17 09:56; Admin Dose 10 MG; Start 04/04/17 at 06:00 Ceftriaxone Sodium (Rocephin) 50 ml @ 100 mls/hr Q24H IVPB Last administered on 04/11/17 16:21; Admin Dose 100 MLS/HR; Start 04/05/17 at 16:30 Heparin Sodium (Porcine) 5000 unit 5,000 unit BID SC Last administered on 04/11 08:00; Admin Dose 5,000 UNIT; Start 04/05/17 at 21:00 Vancomycin HCl/ Sodium Chloride (Vancocin/NS) 250 ml @ 83.333 mls/ hr Q12H IVPB Last administered on 04/11/17 12:09; Admin Dose 83.333 MLS/HR; Start at 00:00 Lisinopril (Zestril) 40 mg DAILY PO Last administered on 04/11/17 08:06; Admin Dose 40 MG; Start 04/07/17 at 09:00 Amlodipine Besylate (Norvasc) 5 mg DAILY PO Last administered on 04/11/17 08: 06; Admin Dose 5 MG; Start 04/09/17 at 09:00 Insulin Glargine (Lantus) 60 unit QHS SC ; Start 04/11/17 at 21:00 Assessment/Plan Chief Complaint/Hosp Course 56-year-old male with bilateral lower extremity cellulitis and wounds on intravenous antibiotic. He had an indwelling Hagan catheter because of urinary retention and that was removed yesterday. the renal function has improved . He has been voiding and the postvoid residual has been low . I will recheck his renal ultrasound and that showed normal kidney without hydronephrosis and the patient is voiding and emptying his bladder well. Therefore from a urological standpoint he is doing well and will see him as needed Problems: MAHAD MARTIN MD Apr 11, 2017 18:33
[2017-04-11] MEDS ORDERED: INSULIN ASPART [NOVOLOG] 3 ML PEN SC ONE (20:30)
[2017-04-11] MEDS: METOPROLOL 100 MG TAB PO SCH (20:51)
[2017-04-11] MEDS: ATORVASTATIN 80 MG TAB PO SCH (20:51)
[2017-04-11] MEDS: AMITRIPTYLINE 10 MG TAB PO SCH (20:51)
[2017-04-11] MEDS: hydrALAzine 20 MG INJ IV PRN (20:52)
[2017-04-11 20:57] VITALS: BP 188/80; RESP 20
[2017-04-11] MEDS: INSULIN GLARGINE [LANtus] 3 ML PEN SC SCH (21:03)
[2017-04-11 23:00] VITALS: BP 156/75; PULSE 80
[2017-04-12 02:31] VITALS: BP 146/70; RESP 20
[2017-04-12] MEDS: ACCU-CHEK XX SCH (02:35)
[2017-04-12 07:13] LABS: CALCIUM 8.5 mg/dl (8.4-10.2); CREATININE 1.01 mg/dl (0.61-1.24); MAGNESIUM 1.6 mg/dl (1.7-2.5); POTASSIUM 3.9 mmol/L (3.5-5.1)
[2017-04-12 07:27] VITALS: BP 155/74; RESP 20
[2017-04-12] MEDS ORDERED: MAGNESIUM SULFATE 2 GM/50 ML 50 ML IVPB ONE (08:30)
[2017-04-12] MEDS: INSULIN ASPART [NOVOLOG] 3 ML PEN SC SCH ×7 (08:39→21:00)
[2017-04-12] MEDS: ASPIRIN (EC) 81 MG TAB PO SCH (08:41)
[2017-04-12] MEDS: AMLODIPINE 5 MG TAB PO SCH (08:42)
[2017-04-12] MEDS: LISINOPRIL 20 MG TAB PO SCH (08:42)
[2017-04-12] MEDS: HEPARIN 5,000 UNIT/0.5 ML VIAL SC SCH ×2 (08:44→21:33)
[2017-04-12 09:30] LABS: BASOPHIL # 0.1 10^3/ul (0.0-0.1); BASOPHILS % 0.5 % (0.0-2.0); EOSINOPHILS # 0.3 10^3/ul (0.0-0.5); EOSINOPHILS % 2.8 % (0.0-7.0); HEMATOCRIT 32.5 % (42.0-52.0); HEMOGLOBIN 10.1 g/dl (14.0-18.0); LYMPHOCYTES # 2.6 10^3/ul (0.8-2.9); LYMPHOCYTES % 26.1 % (15.0-51.0); MEAN CORPUSCULAR HGB CONC 31.1 g/dl (32.0-37.0); MEAN CORPUSCULAR VOLUME 86.9 fl (82.0-101.0); MEAN PLATELET VOLUME 9.7 fl (7.4-10.4); MONOCYTE # 0.6 10^3/ul (0.3-0.9); MONOCYTES % 6.4 % (0.0-11.0); NEUTROPHIL # 6.2 10^3/ul (1.6-7.5); NEUTROPHILS % 63.4 % (39.0-77.0); PLATELET COUNT 341 10^3/UL (140-415); RED BLOOD COUNT 3.74 10^6/ul (4.70-6.10); RED CELL DISTRIBUTION WIDTH 14.1 % (11.5-14.5); WHITE BLOOD COUNT 9.8 10^3/ul (4.8-10.8)
--- NOTE | 2017-04-12 09:34 | PN ---
DATE: 04/12/2017 SUBJECTIVE: The patient is stable. No events overnight. OBJECTIVE: VITAL SIGNS: Blood pressure is 155/74, pulse 91, respirations 20, temperature 98.6. HEENT: Head is normocephalic. NECK: Supple. HEART: Regular rate. LUNGS: Show diminished breath sounds at the base. ABDOMEN: Soft, nontender to palpation. No rebound or guarding. EXTREMITIES: Negative for clubbing, cyanosis. Positive wounds. DERMATOLOGIC: No rashes. MUSCULOSKELETAL: No joint effusions. NEUROLOGIC: No change in exam. MEDICATIONS: The patient's medications have been reviewed. LABORATORY DATA: Shows BUN 15, creatinine 1.0, magnesium is 1.6. ASSESSMENT AND PLAN: 1. Nonoliguric acute kidney injury with unknown baseline creatinine. Etiology secondary to hemodyn amics. Renal function is back to baseline. Continue to current treatment plan and supportive care, renally dose all medicines. 2. Hypomagnesemia. Replete with magnesium sulfate. 3. Mineral bone disorder. Continue to monitor calcium and phosphorus levels. 4. Anemia. Monitor hemoglobin and hematocrit levels. 5. Hypertension. Blood pressure is improving. Continue current blood pressure regimen. 6. Sepsis secondary to lower extremity cellulitis and osteomyelitis. Continue current antibiotic r egimen. 7. Status post respiratory failure. 8. Urinary retention. The patient has a Hagan catheter. Follow up with urology. Dictated By: AFTAB DOBBS/ARAVIND Conf#: [id number] DID#: [id number]
[2017-04-12] MEDS: SILVER SULFADIAZINE 1% 25 GM CR TOP SCH ×2 (10:00→23:42)
[2017-04-12] MEDS: SODIUM HYPOCHLORITE 0.125% 473 ML BTL IRR SCH ×2 (10:00→21:28)
[2017-04-12] MEDS: VANCOMYCIN 1.25 GM in SOD CHLORIDE 0.9% 250 ML IVPB SCH ×2 (12:02→23:42)
[2017-04-12] MEDS: morphine 2 MG INJ IV PRN ×2 (12:25→23:41)
--- NOTE | 2017-04-12 13:16 | CONS ---
DATE OF ADMISSION: 03/31/2017 DATE OF CONSULTATION: 04/12/2017 SUBJECTIVE FINDINGS: The patient is being followed for bilateral diabetic foot ulcerations, history of abscess and status post debridement of foot ulcerations. The patient with decreased leukocytosi s, has been on IV antibiotics, most recent cultures polymicrobial including Morganella morganii, Sta ph aureus, strep beta hemolytic strep, Proteus. The patient denies any fever, nausea, vomiting. Im proved glycemic control, is pending discharge. They are waiting on home health arrangements. The p atient currently on vancomycin and ceftriaxone and will need antibiotics via PICC line for 8 weeks. OBJECTIVE FINDINGS: VITAL SIGNS: Temperature 98.6, pulse 91, respiratory rate 20, blood pressure 155/74, pulse oximetry is 95% at room air. GENERAL: The patient awake, alert. No acute distress. Regular respiration. EXTREMITIES: The patient with dressings with no malodor. There is ulceration plantar aspect left f oot with improved granulation. Ulceration measures approximately 2 x 2 cm with depth of 0.5 cm. No exposed bone. The patient with 2 toe amputation, 2+ DP pulse, mycotic nails, right foot with decre asing edema, erythema. There is serous drainage ulceration plantar aspect with improved granulation . There is central aspect ulceration, probes to bone. No purulent drainage. Instability of the mi d foot ulceration, approximately 10 x 5 cm, 2+ DP, PT pulse. LABORATORIES: WBC 9.8, hemoglobin 10.1, hematocrit 32.5, platelets 341. Glucose is 294. ASSESSMENT: 1. Right foot Lisfranc fracture, dislocation, Charcot deformity of the mid foot with superimposed o steomyelitis. 2. Left foot diabetic foot ulceration. 3. 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 4. Diabetes, poorly controlled. 5. Diabetes with peripheral neuropathy. 6. Cellulitis. 7. Edema. The patient was seen and evaluated. Dressings changed. The patient instructed on nonwe ightbearing bilateral feet with use of wheelchair, currently being arranged by case management. Als o will need home health for continued IV antibiotics 8 weeks and daily dressing changes with irrigat ion with Dakin's and application of Silvadene. Discussed weekly follow up as outpatient for staged debridement of ulcerations. The patient currently on vancomycin and ceftriaxone and recommend follo w up with infectious disease and endocrinology as an outpatient. Dictated By: CLARA LEBLANC/ARAVIND Conf#: [id number] [facility]#: [id number]
[2017-04-12 13:43] VITALS: BP 140/65; RESP 20
--- NOTE | 2017-04-12 14:46 | CONS ---
Date/Time of Note Date/Time of Note DATE: 04/12/17 TIME: 14:44 Assessment/Plan Assessment/Plan Chief Complaint/Hosp Course SUBJECTIVE: No acute changes. The patient is alert, feels good, looks comfortable, no fevers. MICROBIOLOGY: Blood culture on admission grew oxacillin-sensitive Staphylococcus aureus and beta hemolytic strep species. Right foot wound culture grew Morganella morganii, Staphylococcus aureus strep Proteus penneri. Left foot wound culture also grew Enterococcus species in addition to what grew in the right and pseudomonas, all sensitive to Rocephin except enterococcus. ALLERGIES: SULFA. ANTIMICROBIALS: 1. Rocephin. 2. Vancomycin. PHYSICAL EXAMINATION: GENERAL: Obese, well-developed, middle-aged white man who is alert, in no distress. HEENT: Head atraumatic, normocephalic. Sclerae anicteric. Buccal mucosa pink. NECK: Supple. CHEST: Rise symmetrical. Breath sounds clear. HEART: S1, S2. ABDOMEN: Soft, bowel tones present. EXTREMITIES: Bilateral feet dressings intact. ASSESSMENT: 1. Status post sepsis with shock. 2. S/p polymicrobial bacteremia secondary to #3. 3. Right foot osteomyelitis with cultures growing multi-drug resistant organisms. 4. Left foot diabetic ulceration. 5. Poorly controlled diabetes. 6. Morbid obesity. 7. Anemia. 8. Acute possibly on chronic kidney disease. PLAN: The patient remains stable, repeat blood cultures negative, continue present care, antibiotics for 6-8 weeks and possibly longer, follow podiatry recommendations. staff and patient Problems: Consultation Date/Type/Reason Admit Date/Time Mar 31, 2017 at 21:15 Initial Consult Date 04/01/17 Type of Consultation: id Referring Provider: VINOD PEDRAZA MD Exam/Review of Systems Vital Signs Vitals Vital Signs Date Time Temp Pulse Resp B/P Pulse Ox O2 Delivery O2 Flow Rate FiO2 04/12/17 13:43 98.3 98 20 140/65 98 Intake and Output 04/11/17 04/11/17 04/12/17 15:00 23:00 07:00 Intake Total 3120 ml 1210 ml Output Total 3250 ml 1050 ml Balance -130 ml 160 ml Results Result Diagram: 04/12/17 0852 04/12/17 0550 Results 24 hrs Laboratory Tests Test 04/11/17 17:05 04/11/17 20:10 04/12/17 02:34 04/12/17 05:50 Bedside Glucose 330 H 321 H 270 H Sodium Level 140 Potassium Level 3.9 Chloride Level 102 Carbon Dioxide Level 27 Anion Gap 15 Blood Urea Nitrogen 19 Creatinine 1.01 Glucose Level 242 H Calcium Level 8.5 Magnesium Level 1.6 L Test 04/12/17 08:06 04/12/17 08:52 04/12/17 12:10 Bedside Glucose 294 H 201 White Blood Count 9.8 Red Blood Count 3.74 L Hemoglobin 10.1 L Hematocrit 32.5 L Mean Corpuscular Volume 86.9 Mean Corpuscular Hemoglobin 27.0 L Mean Corpuscular Hemoglobin Concent 31.1 L Red Cell Distribution Width 14.1 Platelet Count 341 # Mean Platelet Volume 9.7 Neutrophils % 63.4 Lymphocytes % 26.1 Monocytes % 6.4 Eosinophils % 2.8 Basophils % 0.5 Nucleated Red Blood Cells % 0.0 Neutrophils # 6.2 Lymphocytes # 2.6 Monocytes # 0.6 Eosinophils # 0.3 Basophils # 0.1 Nucleated Red Blood Cells # 0.0 Medications Medications Current Medications Ondansetron HCl (Zofran Inj) 4 mg Q6H PRN IV NAUSEA AND/OR VOMITING Last administered on 04/01/17 04:16; Admin Dose 4 MG; Start 03/31/17 at 21:30 Acetaminophen (Tylenol Tab) 650 mg Q6H PRN PO PAIN LEVEL 1-3 OR FEVER; Start 03/31/17 at 21:30 Amitriptyline HCl (Elavil) 10 mg QHS PO Last administered on 04/11/17 20:51; Admin Dose 10 MG; Start 04/01/17 at 21:00 Aspirin (Halfprin) 81 mg DAILY PO Last administered on 04/12/17 08:41; Admin Dose 81 MG; Start 04/01/17 at 09:00 Atorvastatin Calcium (Lipitor) 80 mg QHS PO Last administered on 04/11/17 20: 51; Admin Dose 80 MG; Start 04/01/17 at 21:00 Metoprolol Tartrate (Lopressor) 100 mg QHS PO Last administered on 04/11/17 20:51; Admin Dose 100 MG; Start 04/01/17 at 21:00 Dextrose (D50w Syringe) 25 ml Q15M PRN IV BS between 50-70; Start 04/01/17 at 07:30 Miscellaneous Information (Pending [facility] Order For Wound Care) This patient mims... PRN PRN XX WOUND CARE; Start 04/01/17 at 08:00 Lorazepam (Ativan) 1 mg Q6H PRN IV AGITATION/ANXIETY Last administered on 04/03 15:14; Admin Dose 1 MG; Start 04/01/17 at 12:00 IV Flush (NS 10 ml) 10 ml PRN PRN IV IV PROTOCOL; Start 04/01/17 at 13:30 Sodium Hypochlorite (Dakin'S (1/4 Strength)) 1 applic BID IRR Last administered on 04/12/17 10:00; Admin Dose 1 APPLIC; Start 04/01/17 at 21:00 Silver Sulfadiazine (Thermazene 1% 25 Gm) 1 applic BID TOP Last administered on 04/12/17 10:00; Admin Dose 1 APPLIC; Start 04/01/17 at 21:00 Morphine Sulfate (morphine) 2 mg Q4H PRN IV PAIN Last administered on 12:25; Admin Dose 2 MG; Start 04/01/17 at 18:30 Oxycodone/ Acetaminophen (Endocet (10/ 325)) 1 tab Q4H PRN PO PAIN Last administered on 04/02/17 15:01; Admin Dose 1 TAB; Start 04/01/17 at 18:30 Diagnostic Test (Pha) (Accu-Chek) 1 ea 02 XX Last administered on 04/12/17 02 :35; Admin Dose 1 EA; Start 04/04/17 at 02:00 Miscellaneous Information 1 ea NOTE XX ; Start 04/03/17 at 10:00 Glucose (Glutose) 15 gm Q15M PRN PO DECREASED GLUCOSE; Start 04/03/17 at 10:00 Glucose (Glutose) 22.5 gm Q15M PRN PO DECREASED GLUCOSE; Start 04/03/17 at 10: 00 Dextrose (D50w Syringe) 25 ml Q15M PRN IV DECREASED GLUCOSE; Start 04/03/17 at 10:00 Dextrose (D50w Syringe) 50 ml Q15M PRN IV DECREASED GLUCOSE; Start 04/03/17 at 10:00 Glucagon (Glucagen) 1 mg Q15M PRN IM DECREASED GLUCOSE; Start 04/03/17 at 10: 00 Glucose (Glutose) 15 gm Q15M PRN BUCCAL DECREASED GLUCOSE; Start 04/03/17 at 10:00 Hydralazine HCl 10 mg 10 mg Q4H PRN IV ELEVATED SYSTOLIC BP Last administered on 04/11/17 20:52; Admin Dose 10 MG; Start 04/04/17 at 06:00 Ceftriaxone Sodium (Rocephin) 50 ml @ 100 mls/hr Q24H IVPB Last administered on 04/11/17 16:21; Admin Dose 100 MLS/HR; Start 04/05/17 at 16:30 Heparin Sodium (Porcine) 5000 unit 5,000 unit BID SC Last administered on 04/12 08:44; Admin Dose 5,000 UNIT; Start 04/05/17 at 21:00 Vancomycin HCl/ Sodium Chloride (Vancocin/NS) 250 ml @ 83.333 mls/ hr Q12H IVPB Last administered on 04/12/17 12:02; Admin Dose 83.333 MLS/HR; Start at 00:00 Lisinopril (Zestril) 40 mg DAILY PO Last administered on 04/12/17 08:42; Admin Dose 40 MG; Start 04/07/17 at 09:00 Amlodipine Besylate (Norvasc) 5 mg DAILY PO Last administered on 04/12/17 08: 42; Admin Dose 5 MG; Start 04/09/17 at 09:00 Insulin Glargine (Lantus) 60 unit QHS SC Last administered on 04/11/17 21:03 ; Admin Dose 60 UNIT; Start 04/11/17 at 21:00 MEHRAN ZHANG NP Apr 12, 2017 14:46
[2017-04-12] MEDS: CEFTRIAXONE 2 GM/50 ML (PMX) 50 ML IVPB SCH (16:29)
--- NOTE | 2017-04-12 17:00 | PN ---
Date/Time of Note Date/Time of Note DATE: 04/12/17 TIME: 16:58 Assessment/Plan VTE Prophylaxis VTE Prophylaxis Intervention: LMWH Lines/Catheters IV Catheter Type (from Nrsg): PICC Line Central line still needed: Yes Assessment/Plan Chief Complaint/Hosp Course 56 yo male with h/o DMII, OM of foot in nonhealing ulcer presenting with sepsis , hyperglycemia, RENZO from cellulitis surrounding diabetic foot infection ID: Sepsis with staph aureus and strep bacteremia Diabetic foot ulcer with OM and cellulitis: - 6 weeks IV abx via PICC to be completed as an outpatient RENZO: - Resolved DMII w hyperglycemia - Bsal/bolus insulin and uptitrate as needed CV: - Continue home aspirin, statin, metoprolol. Hold other BP meds Urinary retention - 2/2 medications, encephelopathy of sepsis - s/p santana for now. Trial of void Problems: Subjective 24 Hr Interval Summary Free Text/Dictation Doing well symptomatically Medically ready for discharge with home IV abx Exam/Review of Systems Vital Signs Vitals Vital Signs Date Time Temp Pulse Resp B/P Pulse Ox O2 Delivery O2 Flow Rate FiO2 04/12/17 13:43 98.3 98 20 140/65 98 Intake and Output 04/11/17 04/11/17 04/12/17 14:59 22:59 06:59 Intake Total 3120 ml 1210 ml Output Total 3250 ml 1050 ml Balance -130 ml 160 ml Exam Constitutional: alert, oriented, well developed Psych: nl mood/affect, no complaints Head: atraumatic, normocephalic Eyes: EOMI, PERRL, nl conjunctiva, nl lids, nl sclera ENMT: nl external ears & nose, nl lips & teeth, nl nasal mucosa & septum Neck: non-tender, supple Respiratory: clear to auscultation, normal air movement Cardiovascular: nl pulses, regular rate and rhythm Gastrointestinal: nl liver, spleen, non-tender, soft Musculoskeletal: nl extremities to inspection, nl gait and stance Extremities: normal pulses Neurological: PEDIGREE TRACER II-XII intact, nl mental status, nl speech, nl strength Skin: nl turgor, No rash or lesions Lymph: nl lymph nodes Results Result Diagram: 04/12/17 0852 04/12/17 0550 Results 24 hrs Laboratory Tests Test 04/11/17 17:05 04/11/17 20:10 04/12/17 02:34 04/12/17 05:50 Bedside Glucose 330 H 321 H 270 H Sodium Level 140 Potassium Level 3.9 Chloride Level 102 Carbon Dioxide Level 27 Anion Gap 15 Blood Urea Nitrogen 19 Creatinine 1.01 Glucose Level 242 H Calcium Level 8.5 Magnesium Level 1.6 L Test 04/12/17 08:06 04/12/17 08:52 04/12/17 12:10 Bedside Glucose 294 H 201 White Blood Count 9.8 Red Blood Count 3.74 L Hemoglobin 10.1 L Hematocrit 32.5 L Mean Corpuscular Volume 86.9 Mean Corpuscular Hemoglobin 27.0 L Mean Corpuscular Hemoglobin Concent 31.1 L Red Cell Distribution Width 14.1 Platelet Count 341 # Mean Platelet Volume 9.7 Neutrophils % 63.4 Lymphocytes % 26.1 Monocytes % 6.4 Eosinophils % 2.8 Basophils % 0.5 Nucleated Red Blood Cells % 0.0 Neutrophils # 6.2 Lymphocytes # 2.6 Monocytes # 0.6 Eosinophils # 0.3 Basophils # 0.1 Nucleated Red Blood Cells # 0.0 Medications Medications Current Medications Ondansetron HCl (Zofran Inj) 4 mg Q6H PRN IV NAUSEA AND/OR VOMITING Last administered on 04/01/17 04:16; Admin Dose 4 MG; Start 03/31/17 at 21:30 Acetaminophen (Tylenol Tab) 650 mg Q6H PRN PO PAIN LEVEL 1-3 OR FEVER; Start 03/31/17 at 21:30 Amitriptyline HCl (Elavil) 10 mg QHS PO Last administered on 04/11/17 20:51; Admin Dose 10 MG; Start 04/01/17 at 21:00 Aspirin (Halfprin) 81 mg DAILY PO Last administered on 04/12/17 08:41; Admin Dose 81 MG; Start 04/01/17 at 09:00 Atorvastatin Calcium (Lipitor) 80 mg QHS PO Last administered on 04/11/17 20: 51; Admin Dose 80 MG; Start 04/01/17 at 21:00 Metoprolol Tartrate (Lopressor) 100 mg QHS PO Last administered on 04/11/17 20:51; Admin Dose 100 MG; Start 04/01/17 at 21:00 Dextrose (D50w Syringe) 25 ml Q15M PRN IV BS between 50-70; Start 04/01/17 at 07:30 Miscellaneous Information (Pending [facility] Order For Wound Care) This patient mims... PRN PRN XX WOUND CARE; Start 04/01/17 at 08:00 Lorazepam (Ativan) 1 mg Q6H PRN IV AGITATION/ANXIETY Last administered on 04/03 15:14; Admin Dose 1 MG; Start 04/01/17 at 12:00 IV Flush (NS 10 ml) 10 ml PRN PRN IV IV PROTOCOL; Start 04/01/17 at 13:30 Sodium Hypochlorite (Dakin'S (1/4 Strength)) 1 applic BID IRR Last administered on 04/12/17 10:00; Admin Dose 1 APPLIC; Start 04/01/17 at 21:00 Silver Sulfadiazine (Thermazene 1% 25 Gm) 1 applic BID TOP Last administered on 04/12/17 10:00; Admin Dose 1 APPLIC; Start 04/01/17 at 21:00 Morphine Sulfate (morphine) 2 mg Q4H PRN IV PAIN Last administered on 12:25; Admin Dose 2 MG; Start 04/01/17 at 18:30 Oxycodone/ Acetaminophen (Endocet (10/ 325)) 1 tab Q4H PRN PO PAIN Last administered on 04/02/17 15:01; Admin Dose 1 TAB; Start 04/01/17 at 18:30 Diagnostic Test (Pha) (Accu-Chek) 1 ea 02 XX Last administered on 04/12/17 02 :35; Admin Dose 1 EA; Start 04/04/17 at 02:00 Miscellaneous Information 1 ea NOTE XX ; Start 04/03/17 at 10:00 Glucose (Glutose) 15 gm Q15M PRN PO DECREASED GLUCOSE; Start 04/03/17 at 10:00 Glucose (Glutose) 22.5 gm Q15M PRN PO DECREASED GLUCOSE; Start 04/03/17 at 10: 00 Dextrose (D50w Syringe) 25 ml Q15M PRN IV DECREASED GLUCOSE; Start 04/03/17 at 10:00 Dextrose (D50w Syringe) 50 ml Q15M PRN IV DECREASED GLUCOSE; Start 04/03/17 at 10:00 Glucagon (Glucagen) 1 mg Q15M PRN IM DECREASED GLUCOSE; Start 04/03/17 at 10: 00 Glucose (Glutose) 15 gm Q15M PRN BUCCAL DECREASED GLUCOSE; Start 04/03/17 at 10:00 Hydralazine HCl 10 mg 10 mg Q4H PRN IV ELEVATED SYSTOLIC BP Last administered on 04/11/17 20:52; Admin Dose 10 MG; Start 04/04/17 at 06:00 Ceftriaxone Sodium (Rocephin) 50 ml @ 100 mls/hr Q24H IVPB Last administered on 04/12/17 16:29; Admin Dose 100 MLS/HR; Start 04/05/17 at 16:30 Heparin Sodium (Porcine) 5000 unit 5,000 unit BID SC Last administered on 04/12 08:44; Admin Dose 5,000 UNIT; Start 04/05/17 at 21:00 Vancomycin HCl/ Sodium Chloride (Vancocin/NS) 250 ml @ 83.333 mls/ hr Q12H IVPB Last administered on 04/12/17 12:02; Admin Dose 83.333 MLS/HR; Start at 00:00 Lisinopril (Zestril) 40 mg DAILY PO Last administered on 04/12/17 08:42; Admin Dose 40 MG; Start 04/07/17 at 09:00 Amlodipine Besylate (Norvasc) 5 mg DAILY PO Last administered on 04/12/17 08: 42; Admin Dose 5 MG; Start 04/09/17 at 09:00 Insulin Glargine (Lantus) 60 unit QHS SC Last administered on 04/11/17 21:03 ; Admin Dose 60 UNIT; Start 04/11/17 at 21:00 VINOD PEDRAZA MD Apr 12, 2017 17:00
[2017-04-12 20:00] VITALS: BP 155/75; RESP 20
[2017-04-12] MEDS: INSULIN GLARGINE [LANtus] 3 ML PEN SC SCH (21:00)
[2017-04-12] MEDS: AMITRIPTYLINE 10 MG TAB PO SCH (21:27)
[2017-04-12] MEDS: METOPROLOL 100 MG TAB PO SCH (21:27)
[2017-04-12] MEDS: ATORVASTATIN 80 MG TAB PO SCH (21:33)
[2017-04-12] MEDS ORDERED: INSULIN GLARGINE [LANtus] 3 ML PEN SC STA (21:46)
[2017-04-13 02:00] VITALS: BP 147/71; RESP 20
[2017-04-13] MEDS: ACCU-CHEK XX SCH (02:40)
[2017-04-13 06:37] LABS: BASOPHIL # 0.1 10^3/ul (0.0-0.1); BASOPHILS % 0.5 % (0.0-2.0); EOSINOPHILS # 0.4 10^3/ul (0.0-0.5); EOSINOPHILS % 3.8 % (0.0-7.0); HEMATOCRIT 27.5 % (42.0-52.0); HEMOGLOBIN 8.7 g/dl (14.0-18.0); LYMPHOCYTES % 32.4 % (15.0-51.0); MEAN CORPUSCULAR HEMOGLOBIN 27.4 pg (29.0-33.0); MEAN CORPUSCULAR HGB CONC 31.6 g/dl (32.0-37.0); MEAN CORPUSCULAR VOLUME 86.8 fl (82.0-101.0); MEAN PLATELET VOLUME 10.7 fl (7.4-10.4); MONOCYTE # 0.6 10^3/ul (0.3-0.9); MONOCYTES % 6.8 % (0.0-11.0); NEUTROPHIL # 5.1 10^3/ul (1.6-7.5); NEUTROPHILS % 55.7 % (39.0-77.0); PLATELET COUNT 233 10^3/UL (140-415); RED BLOOD COUNT 3.17 10^6/ul (4.70-6.10); RED CELL DISTRIBUTION WIDTH 14.4 % (11.5-14.5); WHITE BLOOD COUNT 9.2 10^3/ul (4.8-10.8)
[2017-04-13 07:00] LABS: ALBUMIN/GLOBULIN RATIO 0.75; BILIRUBIN,INDIRECT 0.1 mg/dl (0-1.1); BILIRUBIN,TOTAL 0.1 mg/dl (0.2-1.3); CALCIUM 8.5 mg/dl (8.4-10.2); CREATININE 1.08 mg/dl (0.61-1.24); POTASSIUM 3.8 mmol/L (3.5-5.1)
[2017-04-13 07:28] VITALS: BP 156/74; RESP 20
[2017-04-13] MEDS: INSULIN ASPART [NOVOLOG] 3 ML PEN SC SCH ×7 (08:18→22:06)
[2017-04-13] MEDS: LISINOPRIL 20 MG TAB PO SCH (08:28)
[2017-04-13] MEDS: AMLODIPINE 5 MG TAB PO SCH (08:28)
[2017-04-13] MEDS: ASPIRIN (EC) 81 MG TAB PO SCH (08:29)
[2017-04-13] MEDS: HEPARIN 5,000 UNIT/0.5 ML VIAL SC SCH ×2 (08:33→20:55)
--- NOTE | 2017-04-13 08:50 | PN ---
DATE: 04/13/2017 SUBJECTIVE: The patient is stable. No events overnight. OBJECTIVE: VITAL SIGNS: Blood pressure is 156/74, pulse 86, respirations 20, temperature 98.4. HEENT: Head is normocephalic. NECK: Supple. HEART: Regular rate. LUNGS: Show diminished breath sounds at the base. ABDOMEN: Soft, nontender to palpation. No rebound or guarding. EXTREMITIES: Negative for clubbing, cyanosis, no edema. DERMATOLOGIC: No rashes. MUSCULOSKELETAL: No joint effusions. NEUROLOGIC: No change in exam. MEDICATIONS: Have been reviewed. LABORATORY DATA: Has been reviewed. ASSESSMENT AND PLAN: 1. Nonoliguric acute kidney injury with unknown baseline creatinine. Etiology is secondary to hemo dynamics. Renal function is at baseline. 2. Hypomagnesemia. Continue to monitor and replete. 3. Mineral bone disorder. Continue to monitor calcium and phosphorus levels. 4. Anemia. Monitor hemoglobin and hematocrit levels. 5. Hypertension. Continue current blood pressure regimen. 6. Sepsis secondary to lower extremity cellulitis and osteomyelitis. Continue current antibiotic r egimen. 7. Status post respiratory failure. 8. Urinary retention. Continue to monitor. Follow up with urology. Dictated By: AFTAB DOBBS/ARAVIND Conf#: [id number] DID#: [id number]
[2017-04-13] MEDS: VANCOMYCIN 1.25 GM in SOD CHLORIDE 0.9% 250 ML IVPB SCH (12:11)
[2017-04-13] MEDS: SILVER SULFADIAZINE 1% 25 GM CR TOP SCH ×2 (13:15→20:36)
[2017-04-13] MEDS: SODIUM HYPOCHLORITE 0.125% 473 ML BTL IRR SCH ×2 (13:15→20:36)
[2017-04-13 13:27] VITALS: BP 145/71; RESP 20
--- NOTE | 2017-04-13 14:43 | CONS ---
Date/Time of Note Date/Time of Note DATE: 04/13/17 TIME: 14:42 Assessment/Plan Assessment/Plan Chief Complaint/Hosp Course SUBJECTIVE: No acute changes. The patient is alert, feels good, no fevers. MICROBIOLOGY: Blood culture on admission grew oxacillin-sensitive Staphylococcus aureus and beta hemolytic strep species. Right foot wound culture grew Morganella morganii, Staphylococcus aureus strep Proteus penneri. Left foot wound culture also grew Enterococcus species in addition to what grew in the right and pseudomonas, all sensitive to Rocephin except enterococcus. ALLERGIES: SULFA. ANTIMICROBIALS: 1. Rocephin. 2. Vancomycin. PHYSICAL EXAMINATION: GENERAL: Obese, well-developed, middle-aged white man who is alert, in no distress. HEENT: Head atraumatic, normocephalic. Sclerae anicteric. Buccal mucosa pink. NECK: Supple. CHEST: Rise symmetrical. Breath sounds clear. HEART: S1, S2. ABDOMEN: Soft, bowel tones present. EXTREMITIES: Bilateral feet dressings intact. ASSESSMENT: 1. Status post sepsis with shock. 2. S/p polymicrobial bacteremia secondary to #3. 3. Right foot osteomyelitis with cultures growing multi-drug resistant organisms. 4. Left foot diabetic ulceration. 5. Poorly controlled diabetes. 6. Morbid obesity. 7. Anemia. 8. Acute possibly on chronic kidney disease. PLAN: The patient remains stable, repeat blood cultures negative, continue present care, antibiotics for 6-8 weeks and possibly longer, follow podiatry recommendations. DW patient Problems: Consultation Date/Type/Reason Admit Date/Time Mar 31, 2017 at 21:15 Initial Consult Date 04/01/17 Type of Consultation: id Referring Provider: VINOD PEDRAZA MD Exam/Review of Systems Vital Signs Vitals Vital Signs Date Time Temp Pulse Resp B/P Pulse Ox O2 Delivery O2 Flow Rate FiO2 04/13/17 13:27 98.3 100 20 145/71 97 Intake and Output 04/12/17 04/12/17 04/13/17 15:00 23:00 07:00 Intake Total 50 ml 2940 ml 1050 ml Output Total 2325 ml 1200 ml Balance 50 ml 615 ml -150 ml Results Result Diagram: 04/13/17 0601 04/13/17 0601 Results 24 hrs Laboratory Tests Test 04/12/17 17:17 04/12/17 21:23 04/13/17 02:12 04/13/17 06:01 Bedside Glucose 185 139 267 H White Blood Count 9.2 Red Blood Count 3.17 L Hemoglobin 8.7 L Hematocrit 27.5 L Mean Corpuscular Volume 86.8 Mean Corpuscular Hemoglobin 27.4 L Mean Corpuscular Hemoglobin Concent 31.6 L Red Cell Distribution Width 14.4 Platelet Count 233 # Mean Platelet Volume 10.7 H Neutrophils % 55.7 Lymphocytes % 32.4 Monocytes % 6.8 Eosinophils % 3.8 Basophils % 0.5 Nucleated Red Blood Cells % 0.0 Neutrophils # 5.1 Lymphocytes # 3.0 H Monocytes # 0.6 Eosinophils # 0.4 Basophils # 0.1 Nucleated Red Blood Cells # 0.0 Sodium Level 140 Potassium Level 3.8 Chloride Level 101 Carbon Dioxide Level 29 Anion Gap 14 Blood Urea Nitrogen 20 Creatinine 1.08 Glucose Level 214 Calcium Level 8.5 Total Bilirubin 0.1 L Direct Bilirubin 0.00 Indirect Bilirubin 0.1 Aspartate Amino Transf (AST/SGOT) 26 Alanine Aminotransferase (ALT/SGPT) 37 Alkaline Phosphatase 159 H Total Protein 7.0 Albumin 3.0 L Globulin 4.00 H Albumin/Globulin Ratio 0.75 Test 04/13/17 08:10 04/13/17 12:10 Bedside Glucose 255 H 215 Medications Medications Current Medications Ondansetron HCl (Zofran Inj) 4 mg Q6H PRN IV NAUSEA AND/OR VOMITING Last administered on 04/01/17 04:16; Admin Dose 4 MG; Start 03/31/17 at 21:30 Acetaminophen (Tylenol Tab) 650 mg Q6H PRN PO PAIN LEVEL 1-3 OR FEVER; Start 03/31/17 at 21:30 Amitriptyline HCl (Elavil) 10 mg QHS PO Last administered on 04/12/17 21:27; Admin Dose 10 MG; Start 04/01/17 at 21:00 Aspirin (Halfprin) 81 mg DAILY PO Last administered on 04/13/17 08:29; Admin Dose 81 MG; Start 04/01/17 at 09:00 Atorvastatin Calcium (Lipitor) 80 mg QHS PO Last administered on 04/12/17 21: 33; Admin Dose 80 MG; Start 04/01/17 at 21:00 Metoprolol Tartrate (Lopressor) 100 mg QHS PO Last administered on 04/12/17 21:27; Admin Dose 100 MG; Start 04/01/17 at 21:00 Dextrose (D50w Syringe) 25 ml Q15M PRN IV BS between 50-70; Start 04/01/17 at 07:30 [facility] This patient mims... PRN PRN XX WOUND CARE; Start 04/01/17 at 08:00 Lorazepam (Ativan) 1 mg Q6H PRN IV AGITATION/ANXIETY Last administered on 04/03 15:14; Admin Dose 1 MG; Start 04/01/17 at 12:00 IV Flush (NS 10 ml) 10 ml PRN PRN IV IV PROTOCOL; Start 04/01/17 at 13:30 Sodium Hypochlorite (Dakin'S (1/4 Strength)) 1 applic BID IRR Last administered on 04/13/17 13:15; Admin Dose 1 APPLIC; Start 04/01/17 at 21:00 Silver Sulfadiazine (Thermazene 1% 25 Gm) 1 applic BID TOP Last administered on 04/13/17 13:15; Admin Dose 1 APPLIC; Start 04/01/17 at 21:00 Oxycodone/ Acetaminophen (Endocet (10/ 325)) 1 tab Q4H PRN PO PAIN Last administered on 04/02/17 15:01; Admin Dose 1 TAB; Start 04/01/17 at 18:30 Diagnostic Test (Pha) (Accu-Chek) 1 ea 02 XX Last administered on 04/13/17 02 :40; Admin Dose 1 EA; Start 04/04/17 at 02:00 Miscellaneous Information 1 ea NOTE XX ; Start 04/03/17 at 10:00 Glucose (Glutose) 15 gm Q15M PRN PO DECREASED GLUCOSE; Start 04/03/17 at 10:00 Glucose (Glutose) 22.5 gm Q15M PRN PO DECREASED GLUCOSE; Start 04/03/17 at 10: 00 Dextrose (D50w Syringe) 25 ml Q15M PRN IV DECREASED GLUCOSE; Start 04/03/17 at 10:00 Dextrose (D50w Syringe) 50 ml Q15M PRN IV DECREASED GLUCOSE; Start 04/03/17 at 10:00 Glucagon (Glucagen) 1 mg Q15M PRN IM DECREASED GLUCOSE; Start 04/03/17 at 10: 00 Glucose (Glutose) 15 gm Q15M PRN BUCCAL DECREASED GLUCOSE; Start 04/03/17 at 10:00 Hydralazine HCl 10 mg 10 mg Q4H PRN IV ELEVATED SYSTOLIC BP Last administered on 04/11/17 20:52; Admin Dose 10 MG; Start 04/04/17 at 06:00 Ceftriaxone Sodium (Rocephin) 50 ml @ 100 mls/hr Q24H IVPB Last administered on 04/12/17 16:29; Admin Dose 100 MLS/HR; Start 04/05/17 at 16:30 Heparin Sodium (Porcine) 5000 unit 5,000 unit BID SC Last administered on 04/13 08:33; Admin Dose 5,000 UNIT; Start 04/05/17 at 21:00 Vancomycin HCl/ Sodium Chloride (Vancocin/NS) 250 ml @ 83.333 mls/ hr Q12H IVPB Last administered on 04/13/17 12:11; Admin Dose 83.333 MLS/HR; Start at 00:00 Lisinopril (Zestril) 40 mg DAILY PO Last administered on 04/13/17 08:28; Admin Dose 40 MG; Start 04/07/17 at 09:00 Amlodipine Besylate (Norvasc) 5 mg DAILY PO Last administered on 04/13/17 08: 28; Admin Dose 5 MG; Start 04/09/17 at 09:00 Insulin Glargine (Lantus) 60 unit QHS SC Last administered on 04/11/17 21:03 ; Admin Dose 60 UNIT; Start 04/11/17 at 21:00 Miscellaneous Information (*Rx Drug Level Order Reminder*) 1 ONCE ONCE XX ; Start 04/13/17 at 23:00; Stop 04/13/17 at 23:01 MEHRAN ZHANG NP Apr 13, 2017 14:43
--- NOTE | 2017-04-13 15:30 | PN ---
Date/Time of Note Date/Time of Note DATE: 04/13/17 TIME: 15:28 Assessment/Plan VTE Prophylaxis VTE Prophylaxis Intervention: LMWH Lines/Catheters IV Catheter Type (from Nrsg): PICC Line Central line still needed: Yes Assessment/Plan Chief Complaint/Hosp Course 56 yo male with h/o DMII, OM of foot in nonhealing ulcer presenting with sepsis , hyperglycemia, RENZO from cellulitis surrounding diabetic foot infection ID: Sepsis with staph aureus and strep bacteremia: resolved Diabetic foot ulcer with OM and cellulitis: - 6 weeks IV abx via PICC to be completed as an outpatient per ID RENZO: - Resolved DMII w hyperglycemia - Bsal/bolus insulin and uptitrate as needed CV: - Continue home aspirin, statin, metoprolol. Hold other BP meds Urinary retention - s/p santana. Trial of void successful Discharge to home when home IV abx arranged Problems: Subjective 24 Hr Interval Summary Free Text/Dictation doing well no change to clinical status awaiting discharge with home IV abx Exam/Review of Systems Vital Signs Vitals Vital Signs Date Time Temp Pulse Resp B/P Pulse Ox O2 Delivery O2 Flow Rate FiO2 04/13/17 13:27 98.3 100 20 145/71 97 Intake and Output 04/12/17 04/12/17 04/13/17 15:00 23:00 07:00 Intake Total 50 ml 2940 ml 1050 ml Output Total 2325 ml 1200 ml Balance 50 ml 615 ml -150 ml Exam Constitutional: alert, oriented, well developed Psych: nl mood/affect, no complaints Head: atraumatic, normocephalic Eyes: EOMI, PERRL, nl conjunctiva, nl lids, nl sclera ENMT: nl external ears & nose, nl lips & teeth, nl nasal mucosa & septum Neck: non-tender, supple Respiratory: clear to auscultation, normal air movement Cardiovascular: nl pulses, regular rate and rhythm Gastrointestinal: nl liver, spleen, non-tender, soft Musculoskeletal: nl extremities to inspection, nl gait and stance Extremities: normal pulses Neurological: BOWLING BALL PATCHER II-XII intact, nl mental status, nl speech, nl strength Skin: nl turgor, No rash or lesions Lymph: nl lymph nodes Results Result Diagram: 04/13/17 0601 04/13/17 0601 Results 24 hrs Laboratory Tests Test 04/12/17 17:17 04/12/17 21:23 04/13/17 02:12 04/13/17 06:01 Bedside Glucose 185 139 267 H White Blood Count 9.2 Red Blood Count 3.17 L Hemoglobin 8.7 L Hematocrit 27.5 L Mean Corpuscular Volume 86.8 Mean Corpuscular Hemoglobin 27.4 L Mean Corpuscular Hemoglobin Concent 31.6 L Red Cell Distribution Width 14.4 Platelet Count 233 # Mean Platelet Volume 10.7 H Neutrophils % 55.7 Lymphocytes % 32.4 Monocytes % 6.8 Eosinophils % 3.8 Basophils % 0.5 Nucleated Red Blood Cells % 0.0 Neutrophils # 5.1 Lymphocytes # 3.0 H Monocytes # 0.6 Eosinophils # 0.4 Basophils # 0.1 Nucleated Red Blood Cells # 0.0 Sodium Level 140 Potassium Level 3.8 Chloride Level 101 Carbon Dioxide Level 29 Anion Gap 14 Blood Urea Nitrogen 20 Creatinine 1.08 Glucose Level 214 Calcium Level 8.5 Total Bilirubin 0.1 L Direct Bilirubin 0.00 Indirect Bilirubin 0.1 Aspartate Amino Transf (AST/SGOT) 26 Alanine Aminotransferase (ALT/SGPT) 37 Alkaline Phosphatase 159 H Total Protein 7.0 Albumin 3.0 L Globulin 4.00 H Albumin/Globulin Ratio 0.75 Test 04/13/17 08:10 04/13/17 12:10 Bedside Glucose 255 H 215 Medications Medications Current Medications Ondansetron HCl (Zofran Inj) 4 mg Q6H PRN IV NAUSEA AND/OR VOMITING Last administered on 04/01/17 04:16; Admin Dose 4 MG; Start 03/31/17 at 21:30 Acetaminophen (Tylenol Tab) 650 mg Q6H PRN PO PAIN LEVEL 1-3 OR FEVER; Start 03/31/17 at 21:30 Amitriptyline HCl (Elavil) 10 mg QHS PO Last administered on 04/12/17 21:27; Admin Dose 10 MG; Start 04/01/17 at 21:00 Aspirin (Halfprin) 81 mg DAILY PO Last administered on 04/13/17 08:29; Admin Dose 81 MG; Start 04/01/17 at 09:00 Atorvastatin Calcium (Lipitor) 80 mg QHS PO Last administered on 04/12/17 21: 33; Admin Dose 80 MG; Start 04/01/17 at 21:00 Metoprolol Tartrate (Lopressor) 100 mg QHS PO Last administered on 04/12/17 21:27; Admin Dose 100 MG; Start 04/01/17 at 21:00 Dextrose (D50w Syringe) 25 ml Q15M PRN IV BS between 50-70; Start 04/01/17 at 07:30 Miscellaneous Information (Pending [facility] Order For Wound Care) This patient mims... PRN PRN XX WOUND CARE; Start 04/01/17 at 08:00 Lorazepam (Ativan) 1 mg Q6H PRN IV AGITATION/ANXIETY Last administered on 04/03 15:14; Admin Dose 1 MG; Start 04/01/17 at 12:00 IV Flush (NS 10 ml) 10 ml PRN PRN IV IV PROTOCOL; Start 04/01/17 at 13:30 Sodium Hypochlorite (Dakin'S (1/4 Strength)) 1 applic BID IRR Last administered on 04/13/17 13:15; Admin Dose 1 APPLIC; Start 04/01/17 at 21:00 Silver Sulfadiazine (Thermazene 1% 25 Gm) 1 applic BID TOP Last administered on 04/13/17 13:15; Admin Dose 1 APPLIC; Start 04/01/17 at 21:00 Oxycodone/ Acetaminophen (Endocet (10/ 325)) 1 tab Q4H PRN PO PAIN Last administered on 04/02/17 15:01; Admin Dose 1 TAB; Start 04/01/17 at 18:30 Diagnostic Test (Pha) (Accu-Chek) 1 ea 02 XX Last administered on 04/13/17 02 :40; Admin Dose 1 EA; Start 04/04/17 at 02:00 Miscellaneous Information 1 ea NOTE XX ; Start 04/03/17 at 10:00 Glucose (Glutose) 15 gm Q15M PRN PO DECREASED GLUCOSE; Start 04/03/17 at 10:00 Glucose (Glutose) 22.5 gm Q15M PRN PO DECREASED GLUCOSE; Start 04/03/17 at 10: 00 Dextrose (D50w Syringe) 25 ml Q15M PRN IV DECREASED GLUCOSE; Start 04/03/17 at 10:00 Dextrose (D50w Syringe) 50 ml Q15M PRN IV DECREASED GLUCOSE; Start 04/03/17 at 10:00 Glucagon (Glucagen) 1 mg Q15M PRN IM DECREASED GLUCOSE; Start 04/03/17 at 10: 00 Glucose (Glutose) 15 gm Q15M PRN BUCCAL DECREASED GLUCOSE; Start 04/03/17 at 10:00 Hydralazine HCl 10 mg 10 mg Q4H PRN IV ELEVATED SYSTOLIC BP Last administered on 04/11/17 20:52; Admin Dose 10 MG; Start 04/04/17 at 06:00 Ceftriaxone Sodium (Rocephin) 50 ml @ 100 mls/hr Q24H IVPB Last administered on 04/12/17 16:29; Admin Dose 100 MLS/HR; Start 04/05/17 at 16:30 Heparin Sodium (Porcine) 5000 unit 5,000 unit BID SC Last administered on 04/13 08:33; Admin Dose 5,000 UNIT; Start 04/05/17 at 21:00 Vancomycin HCl/ Sodium Chloride (Vancocin/NS) 250 ml @ 83.333 mls/ hr Q12H IVPB Last administered on 04/13/17 12:11; Admin Dose 83.333 MLS/HR; Start at 00:00 Lisinopril (Zestril) 40 mg DAILY PO Last administered on 04/13/17 08:28; Admin Dose 40 MG; Start 04/07/17 at 09:00 Amlodipine Besylate (Norvasc) 5 mg DAILY PO Last administered on 04/13/17 08: 28; Admin Dose 5 MG; Start 04/09/17 at 09:00 Insulin Glargine (Lantus) 60 unit QHS SC Last administered on 04/11/17 21:03 ; Admin Dose 60 UNIT; Start 04/11/17 at 21:00 Miscellaneous Information (*Rx Drug Level Order Reminder*) 1 ONCE ONCE XX ; Start 04/13/17 at 23:00; Stop 04/13/17 at 23:01 VINOD PEDRAZA MD Apr 13, 2017 15:30
[2017-04-13] MEDS: CEFTRIAXONE 2 GM/50 ML (PMX) 50 ML IVPB SCH (16:48)
[2017-04-13 19:18] VITALS: BP 141/79; RESP 18
[2017-04-13] MEDS: ATORVASTATIN 80 MG TAB PO SCH (20:35)
[2017-04-13] MEDS: AMITRIPTYLINE 10 MG TAB PO SCH (20:35)
[2017-04-13] MEDS: METOPROLOL 100 MG TAB PO SCH (20:35)
[2017-04-13] MEDS ORDERED: INSULIN GLARGINE [LANtus] 3 ML PEN SC SCH (21:00)
[2017-04-13] MEDS: ACETAMINOPHEN 325 MG TAB PO PRN (22:14)
[2017-04-14] MEDS: VANCOMYCIN 1.25 GM in SOD CHLORIDE 0.9% 250 ML IVPB SCH (00:35)
[2017-04-14 01:29] VITALS: BP 131/69; RESP 18
[2017-04-14] MEDS ORDERED: morphine 2 MG INJ IV PRN ×2 (02:00→22:30)
[2017-04-14] MEDS: ACCU-CHEK XX SCH (02:13)
[2017-04-14] MEDS ORDERED: ALTEPLASE (CATHFLO) 2 MG INJ CATHETER ONE (07:00)
[2017-04-14 07:57] VITALS: BP 156/74; RESP 18
[2017-04-14] MEDS: INSULIN ASPART [NOVOLOG] 3 ML PEN SC SCH ×7 (08:11→21:10)
[2017-04-14] MEDS: SILVER SULFADIAZINE 1% 25 GM CR TOP SCH ×3 (09:21→22:35)
[2017-04-14] MEDS: SODIUM HYPOCHLORITE 0.125% 473 ML BTL IRR SCH ×3 (09:21→22:35)
[2017-04-14] MEDS: ASPIRIN (EC) 81 MG TAB PO SCH (09:21)
[2017-04-14] MEDS: AMLODIPINE 5 MG TAB PO SCH (09:22)
[2017-04-14] MEDS: LISINOPRIL 20 MG TAB PO SCH (09:23)
[2017-04-14] MEDS: HEPARIN 5,000 UNIT/0.5 ML VIAL SC SCH ×2 (09:27→21:15)
--- NOTE | 2017-04-14 10:01 | PN ---
DATE: 04/14/2017 SUBJECTIVE: The patient is stable. No events overnight. OBJECTIVE: VITAL SIGNS: Blood pressure is 156/74, temperature 98.5, pulse 71, respiration 18. HEENT: Head is normocephalic. NECK: Supple. HEART: Regular rate. LUNGS: Show diminished breath sounds at base. ABDOMEN: Soft, nontender to palpation. No rebound or guarding. EXTREMITIES: Negative for clubbing, cyanosis. Trace edema. Positive Wounds. DERMATOLOGIC: No rashes. MUSCULOSKELETAL: No joint effusions. NEUROLOGIC: No change in exam. MEDICATIONS: Have been reviewed. LABORATORY DATA: Has been reviewed. ASSESSMENT AND PLAN: 1. Nonoliguric acute kidney injury with unknown baseline creatinine. Etiology secondary to hemodyn amics. Renal function has improved, currently at baseline. Continue to monitor. 2. Hypomagnesemia. Continue to monitor and replete. 3. Mineral bone disorder. Continue to monitor calcium and phosphorus levels. 4. Anemia. Monitor hemoglobin and hematocrit levels. 5. Hypertension. Continue current blood pressure regimen. 6. Sepsis secondary to lower extremity cellulitis and osteomyelitis. Continue current antibiotic r egimen. 7. Status post respiratory failure. 8. Urinary retention. Continue to monitor. Follow up with Urology. Dictated By: AFTAB DOBBS/ARAVIND Conf#: [id number] DID#: [id number]
[2017-04-14] MEDS: VANCOMYCIN 1 GM in NS 250 ML IVPB SCH (12:36)
--- NOTE | 2017-04-14 14:16 | CONS ---
Date/Time of Note Date/Time of Note DATE: 04/14/17 TIME: 14:16 Assessment/Plan Assessment/Plan Chief Complaint/Hosp Course SUBJECTIVE: No acute changes. Looks comfortable, afebrile. MICROBIOLOGY: Blood culture on admission grew oxacillin-sensitive Staphylococcus aureus and beta hemolytic strep species. Right foot wound culture grew Morganella morganii, Staphylococcus aureus strep Proteus penneri. Left foot wound culture also grew Enterococcus species in addition to what grew in the right and pseudomonas, all sensitive to Rocephin except enterococcus. ALLERGIES: SULFA. ANTIMICROBIALS: 1. Rocephin. 2. Vancomycin. PHYSICAL EXAMINATION: GENERAL: Obese, well-developed, middle-aged white man who is alert, in no distress. HEENT: Head atraumatic, normocephalic. Sclerae anicteric. Buccal mucosa pink. NECK: Supple. CHEST: Rise symmetrical. Breath sounds clear. HEART: S1, S2. ABDOMEN: Soft, bowel tones present. EXTREMITIES: Bilateral feet dressings intact. ASSESSMENT: 1. Status post sepsis with shock. 2. S/p polymicrobial bacteremia secondary to #3. 3. Right foot osteomyelitis with cultures growing multi-drug resistant organisms. 4. Left foot diabetic ulceration. 5. Poorly controlled diabetes. 6. Morbid obesity. 7. Anemia. 8. Acute possibly on chronic kidney disease. PLAN: The patient remains stable, repeat blood cultures negative, continue present care, antibiotics for 6-8 weeks and possibly longer, follow podiatry recommendations. DW staff Problems: Consultation Date/Type/Reason Admit Date/Time Mar 31, 2017 at 21:15 Initial Consult Date 04/01/17 Type of Consultation: id Referring Provider: VINOD PEDRAZA MD Exam/Review of Systems Vital Signs Vitals Vital Signs Date Time Temp Pulse Resp B/P Pulse Ox O2 Delivery O2 Flow Rate FiO2 04/14/17 07:57 98.5 91 18 156/74 91 Intake and Output 04/13/17 04/13/17 04/14/17 15:00 23:00 07:00 Intake Total 250 ml 2450 ml 610 ml Output Total 2550 ml 950 ml Balance 250 ml -100 ml -340 ml Results Result Diagram: 04/13/17 0601 04/13/17 0601 Results 24 hrs Laboratory Tests Test 04/13/17 17:04 04/13/17 22:01 04/13/17 23:10 04/14/17 02:10 Bedside Glucose 190 203 237 H Vancomycin Level Trough 17.3 Test 04/14/17 08:02 04/14/17 12:04 Bedside Glucose 243 H 247 H Medications Medications Current Medications Ondansetron HCl (Zofran Inj) 4 mg Q6H PRN IV NAUSEA AND/OR VOMITING Last administered on 04/01/17 04:16; Admin Dose 4 MG; Start 03/31/17 at 21:30 Acetaminophen (Tylenol Tab) 650 mg Q6H PRN PO PAIN LEVEL 1-3 OR FEVER Last administered on 04/13/17 22:14; Admin Dose 650 MG; Start 03/31/17 at 21:30 Amitriptyline HCl (Elavil) 10 mg QHS PO Last administered on 04/13/17 20:35; Admin Dose 10 MG; Start 04/01/17 at 21:00 Aspirin (Halfprin) 81 mg DAILY PO Last administered on 04/14/17 09:21; Admin Dose 81 MG; Start 04/01/17 at 09:00 Atorvastatin Calcium (Lipitor) 80 mg QHS PO Last administered on 04/13/17 20: 35; Admin Dose 80 MG; Start 04/01/17 at 21:00 Metoprolol Tartrate (Lopressor) 100 mg QHS PO Last administered on 04/13/17 20:35; Admin Dose 100 MG; Start 04/01/17 at 21:00 Dextrose (D50w Syringe) 25 ml Q15M PRN IV BS between 50-70; Start 04/01/17 at 07:30 Miscellaneous Information (Pending [facility] Order For Wound Care) This patient mims... PRN PRN XX WOUND CARE; Start 04/01/17 at 08:00 Lorazepam (Ativan) 1 mg Q6H PRN IV AGITATION/ANXIETY Last administered on 04/03 15:14; Admin Dose 1 MG; Start 04/01/17 at 12:00 IV Flush (NS 10 ml) 10 ml PRN PRN IV IV PROTOCOL; Start 04/01/17 at 13:30 Sodium Hypochlorite (Dakin'S (1/4 Strength)) 1 applic BID IRR Last administered on 04/14/17 09:21; Admin Dose 1 APPLIC; Start 04/01/17 at 21:00 Silver Sulfadiazine (Thermazene 1% 25 Gm) 1 applic BID TOP Last administered on 04/14/17 09:21; Admin Dose 1 APPLIC; Start 04/01/17 at 21:00 Oxycodone/ Acetaminophen (Endocet (10/ 325)) 1 tab Q4H PRN PO PAIN Last administered on 04/02/17 15:01; Admin Dose 1 TAB; Start 04/01/17 at 18:30 Diagnostic Test (Pha) (Accu-Chek) 1 ea 02 XX Last administered on 04/14/17 02 :13; Admin Dose 1 EA; Start 04/04/17 at 02:00 Miscellaneous Information 1 ea NOTE XX ; Start 04/03/17 at 10:00 Glucose (Glutose) 15 gm Q15M PRN PO DECREASED GLUCOSE; Start 04/03/17 at 10:00 Glucose (Glutose) 22.5 gm Q15M PRN PO DECREASED GLUCOSE; Start 04/03/17 at 10: 00 Dextrose (D50w Syringe) 25 ml Q15M PRN IV DECREASED GLUCOSE; Start 04/03/17 at 10:00 Dextrose (D50w Syringe) 50 ml Q15M PRN IV DECREASED GLUCOSE; Start 04/03/17 at 10:00 Glucagon (Glucagen) 1 mg Q15M PRN IM DECREASED GLUCOSE; Start 04/03/17 at 10: 00 Glucose (Glutose) 15 gm Q15M PRN BUCCAL DECREASED GLUCOSE; Start 04/03/17 at 10:00 Hydralazine HCl 10 mg 10 mg Q4H PRN IV ELEVATED SYSTOLIC BP Last administered on 04/11/17 20:52; Admin Dose 10 MG; Start 04/04/17 at 06:00 Ceftriaxone Sodium (Rocephin) 50 ml @ 100 mls/hr Q24H IVPB Last administered on 04/13/17 16:48; Admin Dose 100 MLS/HR; Start 04/05/17 at 16:30 Heparin Sodium (Porcine) (Heparin (5000 Units/0.5 ml)) 5,000 unit BID SC Last administered on 04/14/17 09:27; Admin Dose 5,000 UNIT; Start 04/05/17 at 21: 00 Lisinopril (Zestril) 40 mg DAILY PO Last administered on 04/14/17 09:23; Admin Dose 40 MG; Start 04/07/17 at 09:00 Amlodipine Besylate (Norvasc) 5 mg DAILY PO Last administered on 04/14/17 09: 22; Admin Dose 5 MG; Start 04/09/17 at 09:00 Insulin Glargine 65 unit 65 unit QHS SC Last administered on 04/13/17 22:06; Admin Dose 65 UNIT; Start 04/13/17 at 21:00 Vancomycin HCl (Vancocin) 250 ml @ 125 mls/hr Q12H IVPB Last administered on 04/14/17 12:36; Admin Dose 125 MLS/HR; Start 04/14/17 at 12:00 MEHRAN ZHANG NP Apr 14, 2017 14:16
[2017-04-14 15:01] VITALS: BP 158/75; RESP 16
--- NOTE | 2017-04-14 15:28 | PN ---
Date/Time of Note Date/Time of Note DATE: 04/14/17 TIME: 15:27 Assessment/Plan VTE Prophylaxis VTE Prophylaxis Intervention: LMWH Lines/Catheters IV Catheter Type (from Nrsg): PICC Line Central line still needed: Yes Assessment/Plan Chief Complaint/Hosp Course 56 yo male with h/o DMII, OM of foot in nonhealing ulcer presenting with sepsis , hyperglycemia, RENZO from cellulitis surrounding diabetic foot infection ID: Sepsis with staph aureus and strep bacteremia: resolved Diabetic foot ulcer with OM and cellulitis: - 6- 8 weeks IV abx (vanco/ceftriaxone) via PICC to be completed as an outpatient per ID RENZO: - Resolved DMII w hyperglycemia - Bsal/bolus insulin and uptitrate as needed CV: - Continue home aspirin, statin, metoprolol. Hold other BP meds Urinary retention - s/p santana. Trial of void successful Discharge to home when home IV abx arranged Problems: Subjective 24 Hr Interval Summary Free Text/Dictation Doing well, no complaints Sugar remain elevated Awaiting home IV abx arrangements Exam/Review of Systems Vital Signs Vitals Vital Signs Date Time Temp Pulse Resp B/P Pulse Ox O2 Delivery O2 Flow Rate FiO2 04/14/17 15:01 98.8 90 16 158/75 93 Intake and Output 04/13/17 04/13/17 04/14/17 15:00 23:00 07:00 Intake Total 250 ml 2450 ml 610 ml Output Total 2550 ml 950 ml Balance 250 ml -100 ml -340 ml Exam Constitutional: alert, oriented, well developed Psych: nl mood/affect, no complaints Head: atraumatic, normocephalic Eyes: EOMI, PERRL, nl conjunctiva, nl lids, nl sclera ENMT: nl external ears & nose, nl lips & teeth, nl nasal mucosa & septum Neck: non-tender, supple Respiratory: clear to auscultation, normal air movement Cardiovascular: nl pulses, regular rate and rhythm Gastrointestinal: nl liver, spleen, non-tender, soft Musculoskeletal: nl extremities to inspection, nl gait and stance Extremities: normal pulses Neurological: GREENS OR 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 II-XII 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, nl mental status, nl speech, nl strength Skin: nl turgor, No rash or lesions Lymph: nl lymph nodes Results Result Diagram: 04/13/17 0604/13/17 0601 Results 24 hrs Laboratory Tests Test 04/13/17 17:04 04/13/17 22:01 04/13/17 23:10 04/14/17 02:10 Bedside Glucose 190 203 237 H Vancomycin Level Trough 17.3 Test 04/14/17 08:02 04/14/17 12:04 Bedside Glucose 243 H 247 H Medications Medications Current Medications Ondansetron HCl (Zofran Inj) 4 mg Q6H PRN IV NAUSEA AND/OR VOMITING Last administered on 04/01/17 04:16; Admin Dose 4 MG; Start 03/31/17 at 21:30 Acetaminophen (Tylenol Tab) 650 mg Q6H PRN PO PAIN LEVEL 1-3 OR FEVER Last administered on 04/13/17 22:14; Admin Dose 650 MG; Start 03/31/17 at 21:30 Amitriptyline HCl (Elavil) 10 mg QHS PO Last administered on 04/13/17 20:35; Admin Dose 10 MG; Start 04/01/17 at 21:00 Aspirin (Halfprin) 81 mg DAILY PO Last administered on 04/14/17 09:21; Admin Dose 81 MG; Start 04/01/17 at 09:00 Atorvastatin Calcium (Lipitor) 80 mg QHS PO Last administered on 04/13/17 20: 35; Admin Dose 80 MG; Start 04/01/17 at 21:00 Metoprolol Tartrate (Lopressor) 100 mg QHS PO Last administered on 04/13/17 20:35; Admin Dose 100 MG; Start 04/01/17 at 21:00 Dextrose (D50w Syringe) 25 ml Q15M PRN IV BS between 50-70; Start 04/01/17 at 07:30 Miscellaneous Information ([facility] This patient mims... PRN PRN XX WOUND CARE; Start 04/01/17 at 08:00 Lorazepam (Ativan) 1 mg Q6H PRN IV AGITATION/ANXIETY Last administered on 04/03 15:14; Admin Dose 1 MG; Start 04/01/17 at 12:00 IV Flush (NS 10 ml) 10 ml PRN PRN IV IV PROTOCOL; Start 04/01/17 at 13:30 Sodium Hypochlorite (Dakin'S (1/4 Strength)) 1 applic BID IRR Last administered on 04/14/17 09:21; Admin Dose 1 APPLIC; Start 04/01/17 at 21:00 Silver Sulfadiazine (Thermazene 1% 25 Gm) 1 applic BID TOP Last administered on 04/14/17 09:21; Admin Dose 1 APPLIC; Start 04/01/17 at 21:00 Oxycodone/ Acetaminophen (Endocet (10/ 325)) 1 tab Q4H PRN PO PAIN Last administered on 04/02/17 15:01; Admin Dose 1 TAB; Start 04/01/17 at 18:30 Diagnostic Test (Pha) (Accu-Chek) 1 ea 02 XX Last administered on 04/14/17 02 :13; Admin Dose 1 EA; Start 04/04/17 at 02:00 Miscellaneous Information 1 ea NOTE XX ; Start 04/03/17 at 10:00 Glucose (Glutose) 15 gm Q15M PRN PO DECREASED GLUCOSE; Start 04/03/17 at 10:00 Glucose (Glutose) 22.5 gm Q15M PRN PO DECREASED GLUCOSE; Start 04/03/17 at 10: 00 Dextrose (D50w Syringe) 25 ml Q15M PRN IV DECREASED GLUCOSE; Start 04/03/17 at 10:00 Dextrose (D50w Syringe) 50 ml Q15M PRN IV DECREASED GLUCOSE; Start 04/03/17 at 10:00 Glucagon (Glucagen) 1 mg Q15M PRN IM DECREASED GLUCOSE; Start 04/03/17 at 10: 00 Glucose (Glutose) 15 gm Q15M PRN BUCCAL DECREASED GLUCOSE; Start 04/03/17 at 10:00 Hydralazine HCl 10 mg 10 mg Q4H PRN IV ELEVATED SYSTOLIC BP Last administered on 04/11/17 20:52; Admin Dose 10 MG; Start 04/04/17 at 06:00 Ceftriaxone Sodium (Rocephin) 50 ml @ 100 mls/hr Q24H IVPB Last administered on 04/13/17 16:48; Admin Dose 100 MLS/HR; Start 04/05/17 at 16:30 Heparin Sodium (Porcine) (Heparin (5000 Units/0.5 ml)) 5,000 unit BID SC Last administered on 04/14/17 09:27; Admin Dose 5,000 UNIT; Start 04/05/17 at 21: 00 Lisinopril (Zestril) 40 mg DAILY PO Last administered on 04/14/17 09:23; Admin Dose 40 MG; Start 04/07/17 at 09:00 Amlodipine Besylate (Norvasc) 5 mg DAILY PO Last administered on 04/14/17 09: 22; Admin Dose 5 MG; Start 04/09/17 at 09:00 Insulin Glargine 65 unit 65 unit QHS SC Last administered on 04/13/17 22:06; Admin Dose 65 UNIT; Start 04/13/17 at 21:00 Vancomycin HCl (Vancocin) 250 ml @ 125 mls/hr Q12H IVPB Last administered on 04/14/17 12:36; Admin Dose 125 MLS/HR; Start 04/14/17 at 12:00 VINOD PEDRAZA MD Apr 14, 2017 15:28
[2017-04-14] MEDS: CEFTRIAXONE 2 GM/50 ML (PMX) 50 ML IVPB SCH (16:52)
--- NOTE | 2017-04-14 17:32 | CONS ---
Date/Time of Note Date/Time of Note DATE: 04/14/17 TIME: 17:18 Assessment/Plan Assessment/Plan Problems: (1) Type 2 diabetes mellitus with hyperglycemia Status: Chronic Comment: Pt. on sophisticated insulin regimen w/ basal-bolus ratio 54:46. Will increase insulin dose a little while making ratio 40:60. Will also add linagliptin 5 mg/d and empagliflozin 10 mg/d. Increase Novolog from 20 to 30 units qac. Decrease Lantus from 70 qhs to 30 units q12 (60 units total). Monitor glucose values. If below goal, will reduce dosage. Will follow with you. Qualifiers: Qualified Code: E11.65 - Type 2 diabetes mellitus with hyperglycemia, with long-term current use of insulin Consultation Date/Type/Reason Admit Date/Time Mar 31, 2017 at 21:15 Date of Consultation: Apr 14, 2017 Type of Consultation: Endocrinology Reason for Consultation T2DM out of control (OOC) Referring Provider: VINOD PEDRAZA MD Hx of Present Illness 56 y/o C M w/ h/o T2DM, HTN, hyperlipidemia, GERD w/ h/o diabetic foot ulcer in past and chronically of LLE for the last year, in [facility] until 1 m. ago when he developed DFU of R foot. RLE quickly developed swelling, redness, warmth and pen. Significantly ill and 2 weeks ago came to [facility] for cellulitis and DFU. Since then pt. has been receiving antibiotics and wound care. BG has been intermittently controlled but not optimal so endo consulted. Constitutional: no complaints Eyes: no complaints ENT: no complaints Respiratory: no complaints Cardiovascular: no complaints Gastrointestinal: no complaints Genitourinary: no complaints Musculoskeletal: no complaints Neurologic: no complaints Past Medical History Medical History: diabetes, high cholesterol, hypertension, other (MRSA infection of right hip in the past, cellulitis of both lower extremities and possible osteomyelitis, peptic ulcer x 1) Past Surgical History Past Surgical Hx: other (Right hip wound debridement from MRSA infection, and also partial amputation of left foot toes 4/5 w/ skin graft) Family History Significant Family History: heart disease (both parents), cancer (leukemia in father), diabetes (mother) Social History b. [place], raised all over, in [facility] continuously for last 25 y, has B.S. 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 Alcohol Use: none Smoking Status: Never smoker Drug Use: none Exam/Review of Systems Vital Signs Vitals VS - Last 72 Hours, by Label Date Time Temp Pulse Resp B/P Pulse Ox O2 Delivery O2 Flow Rate FiO2 04/14/17 15:01 98.8 90 16 158/75 93 04/14/17 07:57 98.5 91 18 156/74 91 04/14/17 01:29 98.4 77 18 131/69 93 04/13/17 19:18 99.4 94 18 141/79 95 04/13/17 13:27 98.3 100 20 145/71 97 04/13/17 07:28 98.4 86 20 156/74 94 04/13/17 02:00 98.1 81 20 147/71 94 04/12/17 20:00 98.9 95 20 155/75 95 04/12/17 13:43 98.3 98 20 140/65 98 04/12/17 07:27 98.6 91 20 155/74 95 04/12/17 02:31 98.5 81 20 146/70 93 04/11/17 23:00 80 156/75 04/11/17 20:57 98.1 94 20 188/80 95 Vital Signs Date Time Temp Pulse Resp B/P Pulse Ox O2 Delivery O2 Flow Rate FiO2 04/14/17 15:01 98.8 90 16 158/75 93 Intake and Output 04/13/17 04/13/17 04/14/17 14:59 22:59 06:59 Intake Total 250 ml 2450 ml 610 ml Output Total 2550 ml 950 ml Balance 250 ml -100 ml -340 ml Exam Constitutional: alert, obese, oriented Psych: nl mood/affect, no complaints Eyes: EOMI, PERRL, nl conjunctiva, nl lids, nl sclera ENMT: mucosa pink and moist, nl external ears & nose Neck: non-tender, supple, No bruits, No masses, No thyromegaly Respiratory: clear to auscultation, normal air movement Cardiovascular: nl pulses, regular rate and rhythm, No edema, No murmurs/extra sounds, No rub Gastrointestinal: bowel sounds, nl liver, spleen, non-tender, soft, No mass, No rebound or guarding Musculoskeletal: No nl extremities to inspection (B feet wrapped, B plantar surfaces w/ ulcers through muscular layer, R foot Charcot) Extremities: No clubbing, No cyanosis, No edema Neurological: DRUM CLEANER II-XII intact, nl mental status, nl speech, nl strength Additional Comments Bedside Glucose - 72 Hours Test 04/11/17 20:10 04/12/17 02:34 04/12/17 08:06 04/12/17 12:10 Bedside Glucose 321mg/dL (70-220) H 270mg/dL (70-220) H 294mg/dL (70-220) H 201mg/dL (70-220) Test 04/12/17 17:17 04/12/17 21:23 04/13/17 02:12 04/13/17 08:10 Bedside Glucose 185mg/dL (70-220) 139mg/dL (70-220) 267mg/dL (70-220) H 255mg/dL (70-220) H Test 04/13/17 12:10 04/13/17 17:04 04/13/17 22:01 04/14/17 02:10 Bedside Glucose 215mg/dL (70-220) 190mg/dL (70-220) 203mg/dL (70-220) 237mg/dL (70-220) H Test 04/14/17 08:02 04/14/17 12:04 Bedside Glucose 243mg/dL (70-220) H 247mg/dL (70-220) H Results Result Diagram: 04/13/17 0601 04/13/17 0601 Results 24 hrs Laboratory Tests Test 04/13/17 22:01 04/13/17 23:10 04/14/17 02:10 04/14/17 08:02 Bedside Glucose 203 237 H 243 H Vancomycin Level Trough 17.3 Test 04/14/17 12:04 Bedside Glucose 247 H Medications Medications Current Medications Ondansetron HCl (Zofran Inj) 4 mg Q6H PRN IV NAUSEA AND/OR VOMITING Last administered on 04/01/17 04:16; Admin Dose 4 MG; Start 03/31/17 at 21:30 Acetaminophen (Tylenol Tab) 650 mg Q6H PRN PO PAIN LEVEL 1-3 OR FEVER Last administered on 04/13/17 22:14; Admin Dose 650 MG; Start 03/31/17 at 21:30 Amitriptyline HCl (Elavil) 10 mg QHS PO Last administered on 04/13/17 20:35; Admin Dose 10 MG; Start 04/01/17 at 21:00 Aspirin (Halfprin) 81 mg DAILY PO Last administered on 04/14/17 09:21; Admin Dose 81 MG; Start 04/01/17 at 09:00 Atorvastatin Calcium (Lipitor) 80 mg QHS PO Last administered on 04/13/17 20: 35; Admin Dose 80 MG; Start 04/01/17 at 21:00 Metoprolol Tartrate (Lopressor) 100 mg QHS PO Last administered on 04/13/17 20:35; Admin Dose 100 MG; Start 04/01/17 at 21:00 Dextrose (D50w Syringe) 25 ml Q15M PRN IV BS between 50-70; Start 04/01/17 at 07:30 Miscellaneous Information (Pending [facility] Order For Wound Care) This patient mims... PRN PRN XX WOUND CARE; Start 04/01/17 at 08:00 Lorazepam (Ativan) 1 mg Q6H PRN IV AGITATION/ANXIETY Last administered on 04/03 15:14; Admin Dose 1 MG; Start 04/01/17 at 12:00 IV Flush (NS 10 ml) 10 ml PRN PRN IV IV PROTOCOL; Start 04/01/17 at 13:30 Sodium Hypochlorite (Dakin'S (1/4 Strength)) 1 applic BID IRR Last administered on 04/14/17 09:21; Admin Dose 1 APPLIC; Start 04/01/17 at 21:00 Silver Sulfadiazine (Thermazene 1% 25 Gm) 1 applic BID TOP Last administered on 04/14/17 09:21; Admin Dose 1 APPLIC; Start 04/01/17 at 21:00 Oxycodone/ Acetaminophen (Endocet (10/ 325)) 1 tab Q4H PRN PO PAIN Last administered on 04/02/17 15:01; Admin Dose 1 TAB; Start 04/01/17 at 18:30 Diagnostic Test (Pha) (Accu-Chek) 1 ea 02 XX Last administered on 04/14/17 02 :13; Admin Dose 1 EA; Start 04/04/17 at 02:00 Miscellaneous Information 1 ea NOTE XX ; Start 04/03/17 at 10:00 Glucose (Glutose) 15 gm Q15M PRN PO DECREASED GLUCOSE; Start 04/03/17 at 10:00 Glucose (Glutose) 22.5 gm Q15M PRN PO DECREASED GLUCOSE; Start 04/03/17 at 10: 00 Dextrose (D50w Syringe) 25 ml Q15M PRN IV DECREASED GLUCOSE; Start 04/03/17 at 10:00 Dextrose (D50w Syringe) 50 ml Q15M PRN IV DECREASED GLUCOSE; Start 04/03/17 at 10:00 Glucagon (Glucagen) 1 mg Q15M PRN IM DECREASED GLUCOSE; Start 04/03/17 at 10: 00 Glucose (Glutose) 15 gm Q15M PRN BUCCAL DECREASED GLUCOSE; Start 04/03/17 at 10:00 Hydralazine HCl 10 mg 10 mg Q4H PRN IV ELEVATED SYSTOLIC BP Last administered on 04/11/17 20:52; Admin Dose 10 MG; Start 04/04/17 at 06:00 Ceftriaxone Sodium (Rocephin) 50 ml @ 100 mls/hr Q24H IVPB Last administered on 04/14/17 16:52; Admin Dose 100 MLS/HR; Start 04/05/17 at 16:30 Heparin Sodium (Porcine) (Heparin (5000 Units/0.5 ml)) 5,000 unit BID SC Last administered on 04/14/17 09:27; Admin Dose 5,000 UNIT; Start 04/05/17 at 21: 00 Lisinopril (Zestril) 40 mg DAILY PO Last administered on 04/14/17 09:23; Admin Dose 40 MG; Start 04/07/17 at 09:00 Amlodipine Besylate 5 mg 5 mg DAILY PO Last administered on 04/14/17 09:22; Admin Dose 5 MG; Start 04/09/17 at 09:00 Vancomycin HCl (Vancocin) 250 ml @ 125 mls/hr Q12H IVPB Last administered on 04/14/17 12:36; Admin Dose 125 MLS/HR; Start 04/14/17 at 12:00 Insulin Glargine (Lantus) 30 unit Q12 SC ; Start 04/14/17 at 21:00 Linagliptin (Tradjenta) 5 mg DAILY PO ; Start 04/15/17 at 09:00 Empaglifozin (Jardiance) 10 mg DAILY@08 PO ; Start 04/15/17 at 08:00 EULALIA LEON MD Apr 14, 2017 17:29
[2017-04-14 19:12] VITALS: BP 142/71; RESP 20
[2017-04-14] MEDS ORDERED: INSULIN GLARGINE [LANtus] 3 ML PEN SC SCH (21:00)
[2017-04-14] MEDS: ATORVASTATIN 80 MG TAB PO SCH (21:04)
[2017-04-14] MEDS: METOPROLOL 100 MG TAB PO SCH (21:05)
[2017-04-14] MEDS: AMITRIPTYLINE 10 MG TAB PO SCH (21:05)
[2017-04-14] MEDS: INSULIN GLARGINE [LANtus] 3 ML PEN SC SCH (21:09)
[2017-04-15] MEDS: VANCOMYCIN 1 GM in NS 250 ML IVPB SCH ×2 (00:26→12:05)
[2017-04-15 02:05] VITALS: BP 130/70; RESP 20
[2017-04-15] MEDS: ACCU-CHEK XX SCH (02:06)
--- NOTE | 2017-04-15 02:55 | CONS ---
DATE OF ADMISSION: 03/31/2017 DATE OF CONSULTATION: 04/14/2017 SUBJECTIVE FINDINGS: The patient is being followed for bilateral diabetic foot ulceration. 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 The patient with polymicrobial infection. Leukocytosis has resolved since admission. The pa zaira is pending discharge currently. Home health is being arranged by case management. Will need antibiotics for 8 weeks for osteomyelitis of the right mid foot. The patient denies any fever, naus ea, vomiting. The patient is being followed by endocrinology for glycemic control. OBJECTIVE FINDINGS: VITAL SIGNS: Temperature is 99.1, pulse 105, respiratory rate 20, blood pressure 142/71, pulse ox i s 94. GENERAL: The patient is alert, oriented, no acute distress. Regular respiration. EXTREMITIES: The patient with right foot with persistent instability of the mid foot. Decrease in edema. Erythema persists at the level of the tarsometatarsal joints. There is ulceration plantar a spect measuring 10 x 5 cm, with improved appearance of the wound. At the central aspect, there is a tunnel that probes to bone, serosanguineous drainage, no purulence. Left foot with a circular woun d plantar aspect at the third metatarsophalangeal joint with a depth of approximately 0.5 cm. Mild serosanguineous drainage. The patient with amputation of lateral 2 toes. LABORATORIES: WBC 9.2, hemoglobin 8.7, hematocrit 27.5, platelets 233. Glucose is 245. ASSESSMENT: 1. Right foot acute Charcot neuro-osteoarthropathy, Lisfranc fracture-dislocation with a superimpos ed osteomyelitis. 2. Left foot diabetic foot ulceration. 3. 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 4. Diabetes, poorly controlled. 5. Diabetes with peripheral neuropathy. 6. Cellulitis. 7. Edema. PLAN: The patient was seen and evaluated. Skin care, wound care performed. Continue daily irrigat ion with Dakin's, application of Silvadene. The patient is strict nonweightbearing bilateral feet. Continue IV antibiotics for 8 weeks. Appreciate ID recommendations. Recommend tight glycemic cont rol. Will need followup with endocrinology, infectious disease and wound care as an outpatient. Th e patient is high risk for amputation bilateral feet. Recommend use of a wheelchair. Long-term, ma y need permanent bracing or motorized scooter. Discussed with the patient and he understands the im portance of tight glycemic control. The patient's insurance and home health is being arranged by ca se management. Dictated By: CLARA LEBLANC/ARAVIND Conf#: [id number] DID#: [id number] CC: FEDERICO CUNNINGHAM MD;*EndCC*
[2017-04-15 06:22] LABS: CREATININE 1.06 mg/dl (0.61-1.24)
[2017-04-15 07:44] VITALS: BP 135/72; RESP 18
[2017-04-15] MEDS: ASPIRIN (EC) 81 MG TAB PO SCH (08:09)
[2017-04-15] MEDS: EMPAGLIFLOZIN 10 MG TABLET PO SCH (08:09)
[2017-04-15] MEDS: AMLODIPINE 5 MG TAB PO SCH (08:10)
[2017-04-15] MEDS: LISINOPRIL 20 MG TAB PO SCH (08:10)
[2017-04-15] MEDS: SODIUM HYPOCHLORITE 0.125% 473 ML BTL IRR SCH ×2 (08:12→22:26)
[2017-04-15] MEDS: SILVER SULFADIAZINE 1% 25 GM CR TOP SCH ×2 (08:12→22:27)
[2017-04-15] MEDS: INSULIN ASPART [NOVOLOG] 3 ML PEN SC SCH ×7 (08:21→20:49)
[2017-04-15] MEDS: INSULIN GLARGINE [LANtus] 3 ML PEN SC SCH ×2 (08:21→20:49)
[2017-04-15] MEDS: HEPARIN 5,000 UNIT/0.5 ML VIAL SC SCH ×2 (08:22→20:31)
[2017-04-15] MEDS: LINAGLIPTIN 5 MG TABLET PO SCH (08:36)
[2017-04-15] MEDS: ACETAMINOPHEN 325 MG TAB PO PRN (08:36)
--- NOTE | 2017-04-15 11:49 | PN ---
DATE: 04/15/2017 SUBJECTIVE: The patient is stable. No events overnight. No fevers, chills, nausea, vomiting. OBJECTIVE: VITAL SIGNS: Blood pressure is 135/72, temperature 97.6, respiration 18, pulse 89. HEENT: Head is normocephalic. NECK: Supple. HEART: Regular rate. LUNGS: Show diminished breath sounds at base. ABDOMEN: Soft, nontender to palpation. No rebound or guarding. EXTREMITIES: Negative for clubbing, cyanosis, edema. DERMATOLOGIC: No rashes. MUSCULOSKELETAL: No joint effusions. NEUROLOGIC: No change in exam. MEDICATIONS: Reviewed. LABORATORY DATA: Has been reviewed. ASSESSMENT AND PLAN: 1. Nonoliguric acute kidney injury with unknown baseline creatinine. Etiology is secondary to hemo dynamics. Renal function has improved, currently at baseline. Continue to monitor. 2. Hypomagnesemia. Continue to monitor and replete. 3. Mineral bone disease. Monitor calcium and phosphorus levels. 4. Anemia. Monitor hemoglobin and hematocrit levels. 5. Hypertension. Blood pressure is slowly improving. Continue current blood pressure regimen. Ad just medications as needed. 6. Sepsis secondary to lower extremity cellulitis and osteomyelitis, clinically improving. Continu e current antibiotic regimen. 7. Status post respiratory failure. 8. Urinary retention. Continue to monitor. Follow up with urology. Dictated By: AFTAB DOBBS/ARAVIND Conf#: [id number] DID#: [id number] CC: FEDERICO CUNNINGHAM MD;*EndCC*
[2017-04-15 13:44] VITALS: BP 126/74; RESP 16
--- NOTE | 2017-04-15 13:51 | PN ---
Date/Time of Note Date/Time of Note DATE: 04/15/17 TIME: 13:50 Assessment/Plan VTE Prophylaxis VTE Prophylaxis Intervention: LMWH Lines/Catheters IV Catheter Type (from Nrsg): PICC Line Central line still needed: Yes Urinary Cath still in place: No Assessment/Plan Chief Complaint/Hosp Course 56 yo male with h/o DMII, OM of foot in nonhealing ulcer presenting with sepsis , hyperglycemia, RENZO from cellulitis surrounding diabetic foot infection Sepsis with staph aureus and strep bacteremia: resolved Diabetic foot ulcer with OM and cellulitis: - 6- 8 weeks IV abx (vanco/ceftriaxone) via PICC to be completed as an outpatient per ID RENZO: - Resolved DMII w hyperglycemia - Bsal/bolus insulin and uptitrate as needed per Dr Briceno CV: - Continue home aspirin, statin, metoprolol. Hold other BP meds Urinary retention - s/p santana. Trial of void successful Discharge to home when home IV abx arranged Problems: Subjective 24 Hr Interval Summary Free Text/Dictation Insulin dosing adjust, oral agents added by Dr Arceo Otherwise clinically unchanged, awaiting home IV abx setup Exam/Review of Systems Vital Signs Vitals Vital Signs Date Time Temp Pulse Resp B/P Pulse Ox O2 Delivery O2 Flow Rate FiO2 04/15/17 13:44 97.8 107 16 126/74 97 Intake and Output 04/14/17 04/14/17 04/15/17 15:00 23:00 07:00 Intake Total 250 ml 1010 ml 250 ml Output Total 1300 ml Balance 250 ml -290 ml 250 ml Exam Constitutional: alert, oriented, well developed Psych: nl mood/affect, no complaints Head: atraumatic, normocephalic Eyes: EOMI, PERRL, nl conjunctiva, nl lids, nl sclera ENMT: nl external ears & nose, nl lips & teeth, nl nasal mucosa & septum Neck: non-tender, supple Respiratory: clear to auscultation, normal air movement Cardiovascular: nl pulses, regular rate and rhythm Gastrointestinal: nl liver, spleen, non-tender, soft Musculoskeletal: nl extremities to inspection, nl gait and stance Extremities: normal pulses Neurological: FLIGHT AGENT II-XII intact, nl mental status, nl speech, nl strength Skin: nl turgor, No rash or lesions Lymph: nl lymph nodes Results Result Diagram: 04/13/17 0601 04/15/17 0512 Results 24 hrs Laboratory Tests Test 04/14/17 17:19 04/14/17 21:02 04/15/17 02:06 04/15/17 05:12 Bedside Glucose 255 H 245 H 191 Blood Urea Nitrogen 18 Creatinine 1.06 Test 04/15/17 08:07 04/15/17 10:34 04/15/17 12:14 Bedside Glucose 214 245 H 178 Medications Medications Current Medications Ondansetron HCl (Zofran Inj) 4 mg Q6H PRN IV NAUSEA AND/OR VOMITING Last administered on 04/01/17 04:16; Admin Dose 4 MG; Start 03/31/17 at 21:30 Acetaminophen (Tylenol Tab) 650 mg Q6H PRN PO PAIN LEVEL 1-3 OR FEVER Last administered on 04/15/17 08:36; Admin Dose 650 MG; Start 03/31/17 at 21:30 Amitriptyline HCl (Elavil) 10 mg QHS PO Last administered on 04/14/17 21:05; Admin Dose 10 MG; Start 04/01/17 at 21:00 Aspirin (Halfprin) 81 mg DAILY PO Last administered on 04/15/17 08:09; Admin Dose 81 MG; Start 04/01/17 at 09:00 Atorvastatin Calcium (Lipitor) 80 mg QHS PO Last administered on 04/14/17 21: 04; Admin Dose 80 MG; Start 04/01/17 at 21:00 Metoprolol Tartrate (Lopressor) 100 mg QHS PO Last administered on 04/14/17 21:05; Admin Dose 100 MG; Start 04/01/17 at 21:00 Dextrose (D50w Syringe) 25 ml Q15M PRN IV BS between 50-70; Start 04/01/17 at 07:30 Miscellaneous Information (Pending Santyl Order For Wound Care) This patient mims... PRN PRN XX WOUND CARE; Start 04/01/17 at 08:00 Lorazepam (Ativan) 1 mg Q6H PRN IV AGITATION/ANXIETY Last administered on 04/03 15:14; Admin Dose 1 MG; Start 04/01/17 at 12:00 IV Flush (NS 10 ml) 10 ml PRN PRN IV IV PROTOCOL; Start 04/01/17 at 13:30 Sodium Hypochlorite (Dakin'S (1/4 Strength)) 1 applic BID IRR Last administered on 04/15/17 08:12; Admin Dose 1 APPLIC; Start 04/01/17 at 21:00 Silver Sulfadiazine (Thermazene 1% 25 Gm) 1 applic BID TOP Last administered on 04/15/17 08:12; Admin Dose 1 APPLIC; Start 04/01/17 at 21:00 Oxycodone/ Acetaminophen (Endocet (10 325)) 1 tab Q4H PRN PO PAIN Last administered on 04/02/17 15:01; Admin Dose 1 TAB; Start 04/01/17 at 18:30 Diagnostic Test (Pha) (Accu-Chek) 1 ea 02 XX Last administered on 04/15/17 02 :06; Admin Dose 1 EA; Start 04/04/17 at 02:00 Miscellaneous Information 1 ea NOTE XX ; Start 04/03/17 at 10:00 Glucose (Glutose) 15 gm Q15M PRN PO DECREASED GLUCOSE; Start 04/03/17 at 10:00 Glucose (Glutose) 22.5 gm Q15M PRN PO DECREASED GLUCOSE; Start 04/03/17 at 10: 00 Dextrose (D50w Syringe) 25 ml Q15M PRN IV DECREASED GLUCOSE; Start 04/03/17 at 10:00 Dextrose (D50w Syringe) 50 ml Q15M PRN IV DECREASED GLUCOSE; Start 04/03/17 at 10:00 Glucagon (Glucagen) 1 mg Q15M PRN IM DECREASED GLUCOSE; Start 04/03/17 at 10: 00 Glucose (Glutose) 15 gm Q15M PRN BUCCAL DECREASED GLUCOSE; Start 04/03/17 at 10:00 Hydralazine HCl 10 mg 10 mg Q4H PRN IV ELEVATED SYSTOLIC BP Last administered on 04/11/17 20:52; Admin Dose 10 MG; Start 04/04/17 at 06:00 Ceftriaxone Sodium (Rocephin) 50 ml @ 100 mls/hr Q24H IVPB Last administered on 04/14/17 16:52; Admin Dose 100 MLS/HR; Start 04/05/17 at 16:30 Heparin Sodium (Porcine) (Heparin (5000 Units/0.5 ml)) 5,000 unit BID SC Last administered on 04/15/17 08:22; Admin Dose 5,000 UNIT; Start 04/05/17 at 21: 00 Lisinopril (Zestril) 40 mg DAILY PO Last administered on 04/15/17 08:10; Admin Dose 40 MG; Start 04/07/17 at 09:00 Amlodipine Besylate 5 mg 5 mg DAILY PO Last administered on 04/15/17 08:10; Admin Dose 5 MG; Start 04/09/17 at 09:00 Vancomycin HCl (Vancocin) 250 ml @ 125 mls/hr Q12H IVPB Last administered on 04/15/17 12:05; Admin Dose 125 MLS/HR; Start 04/14/17 at 12:00 Insulin Glargine (Lantus) 30 unit Q12 SC Last administered on 04/15/17 08:21 ; Admin Dose 30 UNIT; Start 04/14/17 at 21:00 Linagliptin (Tradjenta) 5 mg DAILY PO Last administered on 04/15/17 08:36; Admin Dose 5 MG; Start 04/15/17 at 09:00 Empaglifozin (Jardiance) 10 mg DAILY@08 PO Last administered on 04/15/17 08: 09; Admin Dose 10 MG; Start 04/15/17 at 08:00 VINOD PEDRAZA MD Apr 15, 2017 13:51
--- NOTE | 2017-04-15 14:38 | CONS ---
Date/Time of Note Date/Time of Note DATE: 04/15/17 TIME: 14:37 Assessment/Plan Assessment/Plan Chief Complaint/Hosp Course SUBJECTIVE: No acute changes. Looks comfortable, afebrile. MICROBIOLOGY: Blood culture on admission grew oxacillin-sensitive Staphylococcus aureus and beta hemolytic strep species. Right foot wound culture grew Morganella morganii, Staphylococcus aureus strep Proteus penneri. Left foot wound culture also grew Enterococcus species in addition to what grew in the right and pseudomonas, all sensitive to Rocephin except enterococcus. ALLERGIES: SULFA. ANTIMICROBIALS: 1. Rocephin. 2. Vancomycin. PHYSICAL EXAMINATION: GENERAL: Obese, well-developed, middle-aged white man who is alert, in no distress. HEENT: Head atraumatic, normocephalic. Sclerae anicteric. Buccal mucosa pink. NECK: Supple. CHEST: Rise symmetrical. Breath sounds clear. HEART: S1, S2. ABDOMEN: Soft, bowel tones present. EXTREMITIES: Bilateral feet dressings intact. ASSESSMENT: 1. Status post sepsis with shock. 2. S/p polymicrobial bacteremia secondary to #3. 3. Right foot osteomyelitis with cultures growing multi-drug resistant organisms. 4. Left foot diabetic ulceration. 5. Poorly controlled diabetes. 6. Morbid obesity. 7. Anemia. 8. Acute possibly on chronic kidney disease. PLAN: The patient remains stable, repeat blood cultures negative, continue present care, antibiotics for 6-8 weeks and possibly longer, local wound care per podiatry recommendations. DW staff Problems: Consultation Date/Type/Reason Admit Date/Time Mar 31, 2017 at 21:15 Initial Consult Date 04/01/17 Type of Consultation: id Referring Provider: VINOD PEDRAZA MD Exam/Review of Systems Vital Signs Vitals Vital Signs Date Time Temp Pulse Resp B/P Pulse Ox O2 Delivery O2 Flow Rate FiO2 04/15/17 13:44 97.8 107 16 126/74 97 Intake and Output 04/14/17 04/14/17 04/15/17 14:59 22:59 06:59 Intake Total 250 ml 1010 ml 250 ml Output Total 1300 ml Balance 250 ml -290 ml 250 ml Results Result Diagram: 04/13/17 0601 04/15/17 0512 Results 24 hrs Laboratory Tests Test 04/14/17 17:19 04/14/17 21:02 04/15/17 02:06 04/15/17 05:12 Bedside Glucose 255 H 245 H 191 Blood Urea Nitrogen 18 Creatinine 1.06 Test 04/15/17 08:07 04/15/17 10:34 04/15/17 12:14 Bedside Glucose 214 245 H 178 Medications Medications Current Medications Ondansetron HCl (Zofran Inj) 4 mg Q6H PRN IV NAUSEA AND/OR VOMITING Last administered on 04/01/17 04:16; Admin Dose 4 MG; Start 03/31/17 at 21:30 Acetaminophen (Tylenol Tab) 650 mg Q6H PRN PO PAIN LEVEL 1-3 OR FEVER Last administered on 04/15/17 08:36; Admin Dose 650 MG; Start 03/31/17 at 21:30 Amitriptyline HCl (Elavil) 10 mg QHS PO Last administered on 04/14/17 21:05; Admin Dose 10 MG; Start 04/01/17 at 21:00 Aspirin (Halfprin) 81 mg DAILY PO Last administered on 04/15/17 08:09; Admin Dose 81 MG; Start 04/01/17 at 09:00 Atorvastatin Calcium (Lipitor) 80 mg QHS PO Last administered on 04/14/17 21: 04; Admin Dose 80 MG; Start 04/01/17 at 21:00 Metoprolol Tartrate (Lopressor) 100 mg QHS PO Last administered on 04/14/17 21:05; Admin Dose 100 MG; Start 04/01/17 at 21:00 Dextrose (D50w Syringe) 25 ml Q15M PRN IV BS between 50-70; Start 04/01/17 at 07:30 Miscellaneous Information (Pending Santyl Order For Wound Care) This patient mims... PRN PRN XX WOUND CARE; Start 04/01/17 at 08:00 Lorazepam (Ativan) 1 mg Q6H PRN IV AGITATION/ANXIETY Last administered on 04/03 15:14; Admin Dose 1 MG; Start 04/01/17 at 12:00 IV Flush (NS 10 ml) 10 ml PRN PRN IV IV PROTOCOL; Start 04/01/17 at 13:30 Sodium Hypochlorite (Dakin'S (1/4 Strength)) 1 applic BID IRR Last administered on 04/15/17 08:12; Admin Dose 1 APPLIC; Start 04/01/17 at 21:00 Silver Sulfadiazine (Thermazene 1% 25 Gm) 1 applic BID TOP Last administered on 04/15/17 08:12; Admin Dose 1 APPLIC; Start 04/01/17 at 21:00 Oxycodone/ Acetaminophen (Endocet (10/ 325)) 1 tab Q4H PRN PO PAIN Last administered on 04/02/17 15:01; Admin Dose 1 TAB; Start 04/01/17 at 18:30 Diagnostic Test (Pha) (Accu-Chek) 1 ea 02 XX Last administered on 04/15/17 02 :06; Admin Dose 1 EA; Start 04/04/17 at 02:00 Miscellaneous Information 1 ea NOTE XX ; Start 04/03/17 at 10:00 Glucose (Glutose) 15 gm Q15M PRN PO DECREASED GLUCOSE; Start 04/03/17 at 10:00 Glucose (Glutose) 22.5 gm Q15M PRN PO DECREASED GLUCOSE; Start 04/03/17 at 10: 00 Dextrose (D50w Syringe) 25 ml Q15M PRN IV DECREASED GLUCOSE; Start 04/03/17 at 10:00 Dextrose (D50w Syringe) 50 ml Q15M PRN IV DECREASED GLUCOSE; Start 04/03/17 at 10:00 Glucagon (Glucagen) 1 mg Q15M PRN IM DECREASED GLUCOSE; Start 04/03/17 at 10: 00 Glucose (Glutose) 15 gm Q15M PRN BUCCAL DECREASED GLUCOSE; Start 04/03/17 at 10:00 Hydralazine HCl 10 mg 10 mg Q4H PRN IV ELEVATED SYSTOLIC BP Last administered on 04/11/17 20:52; Admin Dose 10 MG; Start 04/04/17 at 06:00 Ceftriaxone Sodium (Rocephin) 50 ml @ 100 mls/hr Q24H IVPB Last administered on 04/14/17 16:52; Admin Dose 100 MLS/HR; Start 04/05/17 at 16:30 Heparin Sodium (Porcine) (Heparin (5000 Units/0.5 ml)) 5,000 unit BID SC Last administered on 04/15/17 08:22; Admin Dose 5,000 UNIT; Start 04/05/17 at 21: 00 Lisinopril (Zestril) 40 mg DAILY PO Last administered on 04/15/17 08:10; Admin Dose 40 MG; Start 04/07/17 at 09:00 Amlodipine Besylate 5 mg 5 mg DAILY PO Last administered on 04/15/17 08:10; Admin Dose 5 MG; Start 04/09/17 at 09:00 Vancomycin HCl (Vancocin) 250 ml @ 125 mls/hr Q12H IVPB Last administered on 04/15/17 12:05; Admin Dose 125 MLS/HR; Start 04/14/17 at 12:00 Insulin Glargine (Lantus) 30 unit Q12 SC Last administered on 04/15/17 08:21 ; Admin Dose 30 UNIT; Start 04/14/17 at 21:00 Linagliptin (Tradjenta) 5 mg DAILY PO Last administered on 04/15/17 08:36; Admin Dose 5 MG; Start 04/15/17 at 09:00 Empaglifozin (Jardiance) 10 mg DAILY@08 PO Last administered on 04/15/17 08: 09; Admin Dose 10 MG; Start 04/15/17 at 08:00 MEHRAN ZHANG NP Apr 15, 2017 14:38
[2017-04-15] MEDS: CEFTRIAXONE 2 GM/50 ML (PMX) 50 ML IVPB SCH (16:05)
--- NOTE | 2017-04-15 17:56 | CONS ---
Date/Time of Note Date/Time of Note DATE: 04/15/17 TIME: 17:53 Assessment/Plan Assessment/Plan Problems: (1) Type 2 diabetes mellitus with hyperglycemia Status: Chronic Comment: Glucose levels elevated this am but appear to be decreasing. Will monitor. Reeval tomorrow to decide if insulin can continue at this dose. Qualifiers: Diabetes mellitus terminal operator insulin use: with terminal operator use Qualified Code : E11.65 - Type 2 diabetes mellitus with hyperglycemia, with long-term current use of insulin Consultation Date/Type/Reason Admit Date/Time Mar 31, 2017 at 21:15 Initial Consult Date 04/14/17 Type of Consultation: Endocrinology Reason for Consultation T2DM OOC Referring Provider: VINOD PEDRAZA MD 24 HR Interval Summary Constitutional: improved, no complaints Detailed Summary Respiratory: no complaints Cardiovascular: no complaints Gastrointestinal: no complaints Genitourinary: no complaints Musculoskeletal: bone/joint pain (R foot) Neurologic: no complaints Exam/Review of Systems Vital Signs Vitals VS - Last 72 Hours, by Label Date Time Temp Pulse Resp B/P Pulse Ox O2 Delivery O2 Flow Rate FiO2 04/15/17 13:44 97.8 107 16 126/74 97 04/15/17 07:44 97.6 89 18 135/72 93 04/15/17 02:05 98.5 84 20 130/70 94 04/14/17 19:12 99.1 105 20 142/71 94 04/14/17 15:01 98.8 90 16 158/75 93 04/14/17 07:57 98.5 91 18 156/74 91 04/14/17 01:29 98.4 77 18 131/69 93 04/13/17 19:18 99.4 94 18 141/79 95 04/13/17 13:27 98.3 100 20 145/71 97 04/13/17 07:28 98.4 86 20 156/74 94 04/13/17 02:00 98.1 81 20 147/71 94 04/12/17 20:00 98.9 95 20 155/75 95 Vital Signs Date Time Temp Pulse Resp B/P Pulse Ox O2 Delivery O2 Flow Rate FiO2 04/15/17 13:44 97.8 107 16 126/74 97 Intake and Output 04/14/17 04/14/17 04/15/17 15:00 23:00 07:00 Intake Total 250 ml 1010 ml 250 ml Output Total 1300 ml Balance 250 ml -290 ml 250 ml Exam Constitutional: alert, obese, oriented Psych: nl mood/affect, no complaints Respiratory: clear to auscultation, normal air movement Cardiovascular: edema (tr edema RLE), nl pulses, regular rate and rhythm, No murmurs/extra sounds, No rub Gastrointestinal: bowel sounds, nl liver, spleen, non-tender, soft, No mass, No rebound or guarding Musculoskeletal: No nl extremities to inspection (BLE wrapped) Extremities: edema (tr edema RLE), No clubbing, No cyanosis Neurological: CISCO ADMINISTRATOR II-XII intact, nl mental status, nl speech, nl strength Additional Comments Bedside Glucose - 72 Hours Test 04/12/17 21:23 04/13/17 02:12 04/13/17 08:10 04/13/17 12:10 Bedside Glucose 139mg/dL (70-220) 267mg/dL (70-220) H 255mg/dL (70-220) H 215mg/dL (70-220) Test 04/13/17 17:04 04/13/17 22:01 04/14/17 02:10 04/14/17 08:02 Bedside Glucose 190mg/dL (70-220) 203mg/dL (70-220) 237mg/dL (70-220) H 243mg/dL (70-220) H Test 04/14/17 12:04 04/14/17 17:19 04/14/17 21:02 04/15/17 02:06 Bedside Glucose 247mg/dL (70-220) H 255mg/dL (70-220) H 245mg/dL (70-220) H 191mg/dL (70-220) Test 04/15/17 08:07 04/15/17 10:34 04/15/17 12:14 04/15/17 17:25 Bedside Glucose 214mg/dL (70-220) 245mg/dL (70-220) H 178mg/dL (70-220) 118mg/dL (70-220) Results Result Diagram: 04/13/17 0601 04/15/17 0512 Results 24 hrs Laboratory Tests Test 04/14/17 21:02 04/15/17 02:06 04/15/17 05:12 04/15/17 08:07 Bedside Glucose 245 H 191 214 Blood Urea Nitrogen 18 Creatinine 1.06 Test 04/15/17 10:34 04/15/17 12:14 04/15/17 17:25 Bedside Glucose 245 H 178 118 Medications Medications Current Medications Ondansetron HCl (Zofran Inj) 4 mg Q6H PRN IV NAUSEA AND/OR VOMITING Last administered on 04/01/17 04:16; Admin Dose 4 MG; Start 03/31/17 at 21:30 Acetaminophen (Tylenol Tab) 650 mg Q6H PRN PO PAIN LEVEL 1-3 OR FEVER Last administered on 04/15/17 08:36; Admin Dose 650 MG; Start 03/31/17 at 21:30 Amitriptyline HCl (Elavil) 10 mg QHS PO Last administered on 04/14/17 21:05; Admin Dose 10 MG; Start 04/01/17 at 21:00 Aspirin (Halfprin) 81 mg DAILY PO Last administered on 04/15/17 08:09; Admin Dose 81 MG; Start 04/01/17 at 09:00 Atorvastatin Calcium (Lipitor) 80 mg QHS PO Last administered on 04/14/17 21: 04; Admin Dose 80 MG; Start 04/01/17 at 21:00 Metoprolol Tartrate (Lopressor) 100 mg QHS PO Last administered on 04/14/17 21:05; Admin Dose 100 MG; Start 04/01/17 at 21:00 Dextrose (D50w Syringe) 25 ml Q15M PRN IV BS between 50-70; Start 04/01/17 at 07:30 [facility] This patient mims... PRN PRN XX WOUND CARE; Start 04/01/17 at 08:00 Lorazepam (Ativan) 1 mg Q6H PRN IV AGITATION/ANXIETY Last administered on 04/03 15:14; Admin Dose 1 MG; Start 04/01/17 at 12:00 IV Flush (NS 10 ml) 10 ml PRN PRN IV IV PROTOCOL; Start 04/01/17 at 13:30 Sodium Hypochlorite (Dakin'S (1/4 Strength)) 1 applic BID IRR Last administered on 04/15/17 08:12; Admin Dose 1 APPLIC; Start 04/01/17 at 21:00 Silver Sulfadiazine (Thermazene 1% 25 Gm) 1 applic BID TOP Last administered on 04/15/17 08:12; Admin Dose 1 APPLIC; Start 04/01/17 at 21:00 Oxycodone/ Acetaminophen (Endocet (10/ 325)) 1 tab Q4H PRN PO PAIN Last administered on 04/02/17 15:01; Admin Dose 1 TAB; Start 04/01/17 at 18:30 Diagnostic Test (Pha) (Accu-Chek) 1 ea 02 XX Last administered on 04/15/17 02 :06; Admin Dose 1 EA; Start 04/04/17 at 02:00 Miscellaneous Information 1 ea NOTE XX ; Start 04/03/17 at 10:00 Glucose (Glutose) 15 gm Q15M PRN PO DECREASED GLUCOSE; Start 04/03/17 at 10:00 Glucose (Glutose) 22.5 gm Q15M PRN PO DECREASED GLUCOSE; Start 04/03/17 at 10: 00 Dextrose (D50w Syringe) 25 ml Q15M PRN IV DECREASED GLUCOSE; Start 04/03/17 at 10:00 Dextrose (D50w Syringe) 50 ml Q15M PRN IV DECREASED GLUCOSE; Start 04/03/17 at 10:00 Glucagon (Glucagen) 1 mg Q15M PRN IM DECREASED GLUCOSE; Start 04/03/17 at 10: 00 Glucose (Glutose) 15 gm Q15M PRN BUCCAL DECREASED GLUCOSE; Start 04/03/17 at 10:00 Hydralazine HCl 10 mg 10 mg Q4H PRN IV ELEVATED SYSTOLIC BP Last administered on 04/11/17 20:52; Admin Dose 10 MG; Start 04/04/17 at 06:00 Ceftriaxone Sodium (Rocephin) 50 ml @ 100 mls/hr Q24H IVPB Last administered on 04/15/17 16:05; Admin Dose 100 MLS/HR; Start 04/05/17 at 16:30 Heparin Sodium (Porcine) (Heparin (5000 Units/0.5 ml)) 5,000 unit BID SC Last administered on 04/15/17 08:22; Admin Dose 5,000 UNIT; Start 04/05/17 at 21: 00 Lisinopril (Zestril) 40 mg DAILY PO Last administered on 04/15/17 08:10; Admin Dose 40 MG; Start 04/07/17 at 09:00 Amlodipine Besylate 5 mg 5 mg DAILY PO Last administered on 04/15/17 08:10; Admin Dose 5 MG; Start 04/09/17 at 09:00 Vancomycin HCl (Vancocin) 250 ml @ 125 mls/hr Q12H IVPB Last administered on 04/15/17 12:05; Admin Dose 125 MLS/HR; Start 04/14/17 at 12:00 Insulin Glargine (Lantus) 30 unit Q12 SC Last administered on 04/15/17 08:21 ; Admin Dose 30 UNIT; Start 04/14/17 at 21:00 Linagliptin (Tradjenta) 5 mg DAILY PO Last administered on 04/15/17 08:36; Admin Dose 5 MG; Start 04/15/17 at 09:00 Empaglifozin (Jardiance) 10 mg DAILY@08 PO Last administered on 04/15/17 08: 09; Admin Dose 10 MG; Start 04/15/17 at 08:00 EULALIA LEON MD Apr 15, 2017 17:56
[2017-04-15 19:32] VITALS: BP 154/78; PULSE 104; RESP 23
[2017-04-15 20:14] VITALS: BP 154/78; RESP 20
[2017-04-15] MEDS: AMITRIPTYLINE 10 MG TAB PO SCH (20:22)
[2017-04-15] MEDS: ATORVASTATIN 80 MG TAB PO SCH (20:22)
[2017-04-15] MEDS: METOPROLOL 100 MG TAB PO SCH (20:23)
[2017-04-15] MEDS: morphine 2 MG INJ IV PRN (22:46)
[2017-04-16] MEDS: VANCOMYCIN 1 GM in NS 250 ML IVPB SCH ×2 (00:02→12:14)
[2017-04-16] MEDS: ACCU-CHEK XX SCH (02:00)
[2017-04-16 02:19] VITALS: BP 116/65; RESP 18
[2017-04-16] MEDS: INSULIN ASPART [NOVOLOG] 3 ML PEN SC SCH ×7 (07:58→20:58)
[2017-04-16 08:10] VITALS: BP 119/67; RESP 18
[2017-04-16] MEDS: ASPIRIN (EC) 81 MG TAB PO SCH (08:11)
[2017-04-16] MEDS: LISINOPRIL 20 MG TAB PO SCH (08:11)
[2017-04-16] MEDS: EMPAGLIFLOZIN 10 MG TABLET PO SCH (08:11)
[2017-04-16] MEDS: AMLODIPINE 5 MG TAB PO SCH (08:12)
[2017-04-16] MEDS: LINAGLIPTIN 5 MG TABLET PO SCH (08:12)
[2017-04-16] MEDS: HEPARIN 5,000 UNIT/0.5 ML VIAL SC SCH ×2 (08:14→20:47)
[2017-04-16] MEDS: INSULIN GLARGINE [LANtus] 3 ML PEN SC SCH ×2 (08:15→20:55)
[2017-04-16] MEDS: SODIUM HYPOCHLORITE 0.125% 473 ML BTL IRR SCH ×2 (08:16→23:13)
[2017-04-16] MEDS: SILVER SULFADIAZINE 1% 25 GM CR TOP SCH ×2 (08:16→23:13)
--- NOTE | 2017-04-16 11:17 | PN ---
DATE: 04/16/2017 SUBJECTIVE: The patient is stable. No events overnight. OBJECTIVE: VITAL SIGNS: Blood pressure is 119/67, respiration 18, pulse 86, temperature 98.8. HEENT: Head is normocephalic. NECK: Supple. HEART: Regular rate. LUNGS: Show diminished breath sounds at base. ABDOMEN: Soft, nontender to palpation. No rebound or guarding. EXTREMITIES: Negative for clubbing, cyanosis. Positive wounds. DERMATOLOGIC: No rashes. MUSCULOSKELETAL: No joint effusions. NEUROLOGIC: No change in exam. MEDICATIONS: The patient's medications have been reviewed. LABORATORY DATA: Has been reviewed. No new labs this morning. ASSESSMENT AND PLAN: 1. Nonoliguric acute kidney injury with unknown baseline creatinine. Etiology secondary to hemodyn amics. Renal function is improved. Continue current treatment plan and monitor. 2. Hypomagnesemia. Continue to monitor and replete. 3. Mineral bone disorder. Continue to monitor calcium and phosphorus levels. 4. Anemia. Monitor H and H levels. 5. Hypertension. Continue current blood pressure regimen. 6. Sepsis secondary to lower extremity cellulitis and osteomyelitis. Continue current medical man agement. Continue IV antibiotics. 7. Diabetes, continue current regimen. 8. Status post respiratory failure. 9. Urinary retention. Continue to monitor. Please note, we will follow the patient as needed. Dictated By: AFTAB DOBBS/ARAVIND Conf#: [id number] DID#: [id number]
--- NOTE | 2017-04-16 13:00 | CONS ---
Date/Time of Note Date/Time of Note DATE: 04/16/17 TIME: 13:00 Assessment/Plan Assessment/Plan Chief Complaint/Hosp Course SUBJECTIVE: No acute changes. Looks comfortable, afebrile. MICROBIOLOGY: Blood culture on admission grew oxacillin-sensitive Staphylococcus aureus and beta hemolytic strep species. Right foot wound culture grew Morganella morganii, Staphylococcus aureus strep Proteus penneri. Left foot wound culture also grew Enterococcus species in addition to what grew in the right and pseudomonas, all sensitive to Rocephin except enterococcus. ALLERGIES: SULFA. ANTIMICROBIALS: 1. Rocephin. 2. Vancomycin. PHYSICAL EXAMINATION: GENERAL: Obese, well-developed, middle-aged white man who is alert, in no distress. HEENT: Head atraumatic, normocephalic. Sclerae anicteric. Buccal mucosa pink. NECK: Supple. CHEST: Rise symmetrical. Breath sounds clear. HEART: S1, S2. ABDOMEN: Soft, bowel tones present. EXTREMITIES: Bilateral feet dressings intact. ASSESSMENT: 1. Status post sepsis with shock. 2. S/p polymicrobial bacteremia secondary to #3. 3. Right foot osteomyelitis with cultures growing multi-drug resistant organisms. 4. Left foot diabetic ulceration. 5. Poorly controlled diabetes. 6. Morbid obesity. 7. Anemia. 8. Acute possibly on chronic kidney disease. PLAN: The patient remains stable, pending placement, continue antibiotics for 6 -8 weeks, local wound care per podiatry recommendations. DW staff Problems: Consultation Date/Type/Reason Admit Date/Time Mar 31, 2017 at 21:15 Initial Consult Date 04/01/17 Type of Consultation: ID Referring Provider: VINOD PEDRAZA MD Exam/Review of Systems Vital Signs Vitals Vital Signs Date Time Temp Pulse Resp B/P Pulse Ox O2 Delivery O2 Flow Rate FiO2 04/16/17 08:10 98.8 86 18 119/67 95 04/15/17 19:32 Room Air Intake and Output 04/15/17 04/15/17 04/16/17 15:00 23:00 07:00 Intake Total 250 ml 1010 ml 1290 ml Output Total 1000 ml 1025 ml Balance 250 ml 10 ml 265 ml Results Result Diagram: 04/13/17 0601 04/15/17 0512 Results 24 hrs Laboratory Tests Test 04/15/17 17:25 04/15/17 20:32 04/16/17 07:56 04/16/17 12:04 Bedside Glucose 118 132 136 162 Medications Medications Current Medications Ondansetron HCl (Zofran Inj) 4 mg Q6H PRN IV NAUSEA AND/OR VOMITING Last administered on 04/01/17 04:16; Admin Dose 4 MG; Start 03/31/17 at 21:30 Acetaminophen (Tylenol Tab) 650 mg Q6H PRN PO PAIN LEVEL 1-3 OR FEVER Last administered on 04/15/17 08:36; Admin Dose 650 MG; Start 03/31/17 at 21:30 Amitriptyline HCl (Elavil) 10 mg QHS PO Last administered on 04/15/17 20:22; Admin Dose 10 MG; Start 04/01/17 at 21:00 Aspirin (Halfprin) 81 mg DAILY PO Last administered on 04/16/17 08:11; Admin Dose 81 MG; Start 04/01/17 at 09:00 Atorvastatin Calcium (Lipitor) 80 mg QHS PO Last administered on 04/15/17 20: 22; Admin Dose 80 MG; Start 04/01/17 at 21:00 Metoprolol Tartrate (Lopressor) 100 mg QHS PO Last administered on 04/15/17 20:23; Admin Dose 100 MG; Start 04/01/17 at 21:00 Dextrose (D50w Syringe) 25 ml Q15M PRN IV BS between 50-70; Start 04/01/17 at 07:30 Miscellaneous Information (Pending [facility] Order For Wound Care) This patient mims... PRN PRN XX WOUND CARE; Start 04/01/17 at 08:00 Lorazepam (Ativan) 1 mg Q6H PRN IV AGITATION/ANXIETY Last administered on 04/03 15:14; Admin Dose 1 MG; Start 04/01/17 at 12:00 IV Flush (NS 10 ml) 10 ml PRN PRN IV IV PROTOCOL; Start 04/01/17 at 13:30 Sodium Hypochlorite (Dakin'S (1/4 Strength)) 1 applic BID IRR Last administered on 04/16/17 08:16; Admin Dose 1 APPLIC; Start 04/01/17 at 21:00 Silver Sulfadiazine (Thermazene 1% 25 Gm) 1 applic BID TOP Last administered on 04/16/17 08:16; Admin Dose 1 APPLIC; Start 04/01/17 at 21:00 Oxycodone/ Acetaminophen (Endocet (10/ 325)) 1 tab Q4H PRN PO PAIN Last administered on 04/02/17 15:01; Admin Dose 1 TAB; Start 04/01/17 at 18:30 Diagnostic Test (Pha) (Accu-Chek) 1 ea 02 XX Last administered on 04/15/17 02 :06; Admin Dose 1 EA; Start 04/04/17 at 02:00 Miscellaneous Information 1 ea NOTE XX ; Start 04/03/17 at 10:00 Glucose (Glutose) 15 gm Q15M PRN PO DECREASED GLUCOSE; Start 04/03/17 at 10:00 Glucose (Glutose) 22.5 gm Q15M PRN PO DECREASED GLUCOSE; Start 04/03/17 at 10: 00 Dextrose (D50w Syringe) 25 ml Q15M PRN IV DECREASED GLUCOSE; Start 04/03/17 at 10:00 Dextrose (D50w Syringe) 50 ml Q15M PRN IV DECREASED GLUCOSE; Start 04/03/17 at 10:00 Glucagon (Glucagen) 1 mg Q15M PRN IM DECREASED GLUCOSE; Start 04/03/17 at 10: 00 Glucose (Glutose) 15 gm Q15M PRN BUCCAL DECREASED GLUCOSE; Start 04/03/17 at 10:00 Hydralazine HCl 10 mg 10 mg Q4H PRN IV ELEVATED SYSTOLIC BP Last administered on 04/11/17 20:52; Admin Dose 10 MG; Start 04/04/17 at 06:00 Ceftriaxone Sodium (Rocephin) 50 ml @ 100 mls/hr Q24H IVPB Last administered on 04/15/17 16:05; Admin Dose 100 MLS/HR; Start 04/05/17 at 16:30 Heparin Sodium (Porcine) (Heparin (5000 Units/0.5 ml)) 5,000 unit BID SC Last administered on 04/16/17 08:14; Admin Dose 5,000 UNIT; Start 04/05/17 at 21:00 Lisinopril (Zestril) 40 mg DAILY PO Last administered on 04/16/17 08:11; Admin Dose 40 MG; Start 04/07/17 at 09:00 Amlodipine Besylate 5 mg 5 mg DAILY PO Last administered on 04/16/17 08:12; Admin Dose 5 MG; Start 04/09/17 at 09:00 Vancomycin HCl (Vancocin) 250 ml @ 125 mls/hr Q12H IVPB Last administered on 04/16/17 12:14; Admin Dose 125 MLS/HR; Start 04/14/17 at 12:00 Insulin Glargine (Lantus) 30 unit Q12 SC Last administered on 04/16/17 08:15; Admin Dose 30 UNIT; Start 04/14/17 at 21:00 Linagliptin (Tradjenta) 5 mg DAILY PO Last administered on 04/16/17 08:12; Admin Dose 5 MG; Start 04/15/17 at 09:00 Empaglifozin (Jardiance) 10 mg DAILY@08 PO Last administered on 04/16/17 08:11 ; Admin Dose 10 MG; Start 04/15/17 at 08:00 Morphine Sulfate (morphine) 2 mg Q4H PRN IV PAIN LEVEL 4-6 Last administered on 04/15/17 22:46; Admin Dose 2 MG; Start 04/15/17 at 18:30 MEHRAN ZHANG NP Apr 16, 2017 13:00
[2017-04-16 14:51] VITALS: BP 122/73; PULSE 100
[2017-04-16] MEDS: CEFTRIAXONE 2 GM/50 ML (PMX) 50 ML IVPB SCH (15:47)
--- NOTE | 2017-04-16 17:16 | PN ---
Date/Time of Note Date/Time of Note DATE: 04/16/17 TIME: 16:04 Assessment/Plan VTE Prophylaxis VTE Prophylaxis Intervention: LMWH Lines/Catheters IV Catheter Type (from Nrsg): PICC Line Central line still needed: Yes Urinary Cath still in place: No Assessment/Plan Chief Complaint/Hosp Course 56 yo male with h/o DMII, OM of foot in nonhealing ulcer presenting with sepsis , hyperglycemia, RENZO from cellulitis surrounding diabetic foot infection Sepsis with staph aureus and strep bacteremia: resolved Diabetic foot ulcer with OM and cellulitis: - 6- 8 weeks IV abx (vanco/ceftriaxone) via PICC to be completed as an outpatient per ID RENZO: - Resolved DMII w hyperglycemia - Bsal/bolus insulin and uptitrate as needed per Dr Briceno CV: - Continue home aspirin, statin, metoprolol Urinary retention - s/p santana. Trial of void successful Discharge to home when home IV abx and sliding board arranged Problems: Subjective 24 Hr Interval Summary Free Text/Dictation Awaiting home delivery of sliding board and arrangement of IV abx prior to dc Otherwise medically stable Exam/Review of Systems Vital Signs Vitals Vital Signs Date Time Temp Pulse Resp B/P Pulse Ox O2 Delivery O2 Flow Rate FiO2 04/16/17 14:51 97.5 100 122/73 95 Room Air 04/16/17 08:10 18 Intake and Output 04/15/17 04/15/17 04/16/17 15:00 23:00 07:00 Intake Total 250 ml 1010 ml 1290 ml Output Total 1000 ml 1025 ml Balance 250 ml 10 ml 265 ml Exam Constitutional: alert, oriented, well developed Psych: nl mood/affect, no complaints Head: atraumatic, normocephalic Eyes: EOMI, PERRL, nl conjunctiva, nl lids, nl sclera ENMT: nl external ears & nose, nl lips & teeth, nl nasal mucosa & septum Neck: non-tender, supple Respiratory: clear to auscultation, normal air movement Cardiovascular: nl pulses, regular rate and rhythm Gastrointestinal: nl liver, spleen, non-tender, soft Musculoskeletal: nl extremities to inspection, nl gait and stance Extremities: normal pulses 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, nl mental status, nl speech, nl strength Skin: nl turgor, No rash or lesions Lymph: nl lymph nodes Results Result Diagram: 04/13/17 0601 04/15/17 0512 Results 24 hrs Laboratory Tests Test 04/15/17 17:25 04/15/17 20:32 04/16/17 07:56 04/16/17 12:04 Bedside Glucose 118 132 136 162 Medications Medications Current Medications Ondansetron HCl (Zofran Inj) 4 mg Q6H PRN IV NAUSEA AND/OR VOMITING Last administered on 04/01/17 04:16; Admin Dose 4 MG; Start 03/31/17 at 21:30 Acetaminophen (Tylenol Tab) 650 mg Q6H PRN PO PAIN LEVEL 1-3 OR FEVER Last administered on 04/15/17 08:36; Admin Dose 650 MG; Start 03/31/17 at 21:30 Amitriptyline HCl (Elavil) 10 mg QHS PO Last administered on 04/15/17 20:22; Admin Dose 10 MG; Start 04/01/17 at 21:00 Aspirin (Halfprin) 81 mg DAILY PO Last administered on 04/16/17 08:11; Admin Dose 81 MG; Start 04/01/17 at 09:00 Atorvastatin Calcium (Lipitor) 80 mg QHS PO Last administered on 04/15/17 20: 22; Admin Dose 80 MG; Start 04/01/17 at 21:00 Metoprolol Tartrate (Lopressor) 100 mg QHS PO Last administered on 04/15/17 20:23; Admin Dose 100 MG; Start 04/01/17 at 21:00 Dextrose (D50w Syringe) 25 ml Q15M PRN IV BS between 50-70; Start 04/01/17 at 07:30 Miscellaneous Information (Pending [facility] Order For Wound Care) This patient mims... PRN PRN XX WOUND CARE; Start 04/01/17 at 08:00 Lorazepam (Ativan) 1 mg Q6H PRN IV AGITATION/ANXIETY Last administered on 04/03 15:14; Admin Dose 1 MG; Start 04/01/17 at 12:00 IV Flush (NS 10 ml) 10 ml PRN PRN IV IV PROTOCOL; Start 04/01/17 at 13:30 Sodium Hypochlorite (Dakin'S (1/4 Strength)) 1 applic BID IRR Last administered on 04/16/17 08:16; Admin Dose 1 APPLIC; Start 04/01/17 at 21:00 Silver Sulfadiazine (Thermazene 1% 25 Gm) 1 applic BID TOP Last administered on 04/16/17 08:16; Admin Dose 1 APPLIC; Start 04/01/17 at 21:00 Oxycodone/ Acetaminophen (Endocet (10/ 325)) 1 tab Q4H PRN PO PAIN Last administered on 04/02/17 15:01; Admin Dose 1 TAB; Start 04/01/17 at 18:30 Diagnostic Test (Pha) (Accu-Chek) 1 ea 02 XX Last administered on 04/15/17 02 :06; Admin Dose 1 EA; Start 04/04/17 at 02:00 Miscellaneous Information 1 ea NOTE XX ; Start 04/03/17 at 10:00 Glucose (Glutose) 15 gm Q15M PRN PO DECREASED GLUCOSE; Start 04/03/17 at 10:00 Glucose (Glutose) 22.5 gm Q15M PRN PO DECREASED GLUCOSE; Start 04/03/17 at 10: 00 Dextrose (D50w Syringe) 25 ml Q15M PRN IV DECREASED GLUCOSE; Start 04/03/17 at 10:00 Dextrose (D50w Syringe) 50 ml Q15M PRN IV DECREASED GLUCOSE; Start 04/03/17 at 10:00 Glucagon (Glucagen) 1 mg Q15M PRN IM DECREASED GLUCOSE; Start 04/03/17 at 10: 00 Glucose (Glutose) 15 gm Q15M PRN BUCCAL DECREASED GLUCOSE; Start 04/03/17 at 10:00 Hydralazine HCl 10 mg 10 mg Q4H PRN IV ELEVATED SYSTOLIC BP Last administered on 04/11/17 20:52; Admin Dose 10 MG; Start 04/04/17 at 06:00 Ceftriaxone Sodium (Rocephin) 50 ml @ 100 mls/hr Q24H IVPB Last administered on 04/16/17 15:47; Admin Dose 100 MLS/HR; Start 04/05/17 at 16:30 Heparin Sodium (Porcine) (Heparin (5000 Units/0.5 ml)) 5,000 unit BID SC Last administered on 04/16/17 08:14; Admin Dose 5,000 UNIT; Start 04/05/17 at 21:00 Lisinopril (Zestril) 40 mg DAILY PO Last administered on 04/16/17 08:11; Admin Dose 40 MG; Start 04/07/17 at 09:00 Amlodipine Besylate 5 mg 5 mg DAILY PO Last administered on 04/16/17 08:12; Admin Dose 5 MG; Start 04/09/17 at 09:00 Vancomycin HCl (Vancocin) 250 ml @ 125 mls/hr Q12H IVPB Last administered on 04/16/17 12:14; Admin Dose 125 MLS/HR; Start 04/14/17 at 12:00 Insulin Glargine (Lantus) 30 unit Q12 SC Last administered on 04/16/17 08:15; Admin Dose 30 UNIT; Start 04/14/17 at 21:00 Linagliptin (Tradjenta) 5 mg DAILY PO Last administered on 04/16/17 08:12; Admin Dose 5 MG; Start 04/15/17 at 09:00 Empaglifozin (Jardiance) 10 mg DAILY@08 PO Last administered on 04/16/17 08:11 ; Admin Dose 10 MG; Start 04/15/17 at 08:00 Morphine Sulfate (morphine) 2 mg Q4H PRN IV PAIN LEVEL 4-6 Last administered on 04/15/17 22:46; Admin Dose 2 MG; Start 04/15/17 at 18:30 Miscellaneous Information (*Rx Drug Level Order Reminder*) 1 ONCE ONCE XX ; Start 04/16/17 at 23:00; Stop 04/16/17 at 23:01 VINOD PEDRAZA MD Apr 16, 2017 17:16
--- NOTE | 2017-04-16 17:23 | CONS ---
Date/Time of Note Date/Time of Note DATE: 04/16/17 TIME: 17:21 Assessment/Plan Assessment/Plan Problems: (1) Type 2 diabetes mellitus with hyperglycemia Status: Chronic Comment: Excellent glycemic control on current insulin/oral DM med doses. Plan to continue this after d/c, including Rx for tradjenta and empagliflozin. 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 Qualified Code : E11.65 - Type 2 diabetes mellitus with hyperglycemia, with long-term current use of insulin Consultation Date/Type/Reason Admit Date/Time Mar 31, 2017 at 21:15 Initial Consult Date 04/14/17 Type of Consultation: Endocrinology Reason for Consultation T2DM OOC Referring Provider: VINOD PEDRAZA MD 24 HR Interval Summary Constitutional: improved, no complaints Detailed Summary Respiratory: no complaints Cardiovascular: no complaints Gastrointestinal: no complaints Genitourinary: no complaints Musculoskeletal: no complaints Neurologic: no complaints Exam/Review of Systems Vital Signs Vitals VS - Last 72 Hours, by Label Date Time Temp Pulse Resp B/P Pulse Ox O2 Delivery O2 Flow Rate FiO2 04/16/17 14:51 97.5 100 122/73 95 Room Air 04/16/17 08:10 98.8 86 18 119/67 95 04/16/17 02:19 97.3 79 18 116/65 98 04/15/17 20:14 97.9 104 20 154/78 97 04/15/17 19:32 104 23 154/78 97 Room Air 04/15/17 13:44 97.8 107 16 126/74 97 04/15/17 07:44 97.6 89 18 135/72 93 04/15/17 02:05 98.5 84 20 130/70 94 04/14/17 19:12 99.1 105 20 142/71 94 04/14/17 15:01 98.8 90 16 158/75 93 04/14/17 07:57 98.5 91 18 156/74 91 04/14/17 01:29 98.4 77 18 131/69 93 04/13/17 19:18 99.4 94 18 141/79 95 Vital Signs Date Time Temp Pulse Resp B/P Pulse Ox O2 Delivery O2 Flow Rate FiO2 04/16/17 14:51 97.5 100 122/73 95 Room Air 04/16/17 08:10 18 Intake and Output 04/15/17 04/15/17 04/16/17 15:00 23:00 07:00 Intake Total 250 ml 1010 ml 1290 ml Output Total 1000 ml 1025 ml Balance 250 ml 10 ml 265 ml Exam Constitutional: alert, obese, oriented Psych: nl mood/affect, no complaints Respiratory: clear to auscultation, normal air movement Cardiovascular: nl pulses, regular rate and rhythm, No edema, No murmurs/extra sounds, No rub Gastrointestinal: bowel sounds, nl liver, spleen, non-tender, soft, No mass, No rebound or guarding Musculoskeletal: No nl extremities to inspection (B feet wrapped) Extremities: No clubbing, No cyanosis, No edema 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, nl mental status, nl speech, nl strength Additional Comments Bedside Glucose - 72 Hours Test 04/13/17 22:01 04/14/17 02:10 04/14/17 08:02 04/14/17 12:04 Bedside Glucose 203mg/dL (70-220) 237mg/dL (70-220) H 243mg/dL (70-220) H 247mg/dL (70-220) H Test 04/14/17 17:19 04/14/17 21:02 04/15/17 02:06 04/15/17 08:07 Bedside Glucose 255mg/dL (70-220) H 245mg/dL (70-220) H 191mg/dL (70-220) 214mg/dL (70-220) Test 04/15/17 10:34 04/15/17 12:14 04/15/17 17:25 04/15/17 20:32 Bedside Glucose 245mg/dL (70-220) H 178mg/dL (70-220) 118mg/dL (70-220) 132mg/dL (70-220) Test 04/16/17 07:56 04/16/17 12:04 Bedside Glucose 136mg/dL (70-220) 162mg/dL (70-220) Results Result Diagram: 04/13/17 0601 04/15/17 0512 Results 24 hrs Laboratory Tests Test 04/15/17 17:25 04/15/17 20:32 04/16/17 07:56 04/16/17 12:04 Bedside Glucose 118 132 136 162 Medications Medications Current Medications Ondansetron HCl (Zofran Inj) 4 mg Q6H PRN IV NAUSEA AND/OR VOMITING Last administered on 04/01/17 04:16; Admin Dose 4 MG; Start 03/31/17 at 21:30 Acetaminophen (Tylenol Tab) 650 mg Q6H PRN PO PAIN LEVEL 1-3 OR FEVER Last administered on 04/15/17 08:36; Admin Dose 650 MG; Start 03/31/17 at 21:30 Amitriptyline HCl (Elavil) 10 mg QHS PO Last administered on 04/15/17 20:22; Admin Dose 10 MG; Start 04/01/17 at 21:00 Aspirin (Halfprin) 81 mg DAILY PO Last administered on 04/16/17 08:11; Admin Dose 81 MG; Start 04/01/17 at 09:00 Atorvastatin Calcium (Lipitor) 80 mg QHS PO Last administered on 04/15/17 20: 22; Admin Dose 80 MG; Start 04/01/17 at 21:00 Metoprolol Tartrate (Lopressor) 100 mg QHS PO Last administered on 04/15/17 20:23; Admin Dose 100 MG; Start 04/01/17 at 21:00 Dextrose (D50w Syringe) 25 ml Q15M PRN IV BS between 50-70; Start 04/01/17 at 07:30 [facility] This patient mims... PRN PRN XX WOUND CARE; Start 04/01/17 at 08:00 Lorazepam (Ativan) 1 mg Q6H PRN IV AGITATION/ANXIETY Last administered on 04/03 15:14; Admin Dose 1 MG; Start 04/01/17 at 12:00 IV Flush (NS 10 ml) 10 ml PRN PRN IV IV PROTOCOL; Start 04/01/17 at 13:30 Sodium Hypochlorite (Dakin'S (1/4 Strength)) 1 applic BID IRR Last administered on 04/16/17 08:16; Admin Dose 1 APPLIC; Start 04/01/17 at 21:00 Silver Sulfadiazine (Thermazene 1% 25 Gm) 1 applic BID TOP Last administered on 04/16/17 08:16; Admin Dose 1 APPLIC; Start 04/01/17 at 21:00 Oxycodone/ Acetaminophen (Endocet (10/ 325)) 1 tab Q4H PRN PO PAIN Last administered on 04/02/17 15:01; Admin Dose 1 TAB; Start 04/01/17 at 18:30 Diagnostic Test (Pha) (Accu-Chek) 1 ea 02 XX Last administered on 04/15/17 02 :06; Admin Dose 1 EA; Start 04/04/17 at 02:00 Miscellaneous Information 1 ea NOTE XX ; Start 04/03/17 at 10:00 Glucose (Glutose) 15 gm Q15M PRN PO DECREASED GLUCOSE; Start 04/03/17 at 10:00 Glucose (Glutose) 22.5 gm Q15M PRN PO DECREASED GLUCOSE; Start 04/03/17 at 10: 00 Dextrose (D50w Syringe) 25 ml Q15M PRN IV DECREASED GLUCOSE; Start 04/03/17 at 10:00 Dextrose (D50w Syringe) 50 ml Q15M PRN IV DECREASED GLUCOSE; Start 04/03/17 at 10:00 Glucagon (Glucagen) 1 mg Q15M PRN IM DECREASED GLUCOSE; Start 04/03/17 at 10: 00 Glucose (Glutose) 15 gm Q15M PRN BUCCAL DECREASED GLUCOSE; Start 04/03/17 at 10:00 Hydralazine HCl 10 mg 10 mg Q4H PRN IV ELEVATED SYSTOLIC BP Last administered on 04/11/17 20:52; Admin Dose 10 MG; Start 04/04/17 at 06:00 Ceftriaxone Sodium (Rocephin) 50 ml @ 100 mls/hr Q24H IVPB Last administered on 04/16/17 15:47; Admin Dose 100 MLS/HR; Start 04/05/17 at 16:30 Heparin Sodium (Porcine) (Heparin (5000 Units/0.5 ml)) 5,000 unit BID SC Last administered on 04/16/17 08:14; Admin Dose 5,000 UNIT; Start 04/05/17 at 21:00 Lisinopril (Zestril) 40 mg DAILY PO Last administered on 04/16/17 08:11; Admin Dose 40 MG; Start 04/07/17 at 09:00 Amlodipine Besylate 5 mg 5 mg DAILY PO Last administered on 04/16/17 08:12; Admin Dose 5 MG; Start 04/09/17 at 09:00 Vancomycin HCl (Vancocin) 250 ml @ 125 mls/hr Q12H IVPB Last administered on 04/16/17 12:14; Admin Dose 125 MLS/HR; Start 04/14/17 at 12:00 Insulin Glargine (Lantus) 30 unit Q12 SC Last administered on 04/16/17 08:15; Admin Dose 30 UNIT; Start 04/14/17 at 21:00 Linagliptin (Tradjenta) 5 mg DAILY PO Last administered on 04/16/17 08:12; Admin Dose 5 MG; Start 04/15/17 at 09:00 Empaglifozin (Jardiance) 10 mg DAILY@08 PO Last administered on 04/16/17 08:11 ; Admin Dose 10 MG; Start 04/15/17 at 08:00 Morphine Sulfate (morphine) 2 mg Q4H PRN IV PAIN LEVEL 4-6 Last administered on 04/15/17 22:46; Admin Dose 2 MG; Start 04/15/17 at 18:30 Miscellaneous Information (*Rx Drug Level Order Reminder*) 1 ONCE ONCE XX ; Start 04/16/17 at 23:00; Stop 04/16/17 at 23:01 EULALIA LEON MD Apr 16, 2017 17:23
[2017-04-16] MEDS: morphine 2 MG INJ IV PRN ×2 (17:27→23:13)
[2017-04-16 19:57] VITALS: BP 142/64; RESP 20
[2017-04-16] MEDS: AMITRIPTYLINE 10 MG TAB PO SCH (20:41)
[2017-04-16] MEDS: ATORVASTATIN 80 MG TAB PO SCH (20:41)
[2017-04-16] MEDS: METOPROLOL 100 MG TAB PO SCH (20:42)
[2017-04-17] MEDS: ACCU-CHEK XX SCH (02:00)
[2017-04-17] MEDS: VANCOMYCIN 750 MG in DEXTROSE 5% 150 ML IVPB SCH ×2 (02:16→14:54)
[2017-04-17 02:26] VITALS: BP 115/61; RESP 18
[2017-04-17 07:31] LABS: CREATININE 1.28 mg/dl (0.61-1.24)
[2017-04-17 08:09] VITALS: BP 127/68; RESP 14
[2017-04-17] MEDS: INSULIN ASPART [NOVOLOG] 3 ML PEN SC SCH ×7 (08:36→20:58)
[2017-04-17] MEDS: LINAGLIPTIN 5 MG TABLET PO SCH (08:42)
[2017-04-17] MEDS: EMPAGLIFLOZIN 10 MG TABLET PO SCH (08:43)
[2017-04-17] MEDS: AMLODIPINE 5 MG TAB PO SCH (08:43)
[2017-04-17] MEDS: ASPIRIN (EC) 81 MG TAB PO SCH (08:43)
[2017-04-17] MEDS: SODIUM HYPOCHLORITE 0.125% 473 ML BTL IRR SCH ×2 (08:44→21:03)
[2017-04-17] MEDS: LISINOPRIL 20 MG TAB PO SCH (08:44)
[2017-04-17] MEDS: SILVER SULFADIAZINE 1% 25 GM CR TOP SCH ×2 (08:45→21:03)
[2017-04-17] MEDS: INSULIN GLARGINE [LANtus] 3 ML PEN SC SCH ×2 (09:52→21:00)
[2017-04-17] MEDS: HEPARIN 5,000 UNIT/0.5 ML VIAL SC SCH ×2 (09:53→21:01)
--- NOTE | 2017-04-17 11:17 | CONS ---
Date/Time of Note Date/Time of Note DATE: 04/17/17 TIME: 11:15 Assessment/Plan Assessment/Plan Problems: (1) Type 2 diabetes mellitus with foot ulcer Status: Acute Comment: In a controlled setting on a controlled diet with regular receipt of his medications he has good glycemic control. Continue same medication regimen through discharge. Please note part of the improvement is also the usage of the antibiotics which is draining the underlying infection. With likely infection will respond completely Qualifiers: Diabetes mellitus termite helper insulin use: without termite helper use Qualified Code: E11.621 - Type 2 diabetes mellitus with foot ulcer, without long-term current use of insulin (2) Essential (primary) hypertension Status: Chronic Comment: Adequate control on current regimen. (3) Hyperlipidemia Status: Chronic Comment: Adequate control on current regimen Qualifiers: Hyperlipidemia type: mixed hyperlipidemia Qualified Code: E78.2 - Mixed hyperlipidemia (4) Morbid (severe) obesity due to excess calories Status: Chronic Comment: Calorie restriction diet and careful reinforcement Consultation Date/Type/Reason Admit Date/Time Mar 31, 2017 at 21:15 Initial Consult Date 04/14/17 Type of Consultation: Endocrinology Reason for Consultation Beatties mellitus type II with peripheral foot wounds and osteomyelitis on long- term antibiotics and initially poor control Referring Provider: VINOD PEDRAZA MD 24 HR Interval Summary Constitutional: no complaints (No fevers chills or sweats) Exam/Review of Systems Vital Signs Vitals Vital Signs Date Time Temp Pulse Resp B/P Pulse Ox O2 Delivery O2 Flow Rate FiO2 04/17/17 08:09 97.7 85 14 127/68 93 04/16/17 14:51 Room Air Intake and Output 04/16/17 04/16/17 04/17/17 15:00 23:00 07:00 Intake Total 250 ml 1910 ml 870 ml Output Total 1400 ml 800 ml Balance 250 ml 510 ml 70 ml Exam Constitutional: alert, oriented Respiratory: clear to auscultation, normal air movement Cardiovascular: nl pulses, regular rate and rhythm Gastrointestinal: nl liver, spleen, non-tender, soft Extremities: other (No onychomycosis) Results Result Diagram: 04/13/17 0601 04/17/17 0547 Results 24 hrs Laboratory Tests Test 04/16/17 12:04 04/16/17 17:25 04/16/17 20:23 04/16/17 23:09 Bedside Glucose 162 136 180 Vancomycin Level Trough 19.0 Test 04/17/17 05:47 04/17/17 07:55 Blood Urea Nitrogen 21 H Creatinine 1.28 H Bedside Glucose 141 Medications Medications Current Medications Ondansetron HCl (Zofran Inj) 4 mg Q6H PRN IV NAUSEA AND/OR VOMITING Last administered on 04/01/17 04:16; Admin Dose 4 MG; Start 03/31/17 at 21:30 Acetaminophen (Tylenol Tab) 650 mg Q6H PRN PO PAIN LEVEL 1-3 OR FEVER Last administered on 04/15/17 08:36; Admin Dose 650 MG; Start 03/31/17 at 21:30 Amitriptyline HCl (Elavil) 10 mg QHS PO Last administered on 04/16/17 20:41; Admin Dose 10 MG; Start 04/01/17 at 21:00 Aspirin (Halfprin) 81 mg DAILY PO Last administered on 04/17/17 08:43; Admin Dose 81 MG; Start 04/01/17 at 09:00 Atorvastatin Calcium (Lipitor) 80 mg QHS PO Last administered on 04/16/17 20: 41; Admin Dose 80 MG; Start 04/01/17 at 21:00 Metoprolol Tartrate (Lopressor) 100 mg QHS PO Last administered on 04/16/17 20 :42; Admin Dose 100 MG; Start 04/01/17 at 21:00 Dextrose (D50w Syringe) 25 ml Q15M PRN IV BS between 50-70; Start 04/01/17 at 07:30 Miscellaneous Information [facility] This patient mims... PRN PRN XX WOUND CARE; Start 04/01/17 at 08:00 Lorazepam (Ativan) 1 mg Q6H PRN IV AGITATION/ANXIETY Last administered on 04/03 15:14; Admin Dose 1 MG; Start 04/01/17 at 12:00 IV Flush (NS 10 ml) 10 ml PRN PRN IV IV PROTOCOL; Start 04/01/17 at 13:30 Sodium Hypochlorite (Dakin'S (1/4 Strength)) 1 applic BID IRR Last administered on 04/17/17 08:44; Admin Dose 1 APPLIC; Start 04/01/17 at 21:00 Silver Sulfadiazine (Thermazene 1% 25 Gm) 1 applic BID TOP Last administered on 04/17/17 08:45; Admin Dose 1 APPLIC; Start 04/01/17 at 21:00 Oxycodone/ Acetaminophen (Endocet (10/ 325)) 1 tab Q4H PRN PO PAIN Last administered on 04/02/17 15:01; Admin Dose 1 TAB; Start 04/01/17 at 18:30 Diagnostic Test (Pha) (Accu-Chek) 1 ea 02 XX Last administered on 04/15/17 02 :06; Admin Dose 1 EA; Start 04/04/17 at 02:00 Miscellaneous Information 1 ea NOTE XX ; Start 04/03/17 at 10:00 Glucose (Glutose) 15 gm Q15M PRN PO DECREASED GLUCOSE; Start 04/03/17 at 10:00 Glucose (Glutose) 22.5 gm Q15M PRN PO DECREASED GLUCOSE; Start 04/03/17 at 10: 00 Dextrose (D50w Syringe) 25 ml Q15M PRN IV DECREASED GLUCOSE; Start 04/03/17 at 10:00 Dextrose (D50w Syringe) 50 ml Q15M PRN IV DECREASED GLUCOSE; Start 04/03/17 at 10:00 Glucagon (Glucagen) 1 mg Q15M PRN IM DECREASED GLUCOSE; Start 04/03/17 at 10: 00 Glucose (Glutose) 15 gm Q15M PRN BUCCAL DECREASED GLUCOSE; Start 04/03/17 at 10:00 Hydralazine HCl 10 mg 10 mg Q4H PRN IV ELEVATED SYSTOLIC BP Last administered on 04/11/17 20:52; Admin Dose 10 MG; Start 04/04/17 at 06:00 Ceftriaxone Sodium (Rocephin) 50 ml @ 100 mls/hr Q24H IVPB Last administered on 04/16/17 15:47; Admin Dose 100 MLS/HR; Start 04/05/17 at 16:30 Heparin Sodium (Porcine) (Heparin (5000 Units/0.5 ml)) 5,000 unit BID SC Last administered on 04/17/17 09:53; Admin Dose 5,000 UNIT; Start 04/05/17 at 21:00 Lisinopril (Zestril) 40 mg DAILY PO Last administered on 04/17/17 08:44; Admin Dose 40 MG; Start 04/07/17 at 09:00 Amlodipine Besylate (Norvasc) 5 mg DAILY PO Last administered on 04/17/17 08: 43; Admin Dose 5 MG; Start 04/09/17 at 09:00 Insulin Glargine (Lantus) 30 unit Q12 SC Last administered on 04/17/17 09:52; Admin Dose 30 UNIT; Start 04/14/17 at 21:00 Linagliptin (Tradjenta) 5 mg DAILY PO Last administered on 04/17/17 08:42; Admin Dose 5 MG; Start 04/15/17 at 09:00 Empaglifozin (Jardiance) 10 mg DAILY@08 PO Last administered on 04/17/17 08:43 ; Admin Dose 10 MG; Start 04/15/17 at 08:00 Morphine Sulfate 2 mg 2 mg Q4H PRN IV PAIN LEVEL 4-6 Last administered on 23:13; Admin Dose 2 MG; Start 04/15/17 at 18:30 Vancomycin HCl/ Dextrose/Water (Vancocin/D5W) 150 ml @ 75 mls/hr Q12H IVPB Last administered on 04/17/17 02:16; Admin Dose 75 MLS/HR; Start 04/17/17 at 03 :00 FÉLIX GREEN MD Apr 17, 2017 11:17
--- NOTE | 2017-04-17 13:43 | CONS ---
Date/Time of Note Date/Time of Note DATE: 04/17/17 TIME: 13:35 Consultation Date/Type/Reason Admit Date/Time SUBJECTIVE: 56 y/o male being treated for OM. S/P sepsis. No acute changes. Looks comfortable, afebrile. VS: Stable. LABS: BUN:21 Cr:1.28 MICROBIOLOGY: Blood culture on admission grew oxacillin-sensitive Staphylococcus aureus and beta hemolytic strep species. Right foot wound culture grew Morganella morganii, Staphylococcus aureus strep Proteus penneri. Left foot wound culture also grew Enterococcus species in addition to what grew in the right and pseudomonas, all sensitive to Rocephin except enterococcus. Repeat BC are neg. ALLERGIES: SULFA. ANTIMICROBIALS: 1. Rocephin. 2. Vancomycin. PHYSICAL EXAMINATION: GENERAL: Obese, well-developed, middle-aged white man who is alert, in no distress. HEENT: Head atraumatic, normocephalic. Sclerae anicteric. Buccal mucosa pink. NECK: Supple. CHEST: Rise symmetrical. Breath sounds clear. HEART: S1, S2. ABDOMEN: Soft, bowel tones present. EXTREMITIES: Bilateral feet dressings intact. ASSESSMENT: 1. Status post sepsis with shock. 2. S/p polymicrobial bacteremia secondary to #3. 3. Right foot osteomyelitis with cultures growing multi-drug resistant organisms. 4. Left foot diabetic ulceration. 5. Poorly controlled diabetes. 6. Morbid obesity. 7. Anemia. 8. Acute possibly on chronic kidney disease. PLAN: The patient remains stable. Pending placement. Monitor renal function. If cr continues to raise, will change Vanco to Dapto. Continue antibiotics for 6 -8 weeks, local wound care per podiatry recommendations. Initial Consult Date 04/14/17 Type of Consultation: ID Referring Provider: VIOND PEDRAZA MD Exam/Review of Systems Vital Signs Vitals Vital Signs Date Time Temp Pulse Resp B/P Pulse Ox O2 Delivery O2 Flow Rate FiO2 04/17/17 08:09 97.7 85 14 127/68 93 04/16/17 14:51 Room Air Intake and Output 04/16/17 04/16/17 04/17/17 15:00 23:00 07:00 Intake Total 250 ml 1910 ml 870 ml Output Total 1400 ml 800 ml Balance 250 ml 510 ml 70 ml Results Result Diagram: 04/13/17 0601 04/17/17 0547 Results 24 hrs Laboratory Tests Test 04/16/17 17:25 04/16/17 20:23 04/16/17 23:09 04/17/17 05:47 Bedside Glucose 136 180 Vancomycin Level Trough 19.0 Blood Urea Nitrogen 21 H Creatinine 1.28 H Test 04/17/17 07:55 04/17/17 12:08 Bedside Glucose 141 138 Medications Medications Current Medications Ondansetron HCl (Zofran Inj) 4 mg Q6H PRN IV NAUSEA AND/OR VOMITING Last administered on 04/01/17 04:16; Admin Dose 4 MG; Start 03/31/17 at 21:30 Acetaminophen (Tylenol Tab) 650 mg Q6H PRN PO PAIN LEVEL 1-3 OR FEVER Last administered on 04/15/17 08:36; Admin Dose 650 MG; Start 03/31/17 at 21:30 Amitriptyline HCl (Elavil) 10 mg QHS PO Last administered on 04/16/17 20:41; Admin Dose 10 MG; Start 04/01/17 at 21:00 Aspirin (Halfprin) 81 mg DAILY PO Last administered on 04/17/17 08:43; Admin Dose 81 MG; Start 04/01/17 at 09:00 Atorvastatin Calcium (Lipitor) 80 mg QHS PO Last administered on 04/16/17 20: 41; Admin Dose 80 MG; Start 04/01/17 at 21:00 Metoprolol Tartrate (Lopressor) 100 mg QHS PO Last administered on 04/16/17 20 :42; Admin Dose 100 MG; Start 04/01/17 at 21:00 Dextrose (D50w Syringe) 25 ml Q15M PRN IV BS between 50-70; Start 04/01/17 at 07:30 Miscellaneous Information (Pending [facility] Order For Wound Care) This patient mims... PRN PRN XX WOUND CARE; Start 04/01/17 at 08:00 Lorazepam (Ativan) 1 mg Q6H PRN IV AGITATION/ANXIETY Last administered on 04/03 15:14; Admin Dose 1 MG; Start 04/01/17 at 12:00 IV Flush (NS 10 ml) 10 ml PRN PRN IV IV PROTOCOL; Start 04/01/17 at 13:30 Sodium Hypochlorite (Dakin'S (1/4 Strength)) 1 applic BID IRR Last administered on 04/17/17 08:44; Admin Dose 1 APPLIC; Start 04/01/17 at 21:00 Silver Sulfadiazine (Thermazene 1% 25 Gm) 1 applic BID TOP Last administered on 04/17/17 08:45; Admin Dose 1 APPLIC; Start 04/01/17 at 21:00 Oxycodone/ Acetaminophen (Endocet (10 325)) 1 tab Q4H PRN PO PAIN Last administered on 04/02/17 15:01; Admin Dose 1 TAB; Start 04/01/17 at 18:30 Diagnostic Test (Pha) (Accu-Chek) 1 ea 02 XX Last administered on 04/15/17 02 :06; Admin Dose 1 EA; Start 04/04/17 at 02:00 Miscellaneous Information 1 ea NOTE XX ; Start 04/03/17 at 10:00 Glucose (Glutose) 15 gm Q15M PRN PO DECREASED GLUCOSE; Start 04/03/17 at 10:00 Glucose (Glutose) 22.5 gm Q15M PRN PO DECREASED GLUCOSE; Start 04/03/17 at 10: 00 Dextrose (D50w Syringe) 25 ml Q15M PRN IV DECREASED GLUCOSE; Start 04/03/17 at 10:00 Dextrose (D50w Syringe) 50 ml Q15M PRN IV DECREASED GLUCOSE; Start 04/03/17 at 10:00 Glucagon (Glucagen) 1 mg Q15M PRN IM DECREASED GLUCOSE; Start 04/03/17 at 10: 00 Glucose (Glutose) 15 gm Q15M PRN BUCCAL DECREASED GLUCOSE; Start 04/03/17 at 10:00 Hydralazine HCl 10 mg 10 mg Q4H PRN IV ELEVATED SYSTOLIC BP Last administered on 04/11/17 20:52; Admin Dose 10 MG; Start 04/04/17 at 06:00 Ceftriaxone Sodium (Rocephin) 50 ml @ 100 mls/hr Q24H IVPB Last administered on 04/16/17 15:47; Admin Dose 100 MLS/HR; Start 04/05/17 at 16:30 Heparin Sodium (Porcine) (Heparin (5000 Units/0.5 ml)) 5,000 unit BID SC Last administered on 04/17/17 09:53; Admin Dose 5,000 UNIT; Start 04/05/17 at 21:00 Lisinopril (Zestril) 40 mg DAILY PO Last administered on 04/17/17 08:44; Admin Dose 40 MG; Start 04/07/17 at 09:00 Amlodipine Besylate (Norvasc) 5 mg DAILY PO Last administered on 04/17/17 08: 43; Admin Dose 5 MG; Start 04/09/17 at 09:00 Insulin Glargine (Lantus) 30 unit Q12 SC Last administered on 04/17/17 09:52; Admin Dose 30 UNIT; Start 04/14/17 at 21:00 Linagliptin (Tradjenta) 5 mg DAILY PO Last administered on 04/17/17 08:42; Admin Dose 5 MG; Start 04/15/17 at 09:00 Empaglifozin (Jardiance) 10 mg DAILY@08 PO Last administered on 04/17/17 08:43 ; Admin Dose 10 MG; Start 04/15/17 at 08:00 Morphine Sulfate 2 mg 2 mg Q4H PRN IV PAIN LEVEL 4-6 Last administered on 23:13; Admin Dose 2 MG; Start 04/15/17 at 18:30 Vancomycin HCl/ Dextrose/Water (Vancocin/D5W) 150 ml @ 75 mls/hr Q12H IVPB Last administered on 04/17/17 02:16; Admin Dose 75 MLS/HR; Start 04/17/17 at 03 :00 RIKKI KARIMI Apr 17, 2017 13:43
[2017-04-17 14:42] VITALS: BP 133/76; RESP 18
--- NOTE | 2017-04-17 14:46 | PN ---
Date/Time of Note Date/Time of Note DATE: 04/17/17 TIME: 14:44 Assessment/Plan VTE Prophylaxis VTE Prophylaxis Intervention: LMWH Lines/Catheters IV Catheter Type (from Nrsg): PICC Line Central line still needed: Yes Urinary Cath still in place: No Assessment/Plan Chief Complaint/Hosp Course 56 yo male with h/o DMII, OM of foot in nonhealing ulcer presenting with sepsis , hyperglycemia, RENZO from cellulitis surrounding diabetic foot infection Sepsis with staph aureus and strep bacteremia: resolved Diabetic foot ulcer with OM and cellulitis: - 6- 8 weeks IV abx (vanco/ceftriaxone) via PICC to be completed as an outpatient per ID - Wound care crucial, home care arranged RENZO: - Resolved DMII w hyperglycemia - Bsal/bolus insulin and uptitrate as needed per Dr Briceno CV: - Continue home aspirin, statin, metoprolol Urinary retention - s/p santana. Trial of void successful Discharge to home when home IV abx and sliding board arranged via new insurance plan Problems: Subjective 24 Hr Interval Summary Free Text/Dictation Sugars controlled Awaiting insurance change to arrange for home care is buying sliding board today Patient feels well, no complaints Exam/Review of Systems Vital Signs Vitals Vital Signs Date Time Temp Pulse Resp B/P Pulse Ox O2 Delivery O2 Flow Rate FiO2 04/17/17 14:42 97.9 100 18 133/76 95 04/16/17 14:51 Room Air Intake and Output 04/16/17 04/16/17 04/17/17 15:00 23:00 07:00 Intake Total 250 ml 1910 ml 870 ml Output Total 1400 ml 800 ml Balance 250 ml 510 ml 70 ml Exam Constitutional: alert, oriented, well developed Psych: nl mood/affect, no complaints Head: atraumatic, normocephalic Eyes: EOMI, PERRL, nl conjunctiva, nl lids, nl sclera ENMT: nl external ears & nose, nl lips & teeth, nl nasal mucosa & septum Neck: non-tender, supple Respiratory: clear to auscultation, normal air movement Cardiovascular: nl pulses, regular rate and rhythm Gastrointestinal: nl liver, spleen, non-tender, soft Musculoskeletal: nl extremities to inspection, nl gait and stance Extremities: normal pulses Neurological: INTERNAL CONTROLS CONSULTANT II-XII intact, nl mental status, nl speech, nl strength Skin: nl turgor, No rash or lesions Lymph: nl lymph nodes Results Result Diagram: 04/13/17 0601 04/17/17 0547 Results 24 hrs Laboratory Tests Test 04/16/17 17:25 04/16/17 20:23 04/16/17 23:09 04/17/17 05:47 Bedside Glucose 136 180 Vancomycin Level Trough 19.0 Blood Urea Nitrogen 21 H Creatinine 1.28 H Test 04/17/17 07:55 04/17/17 12:08 Bedside Glucose 141 138 Medications Medications Current Medications Ondansetron HCl (Zofran Inj) 4 mg Q6H PRN IV NAUSEA AND/OR VOMITING Last administered on 04/01/17 04:16; Admin Dose 4 MG; Start 03/31/17 at 21:30 Acetaminophen (Tylenol Tab) 650 mg Q6H PRN PO PAIN LEVEL 1-3 OR FEVER Last administered on 04/15/17 08:36; Admin Dose 650 MG; Start 03/31/17 at 21:30 Amitriptyline HCl (Elavil) 10 mg QHS PO Last administered on 04/16/17 20:41; Admin Dose 10 MG; Start 04/01/17 at 21:00 Aspirin (Halfprin) 81 mg DAILY PO Last administered on 04/17/17 08:43; Admin Dose 81 MG; Start 04/01/17 at 09:00 Atorvastatin Calcium (Lipitor) 80 mg QHS PO Last administered on 04/16/17 20: 41; Admin Dose 80 MG; Start 04/01/17 at 21:00 Metoprolol Tartrate (Lopressor) 100 mg QHS PO Last administered on 04/16/17 20 :42; Admin Dose 100 MG; Start 04/01/17 at 21:00 Dextrose (D50w Syringe) 25 ml Q15M PRN IV BS between 50-70; Start 04/01/17 at 07:30 Miscellaneous Information (Pending [facility] Order For Wound Care) This patient mims... PRN PRN XX WOUND CARE; Start 04/01/17 at 08:00 Lorazepam (Ativan) 1 mg Q6H PRN IV AGITATION/ANXIETY Last administered on 04/03 15:14; Admin Dose 1 MG; Start 04/01/17 at 12:00 IV Flush (NS 10 ml) 10 ml PRN PRN IV IV PROTOCOL; Start 04/01/17 at 13:30 Sodium Hypochlorite (Dakin'S (1/4 Strength)) 1 applic BID IRR Last administered on 04/17/17 08:44; Admin Dose 1 APPLIC; Start 04/01/17 at 21:00 Silver Sulfadiazine (Thermazene 1% 25 Gm) 1 applic BID TOP Last administered on 04/17/17 08:45; Admin Dose 1 APPLIC; Start 04/01/17 at 21:00 Oxycodone/ Acetaminophen (Endocet (10 325)) 1 tab Q4H PRN PO PAIN Last administered on 04/02/17 15:01; Admin Dose 1 TAB; Start 04/01/17 at 18:30 Diagnostic Test (Pha) (Accu-Chek) 1 ea 02 XX Last administered on 04/15/17 02 :06; Admin Dose 1 EA; Start 04/04/17 at 02:00 Miscellaneous Information 1 ea NOTE XX ; Start 04/03/17 at 10:00 Glucose (Glutose) 15 gm Q15M PRN PO DECREASED GLUCOSE; Start 04/03/17 at 10:00 Glucose (Glutose) 22.5 gm Q15M PRN PO DECREASED GLUCOSE; Start 04/03/17 at 10: 00 Dextrose (D50w Syringe) 25 ml Q15M PRN IV DECREASED GLUCOSE; Start 04/03/17 at 10:00 Dextrose (D50w Syringe) 50 ml Q15M PRN IV DECREASED GLUCOSE; Start 04/03/17 at 10:00 Glucagon (Glucagen) 1 mg Q15M PRN IM DECREASED GLUCOSE; Start 04/03/17 at 10: 00 Glucose (Glutose) 15 gm Q15M PRN BUCCAL DECREASED GLUCOSE; Start 04/03/17 at 10:00 Hydralazine HCl 10 mg 10 mg Q4H PRN IV ELEVATED SYSTOLIC BP Last administered on 04/11/17 20:52; Admin Dose 10 MG; Start 04/04/17 at 06:00 Ceftriaxone Sodium (Rocephin) 50 ml @ 100 mls/hr Q24H IVPB Last administered on 04/16/17 15:47; Admin Dose 100 MLS/HR; Start 04/05/17 at 16:30 Heparin Sodium (Porcine) (Heparin (5000 Units/0.5 ml)) 5,000 unit BID SC Last administered on 04/17/17 09:53; Admin Dose 5,000 UNIT; Start 04/05/17 at 21:00 Lisinopril (Zestril) 40 mg DAILY PO Last administered on 04/17/17 08:44; Admin Dose 40 MG; Start 04/07/17 at 09:00 Amlodipine Besylate (Norvasc) 5 mg DAILY PO Last administered on 04/17/17 08: 43; Admin Dose 5 MG; Start 04/09/17 at 09:00 Insulin Glargine (Lantus) 30 unit Q12 SC Last administered on 04/17/17 09:52; Admin Dose 30 UNIT; Start 04/14/17 at 21:00 Linagliptin (Tradjenta) 5 mg DAILY PO Last administered on 04/17/17 08:42; Admin Dose 5 MG; Start 04/15/17 at 09:00 Empaglifozin (Jardiance) 10 mg DAILY@08 PO Last administered on 04/17/17 08:43 ; Admin Dose 10 MG; Start 04/15/17 at 08:00 Morphine Sulfate 2 mg 2 mg Q4H PRN IV PAIN LEVEL 4-6 Last administered on 23:13; Admin Dose 2 MG; Start 04/15/17 at 18:30 Vancomycin HCl/ Dextrose/Water (Vancocin/D5W) 150 ml @ 75 mls/hr Q12H IVPB Last administered on 04/17/17 02:16; Admin Dose 75 MLS/HR; Start 04/17/17 at 03 :00 VINOD PEDRAZA MD Apr 17, 2017 14:46
[2017-04-17] MEDS: CEFTRIAXONE 2 GM/50 ML (PMX) 50 ML IVPB SCH (17:04)
[2017-04-17 20:20] VITALS: BP 141/71; RESP 18
[2017-04-17] MEDS: AMITRIPTYLINE 10 MG TAB PO SCH (20:54)
[2017-04-17] MEDS: METOPROLOL 100 MG TAB PO SCH (20:55)
[2017-04-17] MEDS: ATORVASTATIN 80 MG TAB PO SCH (20:55)
[2017-04-17] MEDS: morphine 2 MG INJ IV PRN (23:06)
[2017-04-18] MEDS: ACCU-CHEK XX SCH (02:00)
[2017-04-18 02:29] VITALS: BP 132/69; RESP 16
[2017-04-18] MEDS: VANCOMYCIN 750 MG in DEXTROSE 5% 150 ML IVPB SCH ×2 (03:23→15:25)
[2017-04-18 05:53] LABS: CREATININE 1.22 mg/dl (0.61-1.24)
[2017-04-18 07:55] VITALS: BP 128/72; RESP 18
[2017-04-18] MEDS: INSULIN ASPART [NOVOLOG] 3 ML PEN SC SCH ×7 (08:10→20:31)
[2017-04-18] MEDS: ASPIRIN (EC) 81 MG TAB PO SCH (08:48)
[2017-04-18] MEDS: LINAGLIPTIN 5 MG TABLET PO SCH (08:50)
[2017-04-18] MEDS: LISINOPRIL 20 MG TAB PO SCH (08:50)
[2017-04-18] MEDS: EMPAGLIFLOZIN 10 MG TABLET PO SCH (08:50)
[2017-04-18] MEDS: AMLODIPINE 5 MG TAB PO SCH (08:51)
[2017-04-18] MEDS: HEPARIN 5,000 UNIT/0.5 ML VIAL SC SCH ×2 (09:00→20:39)
[2017-04-18] MEDS: SODIUM HYPOCHLORITE 0.125% 473 ML BTL IRR SCH ×2 (09:03→20:33)
[2017-04-18] MEDS: SILVER SULFADIAZINE 1% 25 GM CR TOP SCH ×2 (09:03→20:33)
[2017-04-18] MEDS: INSULIN GLARGINE [LANtus] 3 ML PEN SC SCH ×2 (09:05→20:39)
--- NOTE | 2017-04-18 12:27 | CONS ---
Date/Time of Note Date/Time of Note DATE: 04/18/17 TIME: 12:21 Assessment/Plan Assessment/Plan Problems: (1) Type 2 diabetes mellitus with foot ulcer Status: Acute Comment: Blood sugar control is holding steady at this time in a controlled setting with a controlled diet and controlled administration of medications. 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 use Qualified Code: E11.621 - Type 2 diabetes mellitus with foot ulcer, without long-term current use of insulin (2) Essential (primary) hypertension Status: Chronic Comment: Adequate control (3) Hyperlipidemia Status: Chronic Comment: Adequate control Qualifiers: Hyperlipidemia type: mixed hyperlipidemia Qualified Code: E78.2 - Mixed hyperlipidemia (4) Morbid (severe) obesity due to excess calories Status: Chronic Comment: Calorie restriction diet Consultation Date/Type/Reason Admit Date/Time Mar 31, 2017 at 21:15 Initial Consult Date 04/14/17 Type of Consultation: Endocrinology Reason for Consultation Diabetes mellitus type 2 with peripheral vascular disease and diabetic foot ulcer Referring Provider: VINOD PEDRAZA MD 24 HR Interval Summary Free Text/Dictation Patient without complaints of endocrine nature Exam/Review of Systems Vital Signs Vitals Vital Signs Date Time Temp Pulse Resp B/P Pulse Ox O2 Delivery O2 Flow Rate FiO2 04/18/17 07:55 98.0 90 18 128/72 95 04/16/17 14:51 Room Air Intake and Output 04/17/17 04/17/17 04/18/17 15:00 23:00 07:00 Intake Total 2060 ml 830 ml Output Total 3200 ml 700 ml Balance -1140 ml 130 ml Results No changes in exam Result Diagram: 04/18/17 0510 Results 24 hrs Laboratory Tests Test 04/17/17 17:23 04/17/17 20:57 04/18/17 05:10 04/18/17 08:04 Bedside Glucose 110 115 155 Blood Urea Nitrogen 21 H Creatinine 1.22 Medications Medications Current Medications Ondansetron HCl (Zofran Inj) 4 mg Q6H PRN IV NAUSEA AND/OR VOMITING Last administered on 04/01/17 04:16; Admin Dose 4 MG; Start 03/31/17 at 21:30 Acetaminophen (Tylenol Tab) 650 mg Q6H PRN PO PAIN LEVEL 1-3 OR FEVER Last administered on 04/15/17 08:36; Admin Dose 650 MG; Start 03/31/17 at 21:30 Amitriptyline HCl (Elavil) 10 mg QHS PO Last administered on 04/17/17 20:54; Admin Dose 10 MG; Start 04/01/17 at 21:00 Aspirin (Halfprin) 81 mg DAILY PO Last administered on 04/18/17 08:48; Admin Dose 81 MG; Start 04/01/17 at 09:00 Atorvastatin Calcium (Lipitor) 80 mg QHS PO Last administered on 04/17/17 20: 55; Admin Dose 80 MG; Start 04/01/17 at 21:00 Metoprolol Tartrate (Lopressor) 100 mg QHS PO Last administered on 04/17/17 20 :55; Admin Dose 100 MG; Start 04/01/17 at 21:00 Dextrose (D50w Syringe) 25 ml Q15M PRN IV BS between 50-70; Start 04/01/17 at 07:30 Miscellaneous Information (Pending [facility] Order For Wound Care) This patient mims... PRN PRN XX WOUND CARE; Start 04/01/17 at 08:00 Lorazepam (Ativan) 1 mg Q6H PRN IV AGITATION/ANXIETY Last administered on 04/03 15:14; Admin Dose 1 MG; Start 04/01/17 at 12:00 IV Flush (NS 10 ml) 10 ml PRN PRN IV IV PROTOCOL; Start 04/01/17 at 13:30 Sodium Hypochlorite (Dakin'S (1/4 Strength)) 1 applic BID IRR Last administered on 04/18/17 09:03; Admin Dose 1 APPLIC; Start 04/01/17 at 21:00 Silver Sulfadiazine (Thermazene 1% 25 Gm) 1 applic BID TOP Last administered on 04/18/17 09:03; Admin Dose 1 APPLIC; Start 04/01/17 at 21:00 Oxycodone/ Acetaminophen (Endocet (10/ 325)) 1 tab Q4H PRN PO PAIN Last administered on 04/02/17 15:01; Admin Dose 1 TAB; Start 04/01/17 at 18:30 Diagnostic Test (Pha) (Accu-Chek) 1 ea 02 XX Last administered on 04/15/17 02 :06; Admin Dose 1 EA; Start 04/04/17 at 02:00 Miscellaneous Information 1 ea NOTE XX ; Start 04/03/17 at 10:00 Glucose (Glutose) 15 gm Q15M PRN PO DECREASED GLUCOSE; Start 04/03/17 at 10:00 Glucose (Glutose) 22.5 gm Q15M PRN PO DECREASED GLUCOSE; Start 04/03/17 at 10: 00 Dextrose (D50w Syringe) 25 ml Q15M PRN IV DECREASED GLUCOSE; Start 04/03/17 at 10:00 Dextrose (D50w Syringe) 50 ml Q15M PRN IV DECREASED GLUCOSE; Start 04/03/17 at 10:00 Glucagon (Glucagen) 1 mg Q15M PRN IM DECREASED GLUCOSE; Start 04/03/17 at 10: 00 Glucose (Glutose) 15 gm Q15M PRN BUCCAL DECREASED GLUCOSE; Start 04/03/17 at 10:00 Hydralazine HCl 10 mg 10 mg Q4H PRN IV ELEVATED SYSTOLIC BP Last administered on 04/11/17 20:52; Admin Dose 10 MG; Start 04/04/17 at 06:00 Ceftriaxone Sodium (Rocephin) 50 ml @ 100 mls/hr Q24H IVPB Last administered on 04/17/17 17:04; Admin Dose 100 MLS/HR; Start 04/05/17 at 16:30 Heparin Sodium (Porcine) (Heparin (5000 Units/0.5 ml)) 5,000 unit BID SC Last administered on 04/18/17 09:00; Admin Dose 5,000 UNIT; Start 04/05/17 at 21:00 Lisinopril (Zestril) 40 mg DAILY PO Last administered on 04/18/17 08:50; Admin Dose 40 MG; Start 04/07/17 at 09:00 Amlodipine Besylate (Norvasc) 5 mg DAILY PO Last administered on 04/18/17 08: 51; Admin Dose 5 MG; Start 04/09/17 at 09:00 Insulin Glargine (Lantus) 30 unit Q12 SC Last administered on 04/18/17 09:05; Admin Dose 30 UNIT; Start 04/14/17 at 21:00 Linagliptin (Tradjenta) 5 mg DAILY PO Last administered on 04/18/17 08:50; Admin Dose 5 MG; Start 04/15/17 at 09:00 Empaglifozin 10 mg 10 mg DAILY@08 PO Last administered on 04/18/17 08:50; Admin Dose 10 MG; Start 04/15/17 at 08:00 Vancomycin HCl/ Dextrose/Water (Vancocin/D5W) 150 ml @ 75 mls/hr Q12H IVPB Last administered on 04/18/17 03:23; Admin Dose 75 MLS/HR; Start 04/17/17 at 03 :00 FÉLIX GREEN MD Apr 18, 2017 12:27
[2017-04-18 14:40] VITALS: BP 137/72; RESP 18
[2017-04-18] MEDS: ACETAMINOPHEN 325 MG TAB PO PRN (15:28)
[2017-04-18] MEDS: CEFTRIAXONE 2 GM/50 ML (PMX) 50 ML IVPB SCH (17:28)
[2017-04-18 19:08] VITALS: BP 128/62; RESP 18
--- NOTE | 2017-04-18 19:57 | CONS ---
Date/Time of Note Date/Time of Note DATE: 04/18/17 TIME: 19:56 Assessment/Plan Assessment/Plan Chief Complaint/Hosp Course SUBJECTIVE: No acute changes. Looks comfortable, afebrile. MICROBIOLOGY: Blood culture on admission grew oxacillin-sensitive Staphylococcus aureus and beta hemolytic strep species. Right foot wound culture grew Morganella morganii, Staphylococcus aureus strep Proteus penneri. Left foot wound culture also grew Enterococcus species in addition to what grew in the right and pseudomonas, all sensitive to Rocephin except enterococcus. ALLERGIES: SULFA. ANTIMICROBIALS: 1. Rocephin. 2. Vancomycin. PHYSICAL EXAMINATION: GENERAL: Obese, well-developed, middle-aged white man who is alert, in no distress. HEENT: Head atraumatic, normocephalic. Sclerae anicteric. Buccal mucosa pink. NECK: Supple. CHEST: Rise symmetrical. Breath sounds clear. HEART: S1, S2. ABDOMEN: Soft, bowel tones present. EXTREMITIES: Bilateral feet dressings intact. ASSESSMENT: 1. Status post sepsis with shock. 2. S/p polymicrobial bacteremia secondary to #3. 3. Right foot osteomyelitis with cultures growing multi-drug resistant organisms. 4. Left foot diabetic ulceration. 5. Poorly controlled diabetes. 6. Morbid obesity. 7. Anemia. 8. Acute possibly on chronic kidney disease. PLAN: The patient remains stable, pending placement, continue antibiotics for 6 -8 weeks, local wound care per podiatry recommendations. DW staff Problems: Consultation Date/Type/Reason Admit Date/Time Mar 31, 2017 at 21:15 Initial Consult Date 04/01/17 Type of Consultation: ID Referring Provider: VINOD PEDRAZA MD Exam/Review of Systems Vital Signs Vitals Vital Signs Date Time Temp Pulse Resp B/P Pulse Ox O2 Delivery O2 Flow Rate FiO2 04/18/17 19:08 98.4 92 18 128/62 96 04/16/17 14:51 Room Air Intake and Output 04/17/17 04/17/17 04/18/17 15:00 23:00 07:00 Intake Total 2060 ml 830 ml Output Total 3200 ml 700 ml Balance -1140 ml 130 ml Results Result Diagram: 04/18/17 0510 Results 24 hrs Laboratory Tests Test 04/17/17 20:57 04/18/17 05:10 04/18/17 08:04 12/3/17 12:20 Bedside Glucose 115 155 139 Blood Urea Nitrogen 21 H Creatinine 1.22 Test 04/18/17 17:10 Bedside Glucose 143 Medications Medications Current Medications Ondansetron HCl (Zofran Inj) 4 mg Q6H PRN IV NAUSEA AND/OR VOMITING Last administered on 04/01/17 04:16; Admin Dose 4 MG; Start 03/31/17 at 21:30 Acetaminophen (Tylenol Tab) 650 mg Q6H PRN PO PAIN LEVEL 1-3 OR FEVER Last administered on 04/18/17 15:28; Admin Dose 650 MG; Start 03/31/17 at 21:30 Amitriptyline HCl (Elavil) 10 mg QHS PO Last administered on 04/17/17 20:54; Admin Dose 10 MG; Start 04/01/17 at 21:00 Aspirin (Halfprin) 81 mg DAILY PO Last administered on 04/18/17 08:48; Admin Dose 81 MG; Start 04/01/17 at 09:00 Atorvastatin Calcium (Lipitor) 80 mg QHS PO Last administered on 04/17/17 20: 55; Admin Dose 80 MG; Start 04/01/17 at 21:00 Metoprolol Tartrate (Lopressor) 100 mg QHS PO Last administered on 04/17/17 20 :55; Admin Dose 100 MG; Start 04/01/17 at 21:00 Dextrose (D50w Syringe) 25 ml Q15M PRN IV BS between 50-70; Start 04/01/17 at 07:30 Miscellaneous Information ([facility] This patient mims... PRN PRN XX WOUND CARE; Start 04/01/17 at 08:00 Lorazepam (Ativan) 1 mg Q6H PRN IV AGITATION/ANXIETY Last administered on 04/03 15:14; Admin Dose 1 MG; Start 04/01/17 at 12:00 IV Flush (NS 10 ml) 10 ml PRN PRN IV IV PROTOCOL; Start 04/01/17 at 13:30 Sodium Hypochlorite (Dakin'S (1/4 Strength)) 1 applic BID IRR Last administered on 04/18/17 09:03; Admin Dose 1 APPLIC; Start 04/01/17 at 21:00 Silver Sulfadiazine (Thermazene 1% 25 Gm) 1 applic BID TOP Last administered on 04/18/17 09:03; Admin Dose 1 APPLIC; Start 04/01/17 at 21:00 Oxycodone/ Acetaminophen (Endocet (10/ 325)) 1 tab Q4H PRN PO PAIN Last administered on 04/02/17 15:01; Admin Dose 1 TAB; Start 04/01/17 at 18:30 Diagnostic Test (Pha) (Accu-Chek) 1 ea 02 XX Last administered on 04/15/17 02 :06; Admin Dose 1 EA; Start 04/04/17 at 02:00 Miscellaneous Information 1 ea NOTE XX ; Start 04/03/17 at 10:00 Glucose (Glutose) 15 gm Q15M PRN PO DECREASED GLUCOSE; Start 04/03/17 at 10:00 Glucose (Glutose) 22.5 gm Q15M PRN PO DECREASED GLUCOSE; Start 04/03/17 at 10: 00 Dextrose (D50w Syringe) 25 ml Q15M PRN IV DECREASED GLUCOSE; Start 04/03/17 at 10:00 Dextrose (D50w Syringe) 50 ml Q15M PRN IV DECREASED GLUCOSE; Start 04/03/17 at 10:00 Glucagon (Glucagen) 1 mg Q15M PRN IM DECREASED GLUCOSE; Start 04/03/17 at 10: 00 Glucose (Glutose) 15 gm Q15M PRN BUCCAL DECREASED GLUCOSE; Start 04/03/17 at 10:00 Hydralazine HCl 10 mg 10 mg Q4H PRN IV ELEVATED SYSTOLIC BP Last administered on 04/11/17 20:52; Admin Dose 10 MG; Start 04/04/17 at 06:00 Ceftriaxone Sodium (Rocephin) 50 ml @ 100 mls/hr Q24H IVPB Last administered on 04/18/17 17:28; Admin Dose 100 MLS/HR; Start 04/05/17 at 16:30 Heparin Sodium (Porcine) (Heparin (5000 Units/0.5 ml)) 5,000 unit BID SC Last administered on 04/18/17 09:00; Admin Dose 5,000 UNIT; Start 04/05/17 at 21:00 Lisinopril (Zestril) 40 mg DAILY PO Last administered on 04/18/17 08:50; Admin Dose 40 MG; Start 04/07/17 at 09:00 Amlodipine Besylate (Norvasc) 5 mg DAILY PO Last administered on 04/18/17 08: 51; Admin Dose 5 MG; Start 04/09/17 at 09:00 Insulin Glargine (Lantus) 30 unit Q12 SC Last administered on 04/18/17 09:05; Admin Dose 30 UNIT; Start 04/14/17 at 21:00 Linagliptin (Tradjenta) 5 mg DAILY PO Last administered on 04/18/17 08:50; Admin Dose 5 MG; Start 04/15/17 at 09:00 Empaglifozin 10 mg 10 mg DAILY@08 PO Last administered on 04/18/17 08:50; Admin Dose 10 MG; Start 04/15/17 at 08:00 Vancomycin HCl/ Dextrose/Water (Vancocin/D5W) 150 ml @ 75 mls/hr Q12H IVPB Last administered on 04/18/17 15:25; Admin Dose 75 MLS/HR; Start 04/17/17 at 03 :00 Miscellaneous Information (*Rx Drug Level Order Reminder*) VANCO TROUGH @ 0, 200 ON ... ONCE ONCE XX ; Start 04/19/17 at 02:00; Stop 04/19/17 at 02:01 MEHRAN ZHANG NP Apr 18, 2017 19:57
[2017-04-18 20:25] VITALS: BP 133/70; PULSE 89
[2017-04-18] MEDS: AMITRIPTYLINE 10 MG TAB PO SCH (20:28)
[2017-04-18] MEDS: ATORVASTATIN 80 MG TAB PO SCH (20:29)
[2017-04-18] MEDS: METOPROLOL 100 MG TAB PO SCH (20:29)
[2017-04-19] MEDS: ACETAMINOPHEN 325 MG TAB PO PRN ×2 (00:01→17:27)
[2017-04-19 01:45] VITALS: BP 116/67; RESP 18
[2017-04-19] MEDS: ACCU-CHEK XX SCH (02:00)
[2017-04-19] MEDS: VANCOMYCIN 750 MG in DEXTROSE 5% 150 ML IVPB SCH ×2 (03:05→15:24)
[2017-04-19 08:11] VITALS: BP 124/72; RESP 18
[2017-04-19] MEDS: INSULIN ASPART [NOVOLOG] 3 ML PEN SC SCH ×6 (08:15→17:36)
[2017-04-19] MEDS: EMPAGLIFLOZIN 10 MG TABLET PO SCH (08:35)
[2017-04-19] MEDS: LISINOPRIL 20 MG TAB PO SCH (08:36)
[2017-04-19] MEDS: LINAGLIPTIN 5 MG TABLET PO SCH (08:36)
[2017-04-19] MEDS: ASPIRIN (EC) 81 MG TAB PO SCH (08:36)
[2017-04-19] MEDS: AMLODIPINE 5 MG TAB PO SCH (08:36)
[2017-04-19] MEDS: SODIUM HYPOCHLORITE 0.125% 473 ML BTL IRR SCH (08:38)
[2017-04-19] MEDS: HEPARIN 5,000 UNIT/0.5 ML VIAL SC SCH (08:43)
[2017-04-19] MEDS: SILVER SULFADIAZINE 1% 25 GM CR TOP SCH (12:07)
[2017-04-19] MEDS: INSULIN GLARGINE [LANtus] 3 ML PEN SC SCH (12:19)
--- NOTE | 2017-04-19 14:19 | CONS ---
Date/Time of Note Date/Time of Note DATE: 04/19/17 TIME: 14:19 Assessment/Plan Assessment/Plan Chief Complaint/Hosp Course SUBJECTIVE: No acute changes. Feels good, no fevers. MICROBIOLOGY: Blood culture on admission grew oxacillin-sensitive Staphylococcus aureus and beta hemolytic strep species. Right foot wound culture grew Morganella morganii, Staphylococcus aureus strep Proteus penneri. Left foot wound culture also grew Enterococcus species in addition to what grew in the right and pseudomonas, all sensitive to Rocephin except enterococcus. ALLERGIES: SULFA. ANTIMICROBIALS: 1. Rocephin. 2. Vancomycin. PHYSICAL EXAMINATION: GENERAL: Obese, well-developed, middle-aged white man who is alert, in no distress. HEENT: Head atraumatic, normocephalic. Sclerae anicteric. Buccal mucosa pink. NECK: Supple. CHEST: Rise symmetrical. Breath sounds clear. HEART: S1, S2. ABDOMEN: Soft, bowel tones present. EXTREMITIES: Bilateral feet dressings intact. ASSESSMENT: 1. Status post sepsis with shock. 2. S/p polymicrobial bacteremia secondary to #3. 3. Right foot osteomyelitis with cultures growing multi-drug resistant organisms. 4. Left foot diabetic ulceration. 5. Poorly controlled diabetes. 6. Morbid obesity. 7. Anemia. 8. Acute possibly on chronic kidney disease. PLAN: The patient remains stable, pending placement, continue antibiotics for 6 -8 weeks, local wound care per podiatry recommendations. DW staff Problems: Consultation Date/Type/Reason Admit Date/Time Mar 31, 2017 at 21:15 Initial Consult Date 04/01/17 Type of Consultation: ID Referring Provider: VINOD PEDRAZA MD Exam/Review of Systems Vital Signs Vitals Vital Signs Date Time Temp Pulse Resp B/P Pulse Ox O2 Delivery O2 Flow Rate FiO2 04/19/17 08:11 98.3 80 18 124/72 96 04/16/17 14:51 Room Air Intake and Output 04/18/17 04/18/17 04/19/17 15:00 23:00 07:00 Intake Total 1600 ml 350 ml Output Total 900 ml 500 ml Balance 700 ml -150 ml Results Result Diagram: 04/18/17 0510 Results 24 hrs Laboratory Tests Test 04/18/17 17:10 04/18/17 20:30 04/19/17 02:01 04/19/17 08:02 Bedside Glucose 143 125 139 Vancomycin Level Trough 15.3 Test 04/19/17 12:02 Bedside Glucose 178 Medications Medications Current Medications Ondansetron HCl (Zofran Inj) 4 mg Q6H PRN IV NAUSEA AND/OR VOMITING Last administered on 04/01/17 04:16; Admin Dose 4 MG; Start 03/31/17 at 21:30 Acetaminophen (Tylenol Tab) 650 mg Q6H PRN PO PAIN LEVEL 1-3 OR FEVER Last administered on 04/19/17 00:01; Admin Dose 650 MG; Start 03/31/17 at 21:30 Amitriptyline HCl (Elavil) 10 mg QHS PO Last administered on 04/18/17 20:28; Admin Dose 10 MG; Start 04/01/17 at 21:00 Aspirin (Halfprin) 81 mg DAILY PO Last administered on 04/19/17 08:36; Admin Dose 81 MG; Start 04/01/17 at 09:00 Atorvastatin Calcium (Lipitor) 80 mg QHS PO Last administered on 04/18/17 20: 29; Admin Dose 80 MG; Start 04/01/17 at 21:00 Metoprolol Tartrate (Lopressor) 100 mg QHS PO Last administered on 04/18/17 20 :29; Admin Dose 100 MG; Start 04/01/17 at 21:00 Dextrose (D50w Syringe) 25 ml Q15M PRN IV BS between 50-70; Start 04/01/17 at 07:30 Miscellaneous Information (Pending [facility] Order For Wound Care) This patient mims... PRN PRN XX WOUND CARE; Start 04/01/17 at 08:00 Lorazepam (Ativan) 1 mg Q6H PRN IV AGITATION/ANXIETY Last administered on 04/03 15:14; Admin Dose 1 MG; Start 04/01/17 at 12:00 IV Flush (NS 10 ml) 10 ml PRN PRN IV IV PROTOCOL; Start 04/01/17 at 13:30 Sodium Hypochlorite (Dakin'S (1/4 Strength)) 1 applic BID IRR Last administered on 04/19/17 08:38; Admin Dose 1 APPLIC; Start 04/01/17 at 21:00 Silver Sulfadiazine (Thermazene 1% 25 Gm) 1 applic BID TOP Last administered on 04/19/17 12:07; Admin Dose 1 APPLIC; Start 04/01/17 at 21:00 Oxycodone/ Acetaminophen (Endocet (10 325)) 1 tab Q4H PRN PO PAIN Last administered on 04/02/17 15:01; Admin Dose 1 TAB; Start 04/01/17 at 18:30 Diagnostic Test (Pha) (Accu-Chek) 1 ea 02 XX Last administered on 04/15/17 02 :06; Admin Dose 1 EA; Start 04/04/17 at 02:00 Miscellaneous Information 1 ea NOTE XX ; Start 04/03/17 at 10:00 Glucose (Glutose) 15 gm Q15M PRN PO DECREASED GLUCOSE; Start 04/03/17 at 10:00 Glucose (Glutose) 22.5 gm Q15M PRN PO DECREASED GLUCOSE; Start 04/03/17 at 10: 00 Dextrose (D50w Syringe) 25 ml Q15M PRN IV DECREASED GLUCOSE; Start 04/03/17 at 10:00 Dextrose (D50w Syringe) 50 ml Q15M PRN IV DECREASED GLUCOSE; Start 04/03/17 at 10:00 Glucagon (Glucagen) 1 mg Q15M PRN IM DECREASED GLUCOSE; Start 04/03/17 at 10: 00 Glucose (Glutose) 15 gm Q15M PRN BUCCAL DECREASED GLUCOSE; Start 04/03/17 at 10:00 Hydralazine HCl 10 mg 10 mg Q4H PRN IV ELEVATED SYSTOLIC BP Last administered on 04/11/17 20:52; Admin Dose 10 MG; Start 04/04/17 at 06:00 Ceftriaxone Sodium (Rocephin) 50 ml @ 100 mls/hr Q24H IVPB Last administered on 04/18/17 17:28; Admin Dose 100 MLS/HR; Start 04/05/17 at 16:30 Heparin Sodium (Porcine) (Heparin (5000 Units/0.5 ml)) 5,000 unit BID SC Last administered on 04/19/17 08:43; Admin Dose 5,000 UNIT; Start 04/05/17 at 21:00 Lisinopril (Zestril) 40 mg DAILY PO Last administered on 04/19/17 08:36; Admin Dose 40 MG; Start 04/07/17 at 09:00 Amlodipine Besylate (Norvasc) 5 mg DAILY PO Last administered on 04/19/17 08: 36; Admin Dose 5 MG; Start 04/09/17 at 09:00 Insulin Glargine (Lantus) 30 unit Q12 SC Last administered on 04/19/17 12:19; Admin Dose 30 UNIT; Start 04/14/17 at 21:00 Linagliptin (Tradjenta) 5 mg DAILY PO Last administered on 04/19/17 08:36; Admin Dose 5 MG; Start 04/15/17 at 09:00 Empaglifozin 10 mg 10 mg DAILY@08 PO Last administered on 04/19/17 08:35; Admin Dose 10 MG; Start 04/15/17 at 08:00 Vancomycin HCl/ Dextrose/Water (Vancocin/D5W) 150 ml @ 75 mls/hr Q12H IVPB Last administered on 04/19/17 03:05; Admin Dose 75 MLS/HR; Start 04/17/17 at 03 :00 MEHRAN ZHANG NP Apr 19, 2017 14:19
[2017-04-19 15:08] VITALS: BP 110/65; RESP 20
--- NOTE | 2017-04-19 16:39 | PDOCDIS ---
Discharge Instructions CONDITION Patient Condition: Good HOME CARE INSTRUCTIONS: Special Diet: CARB CONTROL ACTIVITY: Activity Restrictions: Weight Bearing (non weight bearing on feet ) FOLLOW UP/APPOINTMENTS Follow-up Plan FOLLOW UP WITH YOUR PRIMARY CARE PHYSICIAN IN 1-2 WEEKS, follow up with home health, follow-up with your pot annealer ALYSSA JOSEPH Apr 19, 2017 16:39
[2017-04-19] MEDS: CEFTRIAXONE 2 GM/50 ML (PMX) 50 ML IVPB SCH (16:44)
[2017-04-19] MEDS ORDERED: AMLO-145 PO (16:45)
[2017-04-19] MEDS ORDERED: LISI40TA9 PO (16:45)
--- NOTE | 2017-04-19 17:13 | DS ---
Date/Time of Note Date/Time of Note DATE: 04/19/17 TIME: 17:00 Discharge Summary Admission/Discharge Info Admit Date/Time Mar 31, 2017 at 21:15 Discharge Date/Time April 19, 2017 Discharge Diagnosis 1. Sepsis secondary to staph aureus and strep bacteremia from diabetic foot ulcer with OM -Status post I&D with podiatry -DC with vancomycin and Rocephin, to be continued via home health -Patient to follow-up with Dr Kimble of podiatry where he will need an MRI in the next 6-8 weeks -Continue wound care via home health 2. Acute kidney injury likely 2/2 sepsis-resolved 3. Hypernatremia-resolved - Encourage free water intake 4. Anemia of chronic disease 5. DMII w hyperglycemia -A1c at 7.0 -Continue home regimen 6. History of coronary artery disease - Continue home aspirin, statin, metoprolol 7. Urinary retention secondary to neurogenic bladder possibly from diabetes versus medications-resolved - Urology consultation appreciated 8. Hypertension DC with Norvasc and lisinopril Discontinue home lisinopril/hydrochlorthiazide combo Patient Condition: Good Hospital Course Patient is a 56-year-old male with history of diabetes, hypertension, and bilateral foot ulcers sent in from his wound care clinic for admission. His symptoms had been worsening and developed cellulitis and sepsis. Patient was found to have bacteremia with staph and strep secondary to ulcer. Patient was seen by podiatry and is status post I&D. Culture showed multiple organisms, patient was seen by ID and was started on vancomycin and Rocephin. Recommendation of both ID and podiatry was for long-term antibiotics for 6 weeks. Of note patient cannot obtain CT with contrast secondary to acute kidney injury which was from underlying sepsis. MRI could not be done secondary to swelling of foot. After discussion with podiatry was decided that for the time being imaging can be held off patient should continue with his antibiotics and is to follow-up with podiatry where an MRI will be obtained as an outpatient. Patient remained in house for prolonged period time while arrangements were being made for home health and long-term IV antibiotics. On the day of discharge patient's vitals, labs and physical exam are stable and no acute complaints and questions were answered. Home Meds Active Scripts Lisinopril* (Lisinopril*) 40 Mg Tablet, 40 MG PO DAILY, #60 TAB 1 Refill Prov:ALYSSA JOSEPH 04/19/17 Amlodipine Besylate* (Amlodipine Besylate*) 5 Mg Tablet, 5 MG PO DAILY, #60 TAB 1 Refill Prov:ALYSSA JOSEPH 04/19/17 Reported Medications Insulin Glargine* (Lantus*) 100 Unit/Ml Soln, 1 UNIT SC QHS, #1 VIAL 03/31/17 Hydrocodone/Acetaminophen ([place] 5-325 Tablet) 1 Each Tablet, 1 EACH PO, TAB 03/31/17 Amitriptyline Hcl* (Amitriptyline Hcl*) 10 Mg Tablet, 10 MG PO QHS, #30 TAB 03/31/17 Atorvastatin* (Atorvastatin*) 80 Mg Tablet, 80 MG PO QHS, #30 TAB 03/31/17 Fenofibrate (Triglide) 160 Mg Tablet, 160 MG PO DAILY, TAB 03/31/17 Insulin Aspart* (Novolog Insulin Pen*) 100 Unit/Ml Soln, 15 UNIT SC WITH MEALS BEDTIME, EA 03/31/17 Metformin Hcl* (Metformin Hcl*) 1,000 Mg Tablet, 1000 MG PO WITH BREAKFAST DINNE , #30 TAB 03/31/17 Omeprazole* (Omeprazole*) 20 Mg Capsule.dr, 20 MG PO QHS, #30 CAP 03/31/17 Aspirin Ec (Aspir 81) 81 Mg Tablet.dr, 81 MG PO DAILY, #30 TAB 03/31/17 Metoprolol Tartrate* (Lopressor*) 100 Mg Tablet, 100 MG PO QHS, #60 TAB 03/31/17 Ergocalciferol (Vitamin D2) (VITAMIN D2) 50,000 Unit Capsule, 63593 UNIT PO QMONDAYS, CAP 03/31/17 Glipizide* (Glipizide*) 5 Mg Tablet, 5 MG PO BID, TAB 03/31/17 Discontinued Reported Medications Sulfamethoxazole/Trimethoprim* (Bactrim Ds* Tablet) 1 Each Tablet, 1 TAB PO BID , TAB 03/31/17 Lisinopril/Hydrochlorothiazide (Lisinopril-Hctz 20-25 mg Tab) 1 Each Tablet, 1 EACH PO, TAB 03/31/17 Follow-up Plan FOLLOW UP WITH YOUR PRIMARY CARE PHYSICIAN IN 1-2 WEEKS, follow up with home health, follow-up with your motion picture set worker Primary Care Provider Not On Staff Doctor Time spent on discharge: > 30 minutes ALYSSA JOSEPH Apr 19, 2017 17:12
--- NOTE | 2017-04-19 18:32 | CONS ---
Date/Time of Note Date/Time of Note DATE: 04/19/17 TIME: 18:29 Assessment/Plan Assessment/Plan Problems: (1) Type 2 diabetes mellitus with hyperglycemia Status: Chronic Comment: Marked improvement. Glucose levels stable. Pt. ready for d/c home. Cont. current insulin doses and empagliflozin and linagliptin after d/c Qualifiers: Diabetes mellitus skilled nursing insulin use: with exterminator helper termite use Qualified Code : E11.65 - Type 2 diabetes mellitus with hyperglycemia, with long-term current use of insulin Consultation Date/Type/Reason Admit Date/Time Mar 31, 2017 at 21:15 Initial Consult Date 04/14/17 Type of Consultation: Endocrinology Reason for Consultation T2DM management Referring Provider: VINOD PEDRAZA MD 24 HR Interval Summary Constitutional: improved, no complaints Detailed Summary Respiratory: no complaints Cardiovascular: no complaints Gastrointestinal: no complaints Genitourinary: no complaints Musculoskeletal: no complaints Neurologic: no complaints Exam/Review of Systems Vital Signs Vitals VS - Last 72 Hours, by Label Date Time Temp Pulse Resp B/P Pulse Ox O2 Delivery O2 Flow Rate FiO2 04/19/17 15:08 98.5 102 20 110/65 95 04/19/17 08:11 98.3 80 18 124/72 96 04/19/17 01:45 98.7 77 18 116/67 94 04/18/17 20:25 89 133/70 04/18/17 19:08 98.4 92 18 128/62 96 04/18/17 14:40 98.2 92 18 137/72 95 04/18/17 07:55 98.0 90 18 128/72 95 04/18/17 02:29 98.5 81 16 132/69 96 04/17/17 20:20 97.7 96 18 141/71 95 04/17/17 14:42 97.9 100 18 133/76 95 04/17/17 08:09 97.7 85 14 127/68 93 04/17/17 02:26 98.1 84 18 115/61 93 04/16/17 19:57 98.7 102 20 142/64 93 Vital Signs Date Time Temp Pulse Resp B/P Pulse Ox O2 Delivery O2 Flow Rate FiO2 04/19/17 15:08 98.5 102 20 110/65 95 04/16/17 14:51 Room Air Intake and Output 04/18/17 04/18/1704/19/17 14:59 22:59 06:59 Intake Total 1600 ml 350 ml Output Total 900 ml 500 ml Balance 700 ml -150 ml Exam Constitutional: alert, obese, oriented Psych: nl mood/affect, no complaints Respiratory: clear to auscultation, normal air movement Cardiovascular: regular rate and rhythm, No edema, No murmurs/extra sounds, No rub Gastrointestinal: bowel sounds, nl liver, spleen, non-tender, soft, No mass, No rebound or guarding Musculoskeletal: No nl extremities to inspection (B feet wrapped) Extremities: No clubbing, No cyanosis, No edema Neurological: PLASTIC PARTS FABRICATOR TRIMMER II-XII intact, nl mental status, nl speech, nl strength Additional Comments Bedside Glucose - 72 Hours Test 04/16/17 20:23 04/17/17 07:55 04/17/17 12:08 04/17/17 17:23 Bedside Glucose 180mg/dL (70-220) 141mg/dL (70-220) 138mg/dL (70-220) 110mg/dL (70-220) Test 04/17/17 20:57 04/18/17 08:04 04/18/17 12:20 04/18/17 17:10 Bedside Glucose 115mg/dL (70-220) 155mg/dL (70-220) 139mg/dL (70-220) 143mg/dL (70-220) Test 04/18/17 20:30 04/19/17 08:02 04/19/17 12:02 04/19/17 17:21 Bedside Glucose 125mg/dL (70-220) 139mg/dL (70-220) 178mg/dL (70-220) 141mg/dL (70-220) Results Result Diagram: 04/18/17 0510 Results 24 hrs Laboratory Tests Test 04/18/17 20:30 04/19/17 02:01 04/19/17 08:02 04/19/17 12:02 Bedside Glucose 125 139 178 Vancomycin Level Trough 15.3 Test 04/19/17 17:21 Bedside Glucose 141 Medications Medications Current Medications Ondansetron HCl (Zofran Inj) 4 mg Q6H PRN IV NAUSEA AND/OR VOMITING Last administered on 04/01/17t 04:16; Admin Dose 4 MG; Start 03/31/17 at 21:30 Acetaminophen (Tylenol Tab) 650 mg Q6H PRN PO PAIN LEVEL 1-3 OR FEVER Last administered on 04/19/17 17:27; Admin Dose 650 MG; Start 03/31/17 at 21:30 Amitriptyline HCl (Elavil) 10 mg QHS PO Last administered on 04/18/17 20:28; Admin Dose 10 MG; Start 04/01/17 at 21:00 Aspirin (Halfprin) 81 mg DAILY PO Last administered on 04/19/17 08:36; Admin Dose 81 MG; Start 04/01/17 at 09:00 Atorvastatin Calcium (Lipitor) 80 mg QHS PO Last administered on 04/18/17 20: 29; Admin Dose 80 MG; Start 04/01/17 at 21:00 Metoprolol Tartrate (Lopressor) 100 mg QHS PO Last administered on 04/18/17 20 :29; Admin Dose 100 MG; Start 04/01/17 at 21:00 Dextrose (D50w Syringe) 25 ml Q15M PRN IV BS between 50-70; Start 04/01/17 at 07:30 Miscellaneous Information (Pending [facility] Order For Wound Care) This patient mims... PRN PRN XX WOUND CARE; Start 04/01/17 at 08:00 Lorazepam (Ativan) 1 mg Q6H PRN IV AGITATION/ANXIETY Last administered on 04/03 15:14; Admin Dose 1 MG; Start 04/01/17 at 12:00 IV Flush (NS 10 ml) 10 ml PRN PRN IV IV PROTOCOL; Start 04/01/17 at 13:30 Sodium Hypochlorite (Dakin'S (1/4 Strength)) 1 applic BID IRR Last administered on 04/19/17 08:38; Admin Dose 1 APPLIC; Start 04/01/17 at 21:00 Silver Sulfadiazine (Thermazene 1% 25 Gm) 1 applic BID TOP Last administered on 04/19/17 12:07; Admin Dose 1 APPLIC; Start 04/01/17 at 21:00 Oxycodone/ Acetaminophen (Endocet (10/ 325)) 1 tab Q4H PRN PO PAIN Last administered on 04/02/17 15:01; Admin Dose 1 TAB; Start 04/01/17 at 18:30 Diagnostic Test (Pha) (Accu-Chek) 1 ea 02 XX Last administered on 04/15/17 02 :06; Admin Dose 1 EA; Start 04/04/17 at 02:00 Miscellaneous Information 1 ea NOTE XX ; Start 04/03/17 at 10:00 Glucose (Glutose) 15 gm Q15M PRN PO DECREASED GLUCOSE; Start 04/03/17 at 10:00 Glucose (Glutose) 22.5 gm Q15M PRN PO DECREASED GLUCOSE; Start 04/03/17 at 10: 00 Dextrose (D50w Syringe) 25 ml Q15M PRN IV DECREASED GLUCOSE; Start 04/03/17 at 10:00 Dextrose (D50w Syringe) 50 ml Q15M PRN IV DECREASED GLUCOSE; Start 04/03/17 at 10:00 Glucagon (Glucagen) 1 mg Q15M PRN IM DECREASED GLUCOSE; Start 04/03/17 at 10: 00 Glucose (Glutose) 15 gm Q15M PRN BUCCAL DECREASED GLUCOSE; Start 04/03/17 at 10:00 Hydralazine HCl 10 mg 10 mg Q4H PRN IV ELEVATED SYSTOLIC BP Last administered on 04/11/17 20:52; Admin Dose 10 MG; Start 04/04/17 at 06:00 Ceftriaxone Sodium (Rocephin) 50 ml @ 100 mls/hr Q24H IVPB Last administered on 04/19/17 16:44; Admin Dose 100 MLS/HR; Start 04/05/17 at 16:30 Heparin Sodium (Porcine) (Heparin (5000 Units/0.5 ml)) 5,000 unit BID SC Last administered on 04/19/17 08:43; Admin Dose 5,000 UNIT; Start 04/05/17 at 21:00 Lisinopril (Zestril) 40 mg DAILY PO Last administered on 04/19/17 08:36; Admin Dose 40 MG; Start 04/07/17 at 09:00 Amlodipine Besylate (Norvasc) 5 mg DAILY PO Last administered on 04/19/17 08: 36; Admin Dose 5 MG; Start 04/09/17 at 09:00 Insulin Glargine (Lantus) 30 unit Q12 SC Last administered on 04/19/17 12:19; Admin Dose 30 UNIT; Start 04/14/17 at 21:00 Linagliptin (Tradjenta) 5 mg DAILY PO Last administered on 04/19/17 08:36; Admin Dose 5 MG; Start 04/15/17 at 09:00 Empaglifozin 10 mg 10 mg DAILY@08 PO Last administered on 04/19/17 08:35; Admin Dose 10 MG; Start 04/15/17 at 08:00 Vancomycin HCl/ Dextrose/Water (Vancocin/D5W) 150 ml @ 75 mls/hr Q12H IVPB Last administered on 04/19/17 15:24; Admin Dose 75 MLS/HR; Start 04/17/17 at 03 :00 EULALIA LEON MD Apr 19, 2017 18:32
[2017-04-19] MEDS ORDERED: EMPA10TA PO (18:36)
[2017-04-19] MEDS ORDERED: NOVO3I SC (18:36)
[2017-04-19] MEDS ORDERED: LINA5TAB PO (18:36)
[2017-04-19] MEDS ORDERED: LANT3I SC (18:36)
[2017-04-19 19:41] VITALS: BP 137/66; RESP 18
== END 2017-04-19 19:50 | disposition home health service (06) | DRG 853 ==
LOC: E/R 15:48 → MS4 21:15 → ICU 04-01 08:46 → MS2 04-04 18:00
PROVIDERS: ADMIT Family Medicine; ATTEND Family Medicine
PROC: 0KBV0ZZ Excision of Right Foot Muscle, Open Approach (ICD-10-PCS; principal; 2017-03-31)
PROC: 0JBR0ZZ Excision of Left Foot Subcutaneous Tissue and Fascia, Open Approach (ICD-10-PCS; 2017-03-31)
PROC: 0T9B70Z Drainage of Bladder with Drainage Device, Via Natural or Artificial Opening (ICD-10-PCS; 2017-04-01)
PROC: 02HV33Z Insertion of Infusion Device into Superior Vena Cava, Percutaneous Approach (ICD-10-PCS; 2017-04-01)
PROC: 30233N1 Transfusion of Nonautologous Red Blood Cells into Peripheral Vein, Percutaneous Approach (ICD-10-PCS; 2017-04-01)
DX: A41.01 Sepsis due to Methicillin susceptible Staphylococcus aureus (principal); E11.10 Type 2 diabetes mellitus with ketoacidosis without coma; N17.0 Acute kidney failure with tubular necrosis; J96.00 Acute respiratory failure, unspecified whether with hypoxia or hypercapnia; G93.41 Metabolic encephalopathy; R57.1 Hypovolemic shock; R65.21 Severe sepsis with septic shock; J81.0 Acute pulmonary edema; E87.2 Acidosis; D62 Acute posthemorrhagic anemia; E87.0 Hyperosmolality and hypernatremia; M86.9 Osteomyelitis, unspecified; L97.429 Non-pressure chronic ulcer of left heel and midfoot with unspecified severity; L97.419 Non-pressure chronic ulcer of right heel and midfoot with unspecified severity; L03.115 Cellulitis of right lower limb; Z68.42 Body mass index [BMI] 45.0-49.9, adult; E11.22 Type 2 diabetes mellitus with diabetic chronic kidney disease; E11.65 Type 2 diabetes mellitus with hyperglycemia; E11.621 Type 2 diabetes mellitus with foot ulcer; E87.5 Hyperkalemia; E11.42 Type 2 diabetes mellitus with diabetic polyneuropathy; E66.01 Morbid (severe) obesity due to excess calories; E83.42 Hypomagnesemia; E83.9 Disorder of mineral metabolism, unspecified; N31.9 Neuromuscular dysfunction of bladder, unspecified; N28.1 Cyst of kidney, acquired; I12.9 Hypertensive chronic kidney disease with stage 1 through stage 4 chronic kidney disease, or unspecified chronic kidney disease; A40.8 Other streptococcal sepsis; N18.9 Chronic kidney disease, unspecified; E78.5 Hyperlipidemia, unspecified; N20.0 Calculus of kidney; R33.0 Drug induced retention of urine; D50.9 Iron deficiency anemia, unspecified; E11.69 Type 2 diabetes mellitus with other specified complication; I25.10 Atherosclerotic heart disease of native coronary artery without angina pectoris; R33.9 Retention of urine, unspecified; R60.0 Localized edema; D50.0 Iron deficiency anemia secondary to blood loss (chronic); M20.61 Acquired deformities of toe(s), unspecified, right foot; Z89.422 Acquired absence of other left toe(s); Z79.4 Long term (current) use of insulin; Z88.6 Allergy status to analgesic agent; Z88.2 Allergy status to sulfonamides
CPT/HCPCS: 36415; 36430; 36569; 36600; 71010; 73630; 76775; 76937; 80048; 80053; 80061; 80202; 81001; 81003; 82043; 82565; 82803; 82962; 83036; 83540; 83605; 83735; 83930; 83935; 84100; 84300; 84443; 84484; 84520; 85025; 85610; 85730; 86850; 86900; 86901; 86920; 87040; 87070; 87081; 93005; 93306; 94664; 96374; 96375; 97110; 97161; 97530; 97542; J1940; J0360; J0692; J1644; J1815; J2060; J2270; J2405; J2543; J2997; J3370; J3475; J7030; J7050; J7070; L3260-LT; P9016

== ENCOUNTER 2017-10-28 05:52 | Inpatient (IN) | END 2017-11-03 15:10 | DRG 240 ==

== ENCOUNTER 2017-11-03 15:21 | Inpatient (IN) | END 2017-11-18 17:15 | disposition home health service (06) | DRG 560 ==

== ENCOUNTER 2017-12-03 21:29 | Inpatient (IN) | END 2017-12-26 18:57 | DRG 853 ==

== ENCOUNTER 2018-01-29 02:04 | Inpatient (IN) | END 2018-02-02 19:25 | DRG 871 ==